=== PATIENT | female | born 1950 | race Caucasian/White ===

== ENCOUNTER → 2016-04-06 | Outpatient (CLI) | payer MEDICARE, OTHER ==
[~2016-04-06] MED LIST: ACHD5005 PO; ASCO-262 PO; ATEN50TA; B12; BETA CAROTENE PO; BUDE6HFA IH; CHOL400C8 PO; E400C PO; ERGO400C; ESCT10T PO; FENO145T2 PO; GBPN400C PO; GLUC1CAP37 PO; HYDR-2997; HYDR50TA3 PO; LISI1TAB10 PO; MNTL10T PO; MULT-608 PO; NF-ESOM40C PO; OMG1KC; POME250C2 PO; POTA99TA25 PO; RT-ALBUTEROL SULF 2.5 MG/3 ML PRE-MIX VIAL INH ONE; RT-ALBUTEROL SULF 2.5 MG/3 ML PRE-MIX VIAL ONE; RT-COMBINH; TRAM50TA2 PO; [UNRECOGNIZED DRUG - CODE]
== END ==
LOC: RT 15:10
PROVIDERS: ATTEND Internal Medicine Critical Care Medicine
DX: R06.00 Dyspnea, unspecified (principal)
CPT/HCPCS: 94060; 94640; 94726; 94729

== ENCOUNTER 2016-04-26 10:00 | Outpatient (RCR) | payer MEDICARE, OTHER ==
[~2016-04-26 10:00] MED LIST changes: -RT-ALBUTEROL SULF 2.5 MG/3 ML PRE-MIX VIAL INH ONE; -RT-ALBUTEROL SULF 2.5 MG/3 ML PRE-MIX VIAL ONE
== END 2016-05-01 | disposition home or self-care (01) ==
LOC: PULM 10:00
PROVIDERS: ATTEND Internal Medicine
DX: J45.902 Unspecified asthma with status asthmaticus (principal)
CPT/HCPCS: 99211

== ENCOUNTER 2016-05-19 10:00 | Outpatient (RCR) | payer MEDICARE, OTHER | END 2016-08-03 | disposition home or self-care (01) | LOC: PULM 10:00 | PROVIDERS: ATTEND Internal Medicine | DX: J45.902 Unspecified asthma with status asthmaticus (principal) ==

== ENCOUNTER 2016-06-28 10:28 | Outpatient (RCR) | payer MEDICARE, OTHER | END 2016-07-13 13:19 | disposition home or self-care (01) | PROVIDERS: ATTEND Orthopaedic Surgery | DX: M19.011 Primary osteoarthritis, right shoulder (principal) ==

== ENCOUNTER → 2016-10-25 | Outpatient (CLI) | payer MEDICARE, OTHER ==
--- NOTE | 2016-10-25 16:36 | Diagnostic Imaging Report ---
PROCEDURE: MRI right joint lower extremity without contrast. TECHNIQUE: Multiplanar, multisequence non contrast-enhanced MRI of the right lower extremity was accomplished. INDICATION: Knee pain. Patient states swelling and popping after physical therapy. Pain is more lateral. FINDINGS: There is a small joint effusion present. The cruciate ligaments are intact. The medial collateral ligament and lateral collateral ligament complex are intact. The menisci show no definite tears. There is slight increased signal noted within the posterior horn medial consistent with mucoid degenerative change. There is normal appearing articular cartilage along the femoral condyles and tibial plateau as well as along the patellofemoral joint. No subcortical cystic changes are seen. No significant osteophyte formation noted. There are no loose bodies. The surrounding soft tissues appear normal. There is no popliteal cyst. IMPRESSION: 1. Small joint effusion is present. 2. Degenerative changes noted involving the medial meniscus though no definite full-thickness tear demonstrated. 3. No evidence of chondral defects or loose bodies. Dictated by: Dictated on workstation # [id number]
== END ==
LOC: RAD 13:36
PROVIDERS: ATTEND Orthopaedic Surgery
DX: M25.461 Effusion, right knee (principal); M17.11 Unilateral primary osteoarthritis, right knee
CPT/HCPCS: 73721

== ENCOUNTER 2016-12-20 10:08 | Outpatient (RCR) | payer MEDICARE, OTHER | END 2016-12-31 | disposition home or self-care (01) | PROVIDERS: ATTEND Orthopaedic Surgery | DX: M25.561 Pain in right knee (principal); M54.5 Low back pain ==

== ENCOUNTER → 2017-01-03 | Outpatient (CLI) | payer MEDICARE, OTHER | LOC: RAD 09:11 | PROVIDERS: ATTEND Internal Medicine | DX: Z12.31 Encounter for screening mammogram for malignant neoplasm of breast (principal) | CPT/HCPCS: 77067 ==

== ENCOUNTER → 2017-01-06 | Outpatient (CLI) | payer MEDICARE, OTHER ==
--- NOTE | 2017-01-06 19:23 | Diagnostic Imaging Report ---
PA and lateral views of the chest. INDICATION: Cough. FINDINGS: The lungs appear clear. The heart size is slightly enlarged. No effusion or pneumothorax. The mediastinum and cyril appear unremarkable. Cervical spine fusion hardware is noted. IMPRESSION: Mild cardiomegaly. Dictated by: Dictated on workstation # [id number]
== END ==
LOC: RAD 09:44
PROVIDERS: ATTEND Internal Medicine
DX: R05 Cough (principal)
CPT/HCPCS: 71020

== ENCOUNTER → 2017-01-10 | Outpatient (CLI) | payer MEDICARE, OTHER ==
--- NOTE | 2017-01-10 11:03 | Diagnostic Imaging Report ---
PROCEDURE: MRI right joint upper extremity without contrast. Technique: Multiplanar, multisequence MR imaging of the right shoulder was performed without contrast. Comparison: None available. Indication: Right shoulder pain. Findings: Rotator cuff: Supraspinatus and infraspinatus tendinopathy is present. There is low-grade partial-thickness interstitial tearing of the posterior insertional fibers of the supraspinatus. Mild tendinopathy of the subscapularis is also present. The teres minor is normal. Mild fatty atrophy of the supraspinatus. Other rotator cuff musculature is normal in bulk. Glenoid labrum: There is degenerative tearing of the labrum, which is most advanced along the posterior labrum at the chondral labral junction. No paralabral cyst. Long head of biceps: Long head of biceps is normally positioned within the bicipital groove. The intracapsular segment is intact. Bones and cartilage: No fracture or concerning focal osseous lesion. Multifocal full-thickness chondromalacia throughout the glenohumeral joint with associated osseous remodeling of the inferior humeral head with marginal osteophytes. Mild degenerative hypertrophic changes of the acromioclavicular joint. Soft tissues: Small glenohumeral joint effusion with synovitis. No MRI findings to suggest adhesive capsulitis. No fluid or inflammatory like signal within the subacromial/subdeltoid space to indicate bursitis. IMPRESSION: 1. Supraspinatus tendinopathy with superimposed low-grade partial-thickness interstitial tear. 2. Moderate osteoarthritis of the glenohumeral joint with multifocal full-thickness chondromalacia as well as a marginal osteophytes of the inferior humeral head. 3. Degenerative tearing of the glenoid labrum is greatest posteriorly. Dictated by: Dictated on workstation # [id number]
== END ==
LOC: RAD 09:32
PROVIDERS: ATTEND Orthopaedic Surgery
DX: M75.91 Shoulder lesion, unspecified, right shoulder (principal); M19.011 Primary osteoarthritis, right shoulder; M94.211 Chondromalacia, right shoulder; S46.811A Strain of other muscles, fascia and tendons at shoulder and upper arm level, right arm, initial encounter; S43.431A Superior glenoid labrum lesion of right shoulder, initial encounter; X58.XXXA Exposure to other specified factors, initial encounter; Y99.8 Other external cause status
CPT/HCPCS: 73221

== ENCOUNTER → 2017-01-26 | Outpatient (CLI) | payer MEDICARE, OTHER | LOC: CARD 09:08 | PROVIDERS: ATTEND Internal Medicine | DX: I51.7 Cardiomegaly (principal) | CPT/HCPCS: 93306 ==

== ENCOUNTER → 2017-03-13 | Outpatient (CLI) | payer MEDICARE, OTHER ==
--- NOTE | 2017-03-13 17:02 | Diagnostic Imaging Report ---
INDICATION: COUGH COMPARISON: 01/06/2017. FINDINGS: Frontal and lateral views of the chest demonstrate normal heart size and pulmonary vascularity. The lungs are clear. There are no signs of infiltrate, pleural effusions or pneumothoraces. The visualized osseous structures show no acute abnormalities. IMPRESSION: 1. No acute process. No signs of infiltrates, effusions or pneumothoraces. Dictated by: Dictated on workstation # [id number]
== END ==
LOC: RAD 16:04
PROVIDERS: ATTEND Internal Medicine
DX: R05 Cough (principal)
CPT/HCPCS: 71020

== ENCOUNTER 2017-04-23 13:23 | Emergency (ER) | payer MEDICARE, OTHER ==
[~2017-04-23] VITALS: Ht 154.9 cm; Wt 75.8 kg
--- OUTSIDE RECORDS SUMMARY | 2017-04-23 13:32 | XMS REPORT | Clinical Summary ---
Author Author User, [employer] Maribel Hernandez DO, FACP Address Unknown Phone Allergies, Adverse Reactions, Alerts Allergy Name Reaction Description Start Date Severity Status Provider ANECTINE Chest discomfort Severe Active Maribel Hernandez Conditions or Problems Problem Name Problem Code Onset Date Status Entry Date Provider Comment Standard Description Annotate ANEMIA NOS 285.9 Active Maribel Hernandez Anemia, unspecified POLYARTHRALGIA 719.49 Active Maribel Hernandez Pain in joint involving multiple sites HYPERTENSION 401.1 Active Maribel Hernandez Benign essential hypertension HYPOKALEMIA, MILD 276.8 Active Maribel Hernandez Hypopotassemia HEALTH SCREENING V70.0 Resolved Maribel Hernandez Routine general medical examination at a health care facility HYPERHIDROSIS 780.8 Active Maribel Hernandez Generalized hyperhidrosis ELBOW PAIN 719.42 Active Maribel Hernandez Pain in joint involving upper arm ABDOMINAL PAIN, RIGHT UPPER QUADRANT 789.01 Active Maribel Hernandez Abdominal pain, right upper quadrant PAIN IN THORACIC SPINE 724.1 Active Maribel Hernandez Pain in thoracic spine TORTICOLLIS 723.5 Active Maribel Hernandez Torticollis, unspecified Medication List Medication Instructions Start Date Stop Date Generic Name NDC Status Provider Patient Instruction VALIUM 2 MG TAB 1 PO TID prn DIAZEPAM 21280726356 Active Maribel April Hernandez AMITRIPTYLINE HCL 10 MG TABS 1 PO QHS AMITRIPTYLINE HCL 47646823945 No Longer Active Maribel April Mary MECLIZINE HCL 25 MG TAB 1 PO TID prn dizziness MECLIZINE HCL 76871669480 No Longer Active Maribel April Hernandez AMBIEN 5 MG TAB 1 PO QHS ZOLPIDEM TARTRATE 39422156512 Active Maribel April Hernandez PREMPRO 0.3-1.5 MG TABS 1 PO daily CONJ ESTROG- MEDROXYPROGEST AFSANEH 00508137191 No Longer Active Maribel April Hernandez POTASSIUM CHLORIDE ER 20 MEQ CR-TABS 1 PO daily POTASSIUM CHLORIDE 59034633209 Active Liliana Freitas OMEPRAZOLE 40 MG CPDR 1 PO BID OMEPRAZOLE 99642774939 Active Liliana Freitas ADVAIR DISKUS 250-50 MCG/DOSE MISC 1 Puff BID FLUTICASONE- SALMETEROL 75046699503 Active Liliana Freitas POMEGRANATE 250 MG CAPS 500mg po daily POMEGRANATE (PUNICA GRANATUM) 03825412467 Active Maribel April Hernandez VITAMIN B-12 1000 MCG TABS 2 PO daily CYANOCOBALAMIN 87238082569 Active Maribel April Hernandez CALTRATE 600 PLUS-VIT D 600-200 MG-IU TABS 1 PO BID CALCIUM-VITAMIN D Active Maribel April Hernandez GNP POTASSIUM 99 MG TABS 1 po daily POTASSIUM 35825512721 No Longer Active Maribel April Hernandez [facility] GLUCOSAMINE COMPLEX 200-300 MG TABS 1 PO daily GLUCOSAMINE HCL- GLUCOSAMIN SO4 06488634956 Active Maribel April Hernandez MULTIVITAMINS TABS 1 PO QD MULTIPLE VITAMIN Active Maribel April Hernandez TRICOR 145 MG TABS 1 PO daily FENOFIBRATE 84742425356 Active Liliana Freitas HYDROCHLOROTHIAZIDE 50 MG TABS 1 PO QD HYDROCHLOROTHIAZIDE 27832453419 Active Liliana Freitas GABAPENTIN 400 MG CAPS 1 PO QID GABAPENTIN 62133779645 Active Liliana Freitas ALPRAZOLAM 0.5 MG TABS 1 PO QHS ALPRAZOLAM 39086618519 Active Maribel Hernandez TRAMADOL HCL 50 MG TABS 1-2 PO q 6-8 hours PRN TRAMADOL HCL 42161031146 Active Maribel Hernandez LEXAPRO 10 MG TABS 1 PO QD ESCITALOPRAM OXALATE 57466330841 Active Liliana [place] NEXIUM 40 MG CPDR 1 PO QD ESOMEPRAZOLE MAGNESIUM 53621995799 No Longer Active Maribel Hernandez LISINOPRIL-HYDROCHLOROTHIAZIDE 20-25 MG TABS 1 PO QD LISINOPRIL-HYDROCHLOROTHIAZIDE 11735674860 Active Liliana Freitas Immunizations Vaccine Administration Date Value Standard Description Influenza vaccine given done influenza virus vaccine, unspecified formulation pneumococcal immunization administered done pneumococcal polysaccharide vaccine, 23 valent Vital Signs Date Name Value Unit Range Description blood pressure, diastolic - 8462-4 78 mm[Hg] BP sr blood pressure, systolic - 8480-6 140 mm[Hg] BP sys pulse rate E&M - 8867-4 90 /min Heart rate respiratory rate E&M - 9279-1 14 /min Resp rate blood pressure, diastolic - 8462-4 76 mm[Hg] BP sr blood pressure, systolic - 8480-6 136 mm[Hg] BP sys pulse rate E&M - 8867-4 78 /min Heart rate respiratory rate E&M - 9279-1 14 /min Resp rate weight E&M - 3141-9 165 [lb_av] Weight Measured blood pressure, diastolic - 8462-4 88 mm[Hg] BP sr blood pressure, systolic - 8480-6 136 mm[Hg] BP sys pulse rate E&M - 8867-4 82 /min Heart rate respiratory rate E&M - 9279-1 14 /min Resp rate weight E&M - 3141-9 162 [lb_av] Weight Measured blood pressure, diastolic - 8462-4 78 mm[Hg] BP sr blood pressure, systolic - 8480-6 118 mm[Hg] BP sys pulse rate E&M - 8867-4 78 /min Heart rate respiratory rate E&M - 9279-1 14 /min Resp rate weight E&M - 3141-9 162 [lb_av] Weight Measured blood pressure, diastolic - 8462-4 64 mm[Hg] BP sr blood pressure, systolic - 8480-6 120 mm[Hg] BP sys pulse rate E&M - 8867-4 84 /min Heart rate respiratory rate E&M - 9279-1 14 /min Resp rate blood pressure, diastolic - 8462-4 62 mm[Hg] BP sr blood pressure, systolic - 8480-6 140 mm[Hg] BP sys pulse rate E&M - 8867-4 84 /min Heart rate respiratory rate E&M - 9279-1 14 /min Resp rate weight E&M - 3141-9 161 [lb_av] Weight Measured blood pressure, diastolic - 8462-4 72 mm[Hg] BP sr blood pressure, systolic - 8480-6 135 mm[Hg] BP sys pulse rate E&M - 8867-4 94 /min Heart rate respiratory rate E&M - 9279-1 14 /min Resp rate temperature E&M 98.6 [degF] Body temperature weight E&M - 3141-9 161 [lb_av] Weight Measured Diagnostic Results Date Name Value Unit Range Description Clinical Lists Update: CBC,CMP,CHOL,TRIG,FERRITIN - Chemistry cholesterol, serum 105 mg/dL bilirubin, serum, total 0.4 mg/dL triglyceride, serum, fasting 187 mg/dL sodium, serum 134 mmol/L anion gap, serum 9 glucose, plasma fasting 83 mg/dL aspartate aminotransferase (SGOT), serum 40 U/L Estimated Glomerular Filtration Rate (calc) 89 mL/min/1.73m2 albumin, serum 4.2 g/dL alkaline phosphatase, serum 54 U/L urea nitrogen, blood 10 mg/dL calcium, serum 9.4 mg/dL chloride, serum 96 mmol/L alanine aminotransferase (SGPT), serum 38 U/L carbon dioxide, venous blood 33.0 mmol/L creatinine, serum 0.7 mg/dL ferritin, serum 32.6 ng/mL potassium, serum 3.7 mmol/L protein, total, serum 6.5 g/dL Clinical Lists Update: CBC,CMP,CHOL,TRIG,FERRITIN - Hematology hematocrit, blood 42.6 % red blood cell distribution width 13.8 % mean corpuscular volume, RBC 94 fL leukocyte count, blood 4.9 10*3/mm3 erythrocyte (RBC) count 4.53 10*6/mm3 platelet count 332 10*3/mm3 hemoglobin, blood 13.3 g/dL Clinical Lists Update: CBC,CMP,FLP - Chemistry albumin, serum 4.1 g/dL alkaline phosphatase, serum 77 U/L urea nitrogen, blood 6 mg/dL calcium, serum 9.4 mg/dL chloride, serum 98 mmol/L cholesterol, serum 114 mg/dL carbon dioxide, venous blood 29.0 mmol/L creatinine, serum 0.6 mg/dL HDL cholesterol, serum 68.0 mg/dL LDL cholesterol, serum 10 mg/dL potassium, serum 3.2 mmol/L protein, total, serum 6.6 g/dL aspartate aminotransferase (SGOT), serum 37 U/L bilirubin, serum, total 0.9 mg/dL triglyceride, serum, fasting 181 mg/dL sodium, serum 138 mmol/L anion gap, serum 14 cholesterol/HDL ratio, serum, percent 1.7 glucose, plasma fasting 92 mg/dL Estimated Glomerular Filtration Rate (calc) 101 mL/min/1.73m2 alanine aminotransferase (SGPT), serum 36 U/L Clinical Lists Update: CBC,CMP,FLP - Hematology red blood cell distribution width 12.3 % mean corpuscular volume, RBC 101 fL leukocyte count, blood 7.4 10*3/mm3 erythrocyte (RBC) count 4.78 10*6/mm3 platelet count 338 10*3/mm3 hemoglobin, blood 15.0 g/dL hematocrit, blood 48 % Encounters Code Encounter Date Provider Facility CPT-46650 Ofc Vst, Est Level III 14:28:58 CDT Maribelsantos Hernandez DO, FACP CPT-22649 Ofc Vst, Est Level III 12:43:24 CDT Maribel Hernandez DO, FACP CPT-10758 Ofc Vst, Est Level III 17:16:56 CDT Maribel Hernandez DO, FACP CPT-23134 Ofc Vst, Est Level III 12:35:54 CDT Maribelsantos Hernandez DO, FACP CPT-51518 Ofc Vst, Est Level IV 21:22:47 [employer] [employer] Maribel Hernandez DO, OLVIN CPT-07588 Ofc Vst, Est Level IV 15:53:33 [employer] Maribel Hernandez DO, FACP CPT-12319 Ofc Vst, New Level IV 15:50:27 CDT Maribel Hernandez DO, FACMarry Procedures Code Procedure Name Date Entry Date Standard Description CPT-93806 Preventive, Est, (40-64) 20:36:27 CDT
--- NOTE | 2017-04-23 13:35 | ED General ---
General Stated Complaint: DIZZINESS/DISORIENTED Source of Information: Patient Exam Limitations: No Limitations History of Present Illness Date Seen by Provider: Apr 23, 2017 Time Seen by Provider: 13:33 Initial Comments To ER per EMS from home with reports of dizziness and disorientation. Patient has a history of dizziness for many months. Last night she became so dizzy that she fell and she did strike her head. Today she noticed herself to be confused and summoned 911. EMS noted wheezing right upper lobe which cleared with a DuoNeb treatment in route to the hospital. She sees pulmonology Dr. Lyons for COPD and states that he wants to do a CAT scan of her chest but has not done it yet. Blood pressure not hospital was 84/56. She is afebrile Timing/Duration: 1-2 Days Severity: Moderate Associated Systoms: Cough Allergies and Home Medications Allergies Uncoded Allergies: ANECTINE/sUX (Allergy, Mild, 02/19/09) Home Medications Ascorbate Calcium 500 Mg Tablet, 500 MG PO DAILY, (Reported) Budesonide/Formoterol Fumarate 10.2 Gm Hfa.aer.ad, 2 PUFF IH BID, (Reported) Cefdinir 300 Mg Capsule, 300 MG PO BID, #10 Prescribed by: DORA CARDONA on 04/23/17 1530 Cholecalciferol (Vitamin D3) 400 Unit Capsule, 400 UNIT PO DAILY, (Reported) Escitalopram Oxalate 10 Mg Tablet, 10 MG PO DAILY, (Reported) Esomeprazole Mag Trihydrate 40 Mg Capsule.dr, 40 MG PO DAILY, (Reported) Fenofibrate,Micronized 145 Mg Tablet, 145 MG PO DAILY, (Reported) Gabapentin 400 Mg Cap, 400 MG PO QID PRN for PAIN, (Reported) NEEDED FOR PAIN Glucosa Prince 2KCL/Chondroitin Prince 1 Each Capsule, 1 TAB PO DAILY, (Reported) Hctz/Lisinopril 1 Tab Tablet, 1 TAB PO DAILY, (Reported) Hydrochlorothiazide 50 Mg Tablet, 50 MG PO DAILY, (Reported) Hydrocodone Bit/Acetaminophen 1 Each Tablet, 1-2 EACH PO Q4H PRN for PAIN, #30 Ref 1 1-2 tabs every 4-6 hrs. as needed for pain Prescribed by: RUBY GREWAL on 04/10/13 0230 Montelukast Sodium 10 Mg Tab, 10 MG PO HS, (Reported) Multivitamins 1 Tab Tablet, 1 TAB PO DAILY, (Reported) Pomegranate Fruit Extract 250 Mg Capsule, 250 MG PO DAILY, (Reported) Potassium Gluconate 99 Mg Tablet, 99 MG PO DAILY, (Reported) Tramadol Hcl 50 Mg Tablet, 50-100 MG PO Q4H PRN for PAIN, (Reported) EVERY 4-6 HRS. NEEDED FOR PAIN Vitamin E Acetate 400 Unit Capsule, 400 UNIT PO DAILY, (Reported) [Beta Carotene] , 25,000 UNIT PO DAILY Prescribed by: RUBY GREWAL on 04/09/13 0221 Constitutional: see HPI EENTM: see HPI Respiratory: see HPI, cough, short of breath Genitourinary: no symptoms reported Musculoskeletal: no symptoms reported Skin: no symptoms reported Psychiatric/Neurological: No Symptoms Reported Past Subufot-Vinzof-Ddrkhc Hx Immunizations Up To Date Tetanus Booster (TDap): More than 5yrs Date of Pneumonia Vaccine: Feb 16, 2012 Date of Influenza Vaccine: Jan 01, 2013 Reproductive System Hx Reproductive Disorders: No Sexually Transmitted Disease: No HIV/AIDS: No Gastrointestinal Gastrointestinal Disorders: Gall Bladder Disease Musculoskeletal Musculoskeletal Disorders: Fractures HEENT Loss of Vision: Denies Blood Transfusions Adverse Reaction to a Blood Tr: No (NEVER HAD BLOOD TRANSFUSION) Family Medical History Significant Family History: No Pertinent Family Hx Family Medial History: Family history: Hypertension 03 FATHER, Onset:Unknown Myocardial infarction 03 FATHER, Onset:60 years & older Stroke 03 MOTHER, Onset:Unknown Physical Exam Vital Signs Vital Sign - Last 12Hours 04/23/17 13:40 Temp 97.0 Pulse 74 Resp 20 B/P (MAP) 101/65 (77) Pulse Ox 97 O2 Delivery Room Air Capillary Refill : General Appearance: No Apparent Distress, WD/WN Eyes: Bilateral Eye Normal Inspection, Bilateral Eye PERRL, Bilateral Eye EOMI HEENT: PERRL/EOMI, TMs Normal Neck: Full Range of Motion, Normal Inspection Respiratory: Normal Breath Sounds, No Accessory Muscle Use, No Respiratory Distress Gastrointestinal: Normal Bowel Sounds, Soft Extremity: Normal Capillary Refill, Normal Inspection Neurologic/Psychiatric: Alert, Oriented x3, No Motor/Sensory Deficits, Other ( she is not confused or disoriented at this time) Skin: Normal Color, Warm/Dry Progress/Results/Core Measures Suspected Sepsis SIRS Temperature: Pulse: Respiratory Rate: Laboratory Tests 04/23/17 13:30: White Blood Count 12.1H Blood Pressure / Mean: Laboratory Tests 04/23/17 13:30: Creatinine 0.88, Platelet Count 275, Total Bilirubin 1.1H Results/Orders Lab Results Laboratory Tests Test 04/23/17 13:30 04/23/17 15:00 Range/Units White Blood Count 12.1 H 4.3-11.0 10^3/uL Red Blood Count 4.24 L 4.35-5.85 10^6/uL Hemoglobin 13.7 11.5-16.0 G/DL Hematocrit 39 35-52 % Mean Corpuscular Volume 93 80-99 FL Mean Corpuscular Hemoglobin 32 25-34 PG Mean Corpuscular Hemoglobin Concent 35 32-36 G/DL Red Cell Distribution Width 12.6 10.0-14.5 % Platelet Count 275 130-400 10^3/uL Mean Platelet Volume 8.7 7.4-10.4 FL Neutrophils (%) (Auto) 80 H 42-75 % Lymphocytes (%) (Auto) 7 L 12-44 % Monocytes (%) (Auto) 13 H 0-12 % Eosinophils (%) (Auto) 0 0-10 % Basophils (%) (Auto) 0 0-10 % Neutrophils # (Auto) 9.7 H 1.8-7.8 X 10^3 Lymphocytes # (Auto) 0.8 L 1.0-4.0 X 10^3 Monocytes # (Auto) 1.6 H 0.0-1.0 X 10^3 Eosinophils # (Auto) 0.0 0.0-0.3 10^3/uL Basophils # (Auto) 0.0 0.0-0.1 10^3/uL Neutrophils % (Manual) 82 % Lymphocytes % (Manual) 8 % Monocytes % (Manual) 10 % Eosinophils % (Manual) 0 % Basophils % (Manual) 0 % Band Neutrophils 0 % Blood Morphology Comment NORMAL Sodium Level 135 135-145 MMOL/L Potassium Level 3.0 L 3.6-5.0 MMOL/L Chloride Level 94 L 98-107 MMOL/L Carbon Dioxide Level 28 21-32 MMOL/L Anion Gap 13 5-14 MMOL/L Blood Urea Nitrogen 12 7-18 MG/DL Creatinine 0.88 0.60-1.30 MG/DL Estimat Glomerular Filtration Rate > 60 BUN/Creatinine Ratio 14 Glucose Level 120 H 70-105 MG/DL Calcium Level 8.4 L 8.5-10.1 MG/DL Total Bilirubin 1.1 H 0.1-1.0 MG/DL Aspartate Amino Transf (AST/SGOT) 93 H 5-34 U/L Alanine Aminotransferase (ALT/SGPT) 36 0-55 U/L Alkaline Phosphatase 66 40-136 U/L Total Protein 5.9 L 6.4-8.2 GM/DL Albumin 3.2 3.2-4.5 GM/DL Urine Color YELLOW Urine Clarity VERY CLOUDY H Urine pH 6.5 5-9 Urine Specific [place] 1.005 L 1.016-1.022 Urine Protein 2+ H NEGATIVE Urine Glucose (UA) NEGATIVE NEGATIVE Urine Ketones NEGATIVE NEGATIVE Urine Nitrite NEGATIVE NEGATIVE Urine Bilirubin NEGATIVE NEGATIVE Urine Urobilinogen NORMAL NORMAL MG/DL Urine Leukocyte Esterase 3+ H NEGATIVE Urine RBC (Auto) 3+ H NEGATIVE Urine RBC 2-5 H /HPF Urine WBC TNTC H /HPF Urine Squamous Epithelial Cells 5-10 /HPF Urine Crystals NONE /LPF Urine Bacteria MODERATE H /HPF Urine Casts NONE /LPF Urine Mucus NEGATIVE /LPF Urine Culture Indicated YES Micro Results Microbiology 04/23/17 Influenza Types A,B Antigen ([facility]) - Final, Complete My Orders Orders - DORA CARDONA [employer]LIND[employer]PERATOR 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 Cbc With Automated Diff (04/23/17 13:32) Comprehensive Metabolic Panel (04/23/17 13:32) Chest Pa/Lat (2 View) (04/23/17 13:32) Ekg Tracing (04/23/17 13:32) Saline Lock/Iv-Start (04/23/17 13:32) Ct Head Wo (04/23/17 13:32) Ua Culture If Indicated (04/23/17 13:32) Ct Chest W (04/23/17 13:32) Influenza A And B Antigens (04/23/17 13:35) Iohexol Injection (Omnipaque 350 Mg/Ml 1 (04/23/17 13:45) Ns (Ivpb) (Sodium Chloride 0.9% Ivpb Bag (04/23/17 13:45) Manual Differential (04/23/17 13:30) Albuterol/Ipra Inhalation Soln (Duoneb I (04/23/17 14:15) Svn Sm Volume Nebulizer Rt-Rfs (04/23/17 14:15) Urine Culture (04/23/17 15:00) Ceftriaxone Injection (Rocephin Injectio (04/23/17 15:30) Medications Given in ED Current Medications Medications Dose Ordered Sig/Doug Route Start Time Stop Time Status Last Admin Dose Admin Albuterol/ Ipratropium 3 ml ONCE ONCE INH 04/23/17 14:15 04/23/17 14:16 DC 04/23/17 15:22 3 ML Iohexol 75 ml ONCE ONCE IV 04/23/17 13:45 04/23/17 13:46 DC 04/23/17 14:00 75 ML Sodium Chloride 100 ml ONCE ONCE IV 04/23/17 13:45 04/23/17 13:46 DC 04/23/17 14:00 100 ML Vital Signs/I&O Vital Sign - Last 12Hours 04/23/17 04/23/17 13:40 15:23 Temp 97.0 Pulse 74 Resp 20 B/P (MAP) 101/65 (77) Pulse Ox 97 92 O2 Delivery Room Air Room Air Capillary Refill : Departure Communication (Admissions) Progress Notes 1540-blood pressure 137/79, heart rate 79, oxygen saturation 91-93% on room air. I will give 1 g of Rocephin IV then discharge to home she is still not confused, Impression Impression: Primary Impression: Urinary tract infection Disposition: 01 HOME, SELF-CARE Condition: Stable Departure-Patient Inst. Decision time for Depature: 15:29 Referrals: SUSI RENTERIA DO (PCP) Primary Care Physician Patient Instructions: Urinary Tract Infection, Adult (DC) Add. Discharge Instructions: 1. Antibiotics as directed starting tomorrow 2. Follow-up with Dr. Mcnamara this week for recheck 3. Return to ER for any fevers, worsening symptoms or other concerns. Scripts Cefdinir (Cefdinir) 300 Mg Capsule 300 MG PO BID, #10 CAP Prov: DORA CARDONA APRN 04/23/17 Copy Copies To 1: MIMI MCNAMARA PETER J APRN Apr 23, 2017 13:35
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
[2017-04-23] MEDS ORDERED: NS 100 ML (IVPB) BAG IV ONE (13:45)
[2017-04-23] MEDS ORDERED: IOHEXOL 350 MG/ML 100 ML (OMNIPAQUE 350) VIAL IV ONE (13:45)
[2017-04-23 13:49] LABS: BASOPHILS % (AUTO) 0 % (0-10); EOSINOPHILS % (AUTO) 0 % (0-10); HEMATOCRIT 39 % (35-52); HEMOGLOBIN 13.7 G/DL (11.5-16.0); LYMPHOCYTES # (AUTO) 0.8 X 10^3 (1.0-4.0); LYMPHOCYTES % (AUTO) 7 % (12-44); MEAN CORPUSCULAR HEMOGLOBIN 32 PG (25-34); MEAN CORPUSCULAR HGB CONC 35 G/DL (32-36); MEAN CORPUSCULAR VOLUME 93 FL (80-99); MEAN PLATELET VOLUME 8.7 FL (7.4-10.4); MONOCYTES # (AUTO) 1.6 X 10^3 (0.0-1.0); MONOCYTES % (AUTO) 13 % (0-12); NEUTROPHILS # (AUTO) 9.7 X 10^3 (1.8-7.8); NEUTROPHILS % (AUTO) 80 % (42-75); PLATELET COUNT 275 10^3/uL (130-400); RED BLOOD COUNT 4.24 10^6/uL (4.35-5.85); RED CELL DISTRIBUTION WIDTH 12.6 % (10.0-14.5); WHITE BLOOD COUNT 12.1 10^3/uL (4.3-11.0)
--- NOTE | 2017-04-23 13:57 | Diagnostic Imaging Report ---
INDICATION: Chronic cough and confusion. COMPARISON: Comparison made with prior examination from 03/13/2017. FINDINGS: There is cardiomegaly. There is some bibasilar subsegmental atelectasis and/or pneumonitis. There is no pleural effusion or pneumothorax. Mediastinum is unremarkable. IMPRESSION: Cardiomegaly with some bibasilar subsegmental atelectasis and/or pneumonitis. Dictated by: Dictated on workstation # [id number]
--- NOTE | 2017-04-23 14:07 | Diagnostic Imaging Report ---
PROCEDURE: CT head without contrast. TECHNIQUE: Multiple contiguous axial images were obtained through the brain without the use of intravenous contrast. INDICATION: Fall with dizziness. FINDINGS: There is prominence of the ventricles and sulci. There is no hydrocephalus or cerebral edema. There is no midline shift or mass-effect. There is no intracranial mass, hemorrhage, or extra-axial fluid collection. There is some diffuse decreased attenuation of the periventricular white matter which is nonspecific. The visualized paranasal sinuses and mastoid air cells are clear. There are no regional areas of decreased attenuation appreciated to suggest an acute CVA. IMPRESSION: 1. No acute intracranial process. 2. Age-appropriate atrophy. 3. Decreased attenuation of the periventricular white matter which is nonspecific, however, likely reflects senescent change and/or chronic small vessel ischemic disease. Dictated by: Dictated on workstation # [id number]
[2017-04-23 14:08] LABS: ALANINE AMINOTRANSFERASE 36 U/L (0-55); ALBUMIN 3.2 GM/DL (3.2-4.5); ALKALINE PHOSPHATASE 66 U/L (40-136); BILIRUBIN,TOTAL 1.1 MG/DL (0.1-1.0); BUN/CREATININE RATIO 14; CALCIUM 8.4 MG/DL (8.5-10.1); CARBON DIOXIDE 28 MMOL/L (21-32); CHLORIDE 94 MMOL/L (98-107); CREATININE SERUM 0.88 MG/DL (0.60-1.30); GFR ESTIMATED > 60; GLUCOSE 120 MG/DL (70-105); SODIUM 135 MMOL/L (135-145); TOTAL PROTEIN 5.9 GM/DL (6.4-8.2)
[2017-04-23] MEDS ORDERED: RT-ALBUTEROL/IPRATROPIUM 3 ML (DUONEB) VIAL INH ONE (14:15)
--- NOTE | 2017-04-23 14:22 | Diagnostic Imaging Report ---
PROCEDURE: CT chest with contrast only. TECHNIQUE: Multiple contiguous axial images were obtained through the chest after administration of intravenous contrast. INDICATION: Fell last night landed on the right lateral chest. Chest wall pain. FINDINGS: No evidence of rib fractures. There is good opacification of the aorta and pulmonary arteries. Aorta is atherosclerotic without aneurysm. Pulmonary arteries appear normal. Lungs are free of infiltrate. No mediastinal or hilar adenopathy of pathologic size. No pleural effusions or pericardial effusion. The adrenal glands are not enlarged. The small soft tissue density adjacent to the right lobe of the liver posteriorly just below the diaphragm is unchanged since 2014 exam and is consistent with ectopic or exophytic liver. There is noted hepatic steatosis IMPRESSION: 1. No acute findings are demonstrated. No evidence of rib fractures. No pneumothorax or pleural effusion. 2. Atherosclerotic changes of the aorta. 3. Hepatic steatosis. Dictated by: Dictated on workstation # [id number]
[2017-04-23 14:27] LABS: BAND NEUTROPHILS 0 %; BASOPHILS % (MANUAL) 0 %; EOSINOPHILS % (MANUAL) 0 %; LYMPHOCYTES % (MANUAL) 8 %; MONOCYTES % (MANUAL) 10 %; NEUTROPHILS % (MANUAL) 82 %
[2017-04-23 14:28] LABS: RBC MORPH NORMAL
[2017-04-23 15:09] LABS: BILIRUBIN,URINE NEGATIVE (NEGATIVE); CLARITY,URINE VERY CLOUDY; COLOR,URINE YELLOW; GLUCOSE, URINE (UA) NEGATIVE (NEGATIVE); KETONES,URINE NEGATIVE (NEGATIVE); LEUKOCYTE ESTERASE ,URINE 3+ (NEGATIVE); NITRITE,URINE NEGATIVE (NEGATIVE); PH,URINE 6.5 (5-9); PROTEIN,URINE 2+ (NEGATIVE); UROBILINOGEN,URINE NORMAL (NORMAL)
[2017-04-23 15:26] LABS: BACTERIA,URINE MODERATE /HPF; WBC,URINE TNTC /HPF
[2017-04-23] MEDS ORDERED: cefTRIAXone INJECTION 1,000 MG in D5W 50 ML IVPB SOLUTION 50 ML IV ONE (15:30)
[2017-04-23] MEDS ORDERED: CEFD300C3 PO (15:30)
[2017-04-23 16:37] VITALS: BP 141/70
[2017-04-24] MEDS ORDERED: LISI1TAB10 PO (08:38)
[2017-04-24] MEDS ORDERED: TIOT4MIS2 INH (08:38)
[2017-04-24] MEDS ORDERED: ALBU18HF2 INH (08:38)
[2017-04-24] MEDS ORDERED: FLUT1DIS26 INH (08:38)
[2017-04-24] MEDS ORDERED: ALPR0.5T7 PO ×2 (08:38→09:04)
[2017-04-24] MEDS ORDERED: TRAM50TA2 PO (08:38)
[2017-04-24] MEDS ORDERED: FENO145T2 PO (08:38)
[2017-04-24] MEDS ORDERED: POTA20TA8 PO (08:38)
[2017-04-24] MEDS ORDERED: ESCI10TA55 PO (08:38)
[2017-04-24] MEDS ORDERED: FLUT16SP22 NS (08:38)
[2017-04-24] MEDS ORDERED: MONT10TA24 PO (08:38)
[2017-04-24] MEDS ORDERED: CETI10TA17 PO (08:38)
[2017-04-24] MEDS ORDERED: HYDR25TA4 PO (08:38)
[2017-04-24] MEDS ORDERED: OMEP40CA36 PO (08:38)
[2017-04-24] MEDS ORDERED: POME250C2 PO (09:04)
[2017-04-24] MEDS ORDERED: [UNRECOGNIZED DRUG - CODE] PO (09:04)
[2017-04-24] MEDS ORDERED: CHOL400C9 PO (09:04)
[2017-04-24] MEDS ORDERED: GABA-490 PO (09:04)
[2017-04-24] MEDS ORDERED: MULT1TAB69 PO (09:04)
[2017-04-24] MEDS ORDERED: BETA2500 PO (09:04)
[2017-04-24] MEDS ORDERED: IBUP-30 PO (09:04)
[2017-04-24] MEDS ORDERED: ASCO-262 PO (09:04)
[2017-04-24] MEDS ORDERED: VITA400C60 PO (09:04)
[2017-04-24] MEDS ORDERED: ACET500C41 PO (09:07)
[2017-04-25] MEDS ORDERED: CEFD300C3 PO (11:47)
== END 2017-04-23 16:37 | disposition home or self-care (01) ==
LOC: EDUNIT# 13:23 → ER 13:25
DX: N39.0 Urinary tract infection, site not specified (principal); J44.9 Chronic obstructive pulmonary disease, unspecified; Z82.49 Family history of ischemic heart disease and other diseases of the circulatory system
CPT/HCPCS: 36415; 70450; 71046; 71260; 80053; 81000; 85007; 85027; 87077; 87088; 87186; 87804; 93005; 94640; 96365

== ENCOUNTER 2017-04-23 18:36 | Inpatient (IN) | payer MEDICARE, OTHER ==
[2017-04-23] VITALS (9 sets, daily range): BP systolic 102–123; BP diastolic 22–69
[~2017-04-23] VITALS: Ht 157.5 cm; Wt 74.8 kg
[~2017-04-23 18:36] MED LIST changes: +CEFD300C3 PO
[2017-04-23] MEDS ORDERED: IBUPROFEN 600 MG (MOTRIN) TAB PO ONE (18:45)
--- NOTE | 2017-04-23 18:45 | ED General ---
General Stated Complaint: AMS Source of Information: Patient Exam Limitations: No Limitations History of Present Illness Date Seen by Provider: Apr 23, 2017 Time Seen by Provider: 18:43 Initial Comments To ER with reports of being too weak to get out of the truck. Patient was seen here earlier today a few hours ago. The complaint that time was for disorientation which I did not find her to be on clinical exam. She did have a bladder infection with too numerous to count white cells in the urine. She was given 1 L of IV fluids, 1 g of Rocephin then discharged to home. Her white count was 12, vitals were stable with a blood pressure 137 over 70s, oxygen low 90% range on room air. At this time of arrival she returns with a heart rate of 105, blood pressure 157/82, oxygen saturation 85% on room air. Chest x-ray clear earlier today. Temperature 102 at this time. We will repeat labs per the sepsis protocol. states she needs to be admitted "for psych reasons". Timing/Duration: 1-2 Days Severity: Moderate Allergies and Home Medications Allergies Uncoded Allergies: ANECTINE/sUX (Allergy, Mild, 02/19/09) Home Medications Ascorbate Calcium 500 Mg Tablet, 500 MG PO DAILY, (Reported) Budesonide/Formoterol Fumarate 10.2 Gm Hfa.aer.ad, 2 PUFF IH BID, (Reported) Cefdinir 300 Mg Capsule, 300 MG PO BID, #10 Prescribed by: DORA CARDONA on 04/23/17 1530 Cholecalciferol (Vitamin D3) 400 Unit Capsule, 400 UNIT PO DAILY, (Reported) Escitalopram Oxalate 10 Mg Tablet, 10 MG PO DAILY, (Reported) Esomeprazole Mag Trihydrate 40 Mg Capsule.dr, 40 MG PO DAILY, (Reported) Fenofibrate,Micronized 145 Mg Tablet, 145 MG PO DAILY, (Reported) Gabapentin 400 Mg Cap, 400 MG PO QID PRN for PAIN, (Reported) NEEDED FOR PAIN Glucosa Prince 2KCL/Chondroitin Prince 1 Each Capsule, 1 TAB PO DAILY, (Reported) Hctz/Lisinopril 1 Tab Tablet, 1 TAB PO DAILY, (Reported) Hydrochlorothiazide 50 Mg Tablet, 50 MG PO DAILY, (Reported) Hydrocodone Bit/Acetaminophen 1 Each Tablet, 1-2 EACH PO Q4H PRN for PAIN, #30 Ref 1 1-2 tabs every 4-6 hrs. as needed for pain Prescribed by: RUBY GREWAL on 04/10/13 0230 Montelukast Sodium 10 Mg Tab, 10 MG PO HS, (Reported) Multivitamins 1 Tab Tablet, 1 TAB PO DAILY, (Reported) Pomegranate Fruit Extract 250 Mg Capsule, 250 MG PO DAILY, (Reported) Potassium Gluconate 99 Mg Tablet, 99 MG PO DAILY, (Reported) Tramadol Hcl 50 Mg Tablet, 50-100 MG PO Q4H PRN for PAIN, (Reported) EVERY 4-6 HRS. NEEDED FOR PAIN Vitamin E Acetate 400 Unit Capsule, 400 UNIT PO DAILY, (Reported) [Beta Carotene] , 25,000 UNIT PO DAILY Prescribed by: RUBY GREWAL on 04/09/13 0221 Constitutional: see HPI, chills, fever EENTM: see HPI Respiratory: no symptoms reported Cardiovascular: no symptoms reported Genitourinary: no symptoms reported Musculoskeletal: no symptoms reported Skin: no symptoms reported Psychiatric/Neurological: No Symptoms Reported Past Aclvwqi-Yxdkma-Eoxxeg Hx Patient Social History Alcohol Beverage of Choice: Scotch Former Smoker, Quit: Apr 03, 2001 Recent Foreign Travel: No Contact w/Someone Who Travel: No Recent Hopitalizations: Yes (03/19 SHOULDER SURGERY) Immunizations Up To Date Tetanus Booster (TDap): More than 5yrs Date of Pneumonia Vaccine: Feb 16, 2012 Date of Influenza Vaccine: Jan 04, 2017 Surgeries History of Surgeries: No (HIP BACK TENDONITIS; rt. wrist carpal tunnel) Surgeries: Gallbladder, Orthopedic Respiratory History of Respiratory Disorde: Yes (ALLERGIES COMBIVENT) Cardiovascular History of Cardiac Disorders: Yes Cardiac Disorders: Hypertension Neurological History of Neurological Disord: No Reproductive System Hx Reproductive Disorders: No Sexually Transmitted Disease: No HIV/AIDS: No Genitourinary History of Genitourinary Disor: No Gastrointestinal History of Gastrointestinal Di: Yes (COLON POLYPS/HIATAL HERNIA) Gastrointestinal Disorders: Gall Bladder Disease Musculoskeletal History of Musculoskeletal Dis: Yes (rt. hip replacement 08/31/10) Musculoskeletal Disorders: Fractures Endocrine History of Endocrine Disorders: No HEENT Loss of Vision: Denies Cancer History of Cancer: No Psychosocial History of Psychiatric Problem: No Integumentary History of Skin or Integumenta: No Blood Transfusions History of Blood Disorders: No (BLEEDS EASILY) Adverse Reaction to a Blood Tr: No (NEVER HAD BLOOD TRANSFUSION) Family Medical History Significant Family History: No Pertinent Family Hx Family Medial History: Family history: Hypertension 03 FATHER, Onset:Unknown Myocardial infarction 03 FATHER, Onset:60 years & older Stroke 03 MOTHER, Onset:Unknown Physical Exam Vital Signs Vital Sign - Last 12Hours 04/23/17 18:36 Pulse 105 Resp 24 B/P (MAP) 153/70 (97) Pulse Ox 92 O2 Delivery Nasal Cannula Capillary Refill : General Appearance: No Apparent Distress, WD/WN Eyes: Bilateral Eye Normal Inspection, Bilateral Eye PERRL, Bilateral Eye EOMI HEENT: PERRL/EOMI, TMs Normal Neck: Full Range of Motion, Normal Inspection Respiratory: Normal Breath Sounds, No Accessory Muscle Use, No Respiratory Distress Cardiovascular: Normal Peripheral Pulses, Tachycardia Gastrointestinal: Non Tender, Soft Back: Normal Inspection Extremity: Normal Capillary Refill, Normal Inspection, Other (too weak to stand without assistance) Neurologic/Psychiatric: Alert, Disoriented x3 Skin: Normal Color, Warm/Dry Focused Exam Evaluation Lactate Level Laboratory Tests 04/23/17 18:47: Lactic Acid Level 1.95 Lactic Acid Level Laboratory Tests Test 04/23/17 18:47 Lactic Acid Level 1.95 MMOL/L (0.50-2.00) Progress/Results/Core Measures Suspected Sepsis SIRS Temperature: Pulse: Respiratory Rate: Laboratory Tests 04/23/17 18:47: White Blood Count 11.6H Blood Pressure / Mean: Laboratory Tests 04/23/17 18:47: Lactic Acid Level 1.95 Laboratory Tests 04/23/17 18:47: Creatinine 0.85, Platelet Count 261 Results/Orders Lab Results Laboratory Tests Test 04/23/17 18:47 Range/Units White Blood Count 11.6 H 4.3-11.0 10^3/uL Red Blood Count 4.29 L 4.35-5.85 10^6/uL Hemoglobin 13.7 11.5-16.0 G/DL Hematocrit 40 35-52 % Mean Corpuscular Volume 93 80-99 FL Mean Corpuscular Hemoglobin 32 25-34 PG Mean Corpuscular Hemoglobin Concent 34 32-36 G/DL Red Cell Distribution Width 12.7 10.0-14.5 % Platelet Count 261 130-400 10^3/uL Mean Platelet Volume 8.5 7.4-10.4 FL Neutrophils (%) (Auto) 86 H 42-75 % Lymphocytes (%) (Auto) 3 L 12-44 % Monocytes (%) (Auto) 11 0-12 % Eosinophils (%) (Auto) 0 0-10 % Basophils (%) (Auto) 0 0-10 % Neutrophils # (Auto) 9.9 H 1.8-7.8 X 10^3 Lymphocytes # (Auto) 0.4 L 1.0-4.0 X 10^3 Monocytes # (Auto) 1.3 H 0.0-1.0 X 10^3 Eosinophils # (Auto) 0.0 0.0-0.3 10^3/uL Basophils # (Auto) 0.0 0.0-0.1 10^3/uL Sodium Level 135 135-145 MMOL/L Potassium Level 3.5 L 3.6-5.0 MMOL/L Chloride Level 94 L 98-107 MMOL/L Carbon Dioxide Level 23 21-32 MMOL/L Anion Gap 18 H 5-14 MMOL/L Blood Urea Nitrogen 11 7-18 MG/DL Creatinine 0.85 0.60-1.30 MG/DL Estimat Glomerular Filtration Rate > 60 BUN/Creatinine Ratio 13 Glucose Level 97 70-105 MG/DL Lactic Acid Level 1.95 0.50-2.00 MMOL/L Calcium Level 8.8 8.5-10.1 MG/DL My Orders Orders - DORA CARDONA APRN Ibuprofen Tablet (Motrin Tablet) (04/23/17 18:45) Cbc With Automated Diff (04/23/17 18:42) Basic Metabolic Panel (04/23/17 18:42) Blood Culture (04/23/17 18:42) Lactic Acid Analyzer (04/23/17 18:42) Vital Signs/I&O Vital Sign - Last 12Hours 04/23/17 18:36 Pulse 105 Resp 24 B/P (MAP) 153/70 (97) Pulse Ox 92 O2 Delivery Nasal Cannula Capillary Refill : Departure Communication (Admissions) Time/Spoke to Admitting Phy: 18:52 Communication I spoke with Dr. Victoria. We'll admit labs simply so that we did not fall out on the sepsis protocol, she did receive IV antibiotics earlier today during that visit so this may affect denies blood cultures, she did not receive blood cultures earlier today. Impression Impression: Primary Impression: Sepsis Additional Impressions: Altered mental status Urinary tract infection Disposition: ADMITTED INPATIENT Condition: Stable Admissions Decision to Admit Reason: Admit from ER (General) Decision to Admit/Date: Apr 23, 2017 Time/Decision to Admit Time: 18:52 Departure-Patient Inst. Decision time for Depature: 18:52 Referrals: NO,LOCAL PHYSICIAN (PCP/Family) Primary Care Physician DORA CARDONA APRN Apr 23, 2017 18:45
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
[2017-04-23 18:54] LABS: BASOPHILS % (AUTO) 0 % (0-10); EOSINOPHILS % (AUTO) 0 % (0-10); HEMATOCRIT 40 % (35-52); HEMOGLOBIN 13.7 G/DL (11.5-16.0); LYMPHOCYTES # (AUTO) 0.4 X 10^3 (1.0-4.0); LYMPHOCYTES % (AUTO) 3 % (12-44); MEAN CORPUSCULAR HEMOGLOBIN 32 PG (25-34); MEAN CORPUSCULAR HGB CONC 34 G/DL (32-36); MEAN CORPUSCULAR VOLUME 93 FL (80-99); MEAN PLATELET VOLUME 8.5 FL (7.4-10.4); MONOCYTES # (AUTO) 1.3 X 10^3 (0.0-1.0); MONOCYTES % (AUTO) 11 % (0-12); NEUTROPHILS # (AUTO) 9.9 X 10^3 (1.8-7.8); NEUTROPHILS % (AUTO) 86 % (42-75); PLATELET COUNT 261 10^3/uL (130-400); RED BLOOD COUNT 4.29 10^6/uL (4.35-5.85); RED CELL DISTRIBUTION WIDTH 12.7 % (10.0-14.5); WHITE BLOOD COUNT 11.6 10^3/uL (4.3-11.0)
[2017-04-23 19:09] LABS: BUN/CREATININE RATIO 13; CALCIUM 8.8 MG/DL (8.5-10.1); CARBON DIOXIDE 23 MMOL/L (21-32); CHLORIDE 94 MMOL/L (98-107); CREATININE SERUM 0.85 MG/DL (0.60-1.30); GFR ESTIMATED > 60; GLUCOSE 97 MG/DL (70-105); SODIUM 135 MMOL/L (135-145)
[2017-04-23 19:10] LABS: POTASSIUM 3.5 MMOL/L (3.6-5.0)
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
[2017-04-23] MEDS ORDERED: NS IV 1000 ML 1,000 ML ONE (20:26)
[2017-04-23] MEDS ORDERED: NS W/KCL 40 MEQ/L 1,000 ML IV ONE (20:33)
[2017-04-23] MEDS: NS W/KCL 40 MEQ/L 1,000 ML IV SCH (20:45)
[2017-04-23] MEDS ORDERED: IBUPROFEN 600 MG (MOTRIN) TAB PO PRN (22:30)
[2017-04-23] MEDS: cefTRIAXone 1 GM/D5W 50 ML IVPB IV SCH ×2 (22:30)
[2017-04-24] VITALS (14 sets, daily range): BP systolic 94–152; BP diastolic 40–88
[2017-04-24 05:05] LABS: BASOPHILS % (AUTO) 0 % (0-10); EOSINOPHILS # (AUTO) 0.1 10^3/uL (0.0-0.3); EOSINOPHILS % (AUTO) 1 % (0-10); HEMATOCRIT 38 % (35-52); HEMOGLOBIN 13.1 G/DL (11.5-16.0); LYMPHOCYTES # (AUTO) 0.7 X 10^3 (1.0-4.0); LYMPHOCYTES % (AUTO) 9 % (12-44); MEAN CORPUSCULAR HEMOGLOBIN 32 PG (25-34); MEAN CORPUSCULAR HGB CONC 34 G/DL (32-36); MEAN CORPUSCULAR VOLUME 95 FL (80-99); MEAN PLATELET VOLUME 8.5 FL (7.4-10.4); MONOCYTES % (AUTO) 11 % (0-12); NEUTROPHILS # (AUTO) 6.9 X 10^3 (1.8-7.8); NEUTROPHILS % (AUTO) 79 % (42-75); PLATELET COUNT 249 10^3/uL (130-400); RED BLOOD COUNT 4.06 10^6/uL (4.35-5.85); RED CELL DISTRIBUTION WIDTH 12.7 % (10.0-14.5); WHITE BLOOD COUNT 8.6 10^3/uL (4.3-11.0)
[2017-04-24 05:25] LABS: ALANINE AMINOTRANSFERASE 34 U/L (0-55); ALBUMIN 2.9 GM/DL (3.2-4.5); ALKALINE PHOSPHATASE 67 U/L (40-136); BILIRUBIN,TOTAL 0.7 MG/DL (0.1-1.0); BUN/CREATININE RATIO 15; CALCIUM 8.1 MG/DL (8.5-10.1); CARBON DIOXIDE 25 MMOL/L (21-32); CHLORIDE 98 MMOL/L (98-107); CREATININE SERUM 0.82 MG/DL (0.60-1.30); GFR ESTIMATED > 60; GLUCOSE 85 MG/DL (70-105); MAGNESIUM 1.7 MG/DL (1.8-2.4); PHOSPHORUS 2.4 MG/DL (2.3-4.7); POTASSIUM 3.2 MMOL/L (3.6-5.0); SODIUM 136 MMOL/L (135-145); TOTAL PROTEIN 5.4 GM/DL (6.4-8.2)
[2017-04-24] MEDS ORDERED: MAGNESIUM 1 GM/100 ML IVPB 100 ML IV SCH (06:00)
[2017-04-24] MEDS ORDERED: POTASSIUM CL 10MEQ/50ML IVPB 50 ML IV SCH (06:00)
[2017-04-24] MEDS ORDERED: KCL 20 MEQ TAB (K-DUR) PO SCH (06:00)
--- NOTE | 2017-04-24 06:29 | Pulmonary Consultation ---
History of Present Illness History of Present Illness Date of Consultation 04/24/17 06:23 Time Seen by Provider: 06:23 Date of Admission History of Present Illness 66 yo with hx of COPD presented to ED secondary to weakness, confusion, and disorientation. Pt was too weak to even get out of truck when brought her to ED. no prior episodes like this. Pt was found to be hypoxia and acute UTI. Temp was 102 upon arrival. I am consulted for Pulmonary management. Pt is feeling much better c/w admission. Allergies and Home Medications Allergies Uncoded Allergies: ANECTINE/sUX (Allergy, Mild, 02/19/09) Home Medications Ascorbate Calcium 500 Mg Tablet, 500 MG PO DAILY, (Reported) Budesonide/Formoterol Fumarate 10.2 Gm Hfa.aer.ad, 2 PUFF IH BID, (Reported) Cefdinir 300 Mg Capsule, 300 MG PO BID, #10 Prescribed by: DORA CARDONA on 04/23/17 1530 Cholecalciferol (Vitamin D3) 400 Unit Capsule, 400 UNIT PO DAILY, (Reported) Escitalopram Oxalate 10 Mg Tablet, 10 MG PO DAILY, (Reported) Esomeprazole Mag Trihydrate 40 Mg Capsule.dr, 40 MG PO DAILY, (Reported) Fenofibrate,Micronized 145 Mg Tablet, 145 MG PO DAILY, (Reported) Gabapentin 400 Mg Cap, 400 MG PO QID PRN for PAIN, (Reported) NEEDED FOR PAIN Glucosa Prince 2KCL/Chondroitin Prince 1 Each Capsule, 1 TAB PO DAILY, (Reported) Hctz/Lisinopril 1 Tab Tablet, 1 TAB PO DAILY, (Reported) Hydrochlorothiazide 50 Mg Tablet, 50 MG PO DAILY, (Reported) Hydrocodone Bit/Acetaminophen 1 Each Tablet, 1-2 EACH PO Q4H PRN for PAIN, #30 Ref 1 1-2 tabs every 4-6 hrs. as needed for pain Prescribed by: RUBY GREWAL on 04/10/13 0230 Montelukast Sodium 10 Mg Tab, 10 MG PO HS, (Reported) Multivitamins 1 Tab Tablet, 1 TAB PO DAILY, (Reported) Pomegranate Fruit Extract 250 Mg Capsule, 250 MG PO DAILY, (Reported) Potassium Gluconate 99 Mg Tablet, 99 MG PO DAILY, (Reported) Tramadol Hcl 50 Mg Tablet, 50-100 MG PO Q4H PRN for PAIN, (Reported) EVERY 4-6 HRS. NEEDED FOR PAIN Vitamin E Acetate 400 Unit Capsule, 400 UNIT PO DAILY, (Reported) [Beta Carotene] , 25,000 UNIT PO DAILY Prescribed by: RUBY GREWAL on 04/09/13 0221 Past Ezllxwc-Rcikaj-Zefoql Hx Patient Social History Alcohol Use: Rarely Uses Number of Drinks Today: EE Alcohol Beverage of Choice: Scotch Recreational Drug Use: No Smoking Status: Former Smoker Type Used: Cigarettes Former Smoker, Quit: Apr 03, 2001 Recent Foreign Travel: No Contact w/Someone Who Travel: No Recent Infectious Disease Expo: No Recent Hopitalizations: Yes (03/19 SHOULDER SURGERY) Immunizations Up To Date Tetanus Booster (TDap): More than 5yrs Date of Pneumonia Vaccine: Feb 16, 2012 Date of Influenza Vaccine: Jan 04, 2017 Surgeries History of Surgeries: No (HIP BACK TENDONITIS; rt. wrist carpal tunnel) Surgeries: Gallbladder, Orthopedic Respiratory History of Respiratory Disorde: Yes (ALLERGIES COMBIVENT) Currently Using CPAP: No Currently Using BIPAP: No Cardiovascular History of Cardiac Disorders: Yes Cardiac Disorders: Hypertension Neurological History of Neurological Disord: No Reproductive System : No Hx Reproductive Disorders: No Sexually Transmitted Disease: No HIV/AIDS: No Genitourinary History of Genitourinary Disor: No Gastrointestinal History of Gastrointestinal Di: Yes (COLON POLYPS/HIATAL HERNIA) Gastrointestinal Disorders: Gall Bladder Disease Musculoskeletal History of Musculoskeletal Dis: Yes (rt. hip replacement 08/31/10) Musculoskeletal Disorders: Chronic Back Pain, Fractures Endocrine History of Endocrine Disorders: No HEENT Loss of Vision: Bilateral Hearing Impairment: Denies Cancer History of Cancer: No Psychosocial History of Psychiatric Problem: No Integumentary History of Skin or Integumenta: No Blood Transfusions History of Blood Disorders: No (BLEEDS EASILY) Adverse Reaction to a Blood Tr: No (NEVER HAD BLOOD TRANSFUSION) Family Medical History Significant Family History: No Pertinent Family Hx Family Medial History: Family history: Hypertension 03 FATHER, Onset:Unknown Myocardial infarction 03 FATHER, Onset:60 years & older Stroke 03 MOTHER, Onset:Unknown Review of Systems Time Seen by Provider: 06:51 Constitutional: Fever, Sweats, Malaise Eyes: No: Pain, Vision change, Conjunctivae inflammation, Eyelid inflammation, Other, Redness ENT: Nose congestion Respiratory: Cough, Dry, Shortness of breath, SOB with excertion, No: Wheezing Cardiovascular: Paroxysmal Noc. Dyspnea Gastrointestinal: No: Nausea, Vomiting, Abdominal Pain, Diarrhea, Constipation , Melena, Hematochezia, Other Genitourinary: No Dysuria, No Frequency, No Incontinence, No Hematuria, No Retention, No Other Neurological: Weakness, Confusion Exam Exam Vital Signs Date Time Temp Pulse Resp B/P (MAP) Pulse Ox O2 Delivery O2 Flow Rate FiO2 04/24/17 06:00 67 14 105/40 (61) 98 Nasal Cannula 2.00 04/24/17 05:00 60 16 113/53 (73) 96 Nasal Cannula 2.00 04/24/17 04:00 66 23 119/58 (78) 96 Nasal Cannula 2.00 04/24/17 04:00 93 Nasal Cannula 2.00 04/24/17 03:00 60 13 94/51 (65) 95 Nasal Cannula 2.00 04/24/17 02:00 59 13 100/55 (70) 95 Nasal Cannula 2.00 04/24/17 01:00 66 04/24/17 01:00 66 18 109/61 (77) 93 Nasal Cannula 2.00 04/24/17 00:00 64 15 102/51 (68) 93 Nasal Cannula 2.00 04/24/17 00:00 93 Nasal Cannula 2.00 04/23/17 23:00 68 15 102/48 (66) 94 Nasal Cannula 2.00 04/23/17 22:00 81 18 102/22 (48) 93 Nasal Cannula 2.00 04/23/17 21:45 72 20 107/55 (72) 93 Nasal Cannula 2.00 04/23/17 21:30 74 16 109/55 (73) 93 Nasal Cannula 2.00 04/23/17 21:15 76 17 123/52 (75) 93 Nasal Cannula 2.00 04/23/17 21:00 78 13 112/55 (74) 92 Nasal Cannula 2.00 04/23/17 20:45 86 18 104/69 (81) 91 Nasal Cannula 2.00 04/23/17 20:30 86 24 110/60 (77) 94 Nasal Cannula 2.00 04/23/17 20:18 98.6 89 20 115/51 (72) 90 Nasal Cannula 2.00 04/23/17 20:18 89 04/23/17 20:10 92 Nasal Cannula 2.00 04/23/17 19:53 99.7 94 18 95 04/23/17 18:36 105 24 153/70 (97) 92 Nasal Cannula I & O 04/24/17 07:00 Intake Total 500 ml Output Total 350 ml Balance 150 ml General Appearance: No Apparent Distress, WD/WN, Anxious HEENT: PERRL/EOMI, TMs Normal Neck: Full Range of Motion, Normal Inspection Respiratory: Normal Breath Sounds, No Accessory Muscle Use, No Respiratory Distress Cardiovascular: Normal Peripheral Pulses, Tachycardia Capillary Refill: Less Than 3 Seconds Extremity: Normal Capillary Refill, Normal Inspection, Other (too weak to stand without assistance) Neurologic/Psychiatric: Alert, Disoriented x3 Skin: Normal Color, Warm/Dry Results Lab Laboratory Tests 04/23/17 18:47 04/24/17 04:40 Assessment/Plan Assessment/Plan Acute UTI -Continue Rocephin COPD hx - appears stable currently -SVNS, advair -pt follows with Dr. Mccarthy as out patient. -Oxygen -needs 02 eval prior to discharge Hypoxia upon admission -oxygen and monitor Tobacco hx Electrolyte disorder -replacement Pt is doing better will transfer to 4th floor. 255 Clinical Quality Measures DVT/VTE Risk/Contraindication: Risk Factor Score Per Nursin RFS Level Per Nursing on Admit: 2=Moderate HE MATHEWS DO Apr 24, 2017 06:29
[2017-04-24] MEDS: MAGNESIUM 1 GM/100 ML IVPB 100 ML IV SCH ×2 (06:30→07:27)
[2017-04-24] MEDS: NS W/KCL 40 MEQ/L 1,000 ML IV SCH ×3 (06:49→22:45)
[2017-04-24] MEDS ORDERED: RT-ALBUTEROL/IPRATROPIUM 3 ML (DUONEB) VIAL INH PRN (07:00)
[2017-04-24] MEDS ORDERED: KCL 20 MEQ TAB (K-DUR) PO ONE ×2 (07:00→09:00)
[2017-04-24] MEDS: RT-ALBUTEROL/IPRATROPIUM 3 ML (DUONEB) VIAL INH SCH ×4 (07:00→18:49)
[2017-04-24] MEDS ORDERED: HYDROcodone/APAP 5 MG/325 MG (LORTAB) TAB PO PRN (08:00)
[2017-04-24] MEDS ORDERED: RT-ADVAIR HFA 115/21 MCG PER PUFF IH SCH (08:00)
--- NOTE | 2017-04-24 08:13 | History & Physical-Hospitalist ---
HPI History of Present Illness: HPI/Chief Complaint Pt is a 66yoCF with a PMH of COPD, HTN who presented to the ER with CC of weakness and confusion. She was since in the ER earlier yesterday and found to have a UTI. She was doing well and was discharged to home. She quickly returned for worsening weakness, fever or 102 at home, and confusion. She was thus admitted. She reports feeling much better today. She believes her weakness to be due to her lack of eating lately as she has not felt well. She believes her urinary symptoms having been going on since her surgery on her shoulder 1 month ago. She has no complaints today. Source: patient Exam Limitations: no limitations Date Seen 04/24/17 Time Seen by Provider: 07:55 Attending Physician Maribel Hernandez DO PCP Maribel Hernandez DO Referring Physician Date of Admission Apr 23, 2017 at 19:20 Home Medications & Allergies Home Medications Reviewed patient Home Medication Reconciliation Form Allergies Allergies Uncoded Allergies ANECTINE/sUX ( Allergy, Mild, 02/19/09) Past Fpbjocv-Idpgjl-Iacwet Hx Patient Social History Marrital Status: Alcohol Use: Rarely Uses Number of Drinks Today: EE Alcohol Beverage of Choice: Seek[place]pach Recreational Drug Use: No Smoking Status: Former Smoker Former Smoker, Quit: Apr 03, 2001 Type Used: Cigarettes Physical Abuse Screen: No Sexual Abuse: No Recent Foreign Travel: No Contact w/other who traveled: No Recent Hopitalizations: Yes (03/19 SHOULDER SURGERY) Recent Infectious Disease Expo: No Immunizations Up To Date Tetanus Booster (TDap): More than 5yrs Date of Pneumonia Vaccine: Feb 16, 2012 Date of Influenza Vaccine: Jan 04, 2017 Surgeries No (HIP BACK TENDONITIS; rt. wrist carpal tunnel) Gallbladder, Orthopedic (shoulder, hip, back, hands, spine) Respiratory Yes (ALLERGIES COMBIVENT) COPD Currently Using CPAP: No Currently Using BIPAP: No Cardiovascular Yes Hypertension Neurological No Reproductive System : No Hx Reproductive Disorders: No Sexually Transmitted Disease: No HIV/AIDS: No Genitourinary No Gastrointestinal Yes (COLON POLYPS/HIATAL HERNIA) Gall Bladder Disease Musculoskeletal Yes (rt. hip replacement 08/31/10) Chronic Back Pain, Fractures Endocrine History of Endocrine Disorders: No HEENT Loss of Vision: Bilateral Hearing Impairment: Denies Cancer No Psychosocial History of Psychiatric Problem: No Integumentary History of Skin or Integumenta: No Blood Transfusions History of Blood Disorders: No (BLEEDS EASILY) Adverse Reaction to a Blood Tr: No (NEVER HAD BLOOD TRANSFUSION) Family Medical History Significant Family History: No Pertinent Family Hx Family Hx: Family history: Hypertension 03 FATHER, Onset:Unknown Myocardial infarction 03 FATHER, Onset:60 years & older Stroke 03 MOTHER, Onset:Unknown Review of Systems Constitutional: fever, weakness EENTM: no symptoms reported Respiratory: no symptoms reported Cardiovascular: No chest pain, No palpitations Gastrointestinal: No abdominal pain, loss of appetite Genitourinary: dysuria, incontinence Musculoskeletal: back pain Skin: no symptoms reported Psychiatric/Neurological: No Symptoms Reported Physical Exam Physical Exam Vital Signs Vital Sign - Last 12Hours 04/23/17 04/23/17 04/23/17 18:36 19:53 20:10 Temp 99.7 Pulse 105 Resp 24 B/P (MAP) 153/70 (97) Pulse Ox 92 O2 Delivery Nasal Cannula O2 Flow Rate 2.00 Capillary Refill : Less Than 3 Seconds General Appearance: No Apparent Distress, WD/WN HEENT: PERRL/EOMI, Moist Mucous Membranes Neck: Non Tender, Supple Respiratory: Lungs Clear, No Respiratory Distress Cardiovascular: Regular Rate, Rhythm, No Murmur Gastrointestinal: Normal Bowel Sounds, Non Tender, Soft Extremity: Normal Capillary Refill, No Calf Tenderness Neurologic/Psychiatric: Alert, Oriented x3, Normal Mood/Affect Skin: Normal Color, Warm/Dry Results Results/Procedures Lab Laboratory Tests 04/23/17 18:47 04/24/17 04:40 Assessment/Plan Admission Diagnosis UTI Diagnosis/Problems Diagnosis/Problems (1) Sepsis Status: Resolved Assessment & Plan: Sepsis on arrival due to UTI leukocytosis, febrile, and tachycardiac on arrival received Rocephin during first ER visit Blood cultures drawn during second ER visit Sepsis now resolved (2) Urinary tract infection Status: Acute Assessment & Plan: Continue Rocephin Await cultures (3) Altered mental status Status: Resolved Assessment & Plan: Resolved, feeling better (4) Essential (primary) hypertension Status: Chronic Assessment & Plan: Low to normotensive If BP improve will resume home meds (5) Hypokalemia Status: Acute Assessment & Plan: Replaced per protocol (6) COPD (chronic obstructive pulmonary disease) Status: Chronic Assessment & Plan: No baseline oxygen requirement Will attempt to titrate O2 Get home oxygen eval Clinical Quality Measures DVT/VTE Risk/Contraindication: Risk Factor Score Per Nursin RFS Level Per Nursing on Admit: 2=Moderate AGAPITO PÉREZ MD Apr 24, 2017 08:13
[2017-04-24] MEDS ORDERED: MONT10TA24 PO (08:38)
[2017-04-24] MEDS ORDERED: HYDR25TA4 PO (08:38)
[2017-04-24] MEDS ORDERED: TRAM50TA2 PO (08:38)
[2017-04-24] MEDS ORDERED: ALBU18HF2 INH (08:38)
[2017-04-24] MEDS ORDERED: OMEP40CA36 PO (08:38)
[2017-04-24] MEDS ORDERED: POTA20TA8 PO (08:38)
[2017-04-24] MEDS ORDERED: TIOT4MIS2 INH (08:38)
[2017-04-24] MEDS ORDERED: FENO145T2 PO (08:38)
[2017-04-24] MEDS ORDERED: ESCI10TA55 PO (08:38)
[2017-04-24] MEDS ORDERED: FLUT1DIS26 INH (08:38)
[2017-04-24] MEDS ORDERED: CETI10TA17 PO (08:38)
[2017-04-24] MEDS ORDERED: ALPR0.5T7 PO ×2 (08:38→09:04)
[2017-04-24] MEDS ORDERED: LISI1TAB10 PO (08:38)
[2017-04-24] MEDS ORDERED: FLUT16SP22 NS (08:38)
[2017-04-24] MEDS ORDERED: POME250C2 PO (09:04)
[2017-04-24] MEDS ORDERED: GABA-490 PO (09:04)
[2017-04-24] MEDS ORDERED: BETA2500 PO (09:04)
[2017-04-24] MEDS ORDERED: [UNRECOGNIZED DRUG - CODE] PO (09:04)
[2017-04-24] MEDS ORDERED: MULT1TAB69 PO (09:04)
[2017-04-24] MEDS ORDERED: CHOL400C9 PO (09:04)
[2017-04-24] MEDS ORDERED: IBUP-30 PO (09:04)
[2017-04-24] MEDS ORDERED: ASCO-262 PO (09:04)
[2017-04-24] MEDS ORDERED: VITA400C60 PO (09:04)
[2017-04-24] MEDS ORDERED: ACET500C41 PO (09:07)
--- NOTE | 2017-04-24 09:17 | Diagnostic Imaging Report ---
INDICATION: Weakness and right-sided chest pain. Time of exam: 5:06 AM Correlation is made with prior study from 04/23/2017. The heart size is stable. Lungs appear to be clear. No infiltrate or failure is detected. No effusion or pneumothorax is seen. Postop changes to the right shoulder and cervical spine are noted. IMPRESSION: Stable chest. No acute feature is detected. Dictated by: Dictated on workstation # [id number]
[2017-04-24] MEDS ORDERED: ALPRAZolam 0.5 MG (XANAX) TAB PO PRN (10:30)
[2017-04-24] MEDS ORDERED: RT-ALBUTEROL SULF 2.5 MG/3 ML PRE-MIX VIAL IH PRN (11:00)
[2017-04-24] MEDS: ACETAMINOPHEN 325 MG TABLET/CAPLET (TYLENOL) PO PRN ×2 (13:07→21:15)
[2017-04-24] MEDS: GABAPENTIN 400 MG (NEURONTIN) CAP PO SCH ×3 (13:07→22:30)
[2017-04-24] MEDS: KCL 20 MEQ TAB (K-DUR) PO SCH (17:22)
[2017-04-24] MEDS ORDERED: ALPRAZolam 1 MG (XANAX) TAB PO SCH (21:00)
[2017-04-24] MEDS ORDERED: FENOFIBRATE 134 MG (LOFIBRA) CAPSULE PO SCH (21:00)
[2017-04-24] MEDS ORDERED: MONTELUKAST 10 MG (SINGULAIR) TAB PO SCH (21:00)
[2017-04-24] MEDS ORDERED: LORazepam INJ 2 MG/ML (ATIVAN) VIAL ONE (22:24)
[2017-04-24] MEDS: PANTOPRAZOLE 40 MG (PROTONIX) TAB PO SCH (22:30)
[2017-04-24] MEDS: cefTRIAXone 1 GM/D5W 50 ML IVPB IV SCH ×2 (22:30)
[2017-04-24] MEDS ORDERED: LORazepam INJ 2 MG/ML (ATIVAN) VIAL IVP ONE (22:45)
[2017-04-25 00:38] VITALS: BP 139/74
[2017-04-25 04:00] VITALS: BP 151/68
[2017-04-25] MEDS: KCL 20 MEQ TAB (K-DUR) PO SCH (06:40)
--- NOTE | 2017-04-25 07:12 | Pulmonary Progress Note ---
Subjective Time Seen by Provider: 07:12 Subjective/Events-last exam Pt spiked fever of 101.5 last night. Exam Exam Vital Signs Date Time Temp Pulse Resp B/P (MAP) Pulse Ox O2 Delivery O2 Flow Rate FiO2 04/25/17 04:00 96.5 68 18 151/68 (95) 95 Nasal Cannula 2.00 04/25/17 00:38 98.9 76 18 139/74 (95) 97 Nasal Cannula 2.00 04/24/17 20:00 101.9 93 20 140/61 (87) 95 Nasal Cannula 2.00 04/24/17 18:49 95 Room Air 04/24/17 16:25 92 04/24/17 16:00 98.2 73 18 152/73 (99) 94 Nasal Cannula 2.00 04/24/17 12:00 99.9 91 18 145/78 (100) 92 Nasal Cannula 2.00 04/24/17 11:00 98.0 88 20 128/88 (101) 98 Nasal Cannula 2.00 04/24/17 10:48 96 21 04/24/17 10:40 Nasal Cannula 1.00 04/24/17 09:00 81 21 120/62 (81) 97 Nasal Cannula 2.00 04/24/17 08:07 Nasal Cannula 1.00 04/24/17 08:00 78 10 131/67 (88) 99 Nasal Cannula 2.00 04/24/17 08:00 93 Nasal Cannula 2.00 I & O 04/25/17 07:00 Intake Total 2744 ml Output Total 600 ml Balance 2144 ml General Appearance: No Apparent Distress, WD/WN HEENT: PERRL/EOMI, Moist Mucous Membranes Neck: Non Tender, Supple Respiratory: Lungs Clear, No Respiratory Distress Cardiovascular: Regular Rate, Rhythm, No Murmur Capillary Refill: Less Than 3 Seconds Extremity: Normal Capillary Refill, No Calf Tenderness Neurologic/Psychiatric: Alert, Oriented x3, Normal Mood/Affect Skin: Normal Color, Warm/Dry Results Lab Laboratory Tests 04/23/17 18:47 04/24/17 04:40 Assessment/Plan Assessment/Plan Acute UTI - Rocephin COPD -SVNS, advair -pt follows with Dr. Mccarthy as out patient. -Oxygen Fever Tm101.9 -repeat CXR -Check Influenza swab Hypoxia upon admission -oxygen and monitor Tobacco hx Electrolyte disorder -replacement Pt does qualify for home oxygen. Consult for home 02. 232 Clinical Quality Measures DVT/VTE Risk/Contraindication: Risk Factor Score Per Nursin RFS Level Per Nursing on Admit: 2=Moderate HE MATHEWS DO Apr 25, 2017 07:12
[2017-04-25] MEDS: RT-ALBUTEROL/IPRATROPIUM 3 ML (DUONEB) VIAL INH SCH ×2 (07:13→10:59)
[2017-04-25 08:00] VITALS: BP 121/58
[2017-04-25] MEDS ORDERED: UMECLIDINIUM BROMIDE (INCRUSE ELLIPTA) 7'S IH SCH (08:00)
[2017-04-25] MEDS ORDERED: RT-ADVAIR HFA 115/21 MCG PER PUFF IH SCH (08:00)
[2017-04-25 08:02] LABS: BASOPHILS % (AUTO) 0 % (0-10); EOSINOPHILS # (AUTO) 0.1 10^3/uL (0.0-0.3); EOSINOPHILS % (AUTO) 1 % (0-10); HEMATOCRIT 38 % (35-52); HEMOGLOBIN 12.8 G/DL (11.5-16.0); LYMPHOCYTES # (AUTO) 0.9 X 10^3 (1.0-4.0); LYMPHOCYTES % (AUTO) 14 % (12-44); MEAN CORPUSCULAR HEMOGLOBIN 31 PG (25-34); MEAN CORPUSCULAR HGB CONC 34 G/DL (32-36); MEAN CORPUSCULAR VOLUME 93 FL (80-99); MEAN PLATELET VOLUME 8.7 FL (7.4-10.4); MONOCYTES # (AUTO) 0.7 X 10^3 (0.0-1.0); MONOCYTES % (AUTO) 12 % (0-12); NEUTROPHILS # (AUTO) 4.4 X 10^3 (1.8-7.8); NEUTROPHILS % (AUTO) 73 % (42-75); PLATELET COUNT 248 10^3/uL (130-400); RED BLOOD COUNT 4.09 10^6/uL (4.35-5.85); RED CELL DISTRIBUTION WIDTH 12.5 % (10.0-14.5); WHITE BLOOD COUNT 6.1 10^3/uL (4.3-11.0)
[2017-04-25] MEDS: PANTOPRAZOLE 40 MG (PROTONIX) TAB PO SCH (08:02)
[2017-04-25] MEDS: GABAPENTIN 400 MG (NEURONTIN) CAP PO SCH (08:02)
[2017-04-25] MEDS: NS W/KCL 40 MEQ/L 1,000 ML IV SCH (08:06)
[2017-04-25 08:19] LABS: BUN/CREATININE RATIO 11; CALCIUM 8.2 MG/DL (8.5-10.1); CARBON DIOXIDE 20 MMOL/L (21-32); CHLORIDE 105 MMOL/L (98-107); CREATININE SERUM 0.63 MG/DL (0.60-1.30); GFR ESTIMATED > 60; GLUCOSE 85 MG/DL (70-105); MAGNESIUM 1.9 MG/DL (1.8-2.4); PHOSPHORUS 1.6 MG/DL (2.3-4.7); POTASSIUM 4.5 MMOL/L (3.6-5.0); SODIUM 136 MMOL/L (135-145)
--- NOTE | 2017-04-25 08:21 | Diagnostic Imaging Report ---
INDICATION: Weakness and sepsis. TIME OF EXAM: 4:32 a.m. Correlation is made with prior study one day earlier. The heart size is stable. There is bibasilar atelectasis or scarring. Mid and upper lung [place] are clear. No effusion or pneumothorax is seen. Postsurgical changes to the right shoulder and cervical spine are again noted. IMPRESSION: Mild bibasilar subsegmental atelectasis or scarring. Dictated by: Dictated on workstation # [id number]
[2017-04-25] MEDS ORDERED: FLUTICASONE NASAL SPRAY (FLONASE) 16 GM BTL NS SCH (09:00)
[2017-04-25] MEDS ORDERED: IBUPROFEN TABLET 200 MG TAB PO SCH (09:00)
[2017-04-25] MEDS ORDERED: lisINopril 20 MG (ZESTRIL) TAB PO SCH (09:00)
[2017-04-25] MEDS ORDERED: HYDROCHLOROTHIAZIDE 25 MG (HCTZ) TAB PO SCH (09:00)
[2017-04-25] MEDS ORDERED: LORATADINE (CLARITIN) 10 MG TAB PO SCH (09:00)
[2017-04-25] MEDS: cefTRIAXone 1 GM/D5W 50 ML IVPB IV SCH ×2 (10:40)
[2017-04-25] MEDS ORDERED: CEFD300C3 PO (11:47)
[2017-04-25 12:30] VITALS: BP 121/58
--- NOTE | 2017-04-25 13:07 | Discharge Summary-Hospitalist ---
Diagnosis/Chief Complaint Date of Admission Apr 23, 2017 at 7:20 pm Date of Discharge Discharge Date: Apr 25, 2017 Admission Diagnosis UTI Discharge Diagnosis (1) Sepsis Status: Resolved Assessment & Plan: Sepsis on arrival, now resolved due to UTI Urine culture grew e.coli sensitive to cephalosporins Will resume cefdinir as ordered on original ER visit Blood cultures negative (2) Urinary tract infection Status: Acute Assessment & Plan: Oral abx as above (3) Altered mental status Status: Resolved Assessment & Plan: Resolved, feeling better (4) Essential (primary) hypertension Status: Chronic Assessment & Plan: Resume home meds (5) Hypokalemia Status: Acute Assessment & Plan: Replaced per protocol (6) COPD (chronic obstructive pulmonary disease) Status: Chronic Assessment & Plan: Home o2 eval reveals 2lpm ambulatory need Discharge Summary Discharge Physical Examination Allergies: Coded Allergies: succinylcholine (Unverified Allergy, Unknown, 04/24/17) Vitals & I&Os Vital Signs Date Time Temp Pulse Resp B/P (MAP) Pulse Ox O2 Delivery O2 Flow Rate FiO2 04/25/17 10:59 93 Room Air 04/25/17 08:00 98.1 77 20 121/58 (79) 04/25/17 04:00 2.00 04/24/17 10:48 21 Hospital Course Pt was admitted for sepsis secondary to a UTI. Her altered mentation improved on arrival with fluids and antibiotics. Culture revealed e coli sensitive to cephalosporins. She was discharged to home and advised to pharmacy picking tech the antibiotic prescribed for her by the ER on her original visit (did not pharmacy picking tech as returned almost immediately to the ER). She was also found to have an ambulatory oxygen (2lpm) need and order was sent for DME. Labs (last 24 hrs) Laboratory Tests 04/25/17 07:55: White Blood Count 6.1, Red Blood Count 4.09L, Hemoglobin 12.8, Hematocrit 38, Mean Corpuscular Volume 93, Mean Corpuscular Hemoglobin 31, Mean Corpuscular Hemoglobin Concent 34, Red Cell Distribution Width 12.5, Platelet Count 248, Mean Platelet Volume 8.7, Neutrophils (%) (Auto) 73, Lymphocytes (%) (Auto) 14, Monocytes (%) (Auto) 12, Eosinophils (%) (Auto) 1, Basophils (%) (Auto) 0, Neutrophils # (Auto) 4.4, Lymphocytes # (Auto) 0.9L, Monocytes # (Auto) 0.7, Eosinophils # (Auto) 0.1, Basophils # (Auto) 0.0, Sodium Level 136, Potassium Level 4.5, Chloride Level 105, Carbon Dioxide Level 20L, Anion Gap 11, Blood Urea Nitrogen 7, Creatinine 0.63, Estimat Glomerular Filtration Rate > 60, BUN/ Creatinine Ratio 11, Glucose Level 85, Calcium Level 8.2L, Phosphorus Level 1.6L , Magnesium Level 1.9 Microbiology 04/23/17 Blood Culture - Preliminary, Resulted No growth 04/25/17 Influenza Types A,B Antigen (MAGDALENA) - Final, Complete Pending Labs Microbiology Date/Time Source Procedure Growth Status 04/25/17 08:40 Nasal Aspirate Influenza Types A,B Antigen (MAGDALENA) - Final Complete Laboratory Tests 04/25/17 07:55: White Blood Count 6.1, Red Blood Count 4.09, Hemoglobin 12.8, Hematocrit 38, Mean Corpuscular Volume 93, Mean Corpuscular Hemoglobin 31, Mean Corpuscular Hemoglobin Concent 34, Red Cell Distribution Width 12.5, Platelet Count 248, Mean Platelet Volume 8.7, Neutrophils (%) (Auto) 73, Lymphocytes (%) (Auto) 14, Monocytes (%) (Auto) 12, Eosinophils (%) (Auto) 1, Basophils (%) (Auto) 0, Neutrophils # (Auto) 4.4, Lymphocytes # (Auto) 0.9, Monocytes # (Auto) 0.7, Eosinophils # (Auto) 0.1, Basophils # (Auto) 0.0, Sodium Level 136, Potassium Level 4.5, Chloride Level 105, Carbon Dioxide Level 20, Anion Gap 11, Blood Urea Nitrogen 7, Creatinine 0.63, Estimat Glomerular Filtration Rate > 60, BUN/ Creatinine Ratio 11, Glucose Level 85, Calcium Level 8.2, Phosphorus Level 1.6, Magnesium Level 1.9 Discharge Home Medications: Active Scripts Active Cefdinir 300 Mg Capsule 300 Mg PO BID Reported Nac (Acetylcysteine) 500 Mg Capsule 500 Mg PO BID Beta Carotene (Beta-Carotene) 25,000 Unit Capsule 25,000 Unit PO DAILY Gabapentin 400 Mg Capsule 400 Mg PO QID LAST FILLED #241 10-06-16 Alprazolam 0.5 Mg Tablet 0.5 Mg PO DAILY PRN Advil (Ibuprofen) 200 Mg Tablet 200 Mg PO DAILY Pomegranate (Pomegranate Fruit Extract) 250 Mg Capsule 250 Mg PO DAILY Vitamin C (Ascorbate Calcium) 500 Mg Tablet 500 Mg PO DAILY Vitamin D3 (Cholecalciferol (Vitamin D3)) 400 Unit Capsule 400 Unit PO DAILY Vitamin E (Vitamin E Acetate) 400 Unit Capsule 400 Unit PO DAILY Multivitamins (Multivitamin) 1 Each Tablet 1 Tab PO DAILY Glucosamine Chondroitin [place] (Glucosa Prince 2Kcl/Chondroitin Prince) 1 Each Tablet 1 Tab PO DAILY Spiriva Respimat 2.5MCG/ACTUATION (Tiotropium [place]) 4 Gm Mist.inhal 2 Puff INH DAILY Ventolin Hfa (Albuterol Sulfate) 18 Gm Hfa.aer.ad 2 Puff INH Q4H PRN Tricor (Fenofibrate Nanocrystallized) 145 Mg Tablet 145 Mg PO DAILY Omeprazole 40 Mg Capsule.dr 40 Mg PO BID Advair 250-50 Diskus (Fluticasone/Salmeterol) 1 Each Blst.w.dev 1 Puff INH DAILY Hydrochlorothiazide 25 Mg Tablet 25 Mg PO DAILY Tramadol HCl 50 Mg Tablet 50 Mg PO Q6H PRN Lisinopril-Hctz 20-25 mg Tab (Lisinopril/Hydrochlorothiazide) 1 Each Tablet 1 Tab PO DAILY Klor-Con M20 (Potassium Chloride) 20 Meq Tab.er.prt 20 Meq PO BID Alprazolam 0.5 Mg Tablet 1 Mg PO HS TAKES 2 (0.5MG) TABLETS Cetirizine HCl 10 Mg Tablet 10 Mg PO DAILY Escitalopram Oxalate 10 Mg Tablet 10 Mg PO DAILY Montelukast Sodium 10 Mg Tablet 10 Mg PO HS Fluticasone Propionate 16 Gm Gordon.susp 2 Gordon NS DAILY Instructions to patient/family Please see electronic discharge instructions given to patient. Clinical Quality Measures DVT/VTE Risk/Contraindication: Risk Factor Score Per Nursin RFS Level Per Nursing on Admit: 2=Moderate Copy Copies To 1: MIMI MCNAMARA KATELYN M MD Apr 25, 2017 1:07 pm
== END 2017-04-25 12:30 | disposition home or self-care (01) | DRG 872 ==
LOC: EDUNIT# 18:36 → ER 18:37 → ICU 19:20 → 4TH 04-24 11:00
PROVIDERS: ADMIT Family Medicine; ATTEND Internal Medicine
DX: A41.9 Sepsis, unspecified organism (principal); N39.0 Urinary tract infection, site not specified; B96.20 Unspecified Escherichia coli [E. coli] as the cause of diseases classified elsewhere; R41.82 Altered mental status, unspecified; I10 Essential (primary) hypertension; J44.9 Chronic obstructive pulmonary disease, unspecified; R09.02 Hypoxemia; E87.6 Hypokalemia; M54.9 Dorsalgia, unspecified; K44.9 Diaphragmatic hernia without obstruction or gangrene; Z87.891 Personal history of nicotine dependence; Z96.641 Presence of right artificial hip joint; Z86.010 Personal history of colon polyps
CPT/HCPCS: 36415; 70450; 71045; 71046; 71260; 80048; 80053; 81000; 83605; 83735; 84100; 85007; 85025; 85027; 87040; 87077; 87081; 87088; 87186; 87804; 93005; 94640; 94760; 94761; 96365; 99285

== ENCOUNTER 2017-06-12 12:38 | Outpatient (RCR) | payer MEDICARE, OTHER ==
[~2017-06-12 12:38] MED LIST changes: +ACET500C41 PO; +ALBU18HF2 INH; +ALPR0.5T7 PO; +BETA2500 PO; +CETI10TA17 PO; +CHOL400C9 PO; +ESCI10TA55 PO; +FLUT16SP22 NS; +FLUT1DIS26 INH; +GABA-490 PO; +HYDR25TA4 PO; +IBUP-30 PO; +MONT10TA24 PO; +MULT1TAB69 PO; +OMEP40CA36 PO; +POTA20TA8 PO; +TIOT4MIS2 INH; +VITA400C60 PO; +[UNRECOGNIZED DRUG - CODE] PO
== END 2017-09-10 | disposition home or self-care (01) ==
LOC: PULM 12:38
PROVIDERS: ATTEND Internal Medicine Critical Care Medicine
DX: J44.9 Chronic obstructive pulmonary disease, unspecified (principal)
CPT/HCPCS: 99211

== ENCOUNTER 2017-06-29 13:56 | Outpatient (RCR) | payer MEDICARE, OTHER | END 2017-07-18 | disposition home or self-care (01) | PROVIDERS: ATTEND Nurse Practitioner Family | DX: Z47.1 Aftercare following joint replacement surgery (principal); Z96.611 Presence of right artificial shoulder joint ==

== ENCOUNTER → 2017-11-13 | Outpatient (CLI) | payer MEDICARE, OTHER ==
[~2017-11-13] MED LIST changes: +REGADENOSON 0.4 MG/5 ML SYR (LEXISCAN) IV ONE
[2017-11-13] MEDS: CATHETER FLUSH 10 ML SYR IV PRN ×2 (08:23→09:40)
[2017-11-13 09:38] VITALS: BP 113/62
--- NOTE | 2017-11-13 13:17 | STRESS TEST ---
DATE OF SERVICE: 11/13/2017 LEXISCAN MYOVIEW STRESS TEST REPORT Baseline heart rate is 64. Baseline blood pressure 147/71. Baseline EKG, sinus rhythm with no ischemic changes. In summary, the patient was injected with 9.64 mCi of technetium-99 Myoview and the resting images were obtained. Then, the patient received 0.4 mg of Lexiscan followed by 29.5 mCi of technetium-99 Myoview. Throughout the test, there were no EKG changes. The resting and stress images were reviewed and compared in the short axis, horizontal long axis, and vertical long axis views. Review of the images showed extracardiac attenuation with no significant ischemia or infarction on SPECT images. SSS is 2, SDS 2, TID value 1.09. On the gated images, the left ventricle appeared to be in normal size with normal contractility. Calculated ejection fraction of 72%. CONCLUSION: 1. The patient tolerated Lexiscan well. 2. Extracardiac attenuation affecting the quality of the images with no significant ischemia or infarction on SPECT images. 3. Normal left ventricular size with normal contractility. Calculated ejection fraction of 72%. Job ID: [id number] DocumentID: [id number] Dictated Date: 11/13/2017 12:37:51 Electrical Test Technician Date: 11/13/2017 13:17:04 Dictated By: KING ROCHA MD
== END ==
LOC: CARD 08:01
PROVIDERS: ATTEND Internal Medicine Cardiovascular Disease
DX: I35.1 Nonrheumatic aortic (valve) insufficiency (principal); J44.9 Chronic obstructive pulmonary disease, unspecified; I51.9 Heart disease, unspecified; R06.00 Dyspnea, unspecified; F17.201 Nicotine dependence, unspecified, in remission
CPT/HCPCS: 78452; 93017

== ENCOUNTER → 2018-03-01 | Outpatient (CLI) | payer MEDICARE, OTHER ==
[~2018-03-01] MED LIST changes: -REGADENOSON 0.4 MG/5 ML SYR (LEXISCAN) IV ONE
--- NOTE | 2018-03-01 15:10 | Diagnostic Imaging Report ---
INDICATION: Postmenopausal screening for osteoporosis. COMPARISON: 12/08/2000. FINDINGS: AP Spine L1-L4: [BMD (g/cm2): 1.494] [T-Score: 2.4] [Z-Score: 3.8] [BMD Previous: 1.67] [BMD % Change: -11.4] LT Hip Neck: [BMD (g/cm2): 0.880] [T-Score: -1.1] [Z-Score: 0.3] LT Hip Total: [BMD (g/cm2):0.970] [T-Score:-0.3] [Z-Score: 0.8] [BMD Previous: 1.039] [BMD % Change: -6.6] RT Hip Neck: [BMD (g/cm2): ] [T-Score: ] [Z-Score: ] RT Hip Total: [BMD (g/cm2): ] [T-score: ] [Z-Score: ] [BMD Previous: ] [BMD % Change: ] *Indicates significant change from prior examination based on 95% confidence level. World Health Organization criteria for BMD interpretation classify patients as Normal (T-score at or above -1.0), Osteopenic (T-score between -1.0 and -2.5) or Osteoporotic (T-score at or below -2.5). LIMITATIONS AND MODIFICATION: Patient has undergone right hip replacement. FRACTURE RISK (FRAX SCORE): The ten year probability of (%): Major Osteoporotic Fracture: [ ] Hip Fracture: [ ] IMPRESSION: 1. Normal bone mineral density. 2. Bone mineral density has decreased by a statistically significant amount, as detailed above. 3. See below National Osteoporosis Foundation guidelines on when to potentially initiate pharmacologic therapy. Based on the National Osteoporosis Foundation Guidelines, pharmacologic treatment should be initiated in any of the following, unless clinical conditions suggest otherwise: * Any patient with prior fragility fracture of the hip or vertebrae. A spine fracture indicates 5X risk for subsequent spine fracture and 2X risk for subsequent hip fracture. * Osteoporosis (T-score <-2.5). * Postmenopausal women and men age 50 and older with low bone mass/osteopenia (T-score between -1.0 and -2.5) by DXA and 10-year major osteoporotic fracture greater than 20% or a 10-year probability of hip fracture greater than 3%. These fracture risks are supplied above in the FRAX score, if applicable. * Clinician judgment and/or patient preferences may indicate treatment for people with 10-year fracture probabilities above or below these levels. Dictated by: Dictated on workstation # [id number]
== END ==
LOC: RAD 08:54
PROVIDERS: ATTEND Nurse Practitioner Family
DX: Z13.820 Encounter for screening for osteoporosis (principal); M81.0 Age-related osteoporosis without current pathological fracture; Z78.0 Asymptomatic menopausal state
CPT/HCPCS: 77080

== ENCOUNTER → 2018-03-05 | Outpatient (CLI) | payer MEDICARE, OTHER ==
--- NOTE | 2018-03-05 15:39 | Diagnostic Imaging Report ---
INDICATION: RT FOOT AND ANKLE SWELLING AND PAIN COMPARISON: None. FINDINGS: Three views of the right ankle were obtained. There is no acute fracture or dislocation. Small plantar calcaneal enthesophyte is noted. No focal osseous lesions are seen. There is mild generalized soft tissue edema. There are no radiopaque foreign bodies. IMPRESSION: 1. Mild generalized soft tissue edema, but no radiographic evidence of acute fracture or dislocation of the right ankle. Dictated by: Dictated on workstation # [id number]
--- NOTE | 2018-03-05 15:47 | Diagnostic Imaging Report ---
INDICATION: Right foot pain. TIME OF EXAM: 03:45 p.m. FINDINGS: Three views of the right foot were obtained. There is a large plantar calcaneal spur. Mid foot and hind foot are otherwise unremarkable. A cerclage wire transfixes the distal second metatarsal. Metatarsals are otherwise intact. No fractures are seen. Phalanges appear intact. IMPRESSION: No acute bony abnormality is detected. Dictated by: Dictated on workstation # [id number]
== END ==
LOC: RAD 14:50
PROVIDERS: ATTEND Nurse Practitioner Family
DX: R60.0 Localized edema (principal)
CPT/HCPCS: 73610; 73630

== ENCOUNTER 2018-03-22 11:00 | Outpatient (RCR) | payer MEDICARE, OTHER | END 2018-03-22 13:44 | disposition home or self-care (01) | PROVIDERS: ATTEND Nurse Practitioner Family | DX: M54.6 Pain in thoracic spine (principal); R07.81 Pleurodynia; I10 Essential (primary) hypertension; J44.9 Chronic obstructive pulmonary disease, unspecified; Z96.641 Presence of right artificial hip joint ==

== ENCOUNTER 2018-06-04 13:11 | Outpatient (RCR) | payer MEDICARE, OTHER ==
[2018-06-14 13:00] VITALS: BP 160/60
[2018-06-14 13:55] VITALS: BP 140/60
[2018-06-21 13:00] VITALS: BP 140/71
[2018-06-21 14:00] VITALS: BP 115/50
[2018-06-28 13:05] VITALS: BP 142/78
[2018-06-28 14:05] VITALS: BP 140/60
[2018-07-03 13:00] VITALS: BP 140/50
[2018-07-03 14:00] VITALS: BP 122/50
[2018-07-10 12:58] VITALS: BP 140/60
[2018-07-10 13:42] VITALS: BP 118/50
[2018-07-19 13:00] VITALS: BP 120/60
[2018-07-19 14:02] VITALS: BP 138/70
[2018-07-24 13:00] VITALS: BP 140/60
[2018-07-24 14:00] VITALS: BP 120/60
[2018-07-31 13:00] VITALS: BP 120/60
[2018-07-31 14:00] VITALS: BP 130/80
[2018-08-02 13:00] VITALS: BP 120/60
[2018-08-02 14:00] VITALS: BP 100/50
[2018-08-07 13:50] VITALS: BP 120/60
[2018-08-07 13:58] VITALS: BP 119/70
[2018-08-14 13:00] VITALS: BP 130/60
[2018-08-14 13:49] VITALS: BP 125/80
== END 2018-09-02 | disposition home or self-care (01) ==
LOC: PULM 13:11
PROVIDERS: ATTEND Family Medicine
DX: J44.9 Chronic obstructive pulmonary disease, unspecified (principal)
CPT/HCPCS: 99211

== ENCOUNTER → 2018-12-26 | Outpatient (CLI) | payer MEDICARE, OTHER ==
--- NOTE | 2018-12-26 20:13 | Diagnostic Imaging Report ---
EXAMINATION: Right femur at 02:23 p.m. INDICATION: Leg pain. FINDINGS: AP and lateral views are obtained. There are no prior studies available for comparison. 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 The prosthetic components seem to be in good position. There is no fracture or acute bony abnormality identified. There is moderate degenerative disease involving the knee joint. The soft tissues are unremarkable. IMPRESSION: 1. There is no evidence for an acute bony abnormality. 2. The total hip prosthesis appears to be in good position. Dictated by: Dictated on workstation # [id number]
== END ==
LOC: RAD 13:46
PROVIDERS: ATTEND Nurse Practitioner Family
DX: M79.604 Pain in right leg (principal); Z96.641 Presence of right artificial hip joint
CPT/HCPCS: 73552

== ENCOUNTER → 2019-01-24 | Outpatient (CLI) | payer MEDICARE, OTHER ==
--- NOTE | 2019-01-24 12:17 | Diagnostic Imaging Report ---
INDICATION: Routine screening. COMPARISON: Comparison is made with prior mammograms from 01/03/2017 and 12/31/2015. TECHNIQUE: 2-D and 3-D bilateral screening mammography was performed. The current study was also evaluated with a Computer Aided Detection (CAD) system. 3-D tomosynthesis was also performed and reviewed. FINDINGS: Scattered fibroglandular densities are identified bilaterally. Benign calcifications are noted. There is a density in the lateral right breast at posterior depth, best seen on the CC view with some associated calcifications. Additional views are recommended. This appears to be superiorly located on the MLO view. Left breast is unremarkable. Axillae are unremarkable. IMPRESSION: Right breast density with calcifications. Additional views are recommended. ACR BI-RADS Category 0: Incomplete. (Needs additional imaging evaluation). Result letter will be mailed to the patient. Note: At least 10% of breast cancer is not imaged by mammography. Dictated by: Dictated on workstation # [id number]
== END ==
LOC: RAD 11:18
PROVIDERS: ATTEND Family Medicine
DX: Z12.31 Encounter for screening mammogram for malignant neoplasm of breast (principal)
CPT/HCPCS: 77067

== ENCOUNTER → 2019-01-24 | Outpatient (CLI) | payer MEDICARE, OTHER | LOC: RAD 11:14 | PROVIDERS: ATTEND Internal Medicine Cardiovascular Disease | DX: I35.1 Nonrheumatic aortic (valve) insufficiency (principal); I10 Essential (primary) hypertension; M48.061 Spinal stenosis, lumbar region without neurogenic claudication | CPT/HCPCS: 93306 ==

== ENCOUNTER → 2019-02-06 | Outpatient (CLI) | payer MEDICARE, OTHER ==
--- NOTE | 2019-02-06 19:34 | Diagnostic Imaging Report ---
INDICATION: Abnormal screening mammogram. Comparison made with prior examinations from 01/24/2019, 01/03/2017, and 12/31/2015. The current study was also evaluated with a Computer Aided Detection (CAD) system. 3-D Tomographic imaging was also performed. FINDINGS: True lateral and spot compression views of the right breast were obtained. There is a cluster of pleomorphic microcalcifications in the upper-outer aspect of the right breast. There appears to be an adjacent soft tissue nodule as well. IMPRESSION: Suspicious. Cluster of pleomorphic microcalcifications with adjacent soft tissue nodule in the upper-outer right breast. Further evaluation with Mammotome biopsy is recommended to exclude malignancy. ACR BI-RADS Category 4: Suspicious abnormality. Result letter will be mailed to the patient. Note: At least 10% of breast cancer is not imaged by mammography. Dictated by: Dictated on workstation # [id number]
== END ==
LOC: RAD 08:57
PROVIDERS: ATTEND Nurse Practitioner Family
DX: N63.11 Unspecified lump in the right breast, upper outer quadrant (principal); R92.0 Mammographic microcalcification found on diagnostic imaging of breast

== ENCOUNTER → 2019-02-14 | Outpatient (CLI) | payer MEDICARE, OTHER ==
[~2019-02-14] VITALS: Ht 152.4 cm; Wt 74.1 kg
[~2019-02-14] MED LIST changes: +LIDOCAINE 1% INJ 20 ML 20 ML VIAL INJ ONE; +LIDOCAINE 1% INJ 20 ML 20 ML VIAL ONE
--- NOTE | 2019-02-14 11:58 | Diagnostic Imaging Report ---
INDICATION: Right breast density and calcifications. PROCEDURE: The patient presents for stereotactic biopsy. DESCRIPTION OF PROCEDURE: The patient is brought to the stereotactic suite and placed in a chair in a sitting upright position. The right breast was positioned lateral medial. Stereotactic images were obtained. The density and calcifications in the upper outer right breast were stereotactically targeted. The lateral right breast was then prepped and draped in the usual sterile fashion. A small amount of 1% lidocaine was utilized for local anesthesia. An 8-gauge probe was advanced into the right breast from a lateral medial approach and placed with its tip per stereotactic coordinates. A total of 4 core biopsies were obtained with the vacuum-assisted device. Specimen radiograph does show several calcifications, particularly within sample labeled #4. The localizer clip was then deployed. Follow-up postprocedure 2D CC and LM mammographic images were then obtained. All images were viewed on a dedicated workstation. Post procedure images demonstrate the localizer clip in the upper outer aspect of the right breast at posterior depth in the region of the previously noted density and calcifications. IMPRESSION: Successful stereotactic biopsy of the density and calcifications in the upper outer right breast, posterior depth. Pathology results are currently pending. Dictated by: Dictated on workstation # [id number]
== END ==
LOC: RAD 08:13
PROVIDERS: ATTEND Family Medicine
DX: R92.1 Mammographic calcification found on diagnostic imaging of breast (principal)
CPT/HCPCS: 19081

== ENCOUNTER → 2019-03-04 | Outpatient (CLI) | payer MEDICARE, OTHER ==
[~2019-03-04] MED LIST changes: -LIDOCAINE 1% INJ 20 ML 20 ML VIAL INJ ONE; -LIDOCAINE 1% INJ 20 ML 20 ML VIAL ONE
--- NOTE | 2019-03-04 19:08 | Diagnostic Imaging Report ---
EXAMINATION: Magnetic resonance imaging of the right knee without intravenous contrast DATE: March 04, 2019. COMPARISON: None. INDICATION: 68-year-old female, right knee pain. TECHNIQUE: Multiplanar, multisequence non contrast enhanced MR imaging was accomplished. FINDINGS: There are notable motion limitations of the exam. MENISCI: There is signal in the medial meniscus not meeting strict MRI criteria for diagnosis of tear. Lateral meniscus is grossly intact. LIGAMENTS AND TENDONS: The anterior and posterior cruciate ligaments are intact. There is very mild thickening of the superficial component of the medial collateral ligament complex which could relate to sequela of remote prior injury. The iliotibial band, mid third lateral capsular ligament, fibular collateral ligament, biceps femoris tendon and conjoined tendon are intact. The quadriceps tendon and patella ligament are intact. JOINT: There is a full-thickness cartilage defect involving the medial patellar facet and median patellar ridge measuring approximately 13 mm in transverse dimension. There is superficial fissuring of the cartilage of the lateral patellar facet. There is irregularity of the inferior aspect of the femoral trochlear cartilage. There is fissuring and irregularity of the cartilage of the weightbearing portion of the medial femoral condyle. There is a moderate-sized knee joint effusion. There are linear foci of low signal within the joint fluid which do not appear to represent intra-articular bodies. There is no clearly identified definite intra-articular body. BONE: There is unremarkable bone marrow signal. Specifically, negative for fracture, osteomyelitis, osteonecrosis, or marrow replacing process. BURSAE AND SOFT TISSUES: There is no Salguero's cyst. There is fluid in the fascia adjacent to the popliteus muscle without identified abnormal intramuscular signal. IMPRESSION: 1. Motion limitations of the study. 2. Grossly intact menisci. 3. Intact anterior and posterior cruciate ligaments. There is mild thickening of the superficial component of the medial collateral ligament complex which may relate to sequela of remote prior injury. 4. 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 Moderate-sized knee joint effusion without definite intra-articular body. 5. No acute fracture, bone contusion, or evidence of osteonecrosis. 6. Small amount of abnormal interfascial fluid adjacent to the popliteus muscle without identified abnormal intramuscular signal. This is not specific. Dictated on workstation # [id number]
== END ==
LOC: RAD 14:49
PROVIDERS: ATTEND Orthopaedic Surgery
DX: M17.11 Unilateral primary osteoarthritis, right knee (principal); M25.461 Effusion, right knee; M94.261 Chondromalacia, right knee; M23.41 Loose body in knee, right knee; M23.203 Derangement of unspecified medial meniscus due to old tear or injury, right knee
CPT/HCPCS: 73721

== ENCOUNTER 2019-04-09 11:06 | Emergency (ER) | payer MEDICARE, OTHER ==
[~2019-04-09] VITALS: Ht 152 cm; Wt 74.9 kg
[~2019-04-09 11:06] MED LIST changes: +TRM50T PO
--- NOTE | 2019-04-09 11:39 | ED Fall/Injury ---
General Chief Complaint: Trauma-Non Activation Stated Complaint: FALL Nursing Triage Note: MULTIPLE FALLS SINCE MONDAY DUE TO TRIPPING OVER THINGS. DENIES DIZZINESS OR WEAKNESS AT THE TIME OF THE FALL. COMPLAINS OF NECK AND RIGHT SIDED FACE/HEAD PAIN. History of Present Illness Date Seen by Provider: Apr 09, 2019 Time Seen by Provider: 11:20 Initial Comments 68-year-old female reports 2 falls, the first being in 04-04-19 and the second one being on 04/07/19. Her complaints are right temporal/parietal head, posterior and right neck and right shoulder pain. History of Right Total Shoulder Replacement, cervical and lumbar spine surgeries. She reports the falls are because of clumsiness or trying to carry more than she should. She wears portable oxygen but reports she has not been using it as much as she is supposed to. She denies loss of consciousness with either fall, she is not on aspirin or anticoagulants. She denies paresthesias, weakness or radicular symptoms in her right upper extremity. Medications include treatment for peripheral neuropathy, COPD, allergic rhinitis, and hypertension. She has a resolving abrasion to her right cheek, and multiple ecchymotic areas to her upper extremities. C collar placed on arrival. Patient unsure of her last tetanus vaccine, he could've been 2011 or 2005. Occurred: last week Injuries/Pain Location: head, face, neck Loss of Consciousness: no loss of consciousness Associated Symptoms (Fall): No Denies Symptoms, No Abdominal Pain, No Chest Pain, No Confusion, No Dizziness; Headache; No Lightheadedness, No Muscle Spasms, No Nausea/Vomiting; Neck Pain; No Ringing in Ears, No Seizures, No Shortness of Air, No Slurred Speech, No Trouble Walking, No Vision Changes, No Other Allergies and Home Medications Allergies Coded Allergies: succinylcholine (Unverified Allergy, Unknown, 04/24/17) Home Medications Acetylcysteine 500 Mg Capsule, 500 MG PO BID, (Reported) Albuterol Sulfate 18 Gm Hfa.aer.ad, 2 PUFF INH Q4H PRN for SHORTNESS OF BREATH, (Reported) Alprazolam 0.5 Mg Tablet, 1 MG PO HS, (Reported) TAKES 2 (0.5MG) TABLETS Alprazolam 0.5 Mg Tablet, 0.5 MG PO DAILY PRN for ANXIETY, (Reported) Ascorbate Calcium 500 Mg Tablet, 500 MG PO DAILY, (Reported) Beta-Carotene 25,000 Unit Capsule, 25,000 UNIT PO DAILY, (Reported) Cefdinir 300 Mg Capsule, 300 MG PO BID Prescribed by: AGAPITO PÉREZ on 04/25/17 1147 Cetirizine HCl 10 Mg Tablet, 10 MG PO DAILY, (Reported) Cholecalciferol (Vitamin D3) 400 Unit Capsule, 400 UNIT PO DAILY, (Reported) Escitalopram Oxalate 10 Mg Tablet, 10 MG PO DAILY, (Reported) Fenofibrate Nanocrystallized 145 Mg Tablet, 145 MG PO DAILY, (Reported) Fluticasone Propionate 16 Gm [place].susp, 2 SPRAY NS DAILY, (Reported) Fluticasone/Salmeterol 1 Each Blst.w.dev, 1 PUFF INH DAILY, (Reported) Gabapentin 400 Mg Capsule, 400 MG PO QID, (Reported) LAST FILLED #360 10-06-16 Glucosa [place] 2Kcl/Chondroitin [place] 1 Each Tablet, 1 TAB PO DAILY, (Reported) Hydrochlorothiazide 25 Mg Tablet, 25 MG PO DAILY, (Reported) Hydrocodone Bit/Acetaminophen 1 Tab Tab, 1 EACH PO Q6H PRN for PAIN-MODERATE Prescribed by: MADELINE MURRAY on 04/09/19 1327 Ibuprofen 200 Mg Tablet, 200 MG PO DAILY, (Reported) Lisinopril/Hydrochlorothiazide 1 Each Tablet, 1 TAB PO DAILY, (Reported) Montelukast Sodium 10 Mg Tablet, 10 MG PO HS, (Reported) Multivitamin 1 Each Tablet, 1 TAB PO DAILY, (Reported) Omeprazole 40 Mg Capsule.dr, 40 MG PO BID, (Reported) Pomegranate Fruit Extract 250 Mg Capsule, 250 MG PO DAILY, (Reported) Potassium Chloride 20 Meq Tab.er.prt, 20 MEQ PO BID, (Reported) Tiotropium [place] 4 Gm Mist.inhal, 2 PUFF INH DAILY, (Reported) Tramadol HCl 50 Mg Tablet, 50 MG PO Q6H PRN for PAIN-MODERATE, (Reported) Vitamin E Acetate 400 Unit Capsule, 400 UNIT PO DAILY, (Reported) Patient Home Medication List Home Medication List Reviewed: Yes Review of Systems Review of Systems Constitutional: no symptoms reported, see HPI Eyes: No Symptoms Reported, See HPI; Denies Vision Changes Ears, Nose, Mouth, Throat: no symptoms reported, see HPI Respiratory: no symptoms reported, see HPI Cardiovascular: no symptoms reported, see HPI Gastrointestinal: no symptoms reported, see HPI Genitourinary: no symptoms reported, see HPI Musculoskeletal: see HPI, back pain, joint pain (right shoulder), muscle pain (right upper extremity); No muscle stiffness, No muscle cramps, No muscle weakness; neck pain All Other Systems Reviewed Negative Unless Noted: Yes Past Calcubq-Ancqyx-Igypxn Hx Past Med/Social Hx: Reviewed Nursing Past Med/Soc Hx Patient Social History Alcohol Use: Occasionally Uses Alcohol Beverage of Choice: Scotch Recreational Drug Use: No Smoking Status: Former Smoker Type Used: Cigarettes Former Smoker, Quit: Apr 03, 2001 Recent Foreign Travel: No Contact w/Someone Who Travel: No Recent Infectious Disease Expo: No Recent Hopitalizations: Yes (03/19 SHOULDER SURGERY) Immunizations Up To Date Tetanus Booster (TDap): More than 5yrs Date of Pneumonia Vaccine: Feb 16, 2012 Date of Influenza Vaccine: Jan 04, 2017 Past Medical History Surgeries: No (HIP BACK TENDONITIS; rt. wrist carpal tunnel) Gallbladder, Orthopedic Respiratory: Yes (ALLERGIES COMBIVENT) Currently Using CPAP: No Currently Using BIPAP: No Cardiac: Yes Hypertension Neurological: No Reproductive Disorders: No Sexually Transmitted Disease: No HIV/AIDS: No Genitourinary: No Gastrointestinal: Yes (COLON POLYPS/HIATAL HERNIA) Gall Bladder Disease Musculoskeletal: Yes (rt. hip replacement 08/31/10) Chronic Back Pain, Fractures Endocrine: No Loss of Vision: Bilateral Hearing Impairment: Denies Cancer: No Psychosocial: No Integumentary: No Blood Disorders: No (BLEEDS EASILY) Adverse Reaction/Blood Tranf: No (NEVER HAD BLOOD TRANSFUSION) Family Medical History Family history: Hypertension 03 FATHER, Onset:Unknown Myocardial infarction 03 FATHER, Onset:60 years & older Stroke 03 MOTHER, Onset:Unknown No Pertinent Family Hx Physical Exam Vital Signs Vital Signs - First Documented 04/09/19 11:14 Temp 36.6 Pulse 89 Resp 16 B/P (MAP) 152/67 (95) Pulse Ox 91 O2 Delivery Room Air Capillary Refill : Less Than 3 Seconds Height, Weight, BMI Height: 5'2.00" Weight: 169lbs. 6.0oz. 74.678153bp; 32.00 BMI Method:Stated General Appearance: WD/WN, no apparent distress HEENT: PERRL/EOMI, normal ENT inspection, TMs normal, pharynx normal, other (superficial abrasion to right cheek, ecchymosis to right forehead. Head is otherwise normocephalic with tenderness in the right parietal and temporal region, no contusion, crepitus, ecchymosis or swelling noted.) Neck: normal inspection (c-collar in place.), limited range of motion (second elva to c-collar), tender lateral (right), tender midline (right) Cardiovascular: normal peripheral pulses, regular rate, rhythm, no edema, no murmur Respiratory: chest non-tender, lungs clear, normal breath sounds Gastrointestinal: normal bowel sounds, non tender, soft; No rebound, No tenderness, No mass Back: normal inspection, no CVA tenderness, no vertebral tenderness; No decreased range of motion, No muscle spasm, No vertebral tenderness Extremities: normal range of motion, non-tender, no calf tenderness, normal capillary refill, other (resolving ecchymosis to bilateral upper extremities.) Neurologic/Psychiatric: 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 Sensation and motor function intact, bilateral upper extremities. [place] Coma Score Best Eye Response: (4) Open Spontaneously Best Verbal Response: (5) Oriented Best Motor Response: (6) Obeys Commands [place] Total: 15 Progress/Results/Core Measures Results/Orders Lab Results Laboratory Tests Test 04/09/19 12:06 04/09/19 12:54 Range/Units Urine Color YELLOW Urine Clarity CLEAR Urine pH 7.5 5-9 Urine Specific [place] 1.020 1.016-1.022 Urine Protein NEGATIVE NEGATIVE Urine Glucose (UA) NEGATIVE NEGATIVE Urine Ketones NEGATIVE NEGATIVE Urine Nitrite NEGATIVE NEGATIVE Urine Bilirubin NEGATIVE NEGATIVE Urine Urobilinogen 0.2 < = 1.0 MG/DL Urine Leukocyte Esterase NEGATIVE NEGATIVE Urine RBC (Auto) NEGATIVE NEGATIVE Urine RBC NONE /HPF Urine WBC NONE /HPF Urine Squamous Epithelial Cells 0-2 /HPF Urine Crystals NONE /LPF Urine Bacteria NEGATIVE /HPF Urine Casts NONE /LPF Urine Mucus NEGATIVE /LPF Urine Culture Indicated NO White Blood Count 8.4 4.3-11.0 10^3/uL Red Blood Count 4.71 4.35-5.85 10^6/uL Hemoglobin 15.2 11.5-16.0 G/DL Hematocrit 45 35-52 % Mean Corpuscular Volume 96 80-99 FL Mean Corpuscular Hemoglobin 32 25-34 PG Mean Corpuscular Hemoglobin Concent 34 32-36 G/DL Red Cell Distribution Width 12.0 10.0-14.5 % Platelet Count 299 130-400 10^3/uL Mean Platelet Volume 8.6 7.4-10.4 FL Neutrophils (%) (Auto) 77 H 42-75 % Lymphocytes (%) (Auto) 11 L 12-44 % Monocytes (%) (Auto) 12 0-12 % Eosinophils (%) (Auto) 0 0-10 % Basophils (%) (Auto) 0 0-10 % Neutrophils # (Auto) 6.5 1.8-7.8 X 10^3 Lymphocytes # (Auto) 0.9 L 1.0-4.0 X 10^3 Monocytes # (Auto) 1.0 0.0-1.0 X 10^3 Eosinophils # (Auto) 0.0 0.0-0.3 10^3/uL Basophils # (Auto) 0.0 0.0-0.1 10^3/uL Prothrombin Time 14.7 12.2-14.7 SEC INR Comment 1.1 0.8-1.4 Activated Partial Thromboplast Time 30 24-35 SEC Sodium Level 134 L 135-145 MMOL/L Potassium Level 3.2 L 3.6-5.0 MMOL/L Chloride Level 95 L 98-107 MMOL/L Carbon Dioxide Level 23 21-32 MMOL/L Anion Gap 16 H 5-14 MMOL/L Blood Urea Nitrogen 4 L 7-18 MG/DL Creatinine 0.69 0.60-1.30 MG/DL Estimat Glomerular Filtration Rate > 60 BUN/Creatinine Ratio 6 Glucose Level 108 H 70-105 MG/DL Calcium Level 9.8 8.5-10.1 MG/DL Corrected Calcium 9.5 8.5-10.1 MG/DL Total Bilirubin 0.8 0.1-1.0 MG/DL Aspartate Amino Transf (AST/SGOT) 23 5-34 U/L Alanine Aminotransferase (ALT/SGPT) 15 0-55 U/L Alkaline Phosphatase 56 40-136 U/L Total Protein 7.4 6.4-8.2 GM/DL Albumin 4.4 3.2-4.5 GM/DL My Orders Orders - MADELINE MURRAY MAISHA Ct Head/Cervical Spine Wo (04/09/19 11:32) Shoulder, Right, 3 Views (04/09/19 11:32) Ua Culture If Indicated (04/09/19 11:58) Dipht,Pertuss(Acell),Tet Adult (Boostrix (04/09/19 12:00) Cbc With Automated Diff (04/09/19 12:34) Comprehensive Metabolic Panel (04/09/19 12:34) Protime With Inr (04/09/19 12:34) Partial Thromboplastin Time (04/09/19 12:34) Medications Given in ED Current Medications Medications Dose Ordered Sig/Doug Route Start Time Stop Time Status Last Admin Dose Admin Diphtheria/ Tetanus/Acell Pertussis 0.5 ml ONCE ONCE IM 04/09/19 12:00 04/09/19 12:01 DC 04/09/19 12:46 0.5 ML Vital Signs/I&O 04/09/19 04/09/19 11:14 13:32 Temp 36.6 36.6 Pulse 89 89 Resp 16 16 B/P (MAP) 152/67 (95) 152/67 (95) Pulse Ox 91 91 O2 Delivery Room Air Blood Pressure Mean: 95 Progress Progress Note : Time: 11:20 Progress Note Patient seen and evaluated, will obtain a CT of the head and cervical spine, x- ray of the right shoulder, tetanus vaccine and UA. 1220 Spoke with radiologist about C2 vertebral body fracture with mild displacement, to the left. [address] Herzog (per patient request, he did her last spine surgery) recommended maintaining her in rigid cervical collar and follow-up in his office in the next 2 days. 1320 discharge instructions and return precautions reviewed with the patient in detail. Stressed the importance of using the rigid cervical collar all times. Copy of C-spine CT given to patient on CD to take your follow-up appointment. Diagnostic Imaging Diagonstic Imaging: CT Plain Films/CT/US/NM/MRI: c-spine, head Comments NAME: MAYTESHRAVAN A MED REC#: [id number] PT STATUS: REG ER : 1950 PHYSICIAN: MADELINE MURRAY ADMIT DATE: 04/09/19/ER Draft Date of Exam:04/09/19 CT HEAD/CERVICAL SPINE WO PROCEDURE: CT head and CT cervical spine without contrast. TECHNIQUE: Multiple contiguous axial images were obtained through the brain and cervical spine without the use of intravenous contrast. Sagittal and coronal reformations through the cervical spine were then performed. Auto Exposure Controls were utilized during the CT exam to meet ALARA standards for radiation dose reduction. INDICATION: Multiple recent falls. COMPARISON: 04/23/2017. FINDINGS: CT head: The ventricles and cortical sulci are diffusely prominent, compatible with age-related volume loss. There are confluent areas of abnormal, low attenuation in the periventricular white matter. This is consistent with chronic small vessel ischemic changes. There is no midline shift or mass-effect. No acute intra-axial hemorrhage is seen. There are no abnormal areas of increased or decreased density to suggest acute hemorrhage or edema. No extra-axial masses or collections are present. The bony calvarium is intact. The visualized paranasal sinuses are unremarkable. The mastoid air cells are clear. CT cervical spine: There is acute fracture of C2. Fracture line predominantly involves the body of C2. There is extension into the inferior articular surface of the body of C2. There is also extension into the posterolateral half of C2 near its junction with the left pedicle. There is mild widening of this fracture line measured at 7 mm (image 27, series 3). There is also extension of fracture line into the posterior vertebral body wall as well as the right transverse foramen (image 30, series 3). Patient is status post previous anterior fusion of C4 through C7 with prior corpectomy of C5. The hardware appears appropriately positioned and well seated. There is no evidence of periprosthetic loosening or fracture. Evaluation of the remainder of the static alignment shows slight grade 1 anterolisthesis at C7-T1. There is no evidence of jumped facets. There are multilevel degenerative changes consisting of intervertebral disc height loss with posterior disc bulges and multilevel facet arthropathy. Pre and paravertebral soft tissue structures are unremarkable. Note is made of calcified carotid atherosclerosis. Included portions of the lung apices show background emphysematous changes, but no additional acute abnormalities. IMPRESSION: 1. No acute intracranial abnormality. No CT evidence of mass, acute infarct or intracranial hemorrhage. 2. Chronic small vessel ischemic changes in deep white matter. 3. Acute comminuted mildly displaced fracture of the body of C2. Results were called to Madeline Murray by Dr. Wilder at 1225 hours on 04/09/2019. Dictated on workstation # [id number] Dict: 04/09/19 1213 Trans: 04/09/19 1229 [id number] Interpreted by: SHANTI WILDER MD Electronically signed by: Reviewed: Reviewed by Me, Discussed w/Radiologist Diagonstic Imaging: Xray Plain Films/CT/US/NM/MRI: other (Rt shoulder) Comments NAME: SHRAVAN HU MED REC#: [id number] PT STATUS: REG ER : 1950 PHYSICIAN: MADELINE MURRAY [facility] ADMIT DATE: 04/09/19/ER Draft Date of Exam:04/09/19 SHOULDER, RIGHT, 3 VIEWS INDICATION: Fall, right shoulder pain, history of replacement. COMPARISON: None TECHNIQUE: 3 views of the right shoulder. FINDINGS: There is a right shoulder arthroplasty with no hardware complication seen. Alignment appears normal. No acute fracture seen in the right shoulder. There is mild degenerative change at the acromioclavicular joint. Cervical spine fusion hardware is noted. IMPRESSION: 1. Right shoulder arthroplasty without hardware complication or acute osseous abnormality seen. Dictated on workstation # [id number] Dict: 04/09/19 1203 Trans: 04/09/19 1210 SA [id number] Interpreted by: FLORECITA PAK MD Electronically signed by: Reviewed: Reviewed by Me Departure Impression Primary Impression: Fall Qualified Codes: W19.XXXA - Unspecified fall, initial encounter Additional Impression: Cervical vertebral closed fracture Qualified Codes: S12.190A - Other displaced fracture of second cervical vertebra, initial encounter for closed fracture Disposition: HOME, SELF-CARE Condition: Stable Departure-Patient Inst. Decision time for Depature: 13:20 Referrals: KAVITA KIRBY MD (PCP/Family) Primary Care Physician STEVE HERZOG MD Patient Instructions: Neck Fracture (DC), Preventing Falls in the Older Adult Add. Discharge Instructions: Keep the rigid cervical collar on at all times. Do not remove it, until your follow up with Dr. Herzog. Call Dr. Herzog's office for appt, he wants to see you this week: [phone] Continue to take all of your home medications as prescribed. Wear your oxygen at all times and consider using your cane or walker for ambulation to prevent falls. Return to the emergency department for increasing neck pain, new injuries, nu mbness or tingling in either upper extremity, or new concerns. All discharge instructions reviewed with patient and/or family. Voiced understanding. Scripts Hydrocodone Bit/Acetaminophen (Hydrocodone/Acetaminophen 5/325mg Tablet) 1 Tab Tab 1 EACH PO Q6H PRN for PAIN-MODERATE MDD 10, #20 TAB 0 Refills Prov: MADELINE MURRAY 04/09/19 Copy Copies To 1: KAVITA KIRBY MD Copies To 2: STEVE HERZOG MD, AMY ARNP Apr 09, 2019 11:38
[2019-04-09] MEDS ORDERED: TETANUS,DIPTH,PERTUSS P/F (BOOSTRIX) 0.5 ML VIAL IM ONE (12:00)
--- NOTE | 2019-04-09 12:10 | Diagnostic Imaging Report ---
INDICATION: Fall, right shoulder pain, history of replacement. COMPARISON: None TECHNIQUE: 3 views of the right shoulder. FINDINGS: There is a right shoulder arthroplasty with no hardware complication seen. Alignment appears normal. No acute fracture seen in the right shoulder. There is mild degenerative change at the acromioclavicular joint. Cervical spine fusion hardware is noted. IMPRESSION: 1. Right shoulder arthroplasty without hardware complication or acute osseous abnormality seen. Dictated by: Dictated on workstation # [id number]
[2019-04-09 12:14] LABS: BILIRUBIN,URINE NEGATIVE (NEGATIVE); CLARITY,URINE CLEAR; COLOR,URINE YELLOW; GLUCOSE, URINE (UA) NEGATIVE (NEGATIVE); KETONES,URINE NEGATIVE (NEGATIVE); LEUKOCYTE ESTERASE ,URINE NEGATIVE (NEGATIVE); NITRITE,URINE NEGATIVE (NEGATIVE); PH,URINE 7.5 (5-9); PROTEIN,URINE NEGATIVE (NEGATIVE)
[2019-04-09 12:20] LABS: BACTERIA,URINE NEGATIVE /HPF; SQUAMOUS EPITHELIAL CELL,UR 0-2 /HPF
--- NOTE | 2019-04-09 12:30 | Diagnostic Imaging Report ---
PROCEDURE: CT head and CT cervical spine without contrast. TECHNIQUE: Multiple contiguous axial images were obtained through the brain and cervical spine without the use of intravenous contrast. Sagittal and coronal reformations through the cervical spine were then performed. Auto Exposure Controls were utilized during the CT exam to meet ALARA standards for radiation dose reduction. INDICATION: Multiple recent falls. COMPARISON: 04/23/2017. FINDINGS: CT head: The ventricles and cortical sulci are diffusely prominent, compatible with age-related volume loss. There are confluent areas of abnormal, low attenuation in the periventricular white matter. This is consistent with chronic small vessel ischemic changes. There is no midline shift or mass-effect. No acute intra-axial hemorrhage is seen. There are no abnormal areas of increased or decreased density to suggest acute hemorrhage or edema. No extra-axial masses or collections are present. The bony calvarium is intact. The visualized paranasal sinuses are unremarkable. The mastoid air cells are clear. CT cervical spine: There is acute fracture of C2. Fracture line predominantly involves the body of C2. There is extension into the inferior articular surface of the body of C2. There is also extension into the posterolateral half of C2 near its junction with the left pedicle. There is mild widening of this fracture line measured at 7 mm (image 27, series 3). There is also extension of fracture line into the posterior vertebral body wall as well as the right transverse foramen (image 30, series 3). Patient is status post previous anterior fusion of C4 through C7 with prior corpectomy of C5. The hardware appears appropriately positioned and well seated. There is no evidence of periprosthetic loosening or fracture. Evaluation of the remainder of the static alignment shows slight grade 1 anterolisthesis at C7-T1. There is no evidence of jumped facets. There are multilevel degenerative changes consisting of intervertebral disc height loss with posterior disc bulges and multilevel facet arthropathy. Pre and paravertebral soft tissue structures are unremarkable. Note is made of calcified carotid atherosclerosis. Included portions of the lung apices show background emphysematous changes, but no additional acute abnormalities. IMPRESSION: 1. No acute intracranial abnormality. No CT evidence of mass, acute infarct or intracranial hemorrhage. 2. Chronic small vessel ischemic changes in deep white matter. 3. Acute comminuted mildly displaced fracture of the body of C2. Results were called to Madeline Alexis by Dr. Zavala at 1225 hours on 04/09/2019. Dictated by: Dictated on workstation # [id number]
--- NOTE | 2019-04-09 12:39 | NUR ---
LAB CONTACTED FOR BLOOD DRAW.
--- NOTE | 2019-04-09 12:57 | NUR ---
LAB IN ROOM AT THIS TIME.
[2019-04-09 13:02] LABS: BASOPHILS % (AUTO) 0 % (0-10); EOSINOPHILS % (AUTO) 0 % (0-10); HEMATOCRIT 45 % (35-52); HEMOGLOBIN 15.2 G/DL (11.5-16.0); LYMPHOCYTES # (AUTO) 0.9 X 10^3 (1.0-4.0); LYMPHOCYTES % (AUTO) 11 % (12-44); MEAN CORPUSCULAR HEMOGLOBIN 32 PG (25-34); MEAN CORPUSCULAR HGB CONC 34 G/DL (32-36); MEAN CORPUSCULAR VOLUME 96 FL (80-99); MEAN PLATELET VOLUME 8.6 FL (7.4-10.4); MONOCYTES % (AUTO) 12 % (0-12); NEUTROPHILS # (AUTO) 6.5 X 10^3 (1.8-7.8); NEUTROPHILS % (AUTO) 77 % (42-75); PLATELET COUNT 299 10^3/uL (130-400); WHITE BLOOD COUNT 8.4 10^3/uL (4.3-11.0)
[2019-04-09 13:13] LABS: INR 1.1 (0.8-1.4); PROTHROMBIN TIME PATIENT 14.7 SEC (12.2-14.7)
[2019-04-09 13:24] LABS: ALANINE AMINOTRANSFERASE 15 U/L (0-55); ALBUMIN 4.4 GM/DL (3.2-4.5); ALKALINE PHOSPHATASE 56 U/L (40-136); BILIRUBIN,TOTAL 0.8 MG/DL (0.1-1.0); BUN/CREATININE RATIO 6; CALCIUM 9.8 MG/DL (8.5-10.1); CARBON DIOXIDE 23 MMOL/L (21-32); CHLORIDE 95 MMOL/L (98-107); CREATININE SERUM 0.69 MG/DL (0.60-1.30); GFR ESTIMATED > 60; GLUCOSE 108 MG/DL (70-105); POTASSIUM 3.2 MMOL/L (3.6-5.0); SODIUM 134 MMOL/L (135-145); TOTAL PROTEIN 7.4 GM/DL (6.4-8.2)
[2019-04-09] MEDS ORDERED: ACHD5005 PO (13:27)
[2019-04-09 13:32] VITALS: BP 152/67
== END 2019-04-09 13:32 | disposition home or self-care (01) ==
LOC: EDUNIT# 11:06 → ER 11:07
DX: S12.190A Other displaced fracture of second cervical vertebra, initial encounter for closed fracture (principal); J44.9 Chronic obstructive pulmonary disease, unspecified; I10 Essential (primary) hypertension; R40.2142 Coma scale, eyes open, spontaneous, at arrival to emergency department; R40.2252 Coma scale, best verbal response, oriented, at arrival to emergency department; R40.2362 Coma scale, best motor response, obeys commands, at arrival to emergency department; Z87.891 Personal history of nicotine dependence; Z23 Encounter for immunization; Z88.8 Allergy status to other drugs, medicaments and biological substances; Z79.51 Long term (current) use of inhaled steroids; Z96.611 Presence of right artificial shoulder joint; Z82.49 Family history of ischemic heart disease and other diseases of the circulatory system; W01.0XXA Fall on same level from slipping, tripping and stumbling without subsequent striking against object, initial encounter
CPT/HCPCS: 36415; 70450; 72125; 73030; 80053; 81000; 85025; 85610; 85730; 90471; 90715

== ENCOUNTER 2019-06-04 14:46 | Outpatient (RCR) | payer MEDICARE, OTHER ==
[~2019-06-04 14:46] MED LIST changes: -BETA2500 PO; +LISI1TAB26 PO; -MONT10TA24 PO; +MONT10TA26 PO; +OMEP40CA27 PO; -OMEP40CA36 PO; +[UNRECOGNIZED DRUG - CODE] PO
== END 2019-06-13 14:27 | disposition home or self-care (01) ==
PROVIDERS: ATTEND Orthopaedic Surgery Orthopaedic Surgery of the Spine
DX: Z09 Encounter for follow-up examination after completed treatment for conditions other than malignant neoplasm (principal); Z98.1 Arthrodesis status

== ENCOUNTER → 2019-06-11 | Outpatient (CLI) | payer MEDICARE, OTHER ==
--- NOTE | 2019-06-11 13:20 | Diagnostic Imaging Report ---
INDICATION: Frequent falls. COMPARISON: None. FINDINGS: Frontal, lateral, and open-mouth radiographic views of the cervical spine were obtained. Postsurgical changes of previous posterior fusion of C1 through C4 are identified. There are also postsurgical changes of previous anterior fusion of C4 through C7. [place] screws appear appropriately positioned. Hardware is intact. Note is also made of prior corpectomy changes of C5. Intervertebral disc spacers at C4-C5 through C6-C7 are also noted. Posterior radiopaque markers appear appropriately positioned on the lateral view. Static alignment of the cervical spine is maintained. There is no significant ehsan- or retro-listhesis. There is no evidence of jumped facets. No acute vertebral body fracture is identified. Open-mouth view shows normal C1-C2 alignment. No unexpected radiopaque foreign bodies are seen. IMPRESSION: 1. Extensive postsurgical changes of the cervical spine as above. No unexpected radiopaque foreign bodies. 2. No evidence of acute fracture or dislocation of the cervical spine. Dictated by: Dictated on workstation # [id number]
--- NOTE | 2019-06-11 13:34 | Diagnostic Imaging Report ---
INDICATION: Frequent falls. COMPARISON: MR dated 04/16/2015. FINDINGS: Evaluation of static alignment shows borderline grade 1 and grade 2 retrolisthesis at L3-L4. There is also slight grade 1 retrolisthesis at L1-L2 and L2-L3. There is no evidence of jumped facets. Vertebral body heights are maintained. There is no evidence of acute fracture. There are moderate multilevel degenerative changes consistent with intervertebral disc height loss with anterior and posterior disc osteophyte complex formations. These changes appear greatest at the L1-L2 level where there is advanced sclerotic change to the adjacent endplates. Note is made of calcified aortic atherosclerosis. No unexpected radiopaque foreign bodies are seen. IMPRESSION: 1. No acute fracture or dislocation of lumbar spine. 2. Advanced multilevel degenerative changes of the lumbar spine. Dictated by: Dictated on workstation # [id number]
--- NOTE | 2019-06-11 13:36 | Diagnostic Imaging Report ---
INDICATION: Frequent falls. COMPARISON: None FINDINGS: Frontal and lateral radiographic views of the thoracic spine were obtained. There is mild levoscoliotic deformity epicentered at the T9-T10 level. AP static alignment is maintained. Vertebral body heights are preserved. No acute fracture is seen. Mild multilevel degenerative changes are noted. Included portions of the lungs are clear. IMPRESSION: 1. No radiographic evidence of acute fracture or dislocation of the thoracic spine. 2. Mild multilevel degenerative changes. Dictated by: Dictated on workstation # [id number]
== END ==
LOC: RAD 12:29
PROVIDERS: ATTEND Nurse Practitioner Family
DX: M47.816 Spondylosis without myelopathy or radiculopathy, lumbar region (principal); M47.814 Spondylosis without myelopathy or radiculopathy, thoracic region; R29.6 Repeated falls
CPT/HCPCS: 72040; 72072; 72100

== ENCOUNTER 2019-06-28 17:18 | Emergency (ER) | payer MEDICARE, OTHER ==
[~2019-06-28] VITALS: Ht 152 cm; Wt 75.0 kg
--- NOTE | 2019-06-28 17:26 | ED Fall/Injury ---
General Stated Complaint: FALL/HEAD INJ Source: patient Exam Limitations: no limitations History of Present Illness Date Seen by Provider: Jun 28, 2019 Time Seen by Provider: 17:22 Initial Comments To ER for EMS from home with reports of a head injury. She had just finished mowing and was putting the lawnmower, when she stepped off of the lawnmower she tripped over the front wheels falling backwards striking the back of her head. No loss of consciousness, she does report that she briefly had tingling in both of her arms which has completely resolved. She has some pain in the back of her head and in her neck, she had a C1-c4 fracture in April of this year fixed by Dr. HERZOG following a fall. She is not on anticoagulation. Occurred: this evening Severity: moderate Loss of Consciousness: no loss of consciousness Associated Symptoms (Fall): Headache Allergies and Home Medications Allergies Coded Allergies: succinylcholine (Unverified Allergy, Unknown, 04/24/17) Home Medications Acetylcysteine 500 Mg Capsule, 500 MG PO BID, (Reported) Albuterol Sulfate 18 Gm Hfa.aer.ad, 2 PUFF INH Q4H PRN for SHORTNESS OF BREATH, (Reported) Alprazolam 0.5 Mg Tablet, 1 MG PO HS, (Reported) TAKES 2 (0.5MG) TABLETS Alprazolam 0.5 Mg Tablet, 0.5 MG PO DAILY PRN for ANXIETY, (Reported) Ascorbate Calcium 500 Mg Tablet, 500 MG PO DAILY, (Reported) Beta-Carotene 25,000 Unit Capsule, 25,000 UNIT PO DAILY, (Reported) Cefdinir 300 Mg Capsule, 300 MG PO BID Prescribed by: AGAPITO PÉREZ on 04/25/17 1147 Cetirizine HCl 10 Mg Tablet, 10 MG PO DAILY, (Reported) Cholecalciferol (Vitamin D3) 400 Unit Capsule, 400 UNIT PO DAILY, (Reported) Escitalopram Oxalate 10 Mg Tablet, 10 MG PO DAILY, (Reported) Fenofibrate Nanocrystallized 145 Mg Tablet, 145 MG PO DAILY, (Reported) Fluticasone Propionate 16 Gm Okay.susp, 2 SPRAY NS DAILY, (Reported) Fluticasone/Salmeterol 1 Each Blst.w.dev, 1 PUFF INH DAILY, (Reported) Gabapentin 400 Mg Capsule, 400 MG PO QID, (Reported) LAST FILLED #360 [id number] Glucosa Prince 2Kcl/Chondroitin Prince 1 Each Tablet, 1 TAB PO DAILY, (Reported) Hydrochlorothiazide 25 Mg Tablet, 25 MG PO DAILY, (Reported) Hydrocodone Bit/Acetaminophen 1 Tab Tab, 1 EACH PO Q6H PRN for PAIN-MODERATE Prescribed by: GOGO MURRAY on 04/09/19 1327 Ibuprofen 200 Mg Tablet, 200 MG PO DAILY, (Reported) Lisinopril/Hydrochlorothiazide 1 Each Tablet, 1 TAB PO DAILY, (Reported) Montelukast Sodium 10 Mg Tablet, 10 MG PO HS, (Reported) Multivitamin 1 Each Tablet, 1 TAB PO DAILY, (Reported) Omeprazole 40 Mg Capsule.dr, 40 MG PO BID, (Reported) Pomegranate Fruit Extract 250 Mg Capsule, 250 MG PO DAILY, (Reported) Potassium Chloride 20 Meq Tab.er.prt, 20 MEQ PO BID, (Reported) Tiotropium [place] 4 Gm Mist.inhal, 2 PUFF INH DAILY, (Reported) Tramadol HCl 50 Mg Tablet, 50 MG PO Q6H PRN for PAIN-MODERATE, (Reported) Vitamin E Acetate 400 Unit Capsule, 400 UNIT PO DAILY, (Reported) Patient Home Medication List Home Medication List Reviewed: Yes Review of Systems Review of Systems Constitutional: see HPI Eyes: No Symptoms Reported Ears, Nose, Mouth, Throat: no symptoms reported Respiratory: no symptoms reported Cardiovascular: no symptoms reported Genitourinary: no symptoms reported Musculoskeletal: no symptoms reported Skin: no symptoms reported Psychiatric/Neurological: No Symptoms Reported Past Pzplkqg-Hbvvaf-Ekkjfz Hx Patient Social History Alcohol Beverage of Choice: Scotch Type Used: Cigarettes Former Smoker, Quit: Apr 03, 2001 Recent Hopitalizations: Yes (03/19 SHOULDER SURGERY) Immunizations Up To Date Tetanus Booster (TDap): More than 5yrs Date of Pneumonia Vaccine: Feb 16, 2012 Date of Influenza Vaccine: Jan 04, 2017 Past Medical History Surgeries: No (HIP BACK TENDONITIS; rt. wrist carpal tunnel) Gallbladder, Orthopedic Respiratory: Yes (ALLERGIES COMBIVENT) Currently Using CPAP: No Currently Using BIPAP: No Cardiac: Yes Hypertension Neurological: No Reproductive Disorders: No Sexually Transmitted Disease: No HIV/AIDS: No Genitourinary: No Gastrointestinal: Yes (COLON POLYPS/HIATAL HERNIA) Gall Bladder Disease Musculoskeletal: Yes (rt. hip replacement 08/31/10) Chronic Back Pain, Fractures Endocrine: No Loss of Vision: Bilateral Hearing Impairment: Denies Cancer: No Psychosocial: No Integumentary: No Blood Disorders: No (BLEEDS EASILY) Adverse Reaction/Blood Tranf: No (NEVER HAD BLOOD TRANSFUSION) Family Medical History Family history: Hypertension 03 FATHER, Onset:Unknown Myocardial infarction 03 FATHER, Onset:60 years & older Stroke 03 MOTHER, Onset:Unknown No Pertinent Family Hx Physical Exam Vital Signs Vital Signs - First Documented 06/28/19 17:23 Temp 36.1 Pulse 82 Resp 18 B/P (MAP) 129/69 (89) Pulse Ox 95 O2 Delivery Room Air Capillary Refill : Height, Weight, BMI Height: 5'2.00" Weight: 169lbs. 6.0oz. 74.044797ze; 32.00 BMI Method:Stated General Appearance: WD/WN, no apparent distress HEENT: PERRL/EOMI, normal ENT inspection Respiratory: no respiratory distress, no accessory muscle use Gastrointestinal: normal bowel sounds, non tender Extremities: normal range of motion, non-tender Neurologic/Psychiatric: alert, normal mood/affect, oriented x 3 Skin: normal color, warm/dry [place] Coma Score Best Eye Response: (4) Open Spontaneously Best Verbal Response: (5) Oriented Best Motor Response: (6) Obeys Commands Vishnu Total: 15 Procedures/Interventions Wound Length (cm): 1.5 Wound's Depth, Shape: linear Wound Explored: clean Anesthesia: 1% Lidocaine Suture: Prolene Suture Size: 4-0 Number of Sutures: 3 Layer Closure?: 1 Progress/Results/Core Measures Results/Orders My Orders Orders - DORA CARDONA APRN Ct Head/Cervical Spine Wo (06/28/19 17:21) Elbow, Left, 3 Views (06/28/19 17:21) Lidocaine 1% Inj 20 Ml (Xylocaine 1% Inj (06/28/19 18:30) Lidocaine 1% Inj 20 Ml (Xylocaine 1% Inj (06/28/19 18:13) Meclizine Tablet (Antivert Tablet) (06/28/19 18:45) Ondansetron Oral Dissolve Tab (Zofran (06/28/19 19:18) Medications Given in ED Current Medications Medications Dose Ordered Sig/Doug Route Start Time Stop Time Status Last Admin Dose Admin Lidocaine HCl 1 ml ONCE ONCE INJ 06/28/19 18:30 06/28/19 18:31 DC 06/28/19 18:23 1 ML Meclizine HCl 25 mg ONCE ONCE PO 06/28/19 18:45 06/28/19 18:46 DC 06/28/19 18:43 25 MG Vital Signs/I&O 06/28/19 17:23 Temp 36.1 Pulse 82 Resp 18 B/P (MAP) 129/69 (89) Pulse Ox 95 O2 Delivery Room Air Diagnostic Imaging Diagonstic Imaging: Xray Plain Films/CT/US/NM/MRI: chest Comments NAME: SHRAVAN HU [facility] REC#: [id number] PT STATUS: REG ER : 1950 PHYSICIAN: DORA CARDONA APRN ADMIT DATE: 06/28/19/ER Draft Date of Exam:06/28/19 CT HEAD/CERVICAL SPINE WO PROCEDURE: CT head and CT cervical spine without contrast. TECHNIQUE: Multiple contiguous axial images were obtained through the brain and cervical spine without the use of intravenous contrast. Sagittal and coronal reformations through the cervical spine were then performed. Auto Exposure Controls were utilized during the CT exam to meet ALARA standards for radiation dose reduction. INDICATION: Fall. Scalp contusion. Neck pain. COMPARISON: 04/09/2019. FINDINGS: CT head: No large acute territorial ischemia, mass or hemorrhage. Chronic microvascular disease is seen in the periventricular and subcortical white matter. The ventricles and cortical sulci are prominent, consistent with generalized volume loss. The basilar cisterns are patent and unremarkable. The calvarium is intact. A scalp hematoma is seen overlying the left parietal region. The visualized paranasal sinuses are clear. CT cervical spine: There is improved alignment of the previously visualized fracture involving the C2 vertebral body with interval posterior fusion from C1 to C4. Prior ACDF changes are noted from C4 to C7 with corpectomy at the C5 vertebral body. No acute fracture or dislocation is seen in the cervical spine. There is straightening of the cervical spine. Multilevel degenerative changes are present in the cervical spine with marginal osteophytes and uncovertebral arthropathy. The soft tissues of the neck demonstrate no acute abnormality. The included lung apices are clear. IMPRESSION: 1. No hemorrhage or focal intra-axial mass. No CT evidence of large acute territorial ischemia. 2. Redemonstration of the fracture involving the C2 vertebral body with interval posterior fusion from C1 to C4. No new fracture or dislocation is seen in the cervical spine. 3. Stable ACDF changes from C4 to C7. 4. Generalized parenchymal volume loss with chronic microvascular disease. 5. Scalp hematoma overlying the left parietal region. Dictated on workstation # [id number] Dict: 06/28/198 Trans: 06/28/19 1811 [facility] [id number] Interpreted by: ANANYA NOEL DO Electronically signed by: Departure Communication (Admissions) NAME: SHRAVAN HU [facility] REC#: [id number] PT STATUS: REG ER : 1950 PHYSICIAN: DORA CARDONA APRN ADMIT DATE: 06/28/19/ER Draft Date of Exam:06/28/19 CT HEAD/CERVICAL SPINE WO PROCEDURE: CT head and CT cervical spine without contrast. TECHNIQUE: Multiple contiguous axial images were obtained through the brain and cervical spine without the use of intravenous contrast. Sagittal and coronal reformations through the cervical spine were then performed. Auto Exposure Controls were utilized during the CT exam to meet ALARA standards for radiation dose reduction. INDICATION: Fall. Scalp contusion. Neck pain. COMPARISON: 04/09/2019. FINDINGS: CT head: No large acute territorial ischemia, mass or hemorrhage. Chronic microvascular disease is seen in the periventricular and subcortical white matter. The ventricles and cortical sulci are prominent, consistent with generalized volume loss. The basilar cisterns are patent and unremarkable. The calvarium is intact. A scalp hematoma is seen overlying the left parietal region. The visualized paranasal sinuses are clear. CT cervical spine: There is improved alignment of the previously visualized fracture involving the C2 vertebral body with interval posterior fusion from C1 to C4. Prior ACDF changes are noted from C4 to C7 with corpectomy at the C5 vertebral body. No acute fracture or dislocation is seen in the cervical spine. There is straightening of the cervical spine. Multilevel degenerative changes are present in the cervical spine with marginal osteophytes and uncovertebral arthropathy. The soft tissues of the neck demonstrate no acute abnormality. The included lung apices are clear. IMPRESSION: 1. No hemorrhage or focal intra-axial mass. No CT evidence of large acute territorial ischemia. 2. Redemonstration of the fracture involving the C2 vertebral body with interval posterior fusion from C1 to C4. No new fracture or dislocation is seen in the cervical spine. 3. Stable ACDF changes from C4 to C7. 4. Generalized parenchymal volume loss with chronic microvascular disease. 5. Scalp hematoma overlying the left parietal region. Dictated on workstation # [id number] Dict: 06/28/19 1758 Trans: 06/28/19 1811 [facility] [id number] Interpreted by: ANANYA NOEL DO Electronically signed by: Impression Primary Impression: Fall at home Qualified Codes: W19.XXXA - Unspecified fall, initial encounter; Y92.009 - Unspecified place in unspecified non-institutional (private) residence as the place of occurrence of the external cause Additional Impression: Scalp laceration Qualified Codes: S01.01XA - Laceration without foreign body of scalp, initial encounter Disposition: 01 HOME, SELF-CARE Condition: Stable Departure-Patient Inst. Decision time for Depature: 18:20 Referrals: STEVE HERZOG MD (PCP) Primary Care Physician KAVITA KIRBY MD (Family) Primary Care Physician Patient Instructions: Laceration Repair With Hitchita (DC) Add. Discharge Instructions: 1. You can shower and wash her hair tonight, return to ER in about 7 days to have the neelam removed. Return to ER before then for any redness, puslike drainage, fevers or other concerns such as confusion vomiting. Follow-up with Dr. Herzog as scheduled. Copy Copies To 1: STEVE HERZOG MD, PETER J APRN Jun 28, 2019 17:26
--- NOTE | 2019-06-28 17:41 | NUR ---
PT TO RADIOLOGY AT THIS TIME.
--- NOTE | 2019-06-28 18:02 | NUR ---
PT BACK TO ROOM FROM RADIOLOGY AT THIS TIME.
--- NOTE | 2019-06-28 18:11 | Diagnostic Imaging Report ---
PROCEDURE: CT head and CT cervical spine without contrast. TECHNIQUE: Multiple contiguous axial images were obtained through the brain and cervical spine without the use of intravenous contrast. Sagittal and coronal reformations through the cervical spine were then performed. Auto Exposure Controls were utilized during the CT exam to meet ALARA standards for radiation dose reduction. INDICATION: Fall. Scalp contusion. Neck pain. COMPARISON: 04/09/2019. FINDINGS: CT head: No large acute territorial ischemia, mass or hemorrhage. Chronic microvascular disease is seen in the periventricular and subcortical white matter. The ventricles and cortical sulci are prominent, consistent with generalized volume loss. The basilar cisterns are patent and unremarkable. The calvarium is intact. A scalp hematoma is seen overlying the left parietal region. The visualized paranasal sinuses are clear. CT cervical spine: There is improved alignment of the previously visualized fracture involving the C2 vertebral body with interval posterior fusion from C1 to C4. Prior ACDF changes are noted from C4 to C7 with corpectomy at the C5 vertebral body. No acute fracture or dislocation is seen in the cervical spine. There is straightening of the cervical spine. Multilevel degenerative changes are present in the cervical spine with marginal osteophytes and uncovertebral arthropathy. The soft tissues of the neck demonstrate no acute abnormality. The included lung apices are clear. IMPRESSION: 1. No hemorrhage or focal intra-axial mass. No CT evidence of large acute territorial ischemia. 2. Redemonstration of the fracture involving the C2 vertebral body with interval posterior fusion from C1 to C4. No new fracture or dislocation is seen in the cervical spine. 3. Stable ACDF changes from C4 to C7. 4. Generalized parenchymal volume loss with chronic microvascular disease. 5. Scalp hematoma overlying the left parietal region. Dictated by: Dictated on workstation # [id number]
[2019-06-28] MEDS ORDERED: LIDOCAINE 1% INJ 20 ML 20 ML VIAL ONE (18:13)
--- NOTE | 2019-06-28 18:13 | Diagnostic Imaging Report ---
CLINICAL HISTORY: Fall. Left elbow pain. COMPARISON: None. TECHNIQUE: Three views of the left elbow. FINDINGS: There is no acute fracture or dislocation of the left elbow. Alignment is anatomic. The imaged joint spaces are preserved. No joint effusion is seen in the left elbow. The surrounding soft tissues are unremarkable. IMPRESSION: No acute fracture or dislocation in the left elbow. Dictated by: Dictated on workstation # [id number]
--- NOTE | 2019-06-28 18:23 | NUR ---
C COLLAR REMOVED BY MELINA FERRERA AT THIS TIME.
[2019-06-28] MEDS ORDERED: LIDOCAINE 1% INJ 20 ML 20 ML VIAL INJ ONE (18:30)
[2019-06-28] MEDS ORDERED: MECLIZINE 25 MG (ANTIVERT) TAB PO ONE (18:45)
[2019-06-28] MEDS ORDERED: ONDANSETRON 4 MG (ZOFRAN) ORAL DISSOLVE TAB PO STA (19:18)
--- NOTE | 2019-06-28 19:19 | NUR ---
THIS RN IN TO DISCHARGE PT. PT UP AT SINK WASHING HER HANDS ET BECAME DIAPORETIC, DIZZY ET NAUSEOUS. MELINA AWARE. PT BACK TO BED AT THIS TIME.
[2019-06-28 19:48] VITALS: BP 158/64
--- NOTE | 2019-06-28 19:48 | NUR ---
PT DISCHARGED TO HOME W/ INSTR. PT VOICED IMPROVEMENT OF SYMPTOMS TO THIS RN. STATED "I'M A LITTLE DIZZY AND I CAN BE DIZZY AT HOME". PT VOICED UNDERSTANDING OF DISCHARGE INSTR. NO QUESTIONS.
== END 2019-06-28 19:48 | disposition home or self-care (01) ==
LOC: EDUNIT# 17:18 → ER 17:20
DX: S01.01XA Laceration without foreign body of scalp, initial encounter (principal); I10 Essential (primary) hypertension; W18.09XA Striking against other object with subsequent fall, initial encounter; Y92.096 Garden or yard of other non-institutional residence as the place of occurrence of the external cause
CPT/HCPCS: 12001; 70450; 72125; 73080

== ENCOUNTER 2019-07-05 11:27 | Emergency (ER) | payer MEDICARE, OTHER ==
[~2019-07-05] VITALS: Ht 147 cm; Wt 71.0 kg
--- OUTSIDE RECORDS SUMMARY | 2019-07-05 11:48 | XMS REPORT | CCD ---
Author Author DoD Organization DoD Address Unknown Phone Unavailable Care Team Providers Care Plant Pathology Teacher Name Role Phone Unavailable Unavailable Allergies and Adverse Reactions (C-CDA) Substance Reaction Effective Time Source This section is an empty allergy results section. History Of Immunizations (C-CDA) Vaccine Series # Dosage Date Administered By Drug Marketing Trainee Lot Number CVX Code Refusal Reason This section is an empty immunization se ction. There are multiple immunizations systems within the [facility] ([facility]). All immunizations and exemptions/refusals for this patient that are stored in the [facility]'s Clinical Data Repository (CDR) are included here, but this list is empty. Medications (C-CDA) Product Name RouteOfAdministra tion Timing Qty Order Date Order Qty Status Start Date Expiration Date Last Dispensed Date Discontinued Date Source Dosage DOXYCYCLINE HYCLATE (doxycycline hyclate ), 100 MG, TABLET, ORAL, [employer], 500 ea. BOTTLE [id number] 14 Active [id number] Pharmacy Data Transaction [facility] e [address] Formulary Units BACLOFEN (baclofen), 10 MG, TABLET, ORAL, SETH, David LC., 100 ea. BOTTLE [id number] 40 Active [id number] Pharmacy Data Transaction Service [address] Formulary Units HYDROCODONE-ACETAMINOPHEN (HYDROCODONE/A CETAMINOPHEN), 10MG-325MG, TABLET, ORAL, [facility], 500 ea. BOTTLE [id number] 28 Active [id number] Pharmacy Data Tr ansaction [address] Formulary Units SULFAMETHOXAZOLE-TRIMETHOPRIM (SULFAMETH OXAZOLE/TRIMETHOPRIM), 800-160MG, TABLET, ORAL, A[employer]OB[employer] [facility]ARM, 500 ea. BOTTLE 2019 129 20 Active [id number] Pharmacy Data T ransa[address] Formulary Units HYDROCODONE-ACETAMINOPHEN (hydrocodone b itartrate/acetaminophen), 10MG-325MG, TABLET, ORAL, [facility], 1000 ea. BOTTLE [id number] 60 Active [id number] Pharmacy D luisana Transaction Service Facility [address] [place] [address] Formulary Units HYDROCODONE-ACETAMINOPHEN (HYDROCODONE/A CETAMINOPHEN), 5MG-325MG, TABLET, ORAL, [facility], 500 ea. BOTTLE [id number] 20 Active [id number] Pharmacy Data Tr ansaction Service Facility [address] [place] [address] Formulary Units OMEPRAZOLE (omeprazole), 40 MG, CAPSULE DR, ORAL, [employer] 500 ea. BOTTLE [id number] 180 Active [id number] Pharmacy Data Transaction Service Facility [address] [place] [address] Formulary Units POTASSIUM CHLORIDE (potassium chloride), 20 MEQ, TAB ER PRT, ORAL, [employer], 500 ea. BOTTLE [id number] 180 Active [id number] Pharmacy Data Transaction Service Facili ty [address] [place] [address] Formulary Units AMOXICILLIN (AMOXICILLIN), 500 MG, CAPSU LE, ORAL, [employer], 500 ea. BOTTLE [id number] 21 Active [id number] Pharmacy Data Transaction Service Facili ty [address] [place] [address] Formulary Units ALPRAZOLAM (ALPRAZOLAM), 0.5MG, TABLET, ORAL, [employer] 500 ea. BOTTLE [id number] 270 Active [id number] 7 Pharmacy Data Transaction Service Facility [address] [place] [address] Formulary Units TRAMADOL HCL (tramadol HCl), 50 MG, TABL ET, ORAL, [employer] 500 ea. BOTTLE [id number] 360 Active [id number] 7 Pharmacy Data Transaction Service Facility [address] [place] [address] Formulary Units ALPRAZOLAM (ALPRAZOLAM), 0.5MG, TABLET, ORAL, [employer] 500 ea. BOTTLE [id number] 270 Active [id number] 6 Pharmacy Data Transaction Service Facility [address] [place] [address] Formulary Units TRAMADOL HCL (TRAMADOL HCL), 50MG, TABLE T, ORAL, AMNEAL PHARMACE, 1000 ea. BOTTLE [id number] 360 Active [id number] Pharmacy Data Transaction Service Facili ty [address] [place] [address] Formulary Units GABAPENTIN (gabapentin), 400 MG, CAPSULE, ORAL, [employer] 500 ea. BOTTLE [id number] 360 Active [id number] Pharmacy Data Transaction Service Facility [address] [place] [address] Formulary Units GABAPENTIN (gabapentin), 400 MG, CAPSULE, ORAL, [employer] 500 ea. BOTTLE [id number] 360 Active [id number] Pharmacy Data Transaction Service Facility [address] [place] [address] Formulary Units TRICOR (fenofibrate nanocrystallized), 1 45MG, TABLET, ORAL, [employer], 90 ea. BOTTLE [id number] 90 Active [id number] Pharmacy Data Transaction Service Facili ty [address] Formulary Units TRICOR (fenofibrate nanocrystallized), 1 45MG, TABLET, ORAL, [employer] [facility], 90 ea. BOTTLE [id number] 90 Active [id number] Pharmacy Data Transaction Service Facili ty [address] [place] [address] Formulary Units CETIRIZINE HCL (cetirizine HCl), 10 MG, TABLET, ORAL, MAJOR PHARMACEU, 90 ea. BOTTLE [id number] 90 Active [id number] Pharmacy Data Transaction Service Facili ty [address] [place] [address] Formulary Units CETIRIZINE HCL (cetirizine HCl), 10 MG, TABLET, ORAL, MAJOR PHARMACEU, 90 ea. BOTTLE [id number] 90 Active [id number] Pharmacy Data Transaction Service Facili ty [address] [place] [address] Formulary Units LOSARTAN-HYDROCHLOROTHIAZIDE (LOSARTAN/H YDROCHLOROTHIAZIDE), 100MG-25MG, TABLET, ORAL, [employer]ARM, 1000 ea. BOTTLE [id number] 90 Active [id number] Pharmacy Data T ransaction Service Facility [address] [place] [address] Formulary Units LOSARTAN-HYDROCHLOROTHIAZIDE (losartan p otassium/hydrochlorothiazide), 100MG- 25MG, TABLET, ORAL, [facility], 1000 ea. BOTTLE [id number] 90 Active [id number] Pharmacy D luisana Transaction Service Facility [address] [place] [address] Formulary Units LOSARTAN-HYDROCHLOROTHIAZIDE (losartan p otassium/hydrochlorothiazide), 50-12.5 MG, TABLET, ORAL, [facility], 1000 ea. BOTTLE [id number] 90 Active [id number] Pharmacy D luisana Transaction Service Facility [address] [place] [address] Formulary Units ESCITALOPRAM OXALATE (escitalopram oxala te), 20 MG, TABLET, ORAL, [facility], 100 ea. BOTTLE [id number] 30 Acti ve [id number] Pharmacy Data Transaction Se [address] Formulary Units MONTELUKAST SODIUM (MONTELUKAST SODIUM), 10 MG, TABLET, ORAL, [employer], 90 ea. BOTTLE [id number] 90 Active [id number] Pharmacy Data Transaction Service [address] Formulary Units ESCITALOPRAM OXALATE (ESCITALOPRAM OXALA TE), 20 MG, TABLET, ORAL, EXELAN PHARMACE, 1000 ea. BOTTLE [id number] 90 Acti ve [id number] Pharmacy Data Transaction [address] Formulary Units MONTELUKAST SODIUM (MONTELUKAST SODIUM), 10 MG, TABLET, ORAL, [employer]KARE, 90 ea. BOTTLE [id number] 90 Active [id number] Pharmacy Data Transaction Service [address] Formulary Units VENTOLIN HFA (ALBUTEROL SULFATE), 90MCG, HFA AER AD, INHALATION, GLAXOSMITHKLINE, 18 g CANISTER [id number] 72 Active [id number] Pharmacy Data Tr [address] Formulary Units VENTOLIN HFA (ALBUTEROL SULFATE), 90MCG, HFA AER AD, INHALATION, GLAXOSMITHKLINE, 18 g CANISTER [id number] 72 Active [id number] Pharmacy Data Tr [address] Formulary Units VENTOLIN HFA (ALBUTEROL SULFATE), 90MCG, HFA AER AD, INHALATION, GLAXOSMITHKLINE, 18 g CANISTER [id number] 72 Active [id number] Pharmacy Data Tr [address] Formulary Units TRAMADOL HCL (tramadol HCl), 50 MG, TABL ET, ORAL, MS, INC., 500 ea. BOTTLE [id number] 360 Active [id number] 5 Pharmacy Data Transaction Service Facility [address] [place] [address] Formulary Units TOPROL XL (metoprolol succinate), 25 MG, TAB ER 24H, ORAL, [employer], 1000 ea. BOTTLE [id number] 90 Active [id number] Pharmacy Data Transaction Service [facility] [address] Formulary Units TOPROL XL (metoprolol succinate), 25 MG, TAB ER 24H, ORAL, [employer], 1000 ea. BOTTLE [id number] 90 Active [id number] Pharmacy Data Transaction Service [address] Formulary Units ALPRAZOLAM (ALPRAZOLAM), 0.5MG, TABLET, ORAL, [employer] 500 ea. BOTTLE [id number] 270 Active [id number] 5 Pharmacy Data Transaction Service [address] Formulary Units This section includes all outpatient medications ordered within the last 15 months. Problem List (C-CDA) Name Status Onset Date Chronicity Code Source This section is an empty problems section. Procedures (C-CDA) Date/Time Procedure Type Provider Procedure Comment This section is an empty procedures section. Diagnostic tests and laboratory results (C-CDA) Collection Date/Time Order/Barber el Test Result Ref Range Interpretation Source Order Comment Result Comment Result Interpretation Comment Specimen This section is an empty lab results sec tion. This section includes all laboratory results (except microbiology and pathology) for the past 15 months up to a maximum of 50 results panels. Vitals (C-CDA) Collection Date/Time Test Result Site Method Source This section is an empty vitals section This section is an empty vitals section. This section includes information documenting the patient's vital signs for the past 15 months up to a maximum of 50 sets. Height and weight values may have been measured or stated by the patient. History of encounters (C-CDA) Date/Time Encounter Type Reason for Visit Provider Disposition Source This section is an empty appointments/ad missions. This section is an empty appointments/admissions. This section includes appointments/admissions for the past 280 months. Insurance providers (C-CDA) Plan Type Plan Name Group No Source Relation to Subscriber This section is an empty insurance secti on. This section contains current third-democrat (non-) insurance information as known by the Department of Defense. This information is empty. Social History (C-CDA) Tobacco Table Date/Time Provider Tobacco Use What type of tobacco product? Would you like to quit? Amount of tobacco used per day/duration? This section is an empty social history section. No Information Plan of Care (C-CDA) This section is an empty plan of care section. No Information Instructions (C-CDA) This section is an empty Instructions section. No Information Functional Status (C-CDA) This section is an empty functional status section. No Information
--- OUTSIDE RECORDS SUMMARY | 2019-07-05 11:49 | XMS REPORT | CCD ---
Author Author Rosy Root Organization Beronica Root MD, [facility] Address [address] [place] [address] Phone Care Team Providers Care Drip Molder Name Role Phone PP Unavailable CCM Unavailable Summary Purpose Interface Exchange Insurance Providers Payer name Policy type / Coverage type Covered democrat ID Effective Begin Date Effective End Date WPS Medicare Part B Medicare Part B [id number] 2018 Unknown FOR LIFE WPS Medicare Part B [id number] Unknown Family history Father Diagnosis Age At Onset Colon cancer Unknown Myocardial infarction Unknown Mother Diagnosis Age At Onset Stroke Unknown Osteoporosis Unknown Social History Social History Element Codes Description Effective Dates Marital status Unknown M yumiko Lujan 01/01/2018 Number of children Unknown 2 01/01/2018 Employment Unknown Retir ed 01/01/[address]: 4159180 Former smoker 01/01/[address]: 662313 Currently drinks alcohol 01/01/2018 Frequency of drinks SNOMED CT: 529131555 More than 2 drinks per day 3 per evening 01/01/2018 Allergies, Adverse Reactions, Alerts Substance Reaction Codes Entered Date Inactivated Date Status * NO KNOWN DRUG KIRSTIN RGIES Unknown 01/01/2018 No Inactive Date Active Past Medical History Illness Codes Condition Status Onset Date Resolved Date Actinic keratosis ICD-9: 702.0 ICD-10: L57.0 Active 12/13/2018 Unknown 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 ICD-9: V46.2 ICD-10: Z99.81 Active 12/13/2018 Unknown Essential (primary) hypertension ICD-9: 401.1 ICD-10: I10 Active 01/01/2018 Unknown Major depressive dis order, recurrent, mild ICD-9: 296.31 ICD-10: F33.0 Active 12/13/2018 Unknown Other emphysema ICD-9: 492.8 ICD-10: J43.8 Active 01/01/2018 Unknown Other specified francesca nflammatory disorders of vulva and perineum ICD-9: 624.8 ICD-10: N90.89 Active 10/19/2018 Unknown Tinea corporis ICD-9: 110.5 ICD-10: B35.4 Active 10/19/2018 Unknown Dysuria ICD-9: 788.1 ICD-10: R30.0 Active 10/01/2018 Unknown Urinary tract infect ion, site not specified ICD-9: 599.0 ICD-10: N39.0 Active 09/03/2018 Unknown Mixed hyperlipidemia ICD-9: 272.2 ICD-10: E78.2 Active 01/01/2018 Unknown Other skin changes ICD- 9: 709.8 ICD-10: R23.8 Active 08/13/2018 Unknown Retained glass fragm ents ICD-9: V90.81 ICD-10: Z18.81 Active 08/13/2018 Unknown Pain in right ankle and joints of right foot ICD-9: 719.47 ICD-10: M25.571 Active 03/05/2018 Unknown Pain in right foot ICD- 9: 729.5 ICD-10: M79.671 Active 03/05/2018 Unknown Age-related osteopor osis without current pathological fracture ICD-9: 733.00 ICD-10: M81.0 Active 02/01/2018 Unknown Pain in thoracic spine ICD-9: 724.1 ICD-10: M54.6 Active 02/01/2018 Unknown Cough ICD-9: 786.2 ICD-10: R05 Active 01/01/2018 Unknown Encounter for immuni zation ICD-9: V04.81 ICD-10: Z23 Active 01/01/2018 Unknown Problems Condition Codes Effectiv e Dates Condition Status Actinic keratosis ICD-9: 702.0 ICD-10: L57.0 12/13/2018 Active 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 ICD-9: V46.2 ICD-10: Z99.81 12/13/2018 Active Essential (primary) hypertension ICD-9: 401.1 ICD-10: I10 01/01/2018 Active Major depressive dis order, recurrent, mild ICD-9: 296.31 ICD-10: F33.0 12/13/2018 Active Other emphysema ICD-9: 492.8 ICD-10: J43.8 01/01/2018 Active Other specified francesca nflammatory disorders of vulva and perineum ICD-9: 624.8 ICD-10: N90.89 10/19/2018 Active Tinea corporis ICD-9: 110.5 ICD-10: B35.4 10/19/2018 Active Dysuria ICD-9: 788.1 ICD-10: R30.0 10/01/2018 Active Urinary tract infect ion, site not specified ICD-9: 599.0 ICD-10: N39.0 09/03/2018 Active Mixed hyperlipidemia ICD-9: 272.2 ICD-10: E78.2 01/01/2018 Active Other skin changes ICD- 9: 709.8 ICD-10: R23.8 08/13/2018 Active Retained glass fragm ents ICD-9: V90.81 ICD-10: Z18.81 08/13/2018 Active Pain in right ankle and joints of right foot ICD-9: 719.47 ICD-10: M25.571 03/05/2018 Active Pain in right foot ICD- 9: 729.5 ICD-10: M79.671 03/05/2018 Active Age-related osteopor osis without current pathological fracture ICD-9: 733.00 ICD-10: M81.0 02/01/2018 Active Pain in thoracic spine ICD-9: 724.1 ICD-10: M54.6 02/01/2018 Active Cough ICD-9: 786.2 ICD-10: R05 01/01/2018 Active Encounter for immuni zation ICD-9: V04.81 ICD-10: Z23 01/01/2018 Active Medications Medication Codes Instruc tions Start Date Stop Date Sta tus Fill Instructions Singulair 10 mg tablet RxNorm: 628024 1 Tablet(s) PO QPM 12/13/2018 12/07/2019 Active Lexapro 20 mg tablet RxNorm: 214385 1 Tablet(s) PO QHS 12/13/2018 03/06/2020 Active Kenalog-80 80 mg/mL suspension for injection RxNorm: Milliliter(s) Inj 12/13/2018 12/13/2018 In active Lexapro 20 mg tablet RxNorm: 051508 1 Tablet(s) PO QHS 12/13/2018 12/12/2018 Inactive betamethasone diprop ionate 0.05 % topical ointment RxNorm: 582451 1 Application TOP BID 10/19/2018 10/28/2018 Inactive apply very thin layer to vagina as direc karma nystatin 100,000 uni t/gram topical cream RxNorm: 371696 1 Application TOP BID 10/19/2018 11/01/2018 In active under right breast doxycycline hyclate 100 mg capsule RxNorm: 7889695 1 Capsule(s) PO BID 10/01/2018 10/10/2018 In active tramadol 50 mg tablet RxNorm: 741946 1 Tablet(s) PO Q6 as needed for pain 09/12/2018 06/08/2019 Ac tive alprazolam 0.5 mg ta blet RxNorm: 167670 1 Tablet(s) PO TID 09/11/2018 06/07/2019 Active Keflex 500 mg capsule RxNorm: 430679 1 Capsule(s) PO TID 09/03/2018 09/09/2018 Inactive naproxen 500 mg tablet RxNorm: 467988 1 Tablet(s) PO BID 03/05/2018 03/14/2018 Inactive Advair Diskus 250 mc g-50 mcg/dose powder for inhalation RxNorm: 4895315 1 Puff(s) INH BID 02/01/2018 04/26/2019 Active Neurontin 400 mg cap marielos RxNorm: 093558 1 Capsule(s) PO QID a s needed 02/01/2018 05/01/2018 In active alprazolam 0.5 mg ta blet RxNorm: 235873 1 Tablet(s) PO TID 01/03/2018 09/10/[address] Dr. Hernandez 12-15-17 tramadol 50 mg tablet RxNorm: 441983 1 Tablet(s) PO Q6 as needed for pain 01/03/2018 09/11/2018 In active filled by Dr. Hernandez 12-15-17 losartan 50 mg-hydro chlorothiazide 12.5 mg tablet RxNorm: 146658 1 Tablet(s) PO daily 01/01/2018 12/26/2018 Ac tive alprazolam 0.5 mg ta blet RxNorm: 789606 1 Tablet(s) PO TID 01/01/2018 01/02/2018 Inactive fill ed [address] Dr. Hernandez 12-15-17 tramadol 50 mg tablet RxNorm: 432035 1 Tablet(s) PO Q6 as needed for pain 01/01/2018 01/02/2018 In active filled by Dr. Hernandez 12-15-17 Tricor 145 mg tablet RxNorm: 304157 1 Tablet(s) PO daily No Start Date Active omeprazole 40 mg cap marielos,delayed release RxNorm: 352839 1 Capsule(s) PO BID No Start Date Active potassium gluconate 595 mg (99 mg) tablet RxNorm: 117989 1 Tablet(s) PO daily No Start Date Active Klor-Con M20 mEq tab let,extended release RxNorm: 2159522 1 Tablet(s) PO BID No Start Date Active metoprolol succinate ER 25 mg tablet,extended release 24 hr RxNorm: 028580 1 Tablet(s) PO QPM No Start Date Active hydrochlorothiazide 25 mg tablet RxNorm: 866745 1 Tablet(s) PO BID No Start Date Active Spiriva Respimat 2.5 mcg/actuation solution for inhalation RxNorm: 0643843 2 Puff(s) INH daily No Start Date Active cetirizine 10 mg tablet RxNorm: 0615159 1 Tablet(s) PO daily No Start Date Active albuterol sulfate HF A 90 mcg/actuation aerosol inhaler RxNorm: 616674 2 Puff(s) INH QID No Start Date Active Calcium 600 + D(3) 6 00 mg (1,500 mg)-400 unit tablet RxNorm: 318238 1 Tablet(s) PO daily No Start Date Active Osteo Bi-Flex oral RxNorm: 0736069 oral No Start Date Active Iron (ferrous sulfat e) 325 mg (65 mg iron) tablet RxNorm: 730420 1 Tablet(s) PO BIW on Monday and Monday No Start Date Active Pomegranate oral RxNorm: 3051351 oral No Start Date Active Complete Senior tablet RxNorm: 1 Tablet(s) PO daily No Start Date Active Flonase Allergy Reli ef 50 mcg/actuation nasal spray,suspension RxNorm: 6220505 1-2 [place] NASAL daily for allergies No Start Date Active beta carotene 25,000 unit tablet RxNorm: 204640 1 Tablet(s) PO daily No Start Date Active Vitamin C 1,000 mg t ablet RxNorm: 584135 1 Tablet(s) PO daily No Start Date Active O-Cbtixa-D-Cysteine RxNorm: 197 miscellaneous No Start Date Active vitamin E (dl, aceta te) 400 unit capsule RxNorm: 211151 1 Capsule(s) PO daily No Start Date Active Vitamin B-12 1,000 m cg tablet RxNorm: 433017 2 Tablet(s) PO daily No Start Date Active Singulair 10 mg tablet RxNorm: 588412 1 Tablet(s) PO QPM No Start Date 12/12/2018 Inactive Advair Diskus 250 mc g-50 mcg/dose powder for inhalation RxNorm: 5643976 1 Puff(s) INH daily No Start Date 01/31/2018 Inactive Lexapro 10 mg tablet RxNorm: 532036 1 Tablet(s) PO daily No Start Date 12/12/2018 Inactive lisinopril 20 mg-hyd rochlorothiazide 25 mg tablet RxNorm: 216086 1 Tablet(s) PO daily No Start Date 12/31/2017 Inactive Neurontin 400 mg cap marielos RxNorm: 172868 1 Capsule(s) PO QID a s needed No Start Date 01/31/2018 Inactive tramadol 50 mg tablet RxNorm: 394122 1 Tablet(s) PO Q6 as needed for pain No Start Date 12/31/2017 Inactive Medication Administered Medication Codes Instruc tions Start Date Status Kenalog-80 80 mg/mL suspension for injection RxNorm: Milliliter 12/13/2018 No longer Active Immunizations Vaccine Codes Date Status Influenza CVX: 141 01/01 completed Assessments Condition Codes Effectiv e Dates Major depressive disorder, recurrent, mild ICD-10: F33.0 ICD-9: 296.31 12/13/2018 Actinic keratosis ICD-10: L57.0 ICD-9: 702.0 12/13/2018 Essential (primary) hypertension ICD -10: I10 ICD-9: 401.1 12/13/2018 Dependence on supplemental oxygen IC D-10: Z99.81 ICD-9: V46.2 12/13/2018 Other emphysema ICD-10: J43.8 ICD-9: 492.8 12/13/2018 Tinea corporis ICD-10: B35.4 ICD-9: 110.5 10/19/2018 Other specified noninflammatory disorder s of vulva and perineum ICD-10: N90.89 ICD-9: 624.8 10/19/2018 Dysuria ICD-10: R30.0 ICD-9: 788.1 10/01/2018 Urinary tract infection, site not specified ICD-10: N39.0 ICD-9: 599.0 09/03/2018 Retained glass fragments ICD-10: Z18 .81 ICD-9: V90.81 08/13/2018 Other skin changes ICD-10: R23.8 ICD-9: 709.8 08/13/2018 Pain in right foot ICD-10: M79.671 ICD-9: 729.5 03/05/2018 Pain in right ankle and joints of right foot ICD-10: M25.571 ICD-9: 719.47 03/05/2018 Age-related osteoporosis without current pathological fracture ICD-10: M81.0 ICD-9: 733.00 02/01/2018 Pain in thoracic spine ICD-10: M54.6 ICD-9: 724.1 02/01/2018 Cough ICD-10: R05 ICD-9: 786.2 01/01/2018 Encounter for immunization ICD-10: Z 23 ICD-9: V04.81 01/01/2018 Mixed hyperlipidemia ICD-10: E78.2 ICD-9: 272.2 01/01/2018 Reason For Visit Reason For Visit Effective Dates Notes hypertension 12/13/2018 genital lesion 10/19/2018 dysuria 10/01/2018 dysuria 09/03/2018 hypertension 08/13/2018 hypertension 04/09/2018 ankle pain 03/05/2018 blood pressure followup 02/01/2018 hypertension 01/01/2018 Results Observation Observation Code Item Item Code Result Date CULTURE, URINE M100 URIN E CULTURE See Note 10/05/2018 Comp Metabolic Kav555 NA 139 mEq/L 08/14/2018 Comp Metabolic Yuj023 K 3.7 mEq/L 08/14/2018 Comp Metabolic Aym883 CL 99 mEq/L 08/14/2018 Comp Metabolic Mgh501 CO2 30.0 mEq/L 08/14/2018 Comp Metabolic Erb281 AN ION GAP 14 08/14/2018 Comp Metabolic Xwm118 GL UCOSE 95 mg/dL 08/14/2018 Comp Metabolic Tik270 Cr eat 0.7 mg/dL 08/14/2018 Comp Metabolic Own041 eG FR 94 ml/min/1.73m2 08/14 Comp Metabolic Add590 BUN 7 mg/dL 08/14/2018 Comp Metabolic Syz154 B/ C Ratio 10.6 Ratio 08/14/2018 Comp Metabolic Vxl591 CA LCIUM 9.5 mg/dL 08/14/2018 Comp Metabolic Nbz667 AL K PHOS 37 U/L 08/14/2018 Comp Metabolic Uct737 T(SGOT) 30 U/L 08/14/2018 Comp Metabolic Nxn248 AL T(SGPT) 19 U/L 08/14/2018 Comp Metabolic Owp967 BI LI T 0.7 mg/dL 08/14/2018 Comp Metabolic Oqv833 AL BUMIN 4.2 g/dL 08/14/2018 Comp Metabolic Vyz559 TP RO 6.5 g/dL 08/14/2018 Comp Metabolic Jxh243 GL OB 2.3 g/dL 08/14/2018 Comp Metabolic Zhb183 A/ G Ratio 1.9 Ratio 08/14/2018 Comp Metabolic Sgz259 Os mo 275 mOsmo 08/14/2018 Cbc With Differential Ord2 WBC 5.59 K/ul 08/14/2018 Cbc With Differential Ord2 RBC 4.62 M/ul 08/14/2018 Cbc With Differential Ord2 HGB 15.0 g/dl 08/14/2018 Cbc With Differential Ord2 HCT 44.6 % 08/14/2018 Cbc With Differential Ord2 Neut% 53.1 % 08/14/2018 Cbc With Differential Ord2 MCV 96.5 fl 08/14/2018 Cbc With Differential Ord2 Lymph% 26.8 % 08/14/2018 Cbc With Differential Ord2 MCH 32.5 pg 08/14/2018 Cbc With Differential Ord2 [place]% 13.8 % 08/14/2018 Cbc With Differential Ord2 MCHC 33.6 pg 08/14/2018 Cbc With Differential Ord2 Eos% 5.9 % 08/14/2018 Cbc With Differential Ord2 PLT 311 K/ul 08/14/2018 Cbc With Differential Ord2 Baso% 0.4 % 08/14/2018 Cbc With Differential Ord2 RDW 12.3 % 08/14/2018 Cbc With Differential Ord2 Neut ABS# 2.97 K/ul 08/14/2018 Cbc With Differential Ord2 Lymph ABS# 1.50 K/ul 08/14/2018 Cbc With Differential Ord2 [place] ABS# 0.8 K/ul 08/14/2018 Cbc With Differential Ord2 Eos ABS# 0.3 K/ul 08/14/2018 Cbc With Differential Ord2 Baso ABS# 0.0 K/ul 08/14/2018 Tsh Ord6 TSH (3rd IS) 3.79 uIU/mL 08/14/2018 Review of Systems System Result Effective Dates Constitutional No recent illness 12/13/2018 Constitutional No chills 12/13/2018 Constitutional fatigue 0 12/13/2018 Constitutional No fever 12/13/2018 Constitutional No insomnia 12/13/2018 Constitutional No malaise 12/13/2018 Eyes No vision change Ears/Nose/Throat/Neck No dizziness 12/13/2018 Ears/Nose/Throat/Neck No dysphagia 12/13/2018 Ears/Nose/Throat/Neck No headache 12/13/2018 Ears/Nose/Throat/Neck No hearing loss 12/13/2018 Ears/Nose/Throat/Neck No nasal allergies 12/13/2018 Ears/Nose/Throat/Neck No sore throat 12/13/2018 Ears/Nose/Throat/Neck No postnasal drip 12/13/2018 Ears/Nose/Throat/Neck No sinus congestion 12/13/2018 Cardiovascular No chest pain/pressure 12/13/2018 Cardiovascular No dyspnea 12/13/2018 Cardiovascular No edema 12/13/2018 Cardiovascular No exercise intolerance 12/13/2018 Cardiovascular No fatigue 12/13/2018 Cardiovascular No near-syncope/dizziness 12/13/2018 Respiratory productive sputum 12/13/2018 Respiratory chest tightness 12/13/2018 Respiratory cough 2018 Respiratory dyspnea 12/02 Respiratory No pedal edema 12/13/2018 Respiratory wheezing 03/2019 Gastrointestinal No abdominal pain 12/13/2018 Gastrointestinal No constipation 12/13/2018 Gastrointestinal No diarrhea 12/13/2018 Gastrointestinal No gastroesophageal reflu x 12/13/2018 Gastrointestinal No nausea 12/13/2018 Gastrointestinal No vomiting 12/13/2018 Genitourinary/Nephrology No dysuria 12/13/2018 Genitourinary/Nephrology No nocturia 12/13/2018 Genitourinary/Nephrology No urinary incontinence 12/13/2018 Musculoskeletal stiffness 12/13/2018 Musculoskeletal No swelling 12/13/2018 Musculoskeletal arthralgia(s) 12/13/2018 Musculoskeletal back pain 12/13/2018 Musculoskeletal No muscle weakness 12/13/2018 Musculoskeletal No myalgias 12/13/2018 Dermatologic No rash 03/2019 Dermatologic sores 12/13 Neurologic No dizziness 12/13/2018 Neurologic No headache 0 12/13/2018 Neurologic No neck pain 12/13/2018 Neurologic No syncope Psychiatric No anxiety 0 12/13/2018 Psychiatric No depression 12/13/2018 Respiratory dyspnea on exertion 12/13/2018 Constitutional No recent illness 10/19/2018 Constitutional No anorexia 10/19/2018 Constitutional No night sweats 10/19/2018 Constitutional No diaphoresis 10/19/2018 Constitutional No chills 10/19/2018 Constitutional No fatigue 10/19/2018 Constitutional No fever 10/19/2018 Constitutional No insomnia 10/19/2018 Constitutional No malaise 10/19/2018 Constitutional No weight loss 10/19/2018 Constitutional No weight gain 10/19/2018 Genitourinary/Nephrology No dysuria 10/19/2018 Genitourinary/Nephrology No pelvic pain 10/19/2018 Genitourinary/Nephrology No urinary frequency 10/19/2018 Genitourinary/Nephrology No urinary urgenc y 10/19/2018 Genitourinary/Nephrology No vaginal discharge 10/19/2018 Constitutional No recent illness 10/01/2018 Constitutional No chills 10/01/2018 Constitutional No diaphoresis 10/01/2018 Constitutional No fever 10/01/2018 Eyes No eye erythema 04/2018 Ears/Nose/Throat/Neck No nasal discharge 10/01/2018 Cardiovascular No chest pain/pressure 10/01/2018 Respiratory No cough 04/2018 Gastrointestinal No abdominal pain 10/01/2018 Genitourinary/Nephrology dysuria 10/01/2018 Genitourinary/Nephrology urinary urgency 10/01/2018 Genitourinary/Nephrology urinary frequency 10/01/2018 Neurologic No alteration of consciousness 10/01/2018 Neurologic No mental status change 10/01/2018 Constitutional recent illness 09/03/2018 Constitutional No anorexia 09/03/2018 Constitutional night sweats 09/03/2018 Constitutional No chills 09/03/2018 Constitutional No diaphoresis 09/03/2018 Constitutional fatigue 0 09/03/2018 Constitutional No fever 09/03/2018 Constitutional No insomnia 09/03/2018 Constitutional No malaise 09/03/2018 Constitutional No weight loss 09/03/2018 Constitutional No weight gain 09/03/2018 Eyes No eye discharge Eyes No eye erythema 06/2018 Ears/Nose/Throat/Neck No dizziness 09/03/2018 Ears/Nose/Throat/Neck No headache 09/03/2018 Cardiovascular No chest pain/pressure 09/03/2018 Respiratory No cough 06/2018 Gastrointestinal No abdominal pain 09/03/2018 Gastrointestinal No constipation 09/03/2018 Gastrointestinal No diarrhea 09/03/2018 Gastrointestinal No vomiting 09/03/2018 Gastrointestinal No nausea 09/03/2018 Genitourinary/Nephrology dysuria 09/03/2018 Musculoskeletal No joint complaint 09/03/2018 Dermatologic No rash 06/2018 Neurologic No alteration of consciousness 09/03/2018 Constitutional No recent illness 08/13/2018 Constitutional No chills 08/13/2018 Constitutional fatigue 0 08/13/2018 Constitutional No fever 08/13/2018 Constitutional No insomnia 08/13/2018 Constitutional No malaise 08/13/2018 Eyes No vision change Ears/Nose/Throat/Neck No dizziness 08/13/2018 Ears/Nose/Throat/Neck No dysphagia 08/13/2018 Ears/Nose/Throat/Neck No headache 08/13/2018 Ears/Nose/Throat/Neck No hearing loss 08/13/2018 Ears/Nose/Throat/Neck No nasal allergies 08/13/2018 Ears/Nose/Throat/Neck No sore throat 08/13/2018 Ears/Nose/Throat/Neck No postnasal drip 08/13/2018 Ears/Nose/Throat/Neck No sinus congestion 08/13/2018 Cardiovascular No chest pain/pressure 08/13/2018 Cardiovascular No dyspnea 08/13/2018 Cardiovascular No edema 08/13/2018 Cardiovascular No exercise intolerance 08/13/2018 Cardiovascular No fatigue 08/13/2018 Cardiovascular No near-syncope/dizziness 08/13/2018 Respiratory chest tightness 08/13/2018 Respiratory dyspnea 05/06/2018 Respiratory No pedal edema 08/13/2018 Gastrointestinal No abdominal pain 08/13/2018 Gastrointestinal No constipation 08/13/2018 Gastrointestinal No diarrhea 08/13/2018 Gastrointestinal No gastroesophageal reflu x 08/13/2018 Gastrointestinal No nausea 08/13/2018 Gastrointestinal No vomiting 08/13/2018 Genitourinary/Nephrology No dysuria 08/13/2018 Genitourinary/Nephrology No nocturia 08/13/2018 Genitourinary/Nephrology No urinary incontinence 08/13/2018 Musculoskeletal stiffness 08/13/2018 Musculoskeletal No swelling 08/13/2018 Musculoskeletal arthralgia(s) 08/13/2018 Musculoskeletal No muscle weakness 08/13/2018 Musculoskeletal No myalgias 08/13/2018 Dermatologic No rash Dermatologic sores 08/13 Neurologic No dizziness 08/13/2018 Neurologic No headache 0 08/13/2018 Neurologic No neck pain 08/13/2018 Neurologic No syncope Psychiatric No anxiety 0 08/13/2018 Psychiatric No depression 08/13/2018 Constitutional No recent illness 04/09/2018 Constitutional No chills 04/09/2018 Constitutional fatigue 0 04/09/2018 Constitutional No fever 04/09/2018 Constitutional No insomnia 04/09/2018 Constitutional No malaise 04/09/2018 Eyes No vision change Ears/Nose/Throat/Neck No dizziness 04/09/2018 Ears/Nose/Throat/Neck No dysphagia 04/09/2018 Ears/Nose/Throat/Neck No headache 04/09/2018 Ears/Nose/Throat/Neck No hearing loss 04/09/2018 Ears/Nose/Throat/Neck No nasal allergies 04/09/2018 Ears/Nose/Throat/Neck No sore throat 04/09/2018 Ears/Nose/Throat/Neck No postnasal drip 04/09/2018 Ears/Nose/Throat/Neck No sinus congestion 04/09/2018 Cardiovascular No chest pain/pressure 04/09/2018 Cardiovascular No dyspnea 04/09/2018 Cardiovascular No edema 04/09/2018 Cardiovascular No exercise intolerance 04/09/2018 Cardiovascular No fatigue 04/09/2018 Cardiovascular No near-syncope/dizziness 04/09/2018 Respiratory productive sputum 04/09/2018 Respiratory chest tightness 04/09/2018 Respiratory cough 2018 Respiratory dyspnea 01/10/2018 Respiratory No pedal edema 04/09/2018 Respiratory wheezing 10/2018 Gastrointestinal No abdominal pain 04/09/2018 Gastrointestinal No constipation 04/09/2018 Gastrointestinal No diarrhea 04/09/2018 Gastrointestinal No gastroesophageal reflu x 04/09/2018 Gastrointestinal No nausea 04/09/2018 Gastrointestinal No vomiting 04/09/2018 Genitourinary/Nephrology No dysuria 04/09/2018 Genitourinary/Nephrology No nocturia 04/09/2018 Genitourinary/Nephrology No urinary incontinence 04/09/2018 Musculoskeletal stiffness 04/09/2018 Musculoskeletal No swelling 04/09/2018 Musculoskeletal arthralgia(s) 04/09/2018 Musculoskeletal back pain 04/09/2018 Musculoskeletal No muscle weakness 04/09/2018 Musculoskeletal No myalgias 04/09/2018 Dermatologic No rash 10/2018 Dermatologic sores 04/09 Neurologic No dizziness 04/09/2018 Neurologic No headache 0 04/09/2018 Neurologic No neck pain 04/09/2018 Neurologic No syncope Psychiatric No anxiety 0 04/09/2018 Psychiatric No depression 04/09/2018 Constitutional No recent illness 03/05/2018 Constitutional No anorexia 03/05/2018 Constitutional No night sweats 03/05/2018 Constitutional No chills 03/05/2018 Constitutional No diaphoresis 03/05/2018 Constitutional No fatigue 03/05/2018 Constitutional No fever 03/05/2018 Constitutional No malaise 03/05/2018 Constitutional No insomnia 03/05/2018 Constitutional No weight loss 03/05/2018 Constitutional No obesity 03/05/2018 Constitutional No weight gain 03/05/2018 Musculoskeletal joint complaint 03/05/2018 Dermatologic No rash 06/2017 Dermatologic No sores Dermatologic No drainage 03/05/2018 Dermatologic No erythema 03/05/2018 Respiratory productive sputum 02/01/2018 Respiratory cough 2017 Respiratory wheezing 04/2017 Constitutional No recent illness 02/01/2018 Constitutional No chills 02/01/2018 Constitutional fatigue 1 04/03/2017 Constitutional No fever 02/01/2018 Constitutional No insomnia 02/01/2018 Constitutional No malaise 02/01/2018 Eyes No vision change Ears/Nose/Throat/Neck No dizziness 02/01/2018 Ears/Nose/Throat/Neck No dysphagia 02/01/2018 Ears/Nose/Throat/Neck No headache 02/01/2018 Ears/Nose/Throat/Neck No hearing loss 02/01/2018 Ears/Nose/Throat/Neck No nasal allergies 02/01/2018 Ears/Nose/Throat/Neck No sore throat 02/01/2018 Ears/Nose/Throat/Neck No postnasal drip 02/01/2018 Ears/Nose/Throat/Neck No sinus congestion 02/01/2018 Cardiovascular No chest pain/pressure 02/01/2018 Cardiovascular No dyspnea 02/01/2018 Cardiovascular No edema 02/01/2018 Cardiovascular No exercise intolerance 02/01/2018 Cardiovascular No fatigue 02/01/2018 Cardiovascular No near-syncope/dizziness 02/01/2018 Respiratory chest tightness 02/01/2018 Respiratory dyspnea 04/2017 Respiratory No pedal edema 02/01/2018 Gastrointestinal No abdominal pain 02/01/2018 Gastrointestinal No constipation 02/01/2018 Gastrointestinal No diarrhea 02/01/2018 Gastrointestinal No gastroesophageal reflu x 02/01/2018 Gastrointestinal No nausea 02/01/2018 Gastrointestinal No vomiting 02/01/2018 Genitourinary/Nephrology No dysuria 02/01/2018 Genitourinary/Nephrology No nocturia 02/01/2018 Genitourinary/Nephrology No urinary incontinence 02/01/2018 Musculoskeletal stiffness 02/01/2018 Musculoskeletal No swelling 02/01/2018 Musculoskeletal arthralgia(s) 02/01/2018 Musculoskeletal No muscle weakness 02/01/2018 Musculoskeletal No myalgias 02/01/2018 Dermatologic No rash 04/2017 Dermatologic sores 02/01 Neurologic No dizziness 02/01/2018 Neurologic No headache 1 04/03/2017 Neurologic No neck pain 02/01/2018 Neurologic No syncope Psychiatric No anxiety 1 04/03/2017 Psychiatric No depression 02/01/2018 Musculoskeletal back pain 02/01/2018 Constitutional No recent illness 01/01/2018 Constitutional No chills 01/01/2018 Constitutional fatigue 1 Constitutional No fever 01/01/2018 Constitutional No insomnia 01/01/2018 Constitutional No malaise 01/01/2018 Eyes No vision change Ears/Nose/Throat/Neck No dizziness 01/01/2018 Ears/Nose/Throat/Neck No dysphagia 01/01/2018 Ears/Nose/Throat/Neck No headache 01/01/2018 Ears/Nose/Throat/Neck No hearing loss 01/01/2018 Ears/Nose/Throat/Neck No nasal allergies 01/01/2018 Ears/Nose/Throat/Neck No sore throat 01/01/2018 Ears/Nose/Throat/Neck No postnasal drip 01/01/2018 Ears/Nose/Throat/Neck No sinus congestion 01/01/2018 Cardiovascular No chest pain/pressure 01/01/2018 Cardiovascular No dyspnea 01/01/2018 Cardiovascular No edema 01/01/2018 Cardiovascular No exercise intolerance 01/01/2018 Cardiovascular No fatigue 01/01/2018 Cardiovascular No near-syncope/dizziness 01/01/2018 Respiratory dyspnea 04/2017 Respiratory No pedal edema 01/01/2018 Gastrointestinal No abdominal pain 01/01/2018 Gastrointestinal No constipation 01/01/2018 Gastrointestinal No diarrhea 01/01/2018 Gastrointestinal No gastroesophageal reflu x 01/01/2018 Gastrointestinal No nausea 01/01/2018 Gastrointestinal No vomiting 01/01/2018 Genitourinary/Nephrology No dysuria 01/01/2018 Genitourinary/Nephrology No nocturia 01/01/2018 Genitourinary/Nephrology No urinary incontinence 01/01/2018 Musculoskeletal stiffness 01/01/2018 Musculoskeletal No swelling 01/01/2018 Musculoskeletal No muscle weakness 01/01/2018 Musculoskeletal No myalgias 01/01/2018 Dermatologic No rash 04/2017 Dermatologic sores 01/01 Neurologic No dizziness 01/01/2018 Neurologic No headache 1 Neurologic No neck pain 01/01/2018 Neurologic No syncope Psychiatric No anxiety 1 Psychiatric No depression 01/01/2018 Respiratory chest tightness 01/01/2018 Respiratory cough 2017 Musculoskeletal arthralgia(s) 01/01/2018 Physical Exam Exam Name System Name It em Name Status Result Effective Dates Notes Full Exam - General 1994 Constitutional general appearance Development: well developed 12/13/2018 None Full Exam - General 1994 Constitutional general appearance Development: appears stated age 0912/13/2018 None Full Exam - General 1994 Constitutional general appearance Hygiene/Attention to Grooming: good hygiene 12/13/2018 None Full Exam - General 1994 Eyes conjunctiva/eyelids Overall: conjunctiva clear 12/13/2018 None Full Exam - General 1994 Eyes conjunctiva/eyelids Overall: cornea clear 12/13/2018 None Full Exam - General 1994 Eyes conjunctiva/eyelids Overall: eyelids normal 12/13/2018 None Full Exam - General 1994 Eyes pupils and irises Overall: pupils equal, round, reactive to light and accomodation 12/13/2018 None Full Exam - General 1994 Ears/Nose/Throat otoscopic exam Overall: external auditory canals clear 12/13/2018 None Full Exam - General 1995 Ears/Nose/Throat otoscopic exam Overall: tympanic membranes clear 12/13/2018 None Full Exam - General 1994 Ears/Nose/Throat lips/teeth/gingiva Overall: benign lips 12/13/2018 None Full Exam - General 1994 Ears/Nose/Throat lips/teeth/gingiva Overall: normal dentition 12/13/2018 None Full Exam - General 1994 Ears/Nose/Throat oral cavity/pharynx/larynx Overall: oral mucosa clear 12/13/2018 None Full Exam - General 1994 Ears/Nose/Throat oral cavity/pharynx/larynx Overall: oropharyngeal mucosa clear 12/13/2018 None Full Exam - General 1994 Ears/Nose/Throat oral cavity/pharynx/larynx Overall: hypopharynx benign 12/13/2018 None Full Exam - General 1994 Ears/Nose/Throat oral cavity/pharynx/larynx Overall: no masses 12/13/2018 None Full Exam - General 1994 Respiratory auscultation Overall: breath sounds clear bilaterally 12/13/2018 None Full Exam - General 1994 Respiratory respiratory effort/rhythm Overall: no retractions 12/13/2018 None Full Exam - General 1994 Respiratory respiratory effort/rhythm Overall: normal rate 12/13/2018 None Full Exam - General 1994 Cardiovascular extremities Overall: no clubbing 12/13/2018 None Full Exam - General 1994 Cardiovascular auscultation of heart Overall: regular rate 12/13/2018 None Full Exam - General 1994 Cardiovascular auscultation of heart Overall: normal heart sounds 12/13/2018 None Full Exam - General 1994 Abdomen abdominal exam Overall: no tenderness 12/13/2018 None Full Exam - General 1994 Abdomen abdominal exam Overall: normal bowel sounds 12/13/2018 None Full Exam - General 1994 Musculoskeletal spine, ribs and pelvis Overall: good posture 12/13/2018 None Full Exam - General 1994 Neurologic cranial nerves Overall: crainial nerves 2 - 12 grossly intact 12/13/2018 None Full Exam - General 1994 Psychiatric orientation/consciousness Overall: oriented to person, place and time 12/13/2018 None Full Exam - General 1994 Psychiatric mood and affect Overall: normal mood and affect 12/13/2018 None Full Exam - General 1994 Musculoskeletal head and neck Overall: cervical spine benign 12/13/2018 None Full Exam - General 1994 Musculoskeletal head and neck Overall: head atraumatic 12/13/2018 None Full Exam - Genitourinary/Female Con stitutional general appearance Overall: well nourished 10/19/2018 None Full Exam - Genitourinary/Female Con stitutional general appearance Overall: well developed 10/19/2018 None Full Exam - Genitourinary/Female Con stitutional general appearance Overall: in no acute distress 10/19/2018 None Full Exam - Genitourinary/Female Res piratory auscultation Overall: br eath sounds clear bilaterally 10/19/2018 None Full Exam - Genitourinary/Female Res piratory respiratory effort/rhythm Overall: no retractions 10/19/2018 None Full Exam - Genitourinary/Female Res piratory respiratory effort/rhythm Overall: normal rate 10/19/2018 None Full Exam - Genitourinary/Female Psy chiatric orientation/consciousness Overall: oriented to person, place and time 10/19/2018 None Full Exam - Genitourinary/Female Car diovascular auscultation of heart Overall: regular rate 10/19/2018 None Full Exam - Genitourinary/Female Car diovascular auscultation of heart Overall: normal heart sounds 10/19/2018 None Full Exam - Genitourinary/Female Gen itourinary external genitalia Labia: fissure present 10/19/2018 left side of vagina near clitoris Full Exam - Genitourinary/Female Gen itourinary external genitalia Clitoritis: normal appearance 10/19/2018 None Full Exam - Genitourinary/Female Gen itourinary external genitalia Clitoritis: no lesions 10/19/2018 None Full Exam - Genitourinary/Female Integumen t inspection and palpation of skin Location: chest 10/19/2018 under right breast Full Exam - Genitourinary/Female Integumen t inspection and palpation of skin Rash/Lesions: patch 10/19/2018 None Full Exam - General 1994 Constitutional general appearance Overall: well developed 10/01/2018 None Full Exam - General 1994 Constitutional general appearance Overall: in no acute distress 10/01/2018 None Full Exam - General 1994 Constitutional general appearance Overall: well nourished 10/01/2018 None Full Exam - General 1994 Eyes conjunctiva/eyelids Overall: conjunctiva clear 10/01/2018 None Full Exam - General 1994 Eyes conjunctiva/eyelids Overall: cornea clear 10/01/2018 None Full Exam - General 1994 Eyes conjunctiva/eyelids Overall: eyelids normal 10/01/2018 None Full Exam - General 1995 Ears/Nose/Throat lips/teeth/gingiva Overall: benign lips 10/01/2018 None Full Exam - General 1995 Ears/Nose/Throat oral cavity/pharynx/larynx Overall: oral mucosa clear 10/01/2018 None Full Exam - General 1994 Respiratory respiratory effort/rhythm Overall: no retractions 10/01/2018 None Full Exam - General 1994 Respiratory respiratory effort/rhythm Overall: normal rate 10/01/2018 None Full Exam - General 1994 Musculoskeletal head and neck Overall: head atraumatic 10/01/2018 None Full Exam - General 1994 Neurologic cranial nerves Overall: crainial nerves 2 - 12 grossly intact 10/01/2018 None Full Exam - General 1994 Psychiatric orientation/consciousness Overall: oriented to person, place and time 10/01/2018 None Full Exam - General 1994 Psychiatric mood and affect Overall: normal mood and affect 10/01/2018 None Full Exam - General 1994 Cardiovascular extremities Overall: no clubbing 10/01/2018 None Full Exam - General 1994 Constitutional general appearance Development: well developed 09/03/2018 None Full Exam - General 1994 Constitutional general appearance Development: appears stated age 0609/03/2018 None Full Exam - General 1994 Constitutional general appearance Hygiene/Attention to Grooming: good hygiene 09/03/2018 None Full Exam - General 1994 Eyes conjunctiva/eyelids Overall: conjunctiva clear 09/03/2018 None Full Exam - General 1994 Eyes conjunctiva/eyelids Overall: cornea clear 09/03/2018 None Full Exam - General 1994 Eyes conjunctiva/eyelids Overall: eyelids normal 09/03/2018 None Full Exam - General 1994 Eyes pupils and irises Overall: pupils equal, round, reactive to light and accomodation 09/03/2018 None Full Exam - General 1994 Ears/Nose/Throat otoscopic exam Overall: external auditory canals clear 09/03/2018 None Full Exam - General 1994 Ears/Nose/Throat otoscopic exam Overall: tympanic membranes clear 09/03/2018 None Full Exam - General 1994 Ears/Nose/Throat lips/teeth/gingiva Overall: benign lips 09/03/2018 None Full Exam - General 1994 Ears/Nose/Throat lips/teeth/gingiva Overall: normal dentition 09/03/2018 None Full Exam - General 1995 Ears/Nose/Throat oral cavity/pharynx/larynx Overall: oral mucosa clear 09/03/2018 None Full Exam - General 1994 Ears/Nose/Throat oral cavity/pharynx/larynx Overall: oropharyngeal mucosa clear 09/03/2018 None Full Exam - General 1995 Ears/Nose/Throat oral cavity/pharynx/larynx Overall: hypopharynx benign 09/03/2018 None Full Exam - General 1994 Ears/Nose/Throat oral cavity/pharynx/larynx Overall: no masses 09/03/2018 None Full Exam - General 1994 Respiratory auscultation Overall: breath sounds clear bilaterally 09/03/2018 None Full Exam - General 1994 Respiratory respiratory effort/rhythm Overall: no retractions 09/03/2018 None Full Exam - General 1994 Respiratory respiratory effort/rhythm Overall: normal rate 09/03/2018 None Full Exam - General 1994 Cardiovascular extremities Overall: no clubbing 09/03/2018 None Full Exam - General 1994 Cardiovascular auscultation of heart Overall: regular rate 09/03/2018 None Full Exam - General 1994 Cardiovascular auscultation of heart Overall: normal heart sounds 09/03/2018 None Full Exam - General 1994 Abdomen abdominal exam Overall: no tenderness 09/03/2018 None Full Exam - General 1994 Abdomen abdominal exam Overall: normal bowel sounds 09/03/2018 None Full Exam - General 1994 Musculoskeletal spine, ribs and pelvis Overall: good posture 09/03/2018 None Full Exam - General 1994 Neurologic deep tendon reflexes Overall: deep tendon reflexes intact 09/03/2018 None Full Exam - General 1994 Neurologic cranial nerves Overall: crainial nerves 2 - 12 grossly intact 09/03/2018 None Full Exam - General 1994 Psychiatric orientation/consciousness Overall: oriented to person, place and time 09/03/2018 None Full Exam - General 1994 Psychiatric mood and affect Overall: normal mood and affect 09/03/2018 None Full Exam - Cardiology Integument inspection/palpation Overall: no rash, lesions 09/03/2018 None Full Exam - General 1994 Constitutional general appearance Development: well developed 08/13/2018 None Full Exam - General 1994 Constitutional general appearance Development: appears stated age 0508/13/2018 None Full Exam - General 1994 Constitutional general appearance Hygiene/Attention to Grooming: good hygiene 08/13/2018 None Full Exam - General 1994 Eyes conjunctiva/eyelids Overall: conjunctiva clear 08/13/2018 None Full Exam - General 1994 Eyes conjunctiva/eyelids Overall: cornea clear 08/13/2018 None Full Exam - General 1994 Eyes conjunctiva/eyelids Overall: eyelids normal 08/13/2018 None Full Exam - General 1994 Eyes pupils and irises Overall: pupils equal, round, reactive to light and accomodation 08/13/2018 None Full Exam - General 1994 Ears/Nose/Throat otoscopic exam Overall: external auditory canals clear 08/13/2018 None Full Exam - General 1994 Ears/Nose/Throat otoscopic exam Overall: tympanic membranes clear 08/13/2018 None Full Exam - General 1994 Ears/Nose/Throat lips/teeth/gingiva Overall: benign lips 08/13/2018 None Full Exam - General 1994 Ears/Nose/Throat lips/teeth/gingiva Overall: normal dentition 08/13/2018 None Full Exam - General 1994 Ears/Nose/Throat oral cavity/pharynx/larynx Overall: oral mucosa clear 08/13/2018 None Full Exam - General 1994 Ears/Nose/Throat oral cavity/pharynx/larynx Overall: oropharyngeal mucosa clear 08/13/2018 None Full Exam - General 1994 Ears/Nose/Throat oral cavity/pharynx/larynx Overall: hypopharynx benign 08/13/2018 None Full Exam - General 1994 Ears/Nose/Throat oral cavity/pharynx/larynx Overall: no masses 08/13/2018 None Full Exam - General 1994 Respiratory auscultation Overall: breath sounds clear bilaterally 08/13/2018 None Full Exam - General 1994 Respiratory respiratory effort/rhythm Overall: no retractions 08/13/2018 None Full Exam - General 1994 Respiratory respiratory effort/rhythm Overall: normal rate 08/13/2018 None Full Exam - General 1994 Cardiovascular extremities Overall: no clubbing 08/13/2018 None Full Exam - General 1994 Cardiovascular auscultation of heart Overall: regular rate 08/13/2018 None Full Exam - General 1994 Cardiovascular auscultation of heart Overall: normal heart sounds 08/13/2018 None Full Exam - General 1994 Abdomen abdominal exam Overall: no tenderness 08/13/2018 None Full Exam - General 1994 Abdomen abdominal exam Overall: normal bowel sounds 08/13/2018 None Full Exam - General 1994 Musculoskeletal spine, ribs and pelvis Overall: good posture 08/13/2018 None Full Exam - General 1994 Neurologic deep tendon reflexes Overall: deep tendon reflexes intact 08/13/2018 None Full Exam - General 1994 Neurologic cranial nerves Overall: crainial nerves 2 - 12 grossly intact 08/13/2018 None Full Exam - General 1994 Psychiatric orientation/consciousness Overall: oriented to person, place and time 08/13/2018 None Full Exam - General 1994 Psychiatric mood and affect Overall: normal mood and affect 08/13/2018 None Full Exam - General 1994 Integument inspection of skin Location: right arm 08/13/2018 at elbow - - pt has smal l nodular irritation - scalpel used to remove a small piece of glass from the irritated lesion on elbow Full Exam - General Constitutional general appearance Overall: well nourished 04/09/2018 None Full Exam - General Constitutional general appearance Overall: well developed 04/09/2018 None Full Exam - General Constitutional general appearance Overall: in no acute distress 04/09/2018 None Full Exam - General Ears/Nose/Throat external ear Overall: normal appearance 04/09/2018 None Full Exam - General Neck thyroid Overall: normal size 10/2018 None Full Exam - General Neck thyroid Overall: normal consistency 04/09/2018 None Full Exam - General Neck thyroid Overall: nontender 04/09 None Full Exam - General Respiratory auscultation Diffuse: expiratory wheezes 04/09/2018 None Full Exam - General Cardiovascular auscultation of heart Overall: regular rate 04/09/2018 None Full Exam - General Cardiovascular auscultation of heart Overall: no murmurs 04/09/2018 None Full Exam - General Musculoskeletal right lower extremity Inspection - right thigh: normal appearance 04/09/2018 None Full Exam - General Musculoskeletal right lower extremity Inspection - right thigh: swelling 04/09/2018 lower 2/3 of tibia tender to palpation, brusing noted. Full Exam - General Musculoskeletal right lower extremity Overall: right knee benign 04/09/2018 None Full Exam - General Musculoskeletal right lower extremity Overall: right ankle benign 04/09/2018 None Full Exam - General Musculoskeletal right lower extremity Overall: lower leg non- tender, without crepitus or defects 04/09/2018 None Full Exam - General Musculoskeletal right lower extremity Overall: right foot benign 04/09/2018 None Full Exam - General Musculoskeletal right lower extremity Overall: thigh non-tender, without crepitus or defects 04/09/2018 None Full Exam - General Musculoskeletal right lower extremity Overall: foot non-tender, without crepitus or defects 04/09/2018 None Full Exam - General Musculoskeletal right lower extremity Overall: full strength in RLE 04/09/2018 None Full Exam - General Musculoskeletal right lower extremity Overall: normal RLE bulk and tone 04/09/2018 None Full Exam - General Musculoskeletal right lower extremity Palpation - right knee: no effusion 04/09/2018 None Full Exam - General Musculoskeletal right lower extremity Inspection - right lower leg: normal appearance 04/09/2018 None Full Exam - General Musculoskeletal spine, ribs and pelvis Posture: kyphosis 04/09/2018 None Full Exam - General Psychiatric orientation/consciousness Overall: oriented to person, place and time 04/09/2018 None Full Exam - General Psychiatric mood and affect Overall: normal mood and affect 04/09/2018 None Full Exam - Orthopedics Constitutional general appearance Overall: well nourished 03/05/2018 None Full Exam - Orthopedics Constitutional general appearance Overall: well developed 03/05/2018 None Full Exam - Orthopedics Constitutional general appearance Overall: in no acute distress 03/05/2018 None Full Exam - Orthopedics Psychiatric orientation/consciousness Overall: oriented to person, place and time 03/05/2018 None Full Exam - Orthopedics MS: right lo wer extremity insp & palp - RLE Ankle: swelling 03/05/2018 None Full Exam - Orthopedics MS: right lo wer extremity insp & palp - RLE Foot: swelling 03/05/2018 None Full Exam - Orthopedics MS: right lo wer extremity range of motion - RLE Ankle: full range of motion 03/05/2018 None Full Exam - Orthopedics MS: right lo wer extremity range of motion - RLE Ankle: pain with flexion 03/05/2018 None Full Exam - Orthopedics MS: right lo wer extremity range of motion - RLE Ankle: pain with extension 03/05/2018 None Full Exam - Orthopedics MS: right lo wer extremity range of motion - RLE Foot: unable to fan toes 03/05/2018 None Full Exam - Orthopedics MS: right lo wer extremity stability - RLE Ankle: s table ankle 03/05/2018 None Full Exam - General Constitutional general appearance Overall: well nourished 02/01/2018 None Full Exam - General Constitutional general appearance Overall: well developed 02/01/2018 None Full Exam - General Constitutional general appearance Overall: in no acute distress 02/01/2018 None Full Exam - General Ears/Nose/Throat external ear Overall: normal appearance 02/01/2018 None Full Exam - General Neck thyroid Overall: normal size 04/2017 None Full Exam - General Neck thyroid Overall: normal consistency 02/01/2018 None Full Exam - General Neck thyroid Overall: nontender 02/01 None Full Exam - General Respiratory auscultation Diffuse: expiratory wheezes 02/01/2018 None Full Exam - General Cardiovascular auscultation of heart Overall: regular rate 02/01/2018 None Full Exam - General Cardiovascular auscultation of heart Overall: no murmurs 02/01/2018 None Full Exam - General Musculoskeletal right lower extremity Inspection - right thigh: normal appearance 02/01/2018 None Full Exam - General Musculoskeletal right lower extremity Palpation - right knee: no effusion 02/01/2018 None Full Exam - General Musculoskeletal right lower extremity Overall: full strength in RLE 02/01/2018 None Full Exam - General Musculoskeletal right lower extremity Overall: right foot benign 02/01/2018 None Full Exam - General Musculoskeletal right lower extremity Overall: foot non-tender, without crepitus or defects 02/01/2018 None Full Exam - General Musculoskeletal right lower extremity Overall: right ankle benign 02/01/2018 None Full Exam - General Musculoskeletal right lower extremity Overall: right knee benign 02/01/2018 None Full Exam - General Musculoskeletal right lower extremity Overall: thigh non-tender, without crepitus or defects 02/01/2018 None Full Exam - General Musculoskeletal right lower extremity Overall: normal RLE bulk and tone 02/01/2018 None Full Exam - General Musculoskeletal right lower extremity Overall: lower leg non- tender, without crepitus or defects 02/01/2018 None Full Exam - General Musculoskeletal right lower extremity Inspection - right lower leg: normal appearance 02/01/2018 None Full Exam - General Musculoskeletal right lower extremity Inspection - right thigh: swelling 02/01/2018 lower 2/3 of tibia tender to palpation, brusing noted. Full Exam - General Psychiatric orientation/consciousness Overall: oriented to person, place and time 02/01/2018 None Full Exam - General Psychiatric mood and affect Overall: normal mood and affect 02/01/2018 None Full Exam - General Musculoskeletal spine, ribs and pelvis Posture: kyphosis 02/01/2018 None Full Exam - General 1994 Constitutional general appearance Development: well developed 01/01/2018 None Full Exam - General 1994 Constitutional general appearance Development: appears stated age 1001/01/2018 None Full Exam - General 1994 Constitutional general appearance Hygiene/Attention to Grooming: good hygiene 01/01/2018 None Full Exam - General 1994 Eyes conjunctiva/eyelids Overall: conjunctiva clear 01/01/2018 None Full Exam - General 1994 Eyes conjunctiva/eyelids Overall: cornea clear 01/01/2018 None Full Exam - General 1994 Eyes conjunctiva/eyelids Overall: eyelids normal 01/01/2018 None Full Exam - General 1994 Eyes pupils and irises Overall: pupils equal, round, reactive to light and accomodation 01/01/2018 None Full Exam - General 1994 Ears/Nose/Throat otoscopic exam Overall: external auditory canals clear 01/01/2018 None Full Exam - General 1994 Ears/Nose/Throat otoscopic exam Overall: tympanic membranes clear 01/01/2018 None Full Exam - General 1994 Ears/Nose/Throat lips/teeth/gingiva Overall: benign lips 01/01/2018 None Full Exam - General 1994 Ears/Nose/Throat lips/teeth/gingiva Overall: normal dentition 01/01/2018 None Full Exam - General 1994 Ears/Nose/Throat oral cavity/pharynx/larynx Overall: oral mucosa clear 01/01/2018 None Full Exam - General 1994 Ears/Nose/Throat oral cavity/pharynx/larynx Overall: oropharyngeal mucosa clear 01/01/2018 None Full Exam - General 1994 Ears/Nose/Throat oral cavity/pharynx/larynx Overall: hypopharynx benign 01/01/2018 None Full Exam - General 1994 Ears/Nose/Throat oral cavity/pharynx/larynx Overall: no masses 01/01/2018 None Full Exam - General 1994 Respiratory auscultation Overall: breath sounds clear bilaterally 01/01/2018 None Full Exam - General 1994 Respiratory respiratory effort/rhythm Overall: no retractions 01/01/2018 None Full Exam - General 1994 Respiratory respiratory effort/rhythm Overall: normal rate 01/01/2018 None Full Exam - General 1994 Cardiovascular extremities Overall: no clubbing 01/01/2018 None Full Exam - General 1994 Cardiovascular auscultation of heart Overall: regular rate 01/01/2018 None Full Exam - General 1994 Cardiovascular auscultation of heart Overall: normal heart sounds 01/01/2018 None Full Exam - General 1994 Abdomen abdominal exam Overall: no tenderness 01/01/2018 None Full Exam - General 1994 Abdomen abdominal exam Overall: normal bowel sounds 01/01/2018 None Full Exam - General 1994 Lymphatic neck nodes Overall: anterior cervical chain benign 01/01/2018 None Full Exam - General 1994 Lymphatic neck nodes Overall: posterior cervical chain benign 01/01/2018 None Full Exam - General 1994 Musculoskeletal spine, ribs and pelvis Overall: spine benign 01/01/2018 None Full Exam - General 1994 Musculoskeletal spine, ribs and pelvis Overall: sacroiliac joint benign 01/01/2018 None Full Exam - General 1994 Musculoskeletal spine, ribs and pelvis Overall: good posture 01/01/2018 None Full Exam - General 1994 Musculoskeletal head and neck Overall: head atraumatic 01/01/2018 None Full Exam - General 1994 Musculoskeletal head and neck Overall: cervical spine benign 01/01/2018 None Full Exam - General 1994 Neurologic deep tendon reflexes Overall: deep tendon reflexes intact 01/01/2018 None Full Exam - General 1994 Neurologic cranial nerves Overall: crainial nerves 2 - 12 grossly intact 01/01/2018 None Full Exam - General 1994 Psychiatric orientation/consciousness Overall: oriented to person, place and time 01/01/2018 None Full Exam - General 1994 Psychiatric mood and affect Overall: normal mood and affect 01/01/2018 None Full Exam - General 1994 Integument inspection of skin Location: right foot 01/01/2018 below 3rd digit plantar s urface Procedures Procedure Codes Date TRIAMCINOLONE ACET I [place] NOS CPT-4: J3301 12/13/2018 DESTRUCT PREMALG LESION CPT-4: 69846 12/13/2018 URINALYSIS NONAUTO W /O SCOPE CPT-4: 59433 10/01/2018 URINALYSIS NONAUTO W /O SCOPE CPT-4: 46688 09/03/2018 REMOVAL OF ARM FOREI GN BODY CPT-4: 32576 08/13/2018 ADMIN INFLUENZA VIRU S VAC CPT-4: G0008 01/01/2018 FLU VACC PRSV FREE I NC ANTIG Formatting Model/CDA Sections, Assigned to/Radha Hobbs CPT-4: 99376Xpoikar 01/01/2018 Vital Signs Date Vital 12/13/2018 Blood Pressure 1: 154/80 Code: 8480-6 BMI: 31.9 Code: 64168-4 Heart Rate 1: 83 bpm Height: 5' SpO2: 93% Weight: 166 lbs 10/19/2018 Blood Pressure 1: 142/68 Code: 8480-6 BMI: 33.2 Code: 93888-6 Heart Rate 1: 75 bpm Height: 5' SpO2: 95% Weight: 173 lbs 10/01/2018 Blood Pressure 1: 116/78 Code: 8480-6 BMI: 33.2 Code: 32091-4 Heart Rate 1: 72 bpm Height: 5' SpO2: 94% Weight: 173 lbs 09/03/2018 Blood Pressure 1: 132/80 Code: 8480-6 BMI: 33.0 Code: 10477-3 Heart Rate 1: 64 bpm Height: 5' SpO2: 90% Weight: 172 lbs 08/13/2018 Blood Pressure 1: 156/76 Code: 8480-6 BMI: 33.0 Code: 37587-6 Heart Rate 1: 81 bpm Height: 5' SpO2: 92% Weight: 172 lbs 04/09/2018 Blood Pressure 1: 138/66 Code: 8480-6 BMI: 32.5 Code: 43054-8 Heart Rate 1: 69 bpm Height: 5' SpO2: 96% Weight: 169 lbs 03/05/2018 Blood Pressure 1: 124/68 Code: 8480-6 BMI: 32.5 Code: 32648-7 Heart Rate 1: 79 bpm Height: 5' SpO2: 93% Weight: 169 lbs 02/01/2018 Blood Pressure 1: 140/80 Code: 8480-6 BMI: 32.3 Code: 51078-6 Heart Rate 1: 72 bpm Height: 5' SpO2: 94% Weight: 168 lbs 01/01/2018 Blood Pressure 1: 138/62 Code: 8480-6 BMI: 31.1 Code: 80909-0 Heart Rate 1: 75 bpm Height: 5' SpO2: 93% Weight: 162 lbs Functional Status No Functional Status data History of Present Illness Symptom Name Status Resu lt Effective Date Notes Quality primary hypert ension 12/13/2018 None Onset and Resolution o ngoing 12/13/2018 None Onset of Symptom durin g adulthood 12/13/2018 None Blood Pressure Values not checking blood pressure at home 12/13/2018 None Alleviating Factors me dication 12/13/2018 None Pertinent Findings Den ies dizziness 12/13/2018 None Pertinent Findings dys pnea 12/13/2018 -has COPD Pertinent Findings Den ies edema 12/13/2018 None Quality chronic 12/13/2018 None Quality intermittent 12/13/2018 None Onset and Resolution o ngoing 12/13/2018 None Significant Medical Conditions pulmonary disease 12/13/2018 -COPD Exacerbating Factors e xertion 12/13/2018 None Pertinent Findings Den ies chest discomfort 12/13/2018 None Onset and Resolution o ngoing 10/19/2018 None Location on the perine al area 10/19/2018 None Triggers no known asso ciated factors 10/19/2018 None Pertinent Findings dimitry nful lesion 10/19/2018 None Severity mild 10/19/2018 None Frequency of Episodes increasing 10/19/2018 None Quality constant 10/01/2018 None Onset and Resolution s udden in onset 10/01/2018 None Onset of Symptom 6 day s ago 10/01/2018 None Quality intermittent 09/03/2018 None Onset and Resolution o ngoing 09/03/2018 None Onset of Symptom 1 wee ks ago 09/03/2018 None Pertinent Findings olga k pain 09/03/2018 None Pertinent Findings Den ies fever 09/03/2018 None Quality primary hypert ension 08/13/2018 None Onset and Resolution o ngoing 08/13/2018 None Onset of Symptom durin g adulthood 08/13/2018 None Blood Pressure Values not checking blood pressure at home 08/13/2018 None Alleviating Factors me dication 08/13/2018 None Pertinent Findings Den ies dizziness 08/13/2018 None Pertinent Findings dys pnea 08/13/2018 -has COPD Pertinent Findings Den ies edema 08/13/2018 None Quality chronic 08/13/2018 None Quality intermittent 08/13/2018 None Onset and Resolution o ngoing 08/13/2018 None Significant Medical Conditions pulmonary disease 08/13/2018 -COPD Exacerbating Factors e xertion 08/13/2018 None Onset and Resolution o ngoing 04/09/2018 None Onset of Symptom durin g adulthood 04/09/2018 None Blood Pressure Values not checking blood pressure at home 04/09/2018 None Alleviating Factors me dication 04/09/2018 None Pertinent Findings diarslan ziness 04/09/2018 in the mornings when she gets out of bed Pertinent Findings dys pnea 04/09/2018 -has COPD Quality primary hypert ension 04/09/2018 None Quality intermittent 04/09/2018 None Quality worsening 04/09/2018 None Onset and Resolution o ngoing 04/09/2018 None Significant Medical Conditions pulmonary disease 04/09/2018 -COPD Pertinent Findings Den ies edema 04/09/2018 None Quality chronic 04/09/2018 None Exacerbating Factors e xertion 04/09/2018 None Location on the right 03/05/2018 None Quality constant 03/05/2018 None Quality acute 03/05/2018 None Onset of Symptom 1 day s ago 03/05/2018 None Pertinent Findings rouse ping 03/05/2018 None Pertinent Findings dimitry n with movement 03/05/2018 None Pertinent Findings swe lling 03/05/2018 None Onset and Resolution s udden in onset 03/05/2018 None Frequency of Episodes unchanged 03/05/2018 None Limitation on Activities allows weight bearing activity 03/05/2018 None Severity mild 03/05/2018 None Sports Participation n ot significant 03/05/2018 None blood pressure followup Quality intermittent 02/01/2018 None blood pressure followup Onset and Re solution ongoing 02/01/2018 None blood pressure followup Blood Pressu re Values pt checking blood pressure at home, did not bring in to clinic 02/01/2018 None blood pressure followup Pertinent Findings Denies dizziness 02/01/2018 None blood pressure followup Pertinent Findings dyspnea 02/01/2018 "some" lower leg pain Location on the right 02/01/2018 None lower leg pain Quality i ntermittent 02/01/2018 None lower leg pain Onset of Symptom 3 weeks ago 02/01/2018 None lower leg pain Mechanism of injury indirect trauma 02/01/2018 None lower leg pain Pertinent Findings bruising 02/01/2018 None lower leg pain Pertinent Findings pain with movement 02/01/2018 None hypertension Onset and Resolution ongoing 01/01/2018 None hypertension Onset of Symptom during adulthood 01/01/2018 None hypertension Blood Pressure Values not checking blood pressure at home 01/01/2018 None hypertension Alleviating Factors medication 01/01/2018 None hypertension Pertinent Findings Denies dizziness 01/01/2018 None hypertension Pertinent Findings dyspnea 01/01/2018 -has COPD cough Quality chronic 01/01/2018 None cough Quality intermitte nt 01/01/2018 None cough Quality productive 01/01/2018 None cough Onset and Resolution ongoing 01/01/2018 None cough Onset of Symptom years ago 01/01/2018 None cough Pertinent Findings sputum production 01/01/2018 None Advance Directives No Advance Directive data Encounters Encounter Performer Loca tion Codes Date ([id number]) 06029 EST. P ATIENT, LEVEL IV Diagnosis: Essential (primary) hypertension[ICD10: I10] Diagnosis: Dependence on supplemental oxygen[ICD10: Z99.81] Diagnosis: Major depressive disorder, recurrent, mild[ICD10: F33.0] Beronica Root MD, [facility] CPT-4: 89306 12/13/2018 18459 EST. PATIENT, LEVEL III Diagnosis: Other specified noninflammatory disorders of vulva and perineum[ICD10: N90.89] Diagnosis: Tinea corporis[ICD10: B35.4] Roxanna Root MD, [facility] CPT- 4: 18976 10/19/2018 31500 EST. PATIENT, LEVEL III Diagnosis: Dysuria[ICD10: R30.0] Nga Root MD, [facility] CPT-4: 80449 10/01/2018 ([id number]) 78624 EST. P ATIENT, LEVEL III Diagnosis: Urinary tract infection, site not specified[ICD10: N39.0] Roxanna Root MD, [facility] CPT-4: 20330 09/03/2018 ([id number]) 98200 EST. P ATIENT, LEVEL IV Diagnosis: Essential (primary) hypertension[ICD10: I10] Diagnosis: Other emphysema[ICD10: J43.8] Diagnosis: Other skin changes[ICD10: R23.8] Beronica Root MD, [facility] CPT-4: 95683 08/13/2018 ([id number]) 98327 EST. P ATIENT, LEVEL III Diagnosis: Essential (primary) hypertension[ICD10: I10] Diagnosis: Other emphysema[ICD10: J43.8] Beronica Root MD, [facility] CPT-4: 00346 04/09/2018 ([id number]) 63962 EST. P ATIENT, LEVEL III Diagnosis: Pain in right ankle and joints of right foot[ICD10: M25.571] Diagnosis: Pain in right foot[ICD10: M79.671] [facility] CPT-4: 67034 03/05/2018 ([id number]) 68796 EST. P ATIENT, LEVEL IV Diagnosis: Essential (primary) hypertension[ICD10: I10] Diagnosis: Pain in thoracic spine[ICD10: M54.6] Diagnosis: Age-related osteoporosis without current pathological fracture[ICD10: M81.0] Diagnosis: Other emphysema[ICD10: J43.8] [facility] CPT-4: 06070 02/01/2018 ([id number]) OFFICE VISI T, NEW - LEVEL 4 Diagnosis: Essential (primary) hypertension[ICD10: I10] Diagnosis: Cough[ICD10: R05] Diagnosis: Mixed hyperlipidemia[ICD10: E78.2] Diagnosis: Other emphysema[ICD10: J43.8] Beronica Root MD, [facility] CPT-4: 67788 01/01/2018 Plan of Care Planned Activity Notes C odes Status Date Visit Plan: Hypertension - well con trolled -however with her chronic cough - will stop the lisinopril and start on the losartan - pt is to continue with current medications, continue with no added salt diet. Pt has been encouraged to exercise daily. The pt has been advised to call the office if there are any acute concerns about change in blood pressure readings at home. Emphysema - continue with current COPD management with Dr. Beck. Continue with oxygen continuous use. COPD exacerbation - kenalog shot today in clinic. Depression - uncontrolled - Pt has been counseled about the diagnosis of depression, the potential causes, and risks associated with the diagnosis. The pt denies suicidal ideation, or plans. The patient has been counseled about treatment options, and understands the risks associated with treatment of depression, as well as the risks associated with NOT treating the depression. I believe the pt will benefit from medical intervention and an antidepressant has been appropriately prescribed for this patient. Increase lexapro from 10mg to 20mg at HS. Actinic keratosis - treated with cryotherapy on right side burn region, since pt is using oxygen, she cannot use neosporin 12/13/2018 Appointment: Beronica Root WPtel: [address] [place], [place] [phone] (30 min) Complex 12/13/2018 Patient Education: Patient Medication Summary Completed 12/13/2018 Patient Education: Depression Completed 12/13/2018 Appointment: Roxanna King WPtel: [address] [place], [place] [phone] (30 min) Complex 11/02/2018 Visit Plan: Tinea -under right [address] -rx for nystatin provided and instructed on use Fissure of vagina- rx for betamethasone ointment provided and instructed on use-follow up in 2 weeks to ensure healing of tissue 10/19/2018 Appointment: Roxanna King WPtel: [address] [place], [place] [phone] (30 min) Complex 10/19/2018 Patient Education: Patient Medication Summary Completed 10/19/2018 Visit Plan: UTI - pt with positive urinalysis - culture sent if appropriate. Antibiotic electronically prescribed to pt's pharmacy of choice. Pt to call if symptoms do not improve. 10/01/2018 Appointment: Nga Garcia WPtel: [facility] (10 min) Simple 10/01/2018 Patient Education: Patient Medication Summary Completed 10/01/2018 Care Plan: Urine Culture Pending 10/01/2018 Visit Plan: UTI - pt with positive urinalysis - culture sent if appropriate. Antibiotic electronically prescribed to pt's pharmacy of choice. Pt to call if symptoms do not improve. 09/03/2018 Appointment: Roxanna King WPtel: [address] [place], [place] [phone] (15 min) Moderate 09/03/2018 Patient Education: Patient Medication Summary Completed 09/03/2018 Care Plan: Urine Culture Pending 09/03/2018 Visit Plan: Hypertension - well con trolled -however with her chronic cough - will stop the lisinopril and start on the losartan - pt is to continue with current medications, continue with no added salt diet. Pt has been encouraged to exercise daily. The pt has been advised to call the office if there are any acute concerns about change in blood pressure readings at home. Cough - improved on current regimen Emphysema - continue with current COPD management with Dr. Beck. Removal of a small shard of glass from her right elbow 08/13/2018 Appointment: Beronica Root WPtel: [phone] [phone] (15 min) Moderate 08/13/2018 Patient Education: Patient Medication Summary Completed 08/13/2018 Patient Education: Cholesterol Management Completed 08/13/2018 Appointment: Beronica Root WPtel: [phone] [facility] [place] (15 min) Moderate 05/08/2018 Visit Plan: Hypertension - well con trolled - continue with current medications, continue with no added salt diet. Pt has been encouraged to exercise daily. The pt has been advised to call the office if there are any acute concerns about change in blood pressure readings at home. Emphysema - referral to pulmonary rehab 04/09/2018 Appointment: Beronica Root WPtel: [facility] (15 min) Moderate 04/09/2018 Patient Education: Patient Medication Summary Completed 04/09/2018 Visit Plan: Right ankle and foot pa in -will obtain xrays to evaluate for acute bony abnormality -discussed rest, ice and anti inflammatories as directed-call if symptoms do not resolve, new symptoms develop or any other concerns. 03/05/2018 Appointment: Roxanna King WPtel: [phone] [place] (15 min) Moderate 03/05/2018 Patient Education: Patient Medication Summary Completed 03/05/2018 Visit Plan: COPD with chronic dyspn ea and nocturnal hypoxemia - recommend that she increase Advair to twice daily. Pt would like to switch to [facility] instead of [facility] [facility]. Osteoporosis - schedule a Dexa scan. Upper back pain - referral to Physical Therapy at [facility]. Hypertension - well controlled - continue with current medications, continue with no added salt diet. Pt has been encouraged to exercise daily. The pt has been advised to call the office if there are any acute concerns about change in blood pressure readings at home. 02/01/2018 Appointment: Beronica Root WPtel: [phone] (15 min) Moderate 02/01/2018 Patient Education: Patient Medication Summary Completed 02/01/2018 Care Plan: Referral Order SNOMED-CT : [id number] Pending 02/01/2018 Appointment: Nurse Visit 01/08/2018 Appointment: Nga Garcia WPtel: [id number] (15 min) Moderate 01/02/2018 Visit Plan: Hypertension - well con danis -however with her chronic cough - will stop the lisinopril and start on the losartan - pt is to continue with current medications, continue with no added salt diet. Pt has been encouraged to exercise daily. The pt has been advised to call the office if there are any acute concerns about change in blood pressure readings at home. Cough - may be due to lisinopril, will therefore start her on losartan. Hyperlipidemia - pt has been counseled about appropriate diet, exercise, and need for low fat food choices. I have discussed the need for the patient to take medications as prescribed. If the patient has negative side effects from the medication, they are to CALL the office and not abruptly discontinue the medication without discussion with a practitioner in the office. We will check labs in 3-6 months for follow up on the patient's chronic medical problem and to assure normal liver response to medications. Emphysema - continue with current COPD management with Dr. Beck. high dose flu vaccine given to patient today due to her multiple comorbid conditions. 01/01/2018 Appointment: Beronica Root WPtel: [facility] New Patient 01/01/2018 Patient Education: Patient Medication Summary Completed 01/01/2018 Patient Education: Cholesterol Management Completed 01/01/2018 Instructions Comment . Tinea -under right breast -rx for nystatin provided and instructed on use Fissure of vagina- rx for betamethasone ointment provided and instructed on use- follow up in 2 weeks to ensure healing of tissue . UTI - pt with posi tive urinalysis - culture sent if appropriate. Antibiotic electronically prescribed to pt's pharmacy of choice. Pt to call if symptoms do not improve. . COPD with chronic dyspnea and nocturnal hypoxemia - recommend that she increase Advair to twice daily. Pt would like to switch to [facility] instead of [facility]. Osteoporosis - schedule a Dexa scan. Upper back pain - referral to Physical Therapy at [facility]. Hypertension - well controlled - continue with current medications, continue with no added salt diet. Pt has been encouraged to exercise daily. The pt has been advised to call the office if there are any acute concerns about change in blood pressure readings at home. . Hypertension - wel l controlled -however with her chronic cough - will stop the lisinopril and start on the losartan - pt is to continue with current medications, continue with no added salt diet. Pt has been encouraged to exercise daily. The pt has been advised to call the office if there are any acute concerns about change in blood pressure readings at home. Emphysema - continue with current COPD management with Dr. Beck. Continue with oxygen continuous use. COPD exacerbation - kenalog shot today in clinic. Depression - uncontrolled - Pt has been counseled about the diagnosis of depression, the potential causes, and risks associated with the diagnosis. The pt denies suicidal ideation, or plans. The patient has been counseled about treatment options, and understands the risks associated with treatment of depression, as well as the risks associated with NOT treating the depression. I believe the pt will benefit from medical intervention and an antidepressant has been appropriately prescribed for this patient. Increase lexapro from 10mg to 20mg at HS. Actinic keratosis - treated with cryotherapy on right side burn region, since pt is using oxygen, she cannot use neosporin . Hypertension - wel l controlled -however with her chronic cough - will stop the lisinopril and start on the losartan - pt is to continue with current medications, continue with no added salt diet. Pt has been encouraged to exercise daily. The pt has been advised to call the office if there are any acute concerns about change in blood pressure readings at home. Cough - improved on current regimen Emphysema - continue with current COPD management with Dr. Beck. Removal of a small shard of glass from her right elbow . Hypertension - wel l controlled - continue with current medications, continue with no added salt diet. Pt has been encouraged to exercise daily. The pt has been advised to call the office if there are any acute concerns about change in blood pressure readings at home. Emphysema - referral to pulmonary rehab as soon as the rx fo r losartan gets sent to you by mail stop the lisinopril and start the new medication. . Hypertension - well controlled -jennifer richardson with her chronic cough - will stop the lisinopril and start on the losartan - pt is to continue with current medications, continue with no added salt diet. Pt has been encouraged to exercise daily. The pt has been advised to call the office if there are any acute concerns about change in blood pressure readings at home. Cough - may be due to lisinopril, will therefore start her on losartan. Hyperlipidemia - pt has been counseled about appropriate diet, exercise, and need for low fat food choices. I have discussed the need for the patient to take medications as prescribed. If the patient has negative side effects from the medication, they are to CALL the office and not abruptly discontinue the medication without discussion with a practitioner in the office. We will check labs in 3-6 months for follow up on the patient's chronic medical problem and to assure normal liver response to medications. Emphysema - continue with current COPD management with Dr. Beck. high dose flu vaccine given to patient today due to her multiple comorbid conditions. . UTI - pt with posi tive urinalysis - culture sent if appropriate. Antibiotic electronically prescribed to pt's pharmacy of choice. Pt to call if symptoms do not improve. . Right ankle and fo ot pain -will obtain xrays to evaluate for acute bony abnormality -discussed rest, ice and anti inflammatories as directed-call if symptoms do not resolve, new symptoms develop or any other concerns.
--- OUTSIDE RECORDS SUMMARY | 2019-07-05 11:49 | XMS REPORT | CCD ---
Author Author Rosy Root Organization Beronica Root MD, [facility] Address [address] [place] [address] Phone Care Team Providers Care Film Reproducer Name Role Phone PP Unavailable CCM Unavailable Summary Purpose Interface Exchange Insurance Providers Payer name Policy type / Coverage type Covered republican ID Effective Begin Date Effective End Date WPS Medicare Part B Medicare Part B [id number] 2018 Unknown FOR LIFE WPS Medicare Part B [id number] Unknown Family history Father Diagnosis Age At Onset Colon cancer Unknown Myocardial infarction Unknown Mother Diagnosis Age At Onset Stroke Unknown Osteoporosis Unknown Social History Social History Element Codes Description Effective Dates Marital status Unknown M yumiko Lujan 01/01/2018 Number of children Unknown 2 01/01/2018 Employment Unknown Retir ed 01/01/[address]: 7936424 Former smoker 01/01/[address]: 340393 Currently drinks alcohol 01/01/2018 Frequency of drinks SNOMED CT: 275804995 More than 2 drinks per day 3 per evening 01/01/2018 Allergies, Adverse Reactions, Alerts Substance Reaction Codes Entered Date Inactivated Date Status * NO KNOWN DRUG KIRSTIN RGIES Unknown 01/01/2018 No Inactive Date Active Past Medical History Illness Codes Condition Status Onset Date Resolved Date Other specified francesca nflammatory disorders of vulva and perineum ICD-9: 624.8 ICD-10: N90.89 Active 10/19/2018 Unknown Tinea corporis ICD-9: 110.5 ICD-10: B35.4 Active 10/19/2018 Unknown Dysuria ICD-9: 788.1 ICD-10: R30.0 Active 10/01/2018 Unknown Urinary tract infect ion, site not specified ICD-9: 599.0 ICD-10: N39.0 Active 09/03/2018 Unknown Essential (primary) hypertension ICD-9: 401.1 ICD-10: I10 Active 01/01/2018 Unknown Mixed hyperlipidemia ICD-9: 272.2 ICD-10: E78.2 Active 01/01/2018 Unknown Other emphysema ICD-9: 492.8 ICD-10: J43.8 Active 01/01/2018 Unknown Other skin changes ICD- [...] Condition Codes Effectiv e Dates Condition Status Other specified francesca nflammatory disorders of vulva and perineum ICD-9: 624.8 ICD-10: N90.89 10/19/2018 Active Tinea corporis ICD-9: 110.5 ICD-10: B35.4 10/19/2018 Active Dysuria ICD-9: 788.1 ICD-10: R30.0 10/01/2018 Active Urinary tract infect ion, site not specified ICD-9: 599.0 ICD-10: N39.0 09/03/2018 Active Essential (primary) hypertension ICD-9: 401.1 ICD-10: I10 01/01/2018 Active Mixed hyperlipidemia ICD-9: 272.2 ICD-10: E78.2 01/01/2018 Active Other emphysema ICD-9: 492.8 ICD-10: J43.8 01/01/2018 Active Other skin changes ICD- 9: [...] Date Stop Date Sta tus Fill Instructions betamethasone diprop ionate 0.05 % topical ointment RxNorm: 700682 1 Application TOP BID 10/19/2018 10/28/2018 Active apply very thin layer to vagina as direc karma nystatin 100,000 uni t/gram topical cream RxNorm: 369629 1 Application TOP BID 10/19/2018 11/01/2018 Ac tive under right breast doxycycline hyclate 100 mg capsule RxNorm: 6952985 1 Capsule(s) PO BID 10/01/2018 10/10/2018 In active tramadol 50 mg tablet RxNorm: 632191 1 Tablet(s) PO Q6 as needed for pain 09/12/2018 06/08/2019 Ac tive alprazolam 0.5 mg ta blet RxNorm: 730274 1 Tablet(s) PO TID 09/11/2018 06/07/2019 Active Keflex 500 mg capsule RxNorm: 439191 1 Capsule(s) PO TID 09/03/2018 09/09/2018 Inactive naproxen 500 mg tablet RxNorm: 752257 1 Tablet(s) PO BID 03/05/2018 03/14/2018 Inactive Advair Diskus 250 mc g-50 mcg/dose powder for inhalation RxNorm: 3841484 1 Puff(s) INH BID 02/01/2018 04/26/2019 Active Neurontin 400 mg cap marielos RxNorm: 668187 1 Capsule(s) PO QID a s needed 02/01/2018 05/01/2018 In active alprazolam 0.5 mg ta blet RxNorm: 875619 1 Tablet(s) PO TID 01/03/2018 09/10/2018 Inactive fill ed by Dr. Hernandez 12-15-17 tramadol 50 mg tablet RxNorm: 048062 1 Tablet(s) PO Q6 as needed for pain 01/03/2018 09/11/2018 In active filled by Dr. Hernandez 12-15-17 losartan 50 mg-hydro chlorothiazide 12.5 mg tablet RxNorm: 712896 1 Tablet(s) PO daily 01/01/2018 12/26/2018 Ac tive alprazolam 0.5 mg ta blet RxNorm: 496563 1 Tablet(s) PO TID 01/01/2018 01/02/2018 Inactive fill ed by Dr. Hernandez 12-15-17 tramadol 50 mg tablet RxNorm: 327184 1 Tablet(s) PO Q6 as needed for pain 01/01/2018 01/02/2018 In active filled by Dr. Hernandez 12-15-17 Tricor 145 mg tablet RxNorm: 907733 1 Tablet(s) PO daily No Start Date Active omeprazole 40 mg cap marielos,delayed release RxNorm: 612308 1 Capsule(s) PO BID No Start Date Active potassium gluconate 595 mg (99 mg) tablet RxNorm: 600519 1 Tablet(s) PO daily No Start Date Active Singulair 10 mg tablet RxNorm: 938832 1 Tablet(s) PO QPM No Start Date Active Klor-Con M20 mEq tab let,extended release RxNorm: 0610842 1 Tablet(s) PO BID No Start Date Active metoprolol succinate ER 25 mg tablet,extended release 24 hr RxNorm: 429475 1 Tablet(s) PO QPM No Start Date Active hydrochlorothiazide 25 mg tablet RxNorm: 415406 1 Tablet(s) PO BID No Start Date Active Spiriva Respimat 2.5 mcg/actuation solution for inhalation RxNorm: 5365389 2 Puff(s) INH daily No Start Date Active cetirizine 10 mg tablet RxNorm: 2552827 1 Tablet(s) PO daily No Start Date Active albuterol sulfate HF A 90 mcg/actuation aerosol inhaler RxNorm: 183934 2 Puff(s) INH QID No Start Date Active Calcium 600 + D(3) 6 00 mg (1,500 mg)-400 unit tablet RxNorm: 317642 1 Tablet(s) PO daily No Start Date Active Osteo Bi-Flex oral RxNorm: 9982464 oral No Start Date Active Iron (ferrous sulfat e) 325 mg (65 mg iron) tablet RxNorm: 043235 1 Tablet(s) PO BIW on Monday and Monday No Start Date Active Pomegranate oral RxNorm: 9231191 oral No Start Date Active Complete Senior tablet RxNorm: 1 Tablet(s) PO daily No Start Date Active Flonase Allergy Reli ef 50 mcg/actuation nasal spray,suspension RxNorm: 6521797 1-2 [place] NASAL daily for allergies No Start Date Active Lexapro 10 mg tablet RxNorm: 032646 1 Tablet(s) PO daily No Start Date Active beta carotene 25,000 unit tablet RxNorm: 208250 1 Tablet(s) PO daily No Start Date Active Vitamin C 1,000 mg t ablet RxNorm: 468298 1 Tablet(s) PO daily No Start Date Active A-Kiduhx-F-Cysteine RxNorm: 197 miscellaneous No Start Date Active vitamin E (dl, aceta te) 400 unit capsule RxNorm: 543025 1 Capsule(s) PO daily No Start Date Active Vitamin B-12 1,000 m cg tablet RxNorm: 328265 2 Tablet(s) PO daily No Start Date Active Advair Diskus 250 mc g-50 mcg/dose powder for inhalation RxNorm: 1554873 1 Puff(s) INH daily No Start Date 01/31/2018 Inactive lisinopril 20 mg-hyd rochlorothiazide 25 mg tablet RxNorm: 062556 1 Tablet(s) PO daily No Start Date 12/31/2017 Inactive Neurontin 400 mg cap marielos RxNorm: 813832 1 Capsule(s) PO QID a s needed No Start Date 01/31/2018 Inactive tramadol 50 mg tablet RxNorm: 850759 1 Tablet(s) PO Q6 as needed for pain No Start Date 12/31/2017 Inactive Medication Administered No Medication Administered data Immunizations Vaccine Codes Date Status Influenza CVX: 141 01/01 completed Assessments Condition Codes Effectiv e Dates Tinea corporis ICD-10: B35.4 ICD-9: 110.5 10/19/2018 Other specified noninflammatory disorder s of vulva and perineum ICD-10: N90.89 ICD-9: 624.8 10/19/2018 Dysuria ICD-10: R30.0 ICD-9: 788.1 10/01/2018 Urinary tract infection, site not specified ICD-10: N39.0 ICD-9: 599.0 09/03/2018 Essential (primary) hypertension ICD -10: I10 ICD-9: 401.1 08/13/2018 Other emphysema ICD-10: J43.8 ICD-9: 492.8 08/13/2018 Retained glass fragments ICD-10: Z18 .81 ICD-9: [...] Visit Reason For Visit Effective Dates Notes genital lesion 10/19/2018 dysuria 10/01/2018 dysuria 09/03/2018 hypertension 08/13/2018 hypertension 04/09/2018 ankle pain 03/05/2018 blood pressure followup 02/01/2018 hypertension 01/01/2018 Results Observation Observation Code Item Item Code Result Date CULTURE, URINE M100 URIN E CULTURE See Note 10/05/2018 Comp Metabolic Vlo252 NA 139 mEq/L 08/14/2018 Comp Metabolic Tar824 K 3.7 mEq/L 08/14/2018 Comp Metabolic Irb306 CL 99 mEq/L 08/14/2018 Comp Metabolic Oux192 CO2 30.0 mEq/L 08/14/2018 Comp Metabolic Aal128 AN ION GAP 14 08/14/2018 Comp Metabolic Exn175 GL UCOSE 95 mg/dL 08/14/2018 Comp Metabolic Fry605 Cr eat 0.7 mg/dL 08/14/2018 Comp Metabolic Bwc359 eG FR 94 ml/min/1.73m2 08/14 Comp Metabolic Sxz008 BUN 7 mg/dL 08/14/2018 Comp Metabolic Bzg180 B/ C Ratio 10.6 Ratio 08/14/2018 Comp Metabolic Wmg161 CA LCIUM 9.5 mg/dL 08/14/2018 Comp Metabolic Feo909 AL K PHOS 37 U/L 08/14/2018 Comp Metabolic Nhb872 T(SGOT) 30 U/L 08/14/2018 Comp Metabolic Kcc368 AL T(SGPT) 19 U/L 08/14/2018 Comp Metabolic Hjy417 BI LI T 0.7 mg/dL 08/14/2018 Comp Metabolic Lhe855 AL BUMIN 4.2 g/dL 08/14/2018 Comp Metabolic Zia104 TP RO 6.5 g/dL 08/14/2018 Comp Metabolic Dtd068 GL OB 2.3 g/dL 08/14/2018 Comp Metabolic Gvi544 A/ G Ratio 1.9 Ratio 08/14/2018 Comp Metabolic Nxq542 Os mo 275 mOsmo 08/14/2018 Cbc With [...] 32.5 pg 08/14/2018 Cbc With Differential Ord2 Cavalier% 13.8 % 08/14/2018 Cbc With Differential Ord2 [...] 1.50 K/ul 08/14/2018 Cbc With Differential Ord2 [place]alier ABS# 0.8 K/ul 08/14/2018 Cbc With Differential Ord2 Eos ABS# 0.3 K/ul 08/14/2018 Cbc With Differential Ord2 Baso ABS# 0.0 K/ul 08/14/2018 Tsh Ord6 TSH (3rd IS) 3.79 uIU/mL 08/14/2018 Review of Systems System Result Effective Dates Constitutional No recent illness 10/19/2018 Constitutional No [...] 08/13/2018 Respiratory chest tightness 08/13/2018 Respiratory dyspnea 08/01 Respiratory No pedal edema 08/13/2018 Gastrointestinal No [...] tightness 04/09/2018 Respiratory cough 2018 Respiratory dyspnea 10/2018 Respiratory No pedal edema 04/09/2018 Respiratory wheezing [...] Result Effective Dates Notes Full Exam - Genitourinary/Female Con stitutional general [...] normal 10/01/2018 None Full Exam - General 1994 Ears/Nose/Throat lips/teeth/gingiva Overall: benign lips 10/01/2018 None Full Exam - General 1994 Ears/Nose/Throat [...] dentition 09/03/2018 None Full Exam - General 1994 Ears/Nose/Throat oral cavity/pharynx/larynx Overall: oral mucosa clear 09/03/2018 None Full Exam - General 1994 Ears/Nose/Throat oral cavity/pharynx/larynx Overall: oropharyngeal mucosa clear 09/03/2018 None Full Exam - General 1994 Ears/Nose/Throat oral cavity/pharynx/larynx Overall: hypopharynx benign 09/03/2018 [...] affect 08/13/2018 None Full Exam - General 1995 Integument inspection of skin Location: right arm [...] plantar s urface Procedures Procedure Codes Date URINALYSIS NONAUTO W /O SCOPE CPT-4: 90602 10/01/2018 URINALYSIS NONAUTO W /O SCOPE CPT-4: 28416 09/03/2018 REMOVAL OF ARM FOREI GN BODY CPT-4: 71040 08/13/2018 ADMIN INFLUENZA VIRU S VAC CPT-4: G0008 01/01/2018 FLU VACC PRSV FREE I NC ANTIG Formatting Model/CDA Sections, Assigned to/Radha Hobbs CPT-4: 67086Jtapaza 01/01/2018 Vital Signs Date Vital 10/19/2018 Blood Pressure 1: 142/68 Code: 8480-6 BMI: 33.2 Code: 13779-8 Heart Rate 1: 75 bpm Height: 5' SpO2: 95% Weight: 173 lbs 10/01/2018 Blood Pressure 1: 116/78 Code: 8480-6 BMI: 33.2 Code: 27441-1 Heart Rate 1: 72 bpm Height: 5' SpO2: 94% Weight: 173 lbs 09/03/2018 Blood Pressure 1: 132/80 Code: 8480-6 BMI: 33.0 Code: 42232-7 Heart Rate 1: 64 bpm Height: 5' SpO2: 90% Weight: 172 lbs 08/13/2018 Blood Pressure 1: 156/76 Code: 8480-6 BMI: 33.0 Code: 30624-4 Heart Rate 1: 81 bpm Height: 5' SpO2: 92% Weight: 172 lbs 04/09/2018 Blood Pressure 1: 138/66 Code: 8480-6 BMI: 32.5 Code: 68559-4 Heart Rate 1: 69 bpm Height: 5' SpO2: 96% Weight: 169 lbs 03/05/2018 Blood Pressure 1: 124/68 Code: 8480-6 BMI: 32.5 Code: 37968-3 Heart Rate 1: 79 bpm Height: 5' SpO2: 93% Weight: 169 lbs 02/01/2018 Blood Pressure 1: 140/80 Code: 8480-6 BMI: 32.3 Code: 05649-6 Heart Rate 1: 72 bpm Height: 5' SpO2: 94% Weight: 168 lbs 01/01/2018 Blood Pressure 1: 138/62 Code: 8480-6 BMI: 31.1 Code: 70112-5 Heart Rate 1: 75 bpm Height: 5' SpO2: 93% Weight: 162 lbs Functional Status No Functional Status data History of Present Illness Symptom Name Status Resu lt Effective Date Notes Onset and Resolution o ngoing 10/19/2018 None [...] Factors me dication 04/09/2018 None Pertinent Findings herman ziness 04/09/2018 in the mornings when she [...] Encounters Encounter Performer Loca tion Codes Date 86680 EST. PATIENT, LEVEL III Diagnosis: Other specified noninflammatory disorders of vulva and perineum[ICD10: N90.89] Diagnosis: Tinea corporis[ICD10: B35.4] Roxanna Root MD, [facility] CPT- 4: 30962 10/19/2018 [id number] EST. PATIENT, LEVEL III Diagnosis: Dysuria[ICD10: R30.0] Nga Root MD, [facility] CPT-4: 05486 10/01/2018 ([id number]) 06279 EST. P ATIENT, LEVEL III Diagnosis: Urinary tract infection, site not specified[ICD10: N39.0] Roxanna Root MD, [facility] CPT-4: 99733 09/03/2018 ([id number]) 02506 EST. P ATIENT, LEVEL IV Diagnosis: Essential (primary) hypertension[ICD10: I10] Diagnosis: Other emphysema[ICD10: J43.8] Diagnosis: Other skin changes[ICD10: R23.8] Beronica Root MD, [facility] CPT-4: 05014 08/13/2018 ([id number]) 56429 EST. P ATIENT, LEVEL III Diagnosis: Essential (primary) hypertension[ICD10: I10] Diagnosis: Other emphysema[ICD10: J43.8] [facility] CPT-4: 45303 04/09/2018 ([id number]) 25443 EST. P ATIENT, LEVEL III Diagnosis: Pain in right ankle and joints of right foot[ICD10: M25.571] Diagnosis: Pain in right foot[ICD10: M79.671] Roxanna Root MD, [facility] CPT-4: 45150 03/05/2018 ([id number]) 50780 EST. P ATIENT, LEVEL IV Diagnosis: Essential (primary) hypertension[ICD10: I10] Diagnosis: Pain in thoracic spine[ICD10: M54.6] Diagnosis: Age-related osteoporosis without current pathological fracture[ICD10: M81.0] Diagnosis: Other emphysema[ICD10: J43.8] Beronica Root MD, [facility] CPT-4: 24258 02/01/2018 ([id number]) OFFICE [facility] LEVEL 4 Diagnosis: Essential (primary) hypertension[ICD10: I10] Diagnosis: Cough[ICD10: R05] Diagnosis: Mixed hyperlipidemia[ICD10: E78.2] Diagnosis: Other emphysema[ICD10: J43.8] Beronica Root MD, [facility] CPT-4: 88013 01/01/2018 Plan of Care Planned Activity Notes C odes Status Date Visit Plan: Tinea -under right [address] -rx for nystatin provided and instructed on use Fissure of vagina- rx for betamethasone ointment provided and instructed on use-follow up in 2 weeks to ensure healing of tissue 10/19/2018 Appointment: Roxanna King WPtel: [phone] (30 min) Complex 10/19/2018 Patient Education: Patient Medication Summary Completed 10/19/2018 Visit Plan: UTI - pt with positive urinalysis - culture sent if appropriate. Antibiotic electronically prescribed to pt's pharmacy of choice. Pt to call if symptoms do not improve. 10/01/2018 Appointment: Nga Garcia [facility]el: [phone] [facility] [place] (10 min) Simple 10/01/2018 Patient Education: Patient Medication Summary Completed 10/01/2018 Care Plan: Urine Culture Pending 10/01/2018 Visit Plan: UTI - pt with positive urinalysis - culture sent if appropriate. Antibiotic electronically prescribed to pt's pharmacy of choice. Pt to call if symptoms do not improve. 09/03/2018 Appointment: Roxanna King WPtel: [phone] [phone] [place] (15 min) Moderate 09/03/2018 Patient Education: Patient [...] right elbow 08/13/2018 Appointment: Beronica Root WPtel: [facility] [place] (15 min) Moderate 08/13/2018 Patient Education: Patient Medication Summary Completed 08/13/2018 Patient Education: Cholesterol Management Completed 08/13/2018 Appointment: Beronica Root WPtel: [facility] [place] (15 min) Moderate 05/08/2018 Visit Plan: [...] pulmonary rehab 04/09/2018 Appointment: Beronica Root WPtel: [phone] [facility] [place] (15 min) Moderate 04/09/2018 Patient Education: Patient Medication Summary Completed 04/09/2018 Visit Plan: Right ankle and foot pa in -will obtain xrays to evaluate for acute bony abnormality -discussed rest, ice and anti inflammatories as directed-call if symptoms do not resolve, new symptoms develop or any other concerns. 03/05/2018 Appointment: Roxanna King WPtel: [phone] [phone] [place] (15 min) Moderate 03/05/2018 Patient Education: Patient Medication Summary Completed 03/05/2018 Visit Plan: COPD with chronic dyspn ea and nocturnal hypoxemia - recommend that she increase Advair to twice daily. Pt would like to switch to [facility] instead of via [place] [facility]. Osteoporosis - schedule a Dexa scan. Upper back pain - referral to Physical Therapy at [facility]. Hypertension - well controlled - continue with current medications, continue with no added salt diet. Pt has been encouraged to exercise daily. The pt has been advised to call the office if there are any acute concerns about change in blood pressure readings at home. 02/01/2018 Appointment: Beronica Root WPtel: [phone] [facility] (15 min) Moderate 02/01/2018 Patient Education: Patient Medication Summary Completed 02/01/2018 Care Plan: Referral Order SNOMED-CT : [id number] Pending 02/01/2018 Appointment: Nurse Visit 01/08/2018 Appointment: N[facility]el[facility] [phone] [facility] [place] (15 min) Moderate 01/02/2018 Visit Plan: Hypertension - well con trolled [...] comorbid conditions. 01/01/2018 Appointment: [facility] Root [phone] [facility] [place] New Patient 01/01/2018 Patient Education: Patient Medication [...] daily. Pt would like to switch to [facility] instead of [facility]. Osteoporosis - schedule a Dexa scan. Upper back pain - referral to Physical Therapy at [facility]. Hypertension - well controlled - continue with [...] new medication. . Hypertension - well controlled -howeve r with her chronic cough - will stop [...]
--- OUTSIDE RECORDS SUMMARY | 2019-07-05 11:50 | XMS REPORT | CCD ---
Author Author Rosy Root Organization Beronica Root MD, [facility] Address [address] [place] [address] Phone Care Team Providers Care Gas Welder Name Role Phone PP Unavailable CCM Unavailable Summary Purpose Interface Exchange Insurance Providers Payer name Policy type / Coverage type Covered green party ID Effective Begin Date Effective End Date WPS Medicare Part B Medicare Part B [id number] 2018 Unknown FOR LIFE WPS Medicare Part B [id number] Unknown Family history Father Diagnosis Age At Onset Colon cancer Unknown Myocardial infarction Unknown Mother Diagnosis Age At Onset Stroke Unknown Osteoporosis Unknown Social History Social History Element Codes Description Effective Dates Marital status Unknown M yumiko Lujan 01/01/2018 Number of children Unknown 2 01/01/2018 Employment Unknown Retir ed 01/01/[address]: 8601655 Former smoker 01/01/[address]: 801884 Currently drinks alcohol 01/01/2018 Frequency of drinks SNOMED CT: 783402705 More than 2 drinks per day 3 [...] diprop ionate 0.05 % topical ointment RxNorm: 071060 1 Application TOP BID 10/19/2018 10/28/2018 Active apply very thin layer to vagina as direc karma nystatin 100,000 uni t/gram topical cream RxNorm: 170998 1 Application TOP BID 10/19/2018 11/01/2018 Ac tive under right breast doxycycline hyclate 100 mg capsule RxNorm: 9155643 1 Capsule(s) PO BID 10/01/2018 10/10/2018 In active tramadol 50 mg tablet RxNorm: 804792 1 Tablet(s) PO Q6 as needed for pain 09/12/2018 06/08/2019 Ac tive alprazolam 0.5 mg ta blet RxNorm: 109070 1 Tablet(s) PO TID 09/11/2018 06/07/2019 Active Keflex 500 mg capsule RxNorm: 203370 1 Capsule(s) PO TID 09/03/2018 09/09/2018 Inactive naproxen 500 mg tablet RxNorm: 792408 1 Tablet(s) PO BID 03/05/2018 03/14/2018 Inactive Advair Diskus 250 mc g-50 mcg/dose powder for inhalation RxNorm: 6113583 1 Puff(s) INH BID 02/01/2018 04/26/2019 Active Neurontin 400 mg cap marielos RxNorm: 594724 1 Capsule(s) PO QID a s needed 02/01/2018 05/01/2018 In active alprazolam 0.5 mg ta blet RxNorm: 228865 1 Tablet(s) PO TID 01/03/2018 09/10/2018 Inactive fill ed by Dr. Hernandez 12-15-17 tramadol 50 mg tablet RxNorm: 581881 1 Tablet(s) PO Q6 as needed for pain 01/03/2018 09/11/2018 In active filled by Dr. Hernandez 12-15-17 losartan 50 mg-hydro chlorothiazide 12.5 mg tablet RxNorm: 881818 1 Tablet(s) PO daily 01/01/2018 12/26/2018 Ac tive alprazolam 0.5 mg ta blet RxNorm: 844735 1 Tablet(s) PO TID 01/01/2018 01/02/2018 Inactive fill ed by Dr. Hernandez 12-15-17 tramadol 50 mg tablet RxNorm: 473723 1 Tablet(s) PO Q6 as needed for pain 01/01/2018 01/02/2018 In active filled by Dr. Hernandez 12-15-17 Tricor 145 mg tablet RxNorm: 175784 1 Tablet(s) PO daily No Start Date Active omeprazole 40 mg cap marielos,delayed release RxNorm: 299012 1 Capsule(s) PO BID No Start Date Active potassium gluconate 595 mg (99 mg) tablet RxNorm: 376573 1 Tablet(s) PO daily No Start Date Active Singulair 10 mg tablet RxNorm: 623480 1 Tablet(s) PO QPM No Start Date Active Klor-Con M20 mEq tab let,extended release RxNorm: 2197123 1 Tablet(s) PO BID No Start Date Active metoprolol succinate ER 25 mg tablet,extended release 24 hr RxNorm: 221058 1 Tablet(s) PO QPM No Start Date Active hydrochlorothiazide 25 mg tablet RxNorm: 861376 1 Tablet(s) PO BID No Start Date Active Spiriva Respimat 2.5 mcg/actuation solution for inhalation RxNorm: 6287837 2 Puff(s) INH daily No Start Date Active cetirizine 10 mg tablet RxNorm: 1728574 1 Tablet(s) PO daily No Start Date Active albuterol sulfate HF A 90 mcg/actuation aerosol inhaler RxNorm: 075974 2 Puff(s) INH QID No Start Date Active Calcium 600 + D(3) 6 00 mg (1,500 mg)-400 unit tablet RxNorm: 666346 1 Tablet(s) PO daily No Start Date Active Osteo Bi-Flex oral RxNorm: 8797539 oral No Start Date Active Iron (ferrous sulfat e) 325 mg (65 mg iron) tablet RxNorm: 264027 1 Tablet(s) PO BIW on Monday and Monday No Start Date Active Pomegranate oral RxNorm: 0896302 oral No Start Date Active Complete Senior tablet RxNorm: 1 Tablet(s) PO daily No Start Date Active Flonase Allergy Reli ef 50 mcg/actuation nasal spray,suspension RxNorm: 1010202 1-2 [place] NASAL daily for allergies No Start Date Active Lexapro 10 mg tablet RxNorm: 083179 1 Tablet(s) PO daily No Start Date Active beta carotene 25,000 unit tablet RxNorm: 523250 1 Tablet(s) PO daily No Start Date Active Vitamin C 1,000 mg t ablet RxNorm: 206136 1 Tablet(s) PO daily No Start Date Active U-Nfrwhp-M-Cysteine RxNorm: 197 miscellaneous No Start Date Active vitamin E (dl, aceta te) 400 unit capsule RxNorm: 401852 1 Capsule(s) PO daily No Start Date Active Vitamin B-12 1,000 m cg tablet RxNorm: 489436 2 Tablet(s) PO daily No Start Date Active Advair Diskus 250 mc g-50 mcg/dose powder for inhalation RxNorm: 9182703 1 Puff(s) INH daily No Start Date 01/31/2018 Inactive lisinopril 20 mg-hyd rochlorothiazide 25 mg tablet RxNorm: 928579 1 Tablet(s) PO daily No Start Date 12/31/2017 Inactive Neurontin 400 mg cap marielos RxNorm: 143839 1 Capsule(s) PO QID a s needed No Start Date 01/31/2018 Inactive tramadol 50 mg tablet RxNorm: 005151 1 Tablet(s) PO Q6 as needed for [...] E CULTURE See Note 10/05/2018 Comp Metabolic Vyu748 NA 139 mEq/L 08/14/2018 Comp Metabolic Gkp125 K 3.7 mEq/L 08/14/2018 Comp Metabolic Wql857 CL 99 mEq/L 08/14/2018 Comp Metabolic Vxt840 CO2 30.0 mEq/L 08/14/2018 Comp Metabolic Bym742 AN ION GAP 14 08/14/2018 Comp Metabolic Wpn091 GL UCOSE 95 mg/dL 08/14/2018 Comp Metabolic Lzc651 Cr eat 0.7 mg/dL 08/14/2018 Comp Metabolic Tzu895 eG FR 94 ml/min/1.73m2 08/14 Comp Metabolic Jmc065 BUN 7 mg/dL 08/14/2018 Comp Metabolic Vpr421 B/ C Ratio 10.6 Ratio 08/14/2018 Comp Metabolic Fgt093 CA LCIUM 9.5 mg/dL 08/14/2018 Comp Metabolic Wbx441 AL K PHOS 37 U/L 08/14/2018 Comp Metabolic Rzr070 T(SGOT) 30 U/L 08/14/2018 Comp Metabolic Chh899 AL T(SGPT) 19 U/L 08/14/2018 Comp Metabolic Vhk238 BI LI T 0.7 mg/dL 08/14/2018 Comp Metabolic Jxc169 AL BUMIN 4.2 g/dL 08/14/2018 Comp Metabolic Zej147 TP RO 6.5 g/dL 08/14/2018 Comp Metabolic Pwz352 GL OB 2.3 g/dL 08/14/2018 Comp Metabolic Eti101 A/ G Ratio 1.9 Ratio 08/14/2018 Comp Metabolic Wyk009 Os mo 275 mOsmo 08/14/2018 Cbc With [...] 32.5 pg 08/14/2018 Cbc With Differential Ord2 [place]% 13.8 % 08/14/2018 Cbc With Differential Ord2 [...] 1.50 K/ul 08/14/2018 Cbc With Differential Ord2 [place] ABS# 0.8 K/ul 08/14/2018 Cbc With Differential [...] Date URINALYSIS NONAUTO W /O SCOPE CPT-4: 17665 10/01/2018 URINALYSIS NONAUTO W /O SCOPE CPT-4: 42639 09/03/2018 REMOVAL OF ARM FOREI GN BODY CPT-4: 60679 08/13/2018 ADMIN INFLUENZA VIRU S VAC CPT-4: G0008 01/01/2018 FLU VACC PRSV FREE I NC ANTIG Formatting Model/CDA Sections, Assigned to/Radha Hobbs CPT-4: 16340Pvrzgsb 01/01/2018 Vital Signs Date Vital 10/19/2018 Blood Pressure 1: 142/68 Code: 8480-6 BMI: 33.2 Code: 85471-5 Heart Rate 1: 75 bpm Height: 5' SpO2: 95% Weight: 173 lbs 10/01/2018 Blood Pressure 1: 116/78 Code: 8480-6 BMI: 33.2 Code: 83097-2 Heart Rate 1: 72 bpm Height: 5' SpO2: 94% Weight: 173 lbs 09/03/2018 Blood Pressure 1: 132/80 Code: 8480-6 BMI: 33.0 Code: 50227-2 Heart Rate 1: 64 bpm Height: 5' SpO2: 90% Weight: 172 lbs 08/13/2018 Blood Pressure 1: 156/76 Code: 8480-6 BMI: 33.0 Code: 82345-1 Heart Rate 1: 81 bpm Height: 5' SpO2: 92% Weight: 172 lbs 04/09/2018 Blood Pressure 1: 138/66 Code: 8480-6 BMI: 32.5 Code: 09598-0 Heart Rate 1: 69 bpm Height: 5' SpO2: 96% Weight: 169 lbs 03/05/2018 Blood Pressure 1: 124/68 Code: 8480-6 BMI: 32.5 Code: 14346-7 Heart Rate 1: 79 bpm Height: 5' SpO2: 93% Weight: 169 lbs 02/01/2018 Blood Pressure 1: 140/80 Code: 8480-6 BMI: 32.3 Code: 51859-8 Heart Rate 1: 72 bpm Height: 5' SpO2: 94% Weight: 168 lbs 01/01/2018 Blood Pressure 1: 138/62 Code: 8480-6 BMI: 31.1 Code: 79895-7 Heart Rate 1: 75 bpm Height: 5' [...] Encounters Encounter Performer Loca tion Codes Date 35164 EST. PATIENT, LEVEL III Diagnosis: Other specified noninflammatory disorders of vulva and perineum[ICD10: N90.89] Diagnosis: Tinea corporis[ICD10: B35.4] Roxanna Root MD, [facility] CPT- 4: 79094 10/19/2018 [id number] EST. PATIENT, LEVEL III Diagnosis: Dysuria[ICD10: R30.0] Nga Root MD, [facility] CPT-4: 68579 10/01/2018 ([id number]) 35828 EST. P ATIENT, LEVEL III Diagnosis: Urinary tract infection, site not specified[ICD10: N39.0] Roxanna Root MD, [facility] CPT-4: 55701 09/03/2018 ([id number]) 46541 EST. P ATIENT, LEVEL IV Diagnosis: Essential (primary) hypertension[ICD10: I10] Diagnosis: Other emphysema[ICD10: J43.8] Diagnosis: Other skin changes[ICD10: R23.8] Beronica Root MD, [facility] CPT-4: 56258 08/13/2018 ([id number]) 13071 EST. P ATIENT, LEVEL III Diagnosis: Essential (primary) hypertension[ICD10: I10] Diagnosis: Other emphysema[ICD10: J43.8] [facility] CPT-4: 60380 04/09/2018 ([id number]) 18007 EST. P ATIENT, LEVEL III Diagnosis: Pain in right ankle and joints of right foot[ICD10: M25.571] Diagnosis: Pain in right foot[ICD10: M79.671] Roxanna Root MD, [facility] CPT-4: 49870 03/05/2018 ([id number]) 84238 EST. P ATIENT, LEVEL IV Diagnosis: Essential (primary) hypertension[ICD10: I10] Diagnosis: Pain in thoracic spine[ICD10: M54.6] Diagnosis: Age-related osteoporosis without current pathological fracture[ICD10: M81.0] Diagnosis: Other emphysema[ICD10: J43.8] Beronica Root MD, [facility] CPT-4: 76408 02/01/2018 ([id number]) OFFICE [facility] LEVEL 4 Diagnosis: Essential (primary) hypertension[ICD10: I10] Diagnosis: Cough[ICD10: R05] Diagnosis: Mixed hyperlipidemia[ICD10: E78.2] Diagnosis: Other emphysema[ICD10: J43.8] Beronica Root MD, [facility] CPT-4: 01935 01/01/2018 Plan of Care Planned Activity Notes C odes Status Date Visit Plan: Tinea -under right [address] -rx for nystatin provided and instructed on use Fissure of vagina- rx for betamethasone ointment provided and instructed on use-follow up in 2 weeks to ensure healing of tissue 10/19/2018 Patient Education: Patient Medication Summary Completed 10/19/2018 Visit Plan: UTI - pt with positive urinalysis - culture sent if appropriate. Antibiotic electronically prescribed to pt's pharmacy of choice. Pt to call if symptoms do not improve. 10/01/2018 Appointment: Nga Garcia WPtel: [address] [place], [place] [address] (10 min) Simple 10/01/2018 Patient Education: Patient Medication Summary Completed 10/01/2018 Care Plan: Urine Culture Pending 10/01/2018 Visit Plan: UTI - pt with positive urinalysis - culture sent if appropriate. Antibiotic electronically prescribed to pt's pharmacy of choice. Pt to call if symptoms do not improve. 09/03/2018 Appointment: Roxanna King WPtel: [phone] [place] (15 min) Moderate 09/03/2018 Patient Education: Patient Medication Summary Completed 09/03/2018 Care Plan: Urine Culture Pending 09/03/2018 Visit Plan: Hypertension - well con danis [...] right elbow 08/13/2018 Appointment: Beronica Root WPtel: [facility] (15 min) Moderate 08/13/2018 Patient Education: Patient Medication Summary Completed 08/13/2018 Patient Education: Cholesterol Management Completed 08/13/2018 Appointment: Beronica Root WPtel: [facility] [place] ([facility] min) Moderate 05/08/2018 Visit Plan: Hypertension - well con danis - continue with current medications, continue with no added salt diet. Pt has been encouraged to exercise daily. The pt has been advised to call the office if there are any acute concerns about change in blood pressure readings at home. Emphysema - referral to pulmonary rehab 04/09/2018 Appointment: Beronica Root WPtel: [facility] ([facility] min) Moderate 04/09/2018 Patient Education: Patient Medication Summary Completed 04/09/2018 Visit Plan: Right ankle and foot pa in -will obtain xrays to evaluate for acute bony abnormality -discussed rest, ice and anti inflammatories as directed-call if symptoms do not resolve, new symptoms develop or any other concerns. 03/05/2018 Appointment: Roxanna King WPtel: [phone] [place] (15 min) Moderate 03/05/2018 Patient Education: Patient Medication Summary Completed 03/05/2018 Visit Plan: COPD with chronic dyspn ea and nocturnal hypoxemia - recommend that she increase Advair to twice daily. Pt would like to switch to [employer] instead of [facility]. Osteoporosis - [...] at home. 02/01/2018 Appointment: [facility] Root [facility]el[facility] [phone] [facility] (15 min) Moderate 02/01/2018 Patient Education: Patient Medication Summary Completed 02/01/2018 Care Plan: Referral Order SNOMED-CT : [id number] Pending 02/01/2018 Appointment: Nurse Visit 01/08/2018 Appointment: N[facility] Garcia [facility]Ptel[facility] [phone] [facility] (15 min) Moderate 01/02/2018 Visit Plan: Hypertension [...] conditions. 01/01/2018 Appointment: [facility] Root [facility]el[facility] [phone] [facility] [place] New Patient 01/01/2018 Patient Education: Patient [...] - referral to Physical Therapy at [facility]. Hypertension - well controlled - continue with [...] new medication. . Hypertension - well controlled -románeve r with her chronic cough - will [...]
--- OUTSIDE RECORDS SUMMARY | 2019-07-05 11:50 | XMS REPORT | CCD ---
Author Author Rosy Root Organization Beronica Root MD, [facility] Address [address] [place] [address] Phone Care Team Providers Care Laundry Tub Maker Name Role Phone PP Unavailable CCM Unavailable Summary Purpose Interface Exchange Insurance Providers Payer name Policy type / Coverage type Covered libertarian ID Effective Begin Date Effective End Date WPS Medicare Part B Medicare Part B [id number] Unknown FOR LIFE WPS Medicare Part B [id number] Unknown Family history Father Diagnosis Age At Onset Colon cancer Unknown Myocardial infarction Unknown Mother Diagnosis Age At Onset Stroke Unknown Osteoporosis Unknown Social History Social History Element Codes Description Effective Dates Marital status Unknown M yumiko Lujan 01/01/2018 Number of children Unknown 2 01/01/2018 Employment Unknown Retir ed 01/01/[address]: 3324224 Former smoker 01/01/[address]: 494161 Currently drinks alcohol 01/01/2018 Frequency of drinks SNOMED CT: 483756457 More than 2 drinks per day 3 per evening 01/01/2018 Allergies, Adverse Reactions, Alerts Substance Reaction Codes Entered Date Inactivated Date Status * NO KNOWN DRUG KIRSTIN RGIES Unknown 01/01/2018 No Inactive Date Active Past Medical History Illness Codes Condition Status Onset Date Resolved Date Dysuria ICD-9: 788.1 ICD-10: R30.0 Active 10/01/2018 [...] Condition Codes Effectiv e Dates Condition Status Dysuria ICD-9: 788.1 ICD-10: R30.0 10/01/2018 Active [...] Date Stop Date Sta tus Fill Instructions doxycycline hyclate 100 mg capsule RxNorm: 5115743 1 Capsule(s) PO BID 10/01/2018 10/10/2018 Ac tive tramadol 50 mg tablet RxNorm: 340632 1 Tablet(s) PO Q6 as needed for pain 09/12/2018 06/08/2019 Ac tive alprazolam 0.5 mg ta blet RxNorm: 727873 1 Tablet(s) PO TID 09/11/2018 06/07/2019 Active Keflex 500 mg capsule RxNorm: 558785 1 Capsule(s) PO TID 09/03/2018 09/09/2018 Inactive naproxen 500 mg tablet RxNorm: 624756 1 Tablet(s) PO BID 03/05/2018 03/14/2018 Inactive Advair Diskus 250 mc g-50 mcg/dose powder for inhalation RxNorm: 2800636 1 Puff(s) INH BID 02/01/2018 04/26/2019 Active Neurontin 400 mg cap marielos RxNorm: 589500 1 Capsule(s) PO QID a s needed 02/01/2018 05/01/2018 In active alprazolam 0.5 mg ta blet RxNorm: 409719 1 Tablet(s) PO TID 01/03/2018 09/10/2018 In[address] fill ed [address] Dr. Hernandez 12-15-17 tramadol 50 mg tablet RxNorm: 595146 1 Tablet(s) PO Q6 as needed for pain 01/03/2018 09/11/2018 In active filled by Dr. Hernandez 12-15-17 losartan 50 mg-hydro chlorothiazide 12.5 mg tablet RxNorm: 975571 1 Tablet(s) PO daily 01/01/2018 12/26/2018 Ac tive alprazolam 0.5 mg ta blet RxNorm: 649642 1 Tablet(s) PO TID 01/01/2018 01/02/2018 Inactive fill ed by Dr. Hernandez 12-15-17 tramadol 50 mg tablet RxNorm: 130086 1 Tablet(s) PO Q6 as needed for pain 01/01/2018 01/02/2018 In active filled by Dr. Hernandez 12-15-17 Tricor 145 mg tablet RxNorm: 450152 1 Tablet(s) PO daily No Start Date Active omeprazole 40 mg cap marielos,delayed release RxNorm: 986612 1 Capsule(s) PO BID No Start Date Active potassium gluconate 595 mg (99 mg) tablet RxNorm: 328084 1 Tablet(s) PO daily No Start Date Active Singulair 10 mg tablet RxNorm: 122802 1 Tablet(s) PO QPM No Start Date Active Klor-Con M20 mEq tab let,extended release RxNorm: 6005678 1 Tablet(s) PO BID No Start Date Active metoprolol succinate ER 25 mg tablet,extended release 24 hr RxNorm: 276873 1 Tablet(s) PO QPM No Start Date Active hydrochlorothiazide 25 mg tablet RxNorm: 747233 1 Tablet(s) PO BID No Start Date Active Spiriva Respimat 2.5 mcg/actuation solution for inhalation RxNorm: 5344791 2 Puff(s) INH daily No Start Date Active cetirizine 10 mg tablet RxNorm: 5552958 1 Tablet(s) PO daily No Start Date Active albuterol sulfate HF A 90 mcg/actuation aerosol inhaler RxNorm: 600838 2 Puff(s) INH QID No Start Date Active Calcium 600 + D(3) 6 00 mg (1,500 mg)-400 unit tablet RxNorm: 469558 1 Tablet(s) PO daily No Start Date Active Osteo Bi-Flex oral RxNorm: 6247093 oral No Start Date Active Iron (ferrous sulfat e) 325 mg (65 mg iron) tablet RxNorm: 636629 1 Tablet(s) PO BIW on Monday and Monday No Start Date Active Pomegranate oral RxNorm: 7073754 oral No Start Date Active Complete Senior tablet RxNorm: 1 Tablet(s) PO daily No Start Date Active Flonase Allergy Reli ef 50 mcg/actuation nasal spray,suspension RxNorm: 0120660 1-2 Shanks NASAL daily for allergies No Start Date Active Lexapro 10 mg tablet RxNorm: 787623 1 Tablet(s) PO daily No Start Date Active beta carotene 25,000 unit tablet RxNorm: 146739 1 Tablet(s) PO daily No Start Date Active Vitamin C 1,000 mg t ablet RxNorm: 061667 1 Tablet(s) PO daily No Start Date Active L-Vcwcsp-E-Cysteine RxNorm: 197 miscellaneous No Start Date Active vitamin E (dl, aceta te) 400 unit capsule RxNorm: 144940 1 Capsule(s) PO daily No Start Date Active Vitamin B-12 1,000 m cg tablet RxNorm: 410509 2 Tablet(s) PO daily No Start Date Active Advair Diskus 250 mc g-50 mcg/dose powder for inhalation RxNorm: 4874187 1 Puff(s) INH daily No Start Date 01/31/2018 Inactive lisinopril 20 mg-hyd rochlorothiazide 25 mg tablet RxNorm: 498838 1 Tablet(s) PO daily No Start Date 12/31/2017 Inactive Neurontin 400 mg cap marielos RxNorm: 175277 1 Capsule(s) PO QID a s needed No Start Date 01/31/2018 Inactive tramadol 50 mg tablet RxNorm: 396541 1 Tablet(s) PO Q6 as needed for pain No Start Date 12/31/2017 Inactive Medication Administered No Medication Administered data Immunizations Vaccine Codes Date Status Influenza CVX: 141 01/01 completed Assessments Condition Codes Effectiv e Dates Dysuria ICD-10: R30.0 ICD-9: 788.1 10/01/2018 Urinary [...] Visit Reason For Visit Effective Dates Notes dysuria 10/01/2018 dysuria 09/03/2018 hypertension 08/13/2018 hypertension 04/09/2018 ankle pain 03/05/2018 blood pressure followup 02/01/2018 hypertension 01/01/2018 Results Observation Observation Code Item Item Code Result Date Comp Metabolic Jzy576 NA 139 mEq/L 08/14/2018 Comp Metabolic Tld166 K 3.7 mEq/L 08/14/2018 Comp Metabolic Lzf822 CL 99 mEq/L 08/14/2018 Comp Metabolic Ers471 CO2 30.0 mEq/L 08/14/2018 Comp Metabolic Omg439 AN ION GAP 14 08/14/2018 Comp Metabolic Bqd943 GL UCOSE 95 mg/dL 08/14/2018 Comp Metabolic Moq980 Cr eat 0.7 mg/dL 08/14/2018 Comp Metabolic Vcg067 eG FR 94 ml/min/1.73m2 08/14 Comp Metabolic Rly187 BUN 7 mg/dL 08/14/2018 Comp Metabolic Bjg226 B/ C Ratio 10.6 Ratio 08/14/2018 Comp Metabolic Yww310 CA LCIUM 9.5 mg/dL 08/14/2018 Comp Metabolic Qlr907 AL K PHOS 37 U/L 08/14/2018 Comp Metabolic Okn249 T(SGOT) 30 U/L 08/14/2018 Comp Metabolic Ods524 AL T(SGPT) 19 U/L 08/14/2018 Comp Metabolic Yoa416 BI LI T 0.7 mg/dL 08/14/2018 Comp Metabolic Tkn451 AL BUMIN 4.2 g/dL 08/14/2018 Comp Metabolic Pmr311 TP RO 6.5 g/dL 08/14/2018 Comp Metabolic Orp744 GL OB 2.3 g/dL 08/14/2018 Comp Metabolic Cjq245 A/ G Ratio 1.9 Ratio 08/14/2018 Comp Metabolic Vvh945 Os mo 275 mOsmo 08/14/2018 Cbc With [...] 32.5 pg 08/14/2018 Cbc With Differential Ord2 Estill% 13.8 % 08/14/2018 Cbc With Differential Ord2 [...] 1.50 K/ul 08/14/2018 Cbc With Differential Ord2 Estill ABS# 0.8 K/ul 08/14/2018 Cbc With Differential Ord2 Eos ABS# 0.3 K/ul 08/14/2018 Cbc With Differential Ord2 Baso ABS# 0.0 K/ul 08/14/2018 Tsh Ord6 TSH (3rd IS) 3.79 uIU/mL 08/14/2018 Review of Systems System Result Effective Dates Constitutional No recent illness 10/01/2018 Constitutional No [...] clear 10/01/2018 None Full Exam - General 1995 Eyes conjunctiva/eyelids Overall: cornea clear 10/01/2018 None [...] Date URINALYSIS NONAUTO W /O SCOPE CPT-4: 24558 10/01/2018 URINALYSIS NONAUTO W /O SCOPE CPT-4: 78575 09/03/2018 REMOVAL OF ARM FOREI GN BODY CPT-4: 80813 08/13/2018 ADMIN INFLUENZA VIRU S VAC CPT-4: G0008 01/01/2018 FLU VACC PRSV FREE I NC ANTIG Formatting Model/CDA Sections, Assigned to/Radha Hobbs CPT-4: 85732Pbgnqum 01/01/2018 Vital Signs Date Vital 10/01/2018 Blood Pressure 1: 116/78 Code: 8480-6 BMI: 33.2 Code: 06772-1 Heart Rate 1: 72 bpm Height: 5' SpO2: 94% Weight: 173 lbs 09/03/2018 Blood Pressure 1: 132/80 Code: 8480-6 BMI: 33.0 Code: 63715-7 Heart Rate 1: 64 bpm Height: 5' SpO2: 90% Weight: 172 lbs 08/13/2018 Blood Pressure 1: 156/76 Code: 8480-6 BMI: 33.0 Code: 41791-7 Heart Rate 1: 81 bpm Height: 5' SpO2: 92% Weight: 172 lbs 04/09/2018 Blood Pressure 1: 138/66 Code: 8480-6 BMI: 32.5 Code: 23564-0 Heart Rate 1: 69 bpm Height: 5' SpO2: 96% Weight: 169 lbs 03/05/2018 Blood Pressure 1: 124/68 Code: 8480-6 BMI: 32.5 Code: 54112-2 Heart Rate 1: 79 bpm Height: 5' SpO2: 93% Weight: 169 lbs 02/01/2018 Blood Pressure 1: 140/80 Code: 8480-6 BMI: 32.3 Code: 69976-7 Heart Rate 1: 72 bpm Height: 5' SpO2: 94% Weight: 168 lbs 01/01/2018 Blood Pressure 1: 138/62 Code: 8480-6 BMI: 31.1 Code: 39773-4 Heart Rate 1: 75 bpm Height: 5' SpO2: 93% Weight: 162 lbs Functional Status No Functional Status data History of Present Illness Symptom Name Status Resu lt Effective Date Notes Quality constant 10/01/2018 None Onset and Resolution [...] Encounters Encounter Performer Loca tion Codes Date 11932 EST. PATIENT, LEVEL III Diagnosis: Dysuria[ICD10: R30.0] Nga Root MD, [facility] CPT-4: 73355 10/01/2018 ([id number]) 26803 EST. P ATIENT, LEVEL III Diagnosis: Urinary tract infection, site not specified[ICD10: N39.0] Roxanna Root MD, [facility] CPT-4: 36625 09/03/2018 ([id number]) 96464 EST. P ATIENT, LEVEL IV Diagnosis: Essential (primary) hypertension[ICD10: I10] Diagnosis: Other emphysema[ICD10: J43.8] Diagnosis: Other skin changes[ICD10: R23.8] Beronica Root MD, [facility] CPT-4: 61487 08/13/2018 ([id number]) 86637 EST. P ATIENT, LEVEL III Diagnosis: Essential (primary) hypertension[ICD10: I10] Diagnosis: Other emphysema[ICD10: J43.8] Beronica Root MD, [facility] CPT-4: 24837 04/09/2018 ([id number]) 42296 EST. P ATIENT, LEVEL III Diagnosis: Pain in right ankle and joints of right foot[ICD10: M25.571] Diagnosis: Pain in right foot[ICD10: M79.671] Roxanna Root MD, [facility] CPT-4: 74656 03/05/2018 ([id number]) 13391 EST. P ATIENT, LEVEL IV Diagnosis: Essential (primary) hypertension[ICD10: I10] Diagnosis: Pain in thoracic spine[ICD10: M54.6] Diagnosis: Age-related osteoporosis without current pathological fracture[ICD10: M81.0] Diagnosis: Other emphysema[ICD10: J43.8] Beronica Root MD, [facility] CPT-4: 78402 02/01/2018 ([id number]) OFFICE VISI T, NEW - LEVEL 4 Diagnosis: Essential (primary) hypertension[ICD10: I10] Diagnosis: Cough[ICD10: R05] Diagnosis: Mixed hyperlipidemia[ICD10: E78.2] Diagnosis: Other emphysema[ICD10: J43.8] Beronica Root MD, [facility] CPT-4: 93998 01/01/2018 Plan of Care Planned Activity Notes C odes Status Date Visit Plan: UTI - pt with positive urinalysis - culture sent if appropriate. Antibiotic electronically prescribed to pt's pharmacy of choice. Pt to call if symptoms do not improve. 10/01/2018 Patient Education: Patient Medication Summary Completed 10/01/2018 Care Plan: Urine Culture Pending 10/01/2018 Visit Plan: UTI - pt with positive urinalysis - culture sent if appropriate. Antibiotic electronically prescribed to pt's pharmacy of choice. Pt to call if symptoms do not improve. 09/03/2018 Appointment: Roxanna King WPtel: [address] [place], [place] [phone] (15 min) Moderate 09/03/2018 Patient Education: Patient [...] glass from her right elbow 08/13/2018 Appointment: DkYvette zhangy WPtel: [phone] [facility] [place] (15 min) Moderate 08/13/2018 Patient Education: Patient Medication Summary Completed 08/13/2018 Patient Education: Cholesterol Management Completed 08/13/2018 Appointment: Dk Beronica WPtel: [phone] [facility] [place] (15 min) Moderate 05/08/2018 Visit Plan: [...] pulmonary rehab 04/09/2018 Appointment: Beronica Root WPtel: [phone] [facility] [place] (15 min) Moderate 04/09/2018 Patient Education: Patient Medication Summary Completed 04/09/2018 Visit Plan: Right ankle and foot pa in -will obtain xrays to evaluate for acute bony abnormality -discussed rest, ice and anti inflammatories as directed-call if symptoms do not resolve, new symptoms develop or any other concerns. 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 Pt would like to switch to [facility] instead of via [facility]. Osteoporosis - [...] home. 02/01/2018 Appointment: Beronica Root WPtel: [phone] [facility] [place] (15 min) Moderate 02/01/2018 Patient Education: Patient Medication Summary Completed 02/01/2018 Care Plan: Referral Order SNOMED-CT : [id number] Pending 02/01/2018 Appointment: Nurse Visit 01/08/2018 Appointment: Nga Garcia WPtel: [facility] (15 min) Moderate 01/02/2018 Visit Plan: Hypertension [...] comorbid conditions. 01/01/2018 Appointment: Beronica Root WPtel: [facility] New Patient 01/01/2018 Patient Education: Patient Medication Summary Completed 01/01/2018 Patient Education: Cholesterol Management Completed 01/01/2018 Instructions Comment . UTI - pt with posi tive [...]
--- OUTSIDE RECORDS SUMMARY | 2019-07-05 11:50 | XMS REPORT | CCD ---
Author Author Rosy Root Organization Beronica Root MD, [facility] Address [address] [place] [address] Phone Care Team Providers Care Research Epidemiologist Name Role Phone PP Unavailable CCM Unavailable Summary Purpose Interface Exchange Insurance Providers Payer name Policy type / Coverage type Covered republican ID Effective Begin Date Effective End Date WPS Medicare Part B Medicare Part B [id number] Unknown FOR LIFE WPS Medicare Part B [id number] Unknown Family history Father Diagnosis Age At Onset Colon cancer Unknown Myocardial infarction Unknown Mother Diagnosis Age At Onset Stroke Unknown Osteoporosis Unknown Social History Social History Element Codes Description Effective Dates Marital status Unknown M yumiko Lujan 01/01/2018 Number of children Unknown 2 01/01/2018 Employment Unknown Retir ed 01/01/[address]: 1129724 Former smoker 01/01/[address]: 092226 Currently drinks alcohol 01/01/2018 Frequency of drinks SNOMED CT: 498050730 More than 2 drinks per day 3 [...] Instructions doxycycline hyclate 100 mg capsule RxNorm: 3928505 1 Capsule(s) PO BID 10/01/2018 10/10/2018 Ac tive tramadol 50 mg tablet RxNorm: 813001 1 Tablet(s) PO Q6 as needed for pain 09/12/2018 06/08/2019 Ac tive alprazolam 0.5 mg ta blet RxNorm: 266460 1 Tablet(s) PO TID 09/11/2018 06/07/2019 Active Keflex 500 mg capsule RxNorm: 264453 1 Capsule(s) PO TID 09/03/2018 09/09/2018 Inactive naproxen 500 mg tablet RxNorm: 741396 1 Tablet(s) PO BID 03/05/2018 03/14/2018 Inactive Advair Diskus 250 mc g-50 mcg/dose powder for inhalation RxNorm: 8384771 1 Puff(s) INH BID 02/01/2018 04/26/2019 Active Neurontin 400 mg cap marielos RxNorm: 338092 1 Capsule(s) PO QID a s needed 02/01/2018 05/01/2018 In active alprazolam 0.5 mg ta blet RxNorm: 101048 1 Tablet(s) PO TID 01/03/2018 09/10/2018 In[address] fill ed by Dr. Hernandez 12-15-17 tramadol 50 mg tablet RxNorm: 964609 1 Tablet(s) PO Q6 as needed for pain 01/03/2018 09/11/2018 In active filled by Dr. Hernandez 12-15-17 losartan 50 mg-hydro chlorothiazide 12.5 mg tablet RxNorm: 080230 1 Tablet(s) PO daily 01/01/2018 12/26/2018 Ac tive alprazolam 0.5 mg ta blet RxNorm: 636189 1 Tablet(s) PO TID 01/01/2018 01/02/2018 Inactive fill ed by Dr. Hernandez 12-15-17 tramadol 50 mg tablet RxNorm: 479067 1 Tablet(s) PO Q6 as needed for pain 01/01/2018 01/02/2018 In active filled by Dr. Hernandez 12-15-17 Tricor 145 mg tablet RxNorm: 276708 1 Tablet(s) PO daily No Start Date Active omeprazole 40 mg cap marielos,delayed release RxNorm: 636663 1 Capsule(s) PO BID No Start Date Active potassium gluconate 595 mg (99 mg) tablet RxNorm: 396780 1 Tablet(s) PO daily No Start Date Active Singulair 10 mg tablet RxNorm: 561497 1 Tablet(s) PO QPM No Start Date Active Klor-Con M20 mEq tab let,extended release RxNorm: 9994916 1 Tablet(s) PO BID No Start Date Active metoprolol succinate ER 25 mg tablet,extended release 24 hr RxNorm: 208087 1 Tablet(s) PO QPM No Start Date Active hydrochlorothiazide 25 mg tablet RxNorm: 370735 1 Tablet(s) PO BID No Start Date Active Spiriva Respimat 2.5 mcg/actuation solution for inhalation RxNorm: 4588858 2 Puff(s) INH daily No Start Date Active cetirizine 10 mg tablet RxNorm: 4434560 1 Tablet(s) PO daily No Start Date Active albuterol sulfate HF A 90 mcg/actuation aerosol inhaler RxNorm: 855127 2 Puff(s) INH QID No Start Date Active Calcium 600 + D(3) 6 00 mg (1,500 mg)-400 unit tablet RxNorm: 063744 1 Tablet(s) PO daily No Start Date Active Osteo Bi-Flex oral RxNorm: 7696883 oral No Start Date Active Iron (ferrous sulfat e) 325 mg (65 mg iron) tablet RxNorm: 564870 1 Tablet(s) PO BIW on Monday and Monday No Start Date Active Pomegranate oral RxNorm: 9741686 oral No Start Date Active Complete Senior tablet RxNorm: 1 Tablet(s) PO daily No Start Date Active Flonase Allergy Reli ef 50 mcg/actuation nasal spray,suspension RxNorm: 9252559 1-2 [place] NASAL daily for allergies No Start Date Active Lexapro 10 mg tablet RxNorm: 062794 1 Tablet(s) PO daily No Start Date Active beta carotene 25,000 unit tablet RxNorm: 712435 1 Tablet(s) PO daily No Start Date Active Vitamin C 1,000 mg t ablet RxNorm: 221326 1 Tablet(s) PO daily No Start Date Active I-Nkjwfh-Y-Cysteine RxNorm: 197 miscellaneous No Start Date Active vitamin E (dl, aceta te) 400 unit capsule RxNorm: 099590 1 Capsule(s) PO daily No Start Date Active Vitamin B-12 1,000 m cg tablet RxNorm: 268418 2 Tablet(s) PO daily No Start Date Active Advair Diskus 250 mc g-50 mcg/dose powder for inhalation RxNorm: 1807865 1 Puff(s) INH daily No Start Date 01/31/2018 Inactive lisinopril 20 mg-hyd rochlorothiazide 25 mg tablet RxNorm: 388327 1 Tablet(s) PO daily No Start Date 12/31/2017 Inactive Neurontin 400 mg cap marielos RxNorm: 545004 1 Capsule(s) PO QID a s needed No Start Date 01/31/2018 Inactive tramadol 50 mg tablet RxNorm: 011504 1 Tablet(s) PO Q6 as needed for [...] Item Item Code Result Date Comp Metabolic Kiu938 NA 139 mEq/L 08/14/2018 Comp Metabolic Vad841 K 3.7 mEq/L 08/14/2018 Comp Metabolic Xgr591 CL 99 mEq/L 08/14/2018 Comp Metabolic Yab429 CO2 30.0 mEq/L 08/14/2018 Comp Metabolic Dgs498 AN ION GAP 14 08/14/2018 Comp Metabolic Qep794 GL UCOSE 95 mg/dL 08/14/2018 Comp Metabolic Frg725 Cr eat 0.7 mg/dL 08/14/2018 Comp Metabolic Xim476 eG FR 94 ml/min/1.73m2 08/14 Comp Metabolic Lcz188 BUN 7 mg/dL 08/14/2018 Comp Metabolic Dbt983 B/ C Ratio 10.6 Ratio 08/14/2018 Comp Metabolic Ean805 CA LCIUM 9.5 mg/dL 08/14/2018 Comp Metabolic Fib900 AL K PHOS 37 U/L 08/14/2018 Comp Metabolic Rie761 T(SGOT) 30 U/L 08/14/2018 Comp Metabolic Uym398 AL T(SGPT) 19 U/L 08/14/2018 Comp Metabolic Urf469 BI LI T 0.7 mg/dL 08/14/2018 Comp Metabolic Gxu052 AL BUMIN 4.2 g/dL 08/14/2018 Comp Metabolic Brx850 TP RO 6.5 g/dL 08/14/2018 Comp Metabolic Ryk215 GL OB 2.3 g/dL 08/14/2018 Comp Metabolic Xpr622 A/ G Ratio 1.9 Ratio 08/14/2018 Comp Metabolic Jqv944 Os mo 275 mOsmo 08/14/2018 Cbc With [...] 32.5 pg 08/14/2018 Cbc With Differential Ord2 [place]% 13.8 % 08/14/2018 Cbc With Differential Ord2 [...] 1.50 K/ul 08/14/2018 Cbc With Differential Ord2 [place] ABS# 0.8 K/ul 08/14/2018 Cbc With Differential [...] Date URINALYSIS NONAUTO W /O SCOPE CPT-4: 51087 10/01/2018 URINALYSIS NONAUTO W /O SCOPE CPT-4: 63141 09/03/2018 REMOVAL OF ARM FOREI GN BODY CPT-4: 02595 08/13/2018 ADMIN INFLUENZA VIRU S VAC CPT-4: G0008 01/01/2018 FLU VACC PRSV FREE I NC ANTIG Formatting Model/CDA Sections, Assigned to/Radha Hobbs CPT-4: 78866Yugrvqq 01/01/2018 Vital Signs Date Vital 10/01/2018 Blood Pressure 1: 116/78 Code: 8480-6 BMI: 33.2 Code: 55647-3 Heart Rate 1: 72 bpm Height: 5' SpO2: 94% Weight: 173 lbs 09/03/2018 Blood Pressure 1: 132/80 Code: 8480-6 BMI: 33.0 Code: 80976-6 Heart Rate 1: 64 bpm Height: 5' SpO2: 90% Weight: 172 lbs 08/13/2018 Blood Pressure 1: 156/76 Code: 8480-6 BMI: 33.0 Code: 38321-0 Heart Rate 1: 81 bpm Height: 5' SpO2: 92% Weight: 172 lbs 04/09/2018 Blood Pressure 1: 138/66 Code: 8480-6 BMI: 32.5 Code: 96585-6 Heart Rate 1: 69 bpm Height: 5' SpO2: 96% Weight: 169 lbs 03/05/2018 Blood Pressure 1: 124/68 Code: 8480-6 BMI: 32.5 Code: 79822-9 Heart Rate 1: 79 bpm Height: 5' SpO2: 93% Weight: 169 lbs 02/01/2018 Blood Pressure 1: 140/80 Code: 8480-6 BMI: 32.3 Code: 07803-5 Heart Rate 1: 72 bpm Height: 5' SpO2: 94% Weight: 168 lbs 01/01/2018 Blood Pressure 1: 138/62 Code: 8480-6 BMI: 31.1 Code: 22262-4 Heart Rate 1: 75 bpm Height: 5' [...] Encounters Encounter Performer Loca tion Codes Date 57169 EST. PATIENT, LEVEL III Diagnosis: Dysuria[ICD10: R30.0] Nga Root MD, [facility] CPT-4: 73544 10/01/2018 ([id number]) 00904 EST. P ATIENT, LEVEL III Diagnosis: Urinary tract infection, site not specified[ICD10: N39.0] Roxanna Root MD, [facility] CPT-4: 06538 09/03/2018 ([id number]) 66277 EST. P ATIENT, LEVEL IV Diagnosis: Essential (primary) hypertension[ICD10: I10] Diagnosis: Other emphysema[ICD10: J43.8] Diagnosis: Other skin changes[ICD10: R23.8] Beronica Root MD, [facility] CPT-4: 73483 08/13/2018 ([id number]) 64859 EST. P ATIENT, LEVEL III Diagnosis: Essential (primary) hypertension[ICD10: I10] Diagnosis: Other emphysema[ICD10: J43.8] Beronica Root MD, [facility] CPT-4: 02384 04/09/2018 ([id number]) 44220 EST. P ATIENT, LEVEL III Diagnosis: Pain in right ankle and joints of right foot[ICD10: M25.571] Diagnosis: Pain in right foot[ICD10: M79.671] Roxanna Root MD, [facility] CPT-4: 30662 03/05/2018 ([id number]) 48095 EST. P ATIENT, LEVEL IV Diagnosis: Essential (primary) hypertension[ICD10: I10] Diagnosis: Pain in thoracic spine[ICD10: M54.6] Diagnosis: Age-related osteoporosis without current pathological fracture[ICD10: M81.0] Diagnosis: Other emphysema[ICD10: J43.8] Beronica Root MD, [facility] CPT-4: 45102 02/01/2018 ([id number]) OFFICE VISI T, NEW - LEVEL 4 Diagnosis: Essential (primary) hypertension[ICD10: I10] Diagnosis: Cough[ICD10: R05] Diagnosis: Mixed hyperlipidemia[ICD10: E78.2] Diagnosis: Other emphysema[ICD10: J43.8] Beronica Root MD, [facility] CPT-4: 02155 01/01/2018 Plan of Care Planned Activity Notes [...] not improve. 09/03/2018 Appointment: Roxanna King WPtel: [address] [place], [place] [phone] (15 min) Moderate 09/03/2018 Patient Education: Patient [...] elbow 08/13/2018 Appointment: DkYvette zhangy WPtel: [phone] [facility] [place] (15 min) Moderate 08/13/2018 Patient Education: Patient Medication Summary Completed 08/13/2018 Patient Education: Cholesterol Management Completed 08/13/2018 Appointment: Dk Beronica WPtel: [phone] [facility] [place] (15 min) Moderate 05/08/2018 Visit Plan: [...] pulmonary rehab 04/09/2018 Appointment: Beronica Root WPtel: [phone] [facility] [place] (15 min) Moderate 04/09/2018 Patient Education: Patient Medication Summary Completed 04/09/2018 Visit Plan: Right ankle and foot pa in -will obtain xrays to evaluate for acute bony abnormality -discussed rest, ice and anti inflammatories as directed-call if symptoms do not resolve, new symptoms develop or any other concerns. 03/05/2018 Appointment: Roxanna King WPtel: [phone] [phone] [place] (15 min) Moderate 03/05/2018 Patient Education: [...] at home. 02/01/2018 Appointment: Beronica Root WPtel: [phone] [facility] [place] (15 min) Moderate 02/01/2018 Patient Education: Patient Medication Summary Completed 02/01/2018 Care Plan: Referral Order SNOMED-CT : [id number] Pending 02/01/2018 Appointment: Nurse Visit 01/08/2018 Appointment: Nga Garcia WPtel: [facility] (15 min) Moderate 01/02/2018 Visit Plan: [...] comorbid conditions. 01/01/2018 Appointment: Beronica Root WPtel: [facility] New Patient 01/01/2018 Patient Education: Patient Medication [...]
--- OUTSIDE RECORDS SUMMARY | 2019-07-05 11:51 | XMS REPORT | CCD ---
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 Name Role Phone PP Unavailable CCM Unavailable Summary Purpose Interface Exchange Insurance Providers Payer name Policy type / Coverage type Covered libertarian ID Effective Begin Date Effective End Date WPS Medicare Part B Medicare Part B [id number] Unknown FOR LIFE WPS Medicare Part B [id number] Unknown Family history Father Diagnosis Age At Onset Colon cancer Unknown Myocardial infarction Unknown Mother Diagnosis Age At Onset Stroke Unknown Osteoporosis Unknown Social History Social History Element Codes Description Effective Dates Marital status Unknown M yumiko Lujan 01/01/2018 Number of children Unknown 2 01/01/2018 Employment Unknown Retir ed 01/01/[address]: 9533417 Former smoker 01/01/[address]: 263881 Currently drinks alcohol 01/01/2018 Frequency of drinks SNOMED CT: 002101343 More than 2 drinks per day 3 [...] Instructions doxycycline hyclate 100 mg capsule RxNorm: 1350891 1 Capsule(s) PO BID 10/01/2018 10/10/2018 Ac tive tramadol 50 mg tablet RxNorm: 451151 1 Tablet(s) PO Q6 as needed for pain 09/12/2018 06/08/2019 Ac tive alprazolam 0.5 mg ta blet RxNorm: 627282 1 Tablet(s) PO TID 09/11/2018 06/07/2019 Active Keflex 500 mg capsule RxNorm: 291479 1 Capsule(s) PO TID 09/03/2018 09/09/2018 Inactive naproxen 500 mg tablet RxNorm: 813872 1 Tablet(s) PO BID 03/05/2018 03/14/2018 Inactive Advair Diskus 250 mc g-50 mcg/dose powder for inhalation RxNorm: 5854491 1 Puff(s) INH BID 02/01/2018 04/26/2019 Active Neurontin 400 mg cap marielos RxNorm: 599444 1 Capsule(s) PO QID a s needed 02/01/2018 05/01/2018 In active alprazolam 0.5 mg ta blet RxNorm: 827078 1 Tablet(s) PO TID 01/03/2018 09/10/2018 Inactive fill ed by Dr. Hernandez 12-15-17 tramadol 50 mg tablet RxNorm: 027608 1 Tablet(s) PO Q6 as needed for pain 01/03/2018 09/11/2018 In active filled by Dr. Hernandez 12-15-17 losartan 50 mg-hydro chlorothiazide 12.5 mg tablet RxNorm: 808196 1 Tablet(s) PO daily 01/01/2018 12/26/2018 Ac tive alprazolam 0.5 mg ta blet RxNorm: 760580 1 Tablet(s) PO TID 01/01/2018 01/02/2018 Inactive fill ed by Dr. Hernandez 12-15-17 tramadol 50 mg tablet RxNorm: 848792 1 Tablet(s) PO Q6 as needed for pain 01/01/2018 01/02/2018 In active filled by Dr. Hernandez 12-15-17 Tricor 145 mg tablet RxNorm: 491387 1 Tablet(s) PO daily No Start Date Active omeprazole 40 mg cap marielos,delayed release RxNorm: 148131 1 Capsule(s) PO BID No Start Date Active potassium gluconate 595 mg (99 mg) tablet RxNorm: 725267 1 Tablet(s) PO daily No Start Date Active Singulair 10 mg tablet RxNorm: 150204 1 Tablet(s) PO QPM No Start Date Active Klor-Con M20 mEq tab let,extended release RxNorm: 7013948 1 Tablet(s) PO BID No Start Date Active metoprolol succinate ER 25 mg tablet,extended release 24 hr RxNorm: 767684 1 Tablet(s) PO QPM No Start Date Active hydrochlorothiazide 25 mg tablet RxNorm: 346557 1 Tablet(s) PO BID No Start Date Active Spiriva Respimat 2.5 mcg/actuation solution for inhalation RxNorm: 8327092 2 Puff(s) INH daily No Start Date Active cetirizine 10 mg tablet RxNorm: 0882435 1 Tablet(s) PO daily No Start Date Active albuterol sulfate HF A 90 mcg/actuation aerosol inhaler RxNorm: 203165 2 Puff(s) INH QID No Start Date Active Calcium 600 + D(3) 6 00 mg (1,500 mg)-400 unit tablet RxNorm: 527564 1 Tablet(s) PO daily No Start Date Active Osteo Bi-Flex oral RxNorm: 7538887 oral No Start Date Active Iron (ferrous sulfat e) 325 mg (65 mg iron) tablet RxNorm: 898351 1 Tablet(s) PO BIW on Monday and Monday No Start Date Active Pomegranate oral RxNorm: 7564283 oral No Start Date Active Complete Senior tablet RxNorm: 1 Tablet(s) PO daily No Start Date Active Flonase Allergy Reli ef 50 mcg/actuation nasal spray,suspension RxNorm: 0922809 1-2 [place] NASAL daily for allergies No Start Date Active Lexapro 10 mg tablet RxNorm: 773440 1 Tablet(s) PO daily No Start Date Active beta carotene 25,000 unit tablet RxNorm: 435137 1 Tablet(s) PO daily No Start Date Active Vitamin C 1,000 mg t ablet RxNorm: 528213 1 Tablet(s) PO daily No Start Date Active T-Bkiqjq-Y-Cysteine RxNorm: 197 miscellaneous No Start Date Active vitamin E (dl, aceta te) 400 unit capsule RxNorm: 721322 1 Capsule(s) PO daily No Start Date Active Vitamin B-12 1,000 m cg tablet RxNorm: 378793 2 Tablet(s) PO daily No Start Date Active Advair Diskus 250 mc g-50 mcg/dose powder for inhalation RxNorm: 7965326 1 Puff(s) INH daily No Start Date 01/31/2018 Inactive lisinopril 20 mg-hyd rochlorothiazide 25 mg tablet RxNorm: 500216 1 Tablet(s) PO daily No Start Date 12/31/2017 Inactive Neurontin 400 mg cap marielos RxNorm: 308072 1 Capsule(s) PO QID a s needed No Start Date 01/31/2018 Inactive tramadol 50 mg tablet RxNorm: 251771 1 Tablet(s) PO Q6 as needed for [...] Item Item Code Result Date Comp Metabolic Uoz553 NA 139 mEq/L 08/14/2018 Comp Metabolic Avw848 K 3.7 mEq/L 08/14/2018 Comp Metabolic Kko880 CL 99 mEq/L 08/14/2018 Comp Metabolic Zlk973 CO2 30.0 mEq/L 08/14/2018 Comp Metabolic Ocl972 AN ION GAP 14 08/14/2018 Comp Metabolic Beo081 GL UCOSE 95 mg/dL 08/14/2018 Comp Metabolic Pdw598 Cr eat 0.7 mg/dL 08/14/2018 Comp Metabolic Bja864 eG FR 94 ml/min/1.73m2 08/14 Comp Metabolic Bsz925 BUN 7 mg/dL 08/14/2018 Comp Metabolic Vkd233 B/ C Ratio 10.6 Ratio 08/14/2018 Comp Metabolic Jht968 CA LCIUM 9.5 mg/dL 08/14/2018 Comp Metabolic Npe304 AL K PHOS 37 U/L 08/14/2018 Comp Metabolic Ikh156 T(SGOT) 30 U/L 08/14/2018 Comp Metabolic Qhb097 AL T(SGPT) 19 U/L 08/14/2018 Comp Metabolic Vpk662 BI LI T 0.7 mg/dL 08/14/2018 Comp Metabolic Qqt551 AL BUMIN 4.2 g/dL 08/14/2018 Comp Metabolic Oow726 TP RO 6.5 g/dL 08/14/2018 Comp Metabolic Smf628 GL OB 2.3 g/dL 08/14/2018 Comp Metabolic Dgi970 A/ G Ratio 1.9 Ratio 08/14/2018 Comp Metabolic Pln054 Os mo 275 mOsmo 08/14/2018 Cbc With [...] 32.5 pg 08/14/2018 Cbc With Differential Ord2 [place]% 13.8 % 08/14/2018 Cbc With Differential Ord2 [...] 1.50 K/ul 08/14/2018 Cbc With Differential Ord2 [place] ABS# 0.8 K/ul 08/14/2018 Cbc With Differential [...] Date URINALYSIS NONAUTO W /O SCOPE CPT-4: 32634 10/01/2018 URINALYSIS NONAUTO W /O SCOPE CPT-4: 47873 09/03/2018 REMOVAL OF ARM FOREI GN BODY CPT-4: 00925 08/13/2018 ADMIN INFLUENZA VIRU S VAC CPT-4: G0008 01/01/2018 FLU VACC PRSV FREE I NC ANTIG Formatting [place]/CDA Sections, Assigned to/Radha Hobbs CPT-4: 21606Aoolyez 01/01/2018 Vital Signs Date Vital 10/01/2018 Blood Pressure 1: 116/78 Code: 8480-6 BMI: 33.2 Code: 11987-3 Heart Rate 1: 72 bpm Height: 5' SpO2: 94% Weight: 173 lbs 09/03/2018 Blood Pressure 1: 132/80 Code: 8480-6 BMI: 33.0 Code: 17981-3 Heart Rate 1: 64 bpm Height: 5' SpO2: 90% Weight: 172 lbs 08/13/2018 Blood Pressure 1: 156/76 Code: 8480-6 BMI: 33.0 Code: 30591-7 Heart Rate 1: 81 bpm Height: 5' SpO2: 92% Weight: 172 lbs 04/09/2018 Blood Pressure 1: 138/66 Code: 8480-6 BMI: 32.5 Code: 68574-9 Heart Rate 1: 69 bpm Height: 5' SpO2: 96% Weight: 169 lbs 03/05/2018 Blood Pressure 1: 124/68 Code: 8480-6 BMI: 32.5 Code: 86302-2 Heart Rate 1: 79 bpm Height: 5' SpO2: 93% Weight: 169 lbs 02/01/2018 Blood Pressure 1: 140/80 Code: 8480-6 BMI: 32.3 Code: 07731-4 Heart Rate 1: 72 bpm Height: 5' SpO2: 94% Weight: 168 lbs 01/01/2018 Blood Pressure 1: 138/62 Code: 8480-6 BMI: 31.1 Code: 60068-1 Heart Rate 1: 75 bpm Height: 5' [...] Encounters Encounter Performer Loca tion Codes Date 68026 EST. PATIENT, LEVEL III Diagnosis: Dysuria[ICD10: R30.0] gNa Root MD, [facility] CPT-4: 78195 10/01/2018 ([id number]) 43871 EST. P ATIENT, LEVEL III Diagnosis: Urinary tract infection, site not specified[ICD10: N39.0] Roxanna Root MD, [facility] CPT-4: 89650 09/03/2018 ([id number]) 29561 EST. P ATIENT, LEVEL IV Diagnosis: Essential (primary) hypertension[ICD10: I10] Diagnosis: Other emphysema[ICD10: J43.8] Diagnosis: Other skin changes[ICD10: R23.8] Beronica Root MD, [facility] CPT-4: 23442 08/13/2018 ([id number]) 40109 EST. P ATIENT, LEVEL III Diagnosis: Essential (primary) hypertension[ICD10: I10] Diagnosis: Other emphysema[ICD10: J43.8] Beronica Root MD, [facility] CPT-4: 13913 04/09/2018 ([id number]) 18165 EST. P ATIENT, LEVEL III Diagnosis: Pain in right ankle and joints of right foot[ICD10: M25.571] Diagnosis: Pain in right foot[ICD10: M79.671] Roxanna Root MD, [facility] CPT-4: 69685 03/05/2018 ([id number]) 81822 EST. P ATIENT, LEVEL IV Diagnosis: Essential (primary) hypertension[ICD10: I10] Diagnosis: Pain in thoracic spine[ICD10: M54.6] Diagnosis: Age-related osteoporosis without current pathological fracture[ICD10: M81.0] Diagnosis: Other emphysema[ICD10: J43.8] Beronica Root MD, [facility] CPT-4: 54279 02/01/2018 ([id number]) OFFICE VISI T, NEW - LEVEL 4 Diagnosis: Essential (primary) hypertension[ICD10: I10] Diagnosis: Cough[ICD10: R05] Diagnosis: Mixed hyperlipidemia[ICD10: E78.2] Diagnosis: Other emphysema[ICD10: J43.8] Beronica Root MD, [facility] CPT-4: 63461 01/01/2018 Plan of Care Planned Activity Notes [...] not improve. 09/03/2018 Appointment: Roxanna King WPtel: [address] [place], [place] [phone] (15 min) Moderate 09/03/2018 Patient Education: Patient [...] elbow 08/13/2018 Appointment: DkYvette zhangy WPtel: [phone] [place] (15 min) Moderate 08/13/2018 Patient Education: Patient Medication Summary Completed 08/13/2018 Patient Education: Cholesterol Management Completed 08/13/2018 Appointment: Dk Beronica WPtel: [phone] [facility] [place] (15 min) Moderate 05/08/2018 Visit Plan: [...] pulmonary rehab 04/09/2018 Appointment: Beronica Root WPtel: [phone] [facility] [place] (15 min) Moderate 04/09/2018 Patient Education: Patient Medication Summary Completed 04/09/2018 Visit Plan: Right ankle and foot pa in -will obtain xrays to evaluate for acute bony abnormality -discussed rest, ice and anti inflammatories as directed-call if symptoms do not resolve, new symptoms develop or any other concerns. 03/05/2018 Appointment: Roxanna King WPtel: [phone] [phone] [place] (15 min) Moderate 03/05/2018 Patient Education: Patient Medication Summary Completed 03/05/2018 Visit Plan: COPD with chronic dyspn ea and nocturnal hypoxemia - recommend that she increase Advair to twice daily. Pt would like to switch to [facility] instead of via [facility]. Osteoporosis - [...] at home. 02/01/2018 Appointment: Beronica Root WPtel: [phone] [facility] [place] (15 min) Moderate 02/01/2018 Patient Education: Patient Medication Summary Completed 02/01/2018 Care Plan: Referral Order SNOMED-CT : [id number] Pending 02/01/2018 Appointment: Nurse Visit 01/08/2018 Appointment: Nga Garcia WPtel: [facility] (15 min) Moderate 01/02/2018 Visit Plan: [...] comorbid conditions. 01/01/2018 Appointment: Beronica Root WPtel: [facility] New Patient 01/01/2018 Patient Education: Patient Medication [...]
--- OUTSIDE RECORDS SUMMARY | 2019-07-05 11:51 | XMS REPORT | CCD ---
Author Author Rosy Root Organization Beronica Root MD, [facility] Address [address] [place] [address] Phone Care Team Providers Care Local City Driver Name Role Phone PP Unavailable CCM Unavailable Summary Purpose Interface Exchange Insurance Providers Payer name Policy type / Coverage type Covered alliance party ID Effective Begin Date Effective End Date WPS Medicare Part B Medicare Part B [id number] Unknown FOR LIFE WPS Medicare Part B [id number] Unknown Family history Father Diagnosis Age At Onset Colon cancer Unknown Myocardial infarction Unknown Mother Diagnosis Age At Onset Stroke Unknown Osteoporosis Unknown Social History Social History Element Codes Description Effective Dates Marital status Unknown M yumiko Lujan 01/01/2018 Number of children Unknown 2 01/01/2018 Employment Unknown Retir ed 01/01/[address]: 9454256 Former smoker 01/01/[address]: 057631 Currently drinks alcohol 01/01/2018 Frequency of drinks SNOMED CT: 429817150 More than 2 drinks per day 3 per evening 01/01/2018 Allergies, Adverse Reactions, Alerts Substance Reaction Codes Entered Date Inactivated Date Status * NO KNOWN DRUG KIRSTIN RGIES Unknown 01/01/2018 No Inactive Date Active Past Medical History Illness Codes Condition Status Onset Date Resolved Date Urinary tract infect ion, site not specified [...] Condition Codes Effectiv e Dates Condition Status Urinary tract infect ion, site not specified [...] Date Stop Date Sta tus Fill Instructions tramadol 50 mg tablet RxNorm: 923925 1 Tablet(s) PO Q6 as needed for pain 09/12/2018 06/08/2019 Ac tive alprazolam 0.5 mg ta blet RxNorm: 993329 1 Tablet(s) PO TID 09/11/2018 06/07/2019 Active Keflex 500 mg capsule RxNorm: 290281 1 Capsule(s) PO TID 09/03/2018 09/09/2018 Inactive naproxen 500 mg tablet RxNorm: 253310 1 Tablet(s) PO BID 03/05/2018 03/14/2018 Inactive Advair Diskus 250 mc g-50 mcg/dose powder for inhalation RxNorm: 2446176 1 Puff(s) INH BID 02/01/2018 04/26/2019 Active Neurontin 400 mg cap marielos RxNorm: 658593 1 Capsule(s) PO QID a s needed 02/01/2018 05/01/2018 In active alprazolam 0.5 mg ta blet RxNorm: 133033 1 Tablet(s) PO TID 01/03/2018 09/10/2018 In[address] ed [address] Dr. Hernandez 12-15-17 tramadol 50 mg tablet RxNorm: 021683 1 Tablet(s) PO Q6 as needed for pain 01/03/2018 09/11/2018 In active filled by Dr. Hernandez 12-15-17 losartan 50 mg-hydro chlorothiazide 12.5 mg tablet RxNorm: 089450 1 Tablet(s) PO daily 01/01/2018 12/26/2018 Ac tive alprazolam 0.5 mg ta blet RxNorm: 052018 1 Tablet(s) PO TID 01/01/2018 01/02/2018 Inactive fill ed by Dr. Hernandez 12-15-17 tramadol 50 mg tablet RxNorm: 994485 1 Tablet(s) PO Q6 as needed for pain 01/01/2018 01/02/2018 In active filled by Dr. Hernandez 12-15-17 Tricor 145 mg tablet RxNorm: 272095 1 Tablet(s) PO daily No Start Date Active omeprazole 40 mg cap marielos,delayed release RxNorm: 922101 1 Capsule(s) PO BID No Start Date Active potassium gluconate 595 mg (99 mg) tablet RxNorm: 013735 1 Tablet(s) PO daily No Start Date Active Singulair 10 mg tablet RxNorm: 637674 1 Tablet(s) PO QPM No Start Date Active Klor-Con M20 mEq tab let,extended release RxNorm: 2377568 1 Tablet(s) PO BID No Start Date Active metoprolol succinate ER 25 mg tablet,extended release 24 hr RxNorm: 334611 1 Tablet(s) PO QPM No Start Date Active hydrochlorothiazide 25 mg tablet RxNorm: 345245 1 Tablet(s) PO BID No Start Date Active Spiriva Respimat 2.5 mcg/actuation solution for inhalation RxNorm: 2547042 2 Puff(s) INH daily No Start Date Active cetirizine 10 mg tablet RxNorm: 8669132 1 Tablet(s) PO daily No Start Date Active albuterol sulfate HF A 90 mcg/actuation aerosol inhaler RxNorm: 865655 2 Puff(s) INH QID No Start Date Active Calcium 600 + D(3) 6 00 mg (1,500 mg)-400 unit tablet RxNorm: 433992 1 Tablet(s) PO daily No Start Date Active Osteo Bi-Flex oral RxNorm: 9822451 oral No Start Date Active Iron (ferrous sulfat e) 325 mg (65 mg iron) tablet RxNorm: 380442 1 Tablet(s) PO BIW on Monday and Monday No Start Date Active Pomegranate oral RxNorm: 1075893 oral No Start Date Active Complete Senior tablet RxNorm: 1 Tablet(s) PO daily No Start Date Active Flonase Allergy Reli ef 50 mcg/actuation nasal spray,suspension RxNorm: 0178676 1-2 [place] NASAL daily for allergies No Start Date Active Lexapro 10 mg tablet RxNorm: 384501 1 Tablet(s) PO daily No Start Date Active beta carotene 25,000 unit tablet RxNorm: 965378 1 Tablet(s) PO daily No Start Date Active Vitamin C 1,000 mg t ablet RxNorm: 384486 1 Tablet(s) PO daily No Start Date Active N-Cfoblg-L-Cysteine RxNorm: 197 miscellaneous No Start Date Active vitamin E (dl, aceta te) 400 unit capsule RxNorm: 040429 1 Capsule(s) PO daily No Start Date Active Vitamin B-12 1,000 m cg tablet RxNorm: 940122 2 Tablet(s) PO daily No Start Date Active Advair Diskus 250 mc g-50 mcg/dose powder for inhalation RxNorm: 4343343 1 Puff(s) INH daily No Start Date 01/31/2018 Inactive lisinopril 20 mg-hyd rochlorothiazide 25 mg tablet RxNorm: 205377 1 Tablet(s) PO daily No Start Date 12/31/2017 Inactive Neurontin 400 mg cap marielos RxNorm: 014991 1 Capsule(s) PO QID a s needed No Start Date 01/31/2018 Inactive tramadol 50 mg tablet RxNorm: 323578 1 Tablet(s) PO Q6 as needed for pain No Start Date 12/31/2017 Inactive Medication Administered No Medication Administered data Immunizations Vaccine Codes Date Status Influenza CVX: 141 01/01 completed Assessments Condition Codes Effectiv e Dates Urinary tract infection, site not specified ICD-10: [...] Reason For Visit Effective Dates Notes dysuria 09/03/2018 hypertension 08/13/2018 hypertension 04/09/2018 ankle pain 03/05/2018 blood pressure followup 02/01/2018 hypertension 01/01/2018 Results Observation Observation Code Item Item Code Result Date Comp Metabolic Trn954 NA 139 mEq/L 08/14/2018 Comp Metabolic Vvd081 K 3.7 mEq/L 08/14/2018 Comp Metabolic Nss113 CL 99 mEq/L 08/14/2018 Comp Metabolic Ram286 CO2 30.0 mEq/L 08/14/2018 Comp Metabolic Gdm195 AN ION GAP 14 08/14/2018 Comp Metabolic Dnt620 GL UCOSE 95 mg/dL 08/14/2018 Comp Metabolic Pcv492 Cr eat 0.7 mg/dL 08/14/2018 Comp Metabolic Tgl757 eG FR 94 ml/min/1.73m2 08/14 Comp Metabolic Pkr521 BUN 7 mg/dL 08/14/2018 Comp Metabolic Pqf533 B/ C Ratio 10.6 Ratio 08/14/2018 Comp Metabolic Wdt410 CA LCIUM 9.5 mg/dL 08/14/2018 Comp Metabolic Fcu077 AL K PHOS 37 U/L 08/14/2018 Comp Metabolic Oqr812 T(SGOT) 30 U/L 08/14/2018 Comp Metabolic Osi057 AL T(SGPT) 19 U/L 08/14/2018 Comp Metabolic Utv362 BI LI T 0.7 mg/dL 08/14/2018 Comp Metabolic Afj634 AL BUMIN 4.2 g/dL 08/14/2018 Comp Metabolic Qgm024 TP RO 6.5 g/dL 08/14/2018 Comp Metabolic Irr624 GL OB 2.3 g/dL 08/14/2018 Comp Metabolic Zwj646 A/ G Ratio 1.9 Ratio 08/14/2018 Comp Metabolic Rwl792 Os mo 275 mOsmo 08/14/2018 Cbc With [...] 32.5 pg 08/14/2018 Cbc With Differential Ord2 [place]% 13.8 % 08/14/2018 Cbc With Differential Ord2 [...] 1.50 K/ul 08/14/2018 Cbc With Differential Ord2 [place] ABS# 0.8 K/ul 08/14/2018 Cbc With Differential Ord2 Eos ABS# 0.3 K/ul 08/14/2018 Cbc With Differential Ord2 Baso ABS# 0.0 K/ul 08/14/2018 Tsh Ord6 TSH (3rd IS) 3.79 uIU/mL 08/14/2018 Review of Systems System Result Effective Dates Constitutional recent illness 09/03/2018 Constitutional No anorexia [...] 02/01/2018 Respiratory chest tightness 02/01/2018 Respiratory dyspnea /04/2017 Respiratory No pedal edema 02/01/2018 Gastrointestinal No [...] Date URINALYSIS NONAUTO W /O SCOPE CPT-4: 05824 09/03/2018 REMOVAL OF ARM FOREI GN BODY CPT-4: 91531 08/13/2018 ADMIN INFLUENZA VIRU S VAC CPT-4: G0008 01/01/2018 FLU VACC PRSV FREE I NC ANTIG Formatting Model/CDA Sections, Assigned to/Radha Hobbs CPT-4: 47375Qzlkkag 01/01/2018 Vital Signs Date Vital 09/03/2018 Blood Pressure 1: 132/80 Code: 8480-6 BMI: 33.0 Code: 19848-2 Heart Rate 1: 64 bpm Height: 5' SpO2: 90% Weight: 172 lbs 08/13/2018 Blood Pressure 1: 156/76 Code: 8480-6 BMI: 33.0 Code: 26791-2 Heart Rate 1: 81 bpm Height: 5' SpO2: 92% Weight: 172 lbs 04/09/2018 Blood Pressure 1: 138/66 Code: 8480-6 BMI: 32.5 Code: 03177-9 Heart Rate 1: 69 bpm Height: 5' SpO2: 96% Weight: 169 lbs 03/05/2018 Blood Pressure 1: 124/68 Code: 8480-6 BMI: 32.5 Code: 40217-6 Heart Rate 1: 79 bpm Height: 5' SpO2: 93% Weight: 169 lbs 02/01/2018 Blood Pressure 1: 140/80 Code: 8480-6 BMI: 32.3 Code: 29151-3 Heart Rate 1: 72 bpm Height: 5' SpO2: 94% Weight: 168 lbs 01/01/2018 Blood Pressure 1: 138/62 Code: 8480-6 BMI: 31.1 Code: 53288-7 Heart Rate 1: 75 bpm Height: 5' SpO2: 93% Weight: 162 lbs Functional Status No Functional Status data History of Present Illness Symptom Name Status Resu lt Effective Date Notes Quality intermittent 09/03/2018 None Onset and Resolution [...] Factors me dication 04/09/2018 None Pertinent Findings diz ziness 04/09/2018 in the mornings when she [...] Encounters Encounter Performer Loca tion Codes Date ([id number]) [id number] EST. P ATIENT, LEVEL III Diagnosis: Urinary tract infection, site not specified[ICD10: N39.0] Roxanna Root MD, [facility] CPT-4: 35067 09/03/2018 ([id number]) 15071 EST. P ATIENT, LEVEL IV Diagnosis: Essential (primary) hypertension[ICD10: I10] Diagnosis: Other emphysema[ICD10: J43.8] Diagnosis: Other skin changes[ICD10: R23.8] Beronica Root MD, [facility] CPT-4: 82764 08/13/2018 ([id number]) 95830 EST. P ATIENT, LEVEL III Diagnosis: Essential (primary) hypertension[ICD10: I10] Diagnosis: Other emphysema[ICD10: J43.8] Beronica Root MD, [facility] CPT-4: 95447 04/09/2018 ([id number]) 58487 EST. P ATIENT, LEVEL III Diagnosis: Pain in right ankle and joints of right foot[ICD10: M25.571] Diagnosis: Pain in right foot[ICD10: M79.671] Roxanna Root MD, [facility] CPT-4: 83684 03/05/2018 ([id number]) 89363 EST. P ATIENT, LEVEL IV Diagnosis: Essential (primary) hypertension[ICD10: I10] Diagnosis: Pain in thoracic spine[ICD10: M54.6] Diagnosis: Age-related osteoporosis without current pathological fracture[ICD10: M81.0] Diagnosis: Other emphysema[ICD10: J43.8] Beronica Root MD, [facility] CPT-4: 58018 02/01/2018 ([id number]) OFFICE [facility] - LEVEL 4 Diagnosis: Essential (primary) hypertension[ICD10: I10] Diagnosis: Cough[ICD10: R05] Diagnosis: Mixed hyperlipidemia[ICD10: E78.2] Diagnosis: Other emphysema[ICD10: J43.8] Beronica Root MD, [facility] CPT-4: 77736 01/01/2018 Plan of Care Planned Activity Notes C odes Status Date Visit Plan: UTI - pt with positive urinalysis - culture sent if appropriate. Antibiotic electronically prescribed to pt's pharmacy of choice. Pt to call if symptoms do not improve. 09/03/2018 Appointment: Roxanna King WPtel: [facility]5 [phone] [place] (15 min) Moderate 09/03/2018 Patient Education: Patient Medication Summary Completed 09/03/2018 Care Plan: Urine Culture Pending 09/03/2018 Visit Plan: Hypertension - well bhavesh moscoso -however with her chronic cough - will [...] right elbow 08/13/2018 Appointment: Beronica Root WPtel: [facility]8 [facility] (15 min) Moderate 08/13/2018 Patient Education: Patient Medication Summary Completed 08/13/2018 Patient Education: Cholesterol Management Completed 08/13/2018 Appointment: Beronica Root WPtel: [address] [place], [place] [id number] (15 min) Moderate 05/08/2018 Visit Plan: Hypertension - well bhavesh moscoso - continue with current medications, continue with no added salt diet. Pt has been encouraged to exercise daily. The pt has been advised to call the office if there are any acute concerns about change in blood pressure readings at home. Emphysema - referral to pulmonary rehab 04/09/2018 Appointment: Beronica Root WPtel: [facility]9 [facility] (15 min) Moderate 04/09/2018 Patient Education: Patient Medication Summary Completed 04/09/2018 Visit Plan: Right ankle and foot pa in -will obtain xrays to evaluate for acute bony abnormality -discussed rest, ice and anti inflammatories as directed-call if symptoms do not resolve, new symptoms develop or any other concerns. 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 Pt would like to switch to [facility] instead of [facility]. Osteoporosis - schedule a Dexa scan. Upper back pain - referral to Physical Therapy at [facility]. Hypertension - well controlled - continue with current medications, continue with no added salt diet. Pt has been encouraged to exercise daily. The pt has been advised to call the office if there are any acute concerns about change in blood pressure readings at home. 02/01/2018 [facility] [phone] [facility] ([facility]) Moderate 02/01/2018 Patient Education: Patient Medication Summary Completed 02/01/2018 Care Plan: Referral Order SNOMED-CT : [id number] Pending 02/01/2018 Appointment: Nurse Visit 01/08/2018 Appointment: N[facility] Garcia WPtel[facility] ([facility] min) Moderate 01/02/2018 Visit Plan: Hypertension [...] conditions. 01/01/2018 App[facility]ment: [facility] [phone] [facility] [place] New Patient 01/01/2018 Patient Education: Patient Medication Summary Completed 01/01/2018 Patient Education: Cholesterol Management Completed 01/01/2018 Instructions Comment . COPD with chronic dyspnea and nocturnal [...] medication. . Hypertension - well controlled -jennifer r with her chronic cough - will [...]
--- OUTSIDE RECORDS SUMMARY | 2019-07-05 11:52 | XMS REPORT | CCD ---
Author Author Rosy Root Organization Beronica Root MD, [facility] Address [address] [place] [address] Phone Care Team Providers Care Undertaker Assistant Name Role Phone PP Unavailable CCM Unavailable Summary Purpose Interface Exchange Insurance Providers Payer name Policy type / Coverage type Covered democrat ID Effective Begin Date Effective End Date WPS Medicare Part B Medicare Part B [id number] Unknown FOR LIFE WPS Medicare Part B [id number] Unknown Family history Father Diagnosis Age At Onset Colon cancer Unknown Myocardial infarction Unknown Mother Diagnosis Age At Onset Stroke Unknown Osteoporosis Unknown Social History Social History Element Codes Description Effective Dates Marital status Unknown M yumiko Lujan 01/01/2018 Number of children Unknown 2 01/01/2018 Employment Unknown Retir ed 01/01/[address]: 6055989 Former smoker 01/01/[address]: 553171 Currently drinks alcohol 01/01/2018 Frequency of drinks SNOMED CT: 159439927 More than 2 drinks per day 3 [...] Date Stop Date Sta tus Fill Instructions alprazolam 0.5 mg ta blet RxNorm: 799083 1 Tablet(s) PO TID 09/11/2018 06/07/2019 Active Keflex 500 mg capsule RxNorm: 614690 1 Capsule(s) PO TID 09/03/2018 09/09/2018 Inactive naproxen 500 mg tablet RxNorm: 501691 1 Tablet(s) PO BID 03/05/2018 03/14/2018 Inactive Advair Diskus 250 mc g-50 mcg/dose powder for inhalation RxNorm: 7471947 1 Puff(s) INH BID 02/01/2018 04/26/2019 Active Neurontin 400 mg cap marielos RxNorm: 217800 1 Capsule(s) PO QID a s needed 02/01/2018 05/01/2018 In active tramadol 50 mg tablet RxNorm: 786692 1 Tablet(s) PO Q6 as needed for pain 01/03/2018 No Stop Date Active filled by Dr. Hernandez 12-15-17 alprazolam 0.5 mg ta blet RxNorm: 515900 1 Tablet(s) PO TID 01/03/2018 09/10/2018 Inactive fill ed by Dr. Hernandez 12-15-17 losartan 50 mg-hydro chlorothiazide 12.5 mg tablet RxNorm: 281900 1 Tablet(s) PO daily 01/01/2018 12/26/2018 Ac tive alprazolam 0.5 mg ta blet RxNorm: 996772 1 Tablet(s) PO TID 01/01/2018 01/02/2018 Inactive fill ed by Dr. Hernandez 12-15-17 tramadol 50 mg tablet RxNorm: 994232 1 Tablet(s) PO Q6 as needed for pain 01/01/2018 01/02/2018 In active filled by Dr. Hernandez 12-15-17 Tricor 145 mg tablet RxNorm: 542129 1 Tablet(s) PO daily No Start Date Active omeprazole 40 mg cap marielos,delayed release RxNorm: 639916 1 Capsule(s) PO BID No Start Date Active potassium gluconate 595 mg (99 mg) tablet RxNorm: 141479 1 Tablet(s) PO daily No Start Date Active Singulair 10 mg tablet RxNorm: 524401 1 Tablet(s) PO QPM No Start Date Active Klor-Con M20 mEq tab let,extended release RxNorm: 4456851 1 Tablet(s) PO BID No Start Date Active metoprolol succinate ER 25 mg tablet,extended release 24 hr RxNorm: 321394 1 Tablet(s) PO QPM No Start Date Active hydrochlorothiazide 25 mg tablet RxNorm: 333275 1 Tablet(s) PO BID No Start Date Active Spiriva Respimat 2.5 mcg/actuation solution for inhalation RxNorm: 3212503 2 Puff(s) INH daily No Start Date Active cetirizine 10 mg tablet RxNorm: 4533380 1 Tablet(s) PO daily No Start Date Active albuterol sulfate HF A 90 mcg/actuation aerosol inhaler RxNorm: 431507 2 Puff(s) INH QID No Start Date Active Calcium 600 + D(3) 6 00 mg (1,500 mg)-400 unit tablet RxNorm: 804828 1 Tablet(s) PO daily No Start Date Active Osteo Bi-Flex oral RxNorm: 9393997 oral No Start Date Active Iron (ferrous sulfat e) 325 mg (65 mg iron) tablet RxNorm: 027345 1 Tablet(s) PO BIW on Monday and Monday No Start Date Active Pomegranate oral RxNorm: 0633303 oral No Start Date Active Complete Senior tablet RxNorm: 1 Tablet(s) PO daily No Start Date Active Flonase Allergy Reli ef 50 mcg/actuation nasal spray,suspension RxNorm: 5850732 1-2 [place] NASAL daily for allergies No Start Date Active Lexapro 10 mg tablet RxNorm: 103716 1 Tablet(s) PO daily No Start Date Active beta carotene 25,000 unit tablet RxNorm: 602395 1 Tablet(s) PO daily No Start Date Active Vitamin C 1,000 mg t ablet RxNorm: 673896 1 Tablet(s) PO daily No Start Date Active D-Rgegys-D-Cysteine RxNorm: 197 miscellaneous No Start Date Active vitamin E (dl, aceta te) 400 unit capsule RxNorm: 614004 1 Capsule(s) PO daily No Start Date Active Vitamin B-12 1,000 m cg tablet RxNorm: 778473 2 Tablet(s) PO daily No Start Date Active Advair Diskus 250 mc g-50 mcg/dose powder for inhalation RxNorm: 5488612 1 Puff(s) INH daily No Start Date 01/31/2018 Inactive lisinopril 20 mg-hyd rochlorothiazide 25 mg tablet RxNorm: 514546 1 Tablet(s) PO daily No Start Date 12/31/2017 Inactive Neurontin 400 mg cap marielos RxNorm: 914648 1 Capsule(s) PO QID a s needed No Start Date 01/31/2018 Inactive tramadol 50 mg tablet RxNorm: 062759 1 Tablet(s) PO Q6 as needed for [...] Item Item Code Result Date Comp Metabolic Gln915 NA 139 mEq/L 08/14/2018 Comp Metabolic Clm993 K 3.7 mEq/L 08/14/2018 Comp Metabolic Ypq857 CL 99 mEq/L 08/14/2018 Comp Metabolic Fal980 CO2 30.0 mEq/L 08/14/2018 Comp Metabolic Krg338 AN ION GAP 14 08/14/2018 Comp Metabolic Ekx197 GL UCOSE 95 mg/dL 08/14/2018 Comp Metabolic Rsf509 Cr eat 0.7 mg/dL 08/14/2018 Comp Metabolic Njm495 eG FR 94 ml/min/1.73m2 08/14 Comp Metabolic Tko158 BUN 7 mg/dL 08/14/2018 Comp Metabolic Dyc223 B/ C Ratio 10.6 Ratio 08/14/2018 Comp Metabolic Whl634 CA LCIUM 9.5 mg/dL 08/14/2018 Comp Metabolic Lvw502 AL K PHOS 37 U/L 08/14/2018 Comp Metabolic Zwu075 T(SGOT) 30 U/L 08/14/2018 Comp Metabolic Gjg612 AL T(SGPT) 19 U/L 08/14/2018 Comp Metabolic Koy614 BI LI T 0.7 mg/dL 08/14/2018 Comp Metabolic Sdh075 AL BUMIN 4.2 g/dL 08/14/2018 Comp Metabolic Qig862 TP RO 6.5 g/dL 08/14/2018 Comp Metabolic Zhp677 GL OB 2.3 g/dL 08/14/2018 Comp Metabolic Xfh754 A/ G Ratio 1.9 Ratio 08/14/2018 Comp Metabolic Swv501 Os mo 275 mOsmo 08/14/2018 Cbc With [...] 32.5 pg 08/14/2018 Cbc With Differential Ord2 [place]% 13.8 % 08/14/2018 Cbc With Differential Ord2 [...] 1.50 K/ul 08/14/2018 Cbc With Differential Ord2 [place] ABS# 0.8 K/ul 08/14/2018 Cbc With Differential [...] accomodation 08/13/2018 None Full Exam - General 1995 Ears/Nose/Throat otoscopic exam Overall: external auditory canals [...] clear 08/13/2018 None Full Exam - General 1995 Ears/Nose/Throat oral cavity/pharynx/larynx Overall: oropharyngeal mucosa clear [...] Date URINALYSIS NONAUTO W /O SCOPE CPT-4: 06683 09/03/2018 REMOVAL OF ARM FOREI GN BODY CPT-4: 77560 08/13/2018 ADMIN INFLUENZA VIRU S VAC CPT-4: G0008 01/01/2018 FLU VACC PRSV FREE I NC ANTIG Formatting Model/CDA Sections, Assigned to/Radha Hobbs CPT-4: 02943Jcnbemp 01/01/2018 Vital Signs Date Vital 09/03/2018 Blood Pressure 1: 132/80 Code: 8480-6 BMI: 33.0 Code: 16895-3 Heart Rate 1: 64 bpm Height: 5' SpO2: 90% Weight: 172 lbs 08/13/2018 Blood Pressure 1: 156/76 Code: 8480-6 BMI: 33.0 Code: 39386-4 Heart Rate 1: 81 bpm Height: 5' SpO2: 92% Weight: 172 lbs 04/09/2018 Blood Pressure 1: 138/66 Code: 8480-6 BMI: 32.5 Code: 80245-7 Heart Rate 1: 69 bpm Height: 5' SpO2: 96% Weight: 169 lbs 03/05/2018 Blood Pressure 1: 124/68 Code: 8480-6 BMI: 32.5 Code: 24797-7 Heart Rate 1: 79 bpm Height: 5' SpO2: 93% Weight: 169 lbs 02/01/2018 Blood Pressure 1: 140/80 Code: 8480-6 BMI: 32.3 Code: 57609-6 Heart Rate 1: 72 bpm Height: 5' SpO2: 94% Weight: 168 lbs 01/01/2018 Blood Pressure 1: 138/62 Code: 8480-6 BMI: 31.1 Code: 53262-6 Heart Rate 1: 75 bpm Height: 5' [...] Encounters Encounter Performer Loca tion Codes Date ([id number]) 46694 EST. P ATIENT, LEVEL III Diagnosis: Urinary tract infection, site not specified[ICD10: N39.0] [facility] CPT-4: 26128 09/03/2018 ([id number]) 64369 EST. P ATIENT, LEVEL IV Diagnosis: Essential (primary) hypertension[ICD10: I10] Diagnosis: Other emphysema[ICD10: J43.8] Diagnosis: Other skin changes[ICD10: R23.8] [facility] CPT-4: 52199 08/13/2018 ([id number]) 56307 EST. P ATIENT, LEVEL III Diagnosis: Essential (primary) hypertension[ICD10: I10] Diagnosis: Other emphysema[ICD10: J43.8] [facility] CPT-4: 36261 04/09/2018 ([id number]) 18740 EST. P ATIENT, LEVEL III Diagnosis: Pain in right ankle and joints of right foot[ICD10: M25.571] Diagnosis: Pain in right foot[ICD10: M79.671] [facility] CPT-4: 36311 03/05/2018 ([id number]) 09546 EST. P ATIENT, LEVEL IV Diagnosis: Essential (primary) hypertension[ICD10: I10] Diagnosis: Pain in thoracic spine[ICD10: M54.6] Diagnosis: Age-related osteoporosis without current pathological fracture[ICD10: M81.0] Diagnosis: Other emphysema[ICD10: J43.8] [facility] CPT-4: 60265 02/01/2018 ([id number]) OFFICE [facility] - LEVEL 4 Diagnosis: Essential (primary) hypertension[ICD10: I10] Diagnosis: Cough[ICD10: R05] Diagnosis: Mixed hyperlipidemia[ICD10: E78.2] Diagnosis: Other emphysema[ICD10: J43.8] [facility] CPT-4: 33143 01/01/2018 Plan of Care Planned Activity Notes C odes Status Date Visit Plan: UTI - pt with positive urinalysis - culture sent if appropriate. Antibiotic electronically prescribed to pt's pharmacy of choice. Pt to call if symptoms do not improve. 09/03/2018 Appointment: Roxanna King WPtel: [address] [place], [place] [phone] [place] (15 min) Moderate 09/03/2018 Patient Education: [...] right elbow 08/13/2018 Appointment: Beronica Root WPtel: [facility] (15 min) Moderate 08/13/2018 Patient Education: Patient Medication Summary Completed 08/13/2018 Patient Education: Cholesterol Management Completed 08/13/2018 Appointment: Ber[facility] Root [facility]el[facility] (15 min) Moderate 05/08/2018 Visit Plan: Hypertension - well bhavesh moscoso - continue with current medications, continue with no added salt diet. Pt has been encouraged to exercise daily. The pt has been advised to call the office if there are any acute concerns about change in blood pressure readings at home. Emphysema - referral to pulmonary rehab 04/09/2018 Appointment: Beronica Root [facility]el[facility] (15 min) Moderate 04/09/2018 Patient Education: Patient Medication Summary Completed 04/09/2018 Visit Plan: Right ankle and foot pa in -will obtain xrays to evaluate for acute bony abnormality -discussed rest, ice and anti inflammatories as directed-call if symptoms do not resolve, new symptoms develop or any other concerns. 03/05/2018 App[facility]ment[phone] [facility] [place] (15 min) Moderate 03/05/2018 Patient Education: Patient Medication Summary Completed 03/05/2018 Visit Plan: COPD with chronic dyspn ea and nocturnal hypoxemia - recommend that she increase Advair to twice daily. Pt would like to switch to [facility] instead of via [facility] dme. Osteoporosis - schedule a Dexa scan. Upper back pain - referral to Physical Therapy at [facility]. Hypertension - well controlled - continue with current medications, continue with no added salt diet. Pt has been encouraged to exercise daily. The pt has been advised to call the office if there are any acute concerns about change in blood pressure readings at home. 02/01/2018 Appointment: Beronica Root WPtel: [address] [facility] (15 min) Moderate 02/01/2018 Patient Education: Patient Medication Summary Completed 02/01/2018 Care Plan: Referral Order SNOMED-CT : [id number] Pending 02/01/2018 Appointment: Nurse Visit 01/08/2018 Appointment: Nga Garcia WPtel: [address] [facility] (15 min) Moderate 01/02/2018 Visit Plan: Hypertension - well con troflorence -however with her chronic cough - will [...] comorbid conditions. 01/01/2018 Appointment: Beronica Root WPtel: [address] [facility] [place] New Patient 01/01/2018 Patient Education: Patient [...]
--- OUTSIDE RECORDS SUMMARY | 2019-07-05 11:52 | XMS REPORT | CCD ---
Author Author Rosy Root Organization Beronica Root MD, [facility] Address [address] [place] [address] Phone Care Team Providers Care Air Moving Technician Name Role Phone PP Unavailable CCM Unavailable Summary Purpose Interface Exchange Insurance Providers Payer name Policy type / Coverage type Covered republican ID Effective Begin Date Effective End Date WPS Medicare Part B Medicare Part B [id number] Unknown FOR LIFE WPS Medicare Part B [id number] Unknown Family history Father Diagnosis Age At Onset Colon cancer Unknown Myocardial infarction Unknown Mother Diagnosis Age At Onset Stroke Unknown Osteoporosis Unknown Social History Social History Element Codes Description Effective Dates Marital status Unknown M yumiko Lujan 01/01/2018 Number of children Unknown 2 01/01/2018 Employment Unknown Retir ed 01/01/[address]: 9098884 Former smoker 01/01/[address]: 780359 Currently drinks alcohol 01/01/2018 Frequency of drinks SNOMED CT: 282751856 More than 2 drinks per day 3 [...] Date Stop Date Sta tus Fill Instructions Keflex 500 mg capsule RxNorm: 670897 1 Capsule(s) PO TID 09/03/2018 09/09/2018 Active naproxen 500 mg tablet RxNorm: 204344 1 Tablet(s) PO BID 03/05/2018 03/14/2018 Inactive Advair Diskus 250 mc g-50 mcg/dose powder for inhalation RxNorm: 1300059 1 Puff(s) INH BID 02/01/2018 04/26/2019 Active Neurontin 400 mg cap marielos RxNorm: 492089 1 Capsule(s) PO QID a s needed 02/01/2018 05/01/2018 In active alprazolam 0.5 mg ta blet RxNorm: 851266 1 Tablet(s) PO TID 01/03/2018 09/29/[address] Hernandez 12-15-17 tramadol 50 mg tablet RxNorm: 666444 1 Tablet(s) PO Q6 as needed for pain 01/03/2018 No Stop Date Active filled by Dr. Hernandez 12-15-17 losartan 50 mg-hydro chlorothiazide 12.5 mg tablet RxNorm: 043673 1 Tablet(s) PO daily 01/01/2018 12/26/2018 Ac tive alprazolam 0.5 mg ta blet RxNorm: 393893 1 Tablet(s) PO TID 01/01/2018 01/02/2018 Inactive fill ed by Dr. Hernandez 12-15-17 tramadol 50 mg tablet RxNorm: 287103 1 Tablet(s) PO Q6 as needed for pain 01/01/2018 01/02/2018 In active filled by Dr. Hernandez 12-15-17 Tricor 145 mg tablet RxNorm: 365233 1 Tablet(s) PO daily No Start Date Active omeprazole 40 mg cap marielos,delayed release RxNorm: 671745 1 Capsule(s) PO BID No Start Date Active potassium gluconate 595 mg (99 mg) tablet RxNorm: 723139 1 Tablet(s) PO daily No Start Date Active Singulair 10 mg tablet RxNorm: 725963 1 Tablet(s) PO QPM No Start Date Active Klor-Con M20 mEq tab let,extended release RxNorm: 5564270 1 Tablet(s) PO BID No Start Date Active metoprolol succinate ER 25 mg tablet,extended release 24 hr RxNorm: 306038 1 Tablet(s) PO QPM No Start Date Active hydrochlorothiazide 25 mg tablet RxNorm: 364626 1 Tablet(s) PO BID No Start Date Active Spiriva Respimat 2.5 mcg/actuation solution for inhalation RxNorm: 6054577 2 Puff(s) INH daily No Start Date Active cetirizine 10 mg tablet RxNorm: 6249588 1 Tablet(s) PO daily No Start Date Active albuterol sulfate HF A 90 mcg/actuation aerosol inhaler RxNorm: 286028 2 Puff(s) INH QID No Start Date Active Calcium 600 + D(3) 6 00 mg (1,500 mg)-400 unit tablet RxNorm: 193281 1 Tablet(s) PO daily No Start Date Active Osteo Bi-Flex oral RxNorm: 6821838 oral No Start Date Active Iron (ferrous sulfat e) 325 mg (65 mg iron) tablet RxNorm: 723844 1 Tablet(s) PO BIW on Monday and Monday No Start Date Active Pomegranate oral RxNorm: 3442122 oral No Start Date Active Complete Senior tablet RxNorm: 1 Tablet(s) PO daily No Start Date Active Flonase Allergy Reli ef 50 mcg/actuation nasal spray,suspension RxNorm: 7802160 1-2 [place] NASAL daily for allergies No Start Date Active Lexapro 10 mg tablet RxNorm: 248820 1 Tablet(s) PO daily No Start Date Active beta carotene 25,000 unit tablet RxNorm: 960468 1 Tablet(s) PO daily No Start Date Active Vitamin C 1,000 mg t ablet RxNorm: 091748 1 Tablet(s) PO daily No Start Date Active Z-Thfdyg-U-Cysteine RxNorm: 197 miscellaneous No Start Date Active vitamin E (dl, aceta te) 400 unit capsule RxNorm: 729067 1 Capsule(s) PO daily No Start Date Active Vitamin B-12 1,000 m cg tablet RxNorm: 669375 2 Tablet(s) PO daily No Start Date Active Advair Diskus 250 mc g-50 mcg/dose powder for inhalation RxNorm: 1361632 1 Puff(s) INH daily No Start Date 01/31/2018 Inactive lisinopril 20 mg-hyd rochlorothiazide 25 mg tablet RxNorm: 438989 1 Tablet(s) PO daily No Start Date 12/31/2017 Inactive Neurontin 400 mg cap marielos RxNorm: 985085 1 Capsule(s) PO QID a s needed No Start Date 01/31/2018 Inactive tramadol 50 mg tablet RxNorm: 335994 1 Tablet(s) PO Q6 as needed for [...] Item Item Code Result Date Comp Metabolic Sya743 NA 139 mEq/L 08/14/2018 Comp Metabolic Ntk430 K 3.7 mEq/L 08/14/2018 Comp Metabolic Xtk865 CL 99 mEq/L 08/14/2018 Comp Metabolic Pww033 CO2 30.0 mEq/L 08/14/2018 Comp Metabolic Kvi873 AN ION GAP 14 08/14/2018 Comp Metabolic Vdd844 GL UCOSE 95 mg/dL 08/14/2018 Comp Metabolic Tlr629 Cr eat 0.7 mg/dL 08/14/2018 Comp Metabolic Ibo747 eG FR 94 ml/min/1.73m2 08/14 Comp Metabolic Mtp508 BUN 7 mg/dL 08/14/2018 Comp Metabolic Yrj272 B/ C Ratio 10.6 Ratio 08/14/2018 Comp Metabolic Vtz674 CA LCIUM 9.5 mg/dL 08/14/2018 Comp Metabolic Weu690 AL K PHOS 37 U/L 08/14/2018 Comp Metabolic Lwt835 T(SGOT) 30 U/L 08/14/2018 Comp Metabolic Pug888 AL T(SGPT) 19 U/L 08/14/2018 Comp Metabolic Frb089 BI LI T 0.7 mg/dL 08/14/2018 Comp Metabolic Qqh503 AL BUMIN 4.2 g/dL 08/14/2018 Comp Metabolic Jkc047 TP RO 6.5 g/dL 08/14/2018 Comp Metabolic Ulm448 GL OB 2.3 g/dL 08/14/2018 Comp Metabolic Cum880 A/ G Ratio 1.9 Ratio 08/14/2018 Comp Metabolic Rfp638 Os mo 275 mOsmo 08/14/2018 Cbc With [...] 32.5 pg 08/14/2018 Cbc With Differential Ord2 [place]% 13.8 % 08/14/2018 Cbc With Differential Ord2 [...] 1.50 K/ul 08/14/2018 Cbc With Differential Ord2 [place] ABS# 0.8 K/ul 08/14/2018 Cbc With Differential [...] Date URINALYSIS NONAUTO W /O SCOPE CPT-4: 86622 09/03/2018 REMOVAL OF ARM FOREI GN BODY CPT-4: 78316 08/13/2018 ADMIN INFLUENZA VIRU S VAC CPT-4: G0008 01/01/2018 FLU VACC PRSV FREE I NC ANTIG Formatting Model/CDA Sections, Assigned to/Radha Hobbs CPT-4: 45506Depgbmy 01/01/2018 Vital Signs Date Vital 09/03/2018 Blood Pressure 1: 132/80 Code: 8480-6 BMI: 33.0 Code: 17438-8 Heart Rate 1: 64 bpm Height: 5' SpO2: 90% Weight: 172 lbs 08/13/2018 Blood Pressure 1: 156/76 Code: 8480-6 BMI: 33.0 Code: 44939-5 Heart Rate 1: 81 bpm Height: 5' SpO2: 92% Weight: 172 lbs 04/09/2018 Blood Pressure 1: 138/66 Code: 8480-6 BMI: 32.5 Code: 61285-0 Heart Rate 1: 69 bpm Height: 5' SpO2: 96% Weight: 169 lbs 03/05/2018 Blood Pressure 1: 124/68 Code: 8480-6 BMI: 32.5 Code: 69210-7 Heart Rate 1: 79 bpm Height: 5' SpO2: 93% Weight: 169 lbs 02/01/2018 Blood Pressure 1: 140/80 Code: 8480-6 BMI: 32.3 Code: 68390-3 Heart Rate 1: 72 bpm Height: 5' SpO2: 94% Weight: 168 lbs 01/01/2018 Blood Pressure 1: 138/62 Code: 8480-6 BMI: 31.1 Code: 93898-2 Heart Rate 1: 75 bpm Height: 5' [...] Factors me dication 04/09/2018 None Pertinent Findings kettyarslan valentínness 04/09/2018 in the mornings when she gets [...] Encounters Encounter Performer Loca tion Codes Date ([id number]) 13863 EST. P ATIENT, LEVEL III Diagnosis: Urinary tract infection, site not specified[ICD10: N39.0] Roxanna Root MD, [facility] CPT-4: 82860 09/03/2018 ([id number]) 90737 EST. P ATIENT, LEVEL IV Diagnosis: Essential (primary) hypertension[ICD10: I10] Diagnosis: Other emphysema[ICD10: J43.8] Diagnosis: Other skin changes[ICD10: R23.8] Beronica Root MD, [facility] CPT-4: 89725 08/13/2018 ([id number]) 21067 EST. P ATIENT, LEVEL III Diagnosis: Essential (primary) hypertension[ICD10: I10] Diagnosis: Other emphysema[ICD10: J43.8] Beronica Root MD, [facility] CPT-4: 39600 04/09/2018 ([id number]) 16560 EST. P ATIENT, LEVEL III Diagnosis: Pain in right ankle and joints of right foot[ICD10: M25.571] Diagnosis: Pain in right foot[ICD10: M79.671] [facility] CPT-4: 33212 03/05/2018 ([id number]) 73067 EST. P ATIENT, LEVEL IV Diagnosis: Essential (primary) hypertension[ICD10: I10] Diagnosis: Pain in thoracic spine[ICD10: M54.6] Diagnosis: Age-related osteoporosis without current pathological fracture[ICD10: M81.0] Diagnosis: Other emphysema[ICD10: J43.8] Beronica Root MD, [facility] CPT-4: 98245 02/01/2018 ([id number]) [facility] LEVEL 4 Diagnosis: Essential (primary) hypertension[ICD10: I10] Diagnosis: Cough[ICD10: R05] Diagnosis: Mixed hyperlipidemia[ICD10: E78.2] Diagnosis: Other emphysema[ICD10: J43.8] Beronica Root MD, [facility] CPT-4: 79146 01/01/2018 Plan of Care Planned Activity Notes C odes Status Date Visit Plan: UTI - pt with positive urinalysis - culture sent if appropriate. Antibiotic electronically prescribed to pt's pharmacy of choice. Pt to call if symptoms do not improve. 09/03/2018 Patient Education: Patient Medication Summary Completed [...] right elbow 08/13/2018 Appointment: Beronica Root WPtel: [address] [facility] (15 min) Moderate 08/13/2018 Patient Education: Patient Medication Summary Completed 08/13/2018 Patient Education: Cholesterol Management Completed 08/13/2018 Appointment: Beronica Root WPtel: [address] [facility] [place] (15 min) Moderate 05/08/2018 Visit Plan: [...] rehab 04/09/2018 Appointment: Ber[facility] [place] (15 min) Moderate 04/09/2018 Patient Education: Patient Medication Summary Completed 04/09/2018 Visit Plan: Right ankle and foot pa in -will obtain xrays to evaluate for acute bony abnormality -discussed rest, ice and anti inflammatories as directed-call if symptoms do not resolve, new symptoms develop or any other concerns. 03/05/2018 Appointment: [facility]ox[facility] King [facility]el[facility] [place] (15 min) Moderate 03/05/2018 Patient Education: Patient Medication Summary Completed 03/05/2018 Visit Plan: COPD with chronic dyspn ea and nocturnal hypoxemia - recommend that she increase Advair to twice daily. Pt would like to switch to [facility] instead of via [facility] dme. Osteoporosis - schedule a Dexa scan. Upper back pain - referral to Physical Therapy at [facility]. Hypertension - well controlled - continue with current medications, continue with no added salt diet. Pt has been encouraged to exercise daily. The pt has been advised to call the office if there are any acute concerns about change in blood pressure readings at home. 02/01/2018 Appointment: Beronica Root WPtel: [address] [place] [address] (15 min) Moderate 02/01/2018 Patient Education: Patient Medication Summary Completed 02/01/2018 Care Plan: Referral Order SNOMED-CT : [id number] Pending 02/01/2018 Appointment: Nurse Visit 01/08/2018 Appointment: Nga Garcia WPtel: [facility] (15 min) Moderate 01/02/2018 Visit Plan: [...] comorbid conditions. 01/01/2018 Appointment: Beronica Root WPtel: [address] [place], [place] [phone] New Patient 01/01/2018 Patient Education: Patient Medication Summary Completed 01/01/2018 Patient Education: Cholesterol Management Completed 01/01/2018 Instructions Comment . COPD with chronic dyspnea and nocturnal hypoxemia - recommend that she increase Advair to twice daily. Pt would like to switch to [facility] instead of via [facility]. Osteoporosis - schedule a Dexa scan. Upper back pain - referral to Physical Therapy at [facility]. Hypertension - well controlled - continue with [...]
--- OUTSIDE RECORDS SUMMARY | 2019-07-05 11:52 | XMS REPORT | CCD ---
Author Author Rosy Root Organization Beronica Root MD, [facility] Address [address] [place] [address] Phone Care Team Providers Care Infant Room Teacher Name Role Phone PP Unavailable CCM Unavailable Summary Purpose Interface Exchange Insurance Providers Payer name Policy type / Coverage type Covered alliance party ID Effective Begin Date Effective End Date WPS Medicare Part B Medicare Part B [id number] Unknown FOR LIFE WPS Medicare Part B [id number] Unknown Family history Father Diagnosis Age At Onset Colon cancer Unknown Myocardial infarction Unknown Mother Diagnosis Age At Onset Stroke Unknown Osteoporosis Unknown Social History Social History Element Codes Description Effective Dates Marital status Unknown M yumiko Lujan 01/01/2018 Number of children Unknown 2 01/01/2018 Employment Unknown Retir ed 01/01/[address]: 8981575 Former smoker 01/01/[address]: 027180 Currently drinks alcohol 01/01/2018 Frequency of drinks SNOMED CT: 899286386 More than 2 drinks per day 3 [...] Fill Instructions Keflex 500 mg capsule RxNorm: 359393 1 Capsule(s) PO TID 09/03/2018 09/09/2018 Active naproxen 500 mg tablet RxNorm: 716620 1 Tablet(s) PO BID 03/05/2018 03/14/2018 Inactive Advair Diskus 250 mc g-50 mcg/dose powder for inhalation RxNorm: 9951634 1 Puff(s) INH BID 02/01/2018 04/26/2019 Active Neurontin 400 mg cap marielos RxNorm: 232082 1 Capsule(s) PO QID a s needed 02/01/2018 05/01/2018 In active alprazolam 0.5 mg ta blet RxNorm: 922961 1 Tablet(s) PO TID 01/03/2018 09/29/[address] Hernandez 12-15-17 tramadol 50 mg tablet RxNorm: 234052 1 Tablet(s) PO Q6 as needed for pain 01/03/2018 No Stop Date Active filled by Dr. Hernandez 12-15-17 losartan 50 mg-hydro chlorothiazide 12.5 mg tablet RxNorm: 339284 1 Tablet(s) PO daily 01/01/2018 12/26/2018 Ac tive alprazolam 0.5 mg ta blet RxNorm: 688575 1 Tablet(s) PO TID 01/01/2018 01/02/2018 In[address] fill ed [address] Dr. Hernandez 12-15-17 tramadol 50 mg tablet RxNorm: 046487 1 Tablet(s) PO Q6 as needed for pain 01/01/2018 01/02/2018 In active filled by Dr. Hernandez 12-15-17 Tricor 145 mg tablet RxNorm: 640586 1 Tablet(s) PO daily No Start Date Active omeprazole 40 mg cap marielos,delayed release RxNorm: 522355 1 Capsule(s) PO BID No Start Date Active potassium gluconate 595 mg (99 mg) tablet RxNorm: 844376 1 Tablet(s) PO daily No Start Date Active Singulair 10 mg tablet RxNorm: 210297 1 Tablet(s) PO QPM No Start Date Active Klor-Con M20 mEq tab let,extended release RxNorm: 0153184 1 Tablet(s) PO BID No Start Date Active metoprolol succinate ER 25 mg tablet,extended release 24 hr RxNorm: 392948 1 Tablet(s) PO QPM No Start Date Active hydrochlorothiazide 25 mg tablet RxNorm: 546541 1 Tablet(s) PO BID No Start Date Active Spiriva Respimat 2.5 mcg/actuation solution for inhalation RxNorm: 1282685 2 Puff(s) INH daily No Start Date Active cetirizine 10 mg tablet RxNorm: 6698723 1 Tablet(s) PO daily No Start Date Active albuterol sulfate HF A 90 mcg/actuation aerosol inhaler RxNorm: 836736 2 Puff(s) INH QID No Start Date Active Calcium 600 + D(3) 6 00 mg (1,500 mg)-400 unit tablet RxNorm: 925999 1 Tablet(s) PO daily No Start Date Active Osteo Bi-Flex oral RxNorm: 8285998 oral No Start Date Active Iron (ferrous sulfat e) 325 mg (65 mg iron) tablet RxNorm: 994415 1 Tablet(s) PO BIW on Monday and Monday No Start Date Active Pomegranate oral RxNorm: 7483154 oral No Start Date Active Complete Senior tablet RxNorm: 1 Tablet(s) PO daily No Start Date Active Flonase Allergy Reli ef 50 mcg/actuation nasal spray,suspension RxNorm: 3186521 1-2 [place] NASAL daily for allergies No Start Date Active Lexapro 10 mg tablet RxNorm: 294808 1 Tablet(s) PO daily No Start Date Active beta carotene 25,000 unit tablet RxNorm: 673008 1 Tablet(s) PO daily No Start Date Active Vitamin C 1,000 mg t ablet RxNorm: 882457 1 Tablet(s) PO daily No Start Date Active O-Qpjagk-A-Cysteine RxNorm: 197 miscellaneous No Start Date Active vitamin E (dl, aceta te) 400 unit capsule RxNorm: 437678 1 Capsule(s) PO daily No Start Date Active Vitamin B-12 1,000 m cg tablet RxNorm: 974886 2 Tablet(s) PO daily No Start Date Active Advair Diskus 250 mc g-50 mcg/dose powder for inhalation RxNorm: 0341152 1 Puff(s) INH daily No Start Date 01/31/2018 Inactive lisinopril 20 mg-hyd rochlorothiazide 25 mg tablet RxNorm: 622738 1 Tablet(s) PO daily No Start Date 12/31/2017 Inactive Neurontin 400 mg cap marielos RxNorm: 911135 1 Capsule(s) PO QID a s needed No Start Date 01/31/2018 Inactive tramadol 50 mg tablet RxNorm: 082592 1 Tablet(s) PO Q6 as needed for [...] Item Item Code Result Date Comp Metabolic Nsy457 NA 139 mEq/L 08/14/2018 Comp Metabolic Lnw453 K 3.7 mEq/L 08/14/2018 Comp Metabolic Iqe007 CL 99 mEq/L 08/14/2018 Comp Metabolic Hlp198 CO2 30.0 mEq/L 08/14/2018 Comp Metabolic Eph608 AN ION GAP 14 08/14/2018 Comp Metabolic Yde498 GL UCOSE 95 mg/dL 08/14/2018 Comp Metabolic Sqx324 Cr eat 0.7 mg/dL 08/14/2018 Comp Metabolic Sfq563 eG FR 94 ml/min/1.73m2 08/14 Comp Metabolic Jex763 BUN 7 mg/dL 08/14/2018 Comp Metabolic Nmk387 B/ C Ratio 10.6 Ratio 08/14/2018 Comp Metabolic Gxz813 CA LCIUM 9.5 mg/dL 08/14/2018 Comp Metabolic Igr603 AL K PHOS 37 U/L 08/14/2018 Comp Metabolic Cht954 T(SGOT) 30 U/L 08/14/2018 Comp Metabolic Wdj426 AL T(SGPT) 19 U/L 08/14/2018 Comp Metabolic Zdk018 BI LI T 0.7 mg/dL 08/14/2018 Comp Metabolic Aoq797 AL BUMIN 4.2 g/dL 08/14/2018 Comp Metabolic Unc124 TP RO 6.5 g/dL 08/14/2018 Comp Metabolic Qbd069 GL OB 2.3 g/dL 08/14/2018 Comp Metabolic Oam146 A/ G Ratio 1.9 Ratio 08/14/2018 Comp Metabolic Pmm417 Os mo 275 mOsmo 08/14/2018 Cbc With [...] 32.5 pg 08/14/2018 Cbc With Differential Ord2 [place]% 13.8 % 08/14/2018 Cbc With Differential Ord2 [...] 1.50 K/ul 08/14/2018 Cbc With Differential Ord2 [place] ABS# 0.8 K/ul 08/14/2018 Cbc With Differential [...] Date URINALYSIS NONAUTO W /O SCOPE CPT-4: 69408 09/03/2018 REMOVAL OF ARM FOREI GN BODY CPT-4: 25532 08/13/2018 ADMIN INFLUENZA VIRU S VAC CPT-4: G0008 01/01/2018 FLU VACC PRSV FREE I NC ANTIG Formatting Model/CDA Sections, Assigned to/Radha Hobbs CPT-4: 61114Naryuxq 01/01/2018 Vital Signs Date Vital 09/03/2018 Blood Pressure 1: 132/80 Code: 8480-6 BMI: 33.0 Code: 03025-6 Heart Rate 1: 64 bpm Height: 5' SpO2: 90% Weight: 172 lbs 08/13/2018 Blood Pressure 1: 156/76 Code: 8480-6 BMI: 33.0 Code: 50524-2 Heart Rate 1: 81 bpm Height: 5' SpO2: 92% Weight: 172 lbs 04/09/2018 Blood Pressure 1: 138/66 Code: 8480-6 BMI: 32.5 Code: 33205-1 Heart Rate 1: 69 bpm Height: 5' SpO2: 96% Weight: 169 lbs 03/05/2018 Blood Pressure 1: 124/68 Code: 8480-6 BMI: 32.5 Code: 79823-7 Heart Rate 1: 79 bpm Height: 5' SpO2: 93% Weight: 169 lbs 02/01/2018 Blood Pressure 1: 140/80 Code: 8480-6 BMI: 32.3 Code: 04733-9 Heart Rate 1: 72 bpm Height: 5' SpO2: 94% Weight: 168 lbs 01/01/2018 Blood Pressure 1: 138/62 Code: 8480-6 BMI: 31.1 Code: 01624-1 Heart Rate 1: 75 bpm Height: 5' [...] Encounters Encounter Performer Loca tion Codes Date ([id number]) 34387 EST. P ATIENT, LEVEL III Diagnosis: Urinary tract infection, site not specified[ICD10: N39.0] Roxanna Root MD, [facility] CPT-4: 46077 09/03/2018 ([id number]) 59226 EST. P ATIENT, LEVEL IV Diagnosis: Essential (primary) hypertension[ICD10: I10] Diagnosis: Other emphysema[ICD10: J43.8] Diagnosis: Other skin changes[ICD10: R23.8] Beronica Root MD, [facility] CPT-4: 51156 08/13/2018 ([id number]) 51239 EST. P ATIENT, LEVEL III Diagnosis: Essential (primary) hypertension[ICD10: I10] Diagnosis: Other emphysema[ICD10: J43.8] Beronica Root MD, [facility] CPT-4: 60307 04/09/2018 ([id number]) 80322 EST. P ATIENT, LEVEL III Diagnosis: Pain in right ankle and joints of right foot[ICD10: M25.571] Diagnosis: Pain in right foot[ICD10: M79.671] [facility] CPT-4: 04109 03/05/2018 ([id number]) 38085 EST. P ATIENT, LEVEL IV Diagnosis: Essential (primary) hypertension[ICD10: I10] Diagnosis: Pain in thoracic spine[ICD10: M54.6] Diagnosis: Age-related osteoporosis without current pathological fracture[ICD10: M81.0] Diagnosis: Other emphysema[ICD10: J43.8] Beronica Root MD, [facility] CPT-4: 56818 02/01/2018 ([id number]) [facility] LEVEL 4 Diagnosis: Essential (primary) hypertension[ICD10: I10] Diagnosis: Cough[ICD10: R05] Diagnosis: Mixed hyperlipidemia[ICD10: E78.2] Diagnosis: Other emphysema[ICD10: J43.8] Beronica Root MD, [facility] CPT-4: 98478 01/01/2018 Plan of Care Planned Activity Notes [...] elbow 08/13/2018 Appointment: Beronica Root WPtel: [phone] [facility] (15 min) Moderate 08/13/2018 [...] rehab 04/09/2018 [facility]ment[facility] [address] [facility] [place] (15 min) Moderate 04/09/2018 Patient Education: Patient Medication Summary Completed 04/09/2018 Visit Plan: Right ankle and foot pa in -will obtain xrays to evaluate for acute bony abnormality -discussed rest, ice and anti inflammatories as directed-call if symptoms do not resolve, new symptoms develop or any other concerns. 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 Pt would like to switch to [facility] instead of [facility]. Osteoporosis - schedule a Dexa scan. Upper back pain - referral to Physical Therapy at [facility]. Hypertension - well controlled - continue with current medications, continue with no added salt diet. Pt has been encouraged to exercise daily. The pt has been advised to call the office if there are any acute concerns about change in blood pressure readings at home. 02/01/2018 Appointment: Beronica Root WPtel: [address] [place] [address] (15 min) Moderate 02/01/2018 Patient Education: Patient Medication Summary Completed 02/01/2018 Care Plan: Referral Order SNOMED-CT : [id number] Pending 02/01/2018 Appointment: Nurse Visit 01/08/2018 Appointment: Nga Garcia WPtel: [facility] (15 min) Moderate 01/02/2018 Visit Plan: Hypertension [...] comorbid conditions. 01/01/2018 Appointment: Beronica Root WPtel: [address] [place], [place] [phone] New Patient 01/01/2018 Patient Education: Patient Medication [...] - referral to Physical Therapy at [facility]. Hypertension - well controlled - continue with [...]
--- OUTSIDE RECORDS SUMMARY | 2019-07-05 11:52 | XMS REPORT | CCD ---
Author Author Rosy Root Organization Beronica Root MD, [facility] Address [address] [place] [address] Phone Care Team Providers Care Semiconductor Technician Name Role Phone PP Unavailable CCM Unavailable Summary Purpose Interface Exchange Insurance Providers Payer name Policy type / Coverage type Covered green party ID Effective Begin Date Effective End Date WPS Medicare Part B Medicare Part B [id number] Unknown FOR LIFE WPS Medicare Part B [id number] Unknown Family history Father Diagnosis Age At Onset Colon cancer Unknown Myocardial infarction Unknown Mother Diagnosis Age At Onset Stroke Unknown Osteoporosis Unknown Social History Social History Element Codes Description Effective Dates Marital status Unknown M yumiko Lujan 01/01/2018 Number of children Unknown 2 01/01/2018 Employment Unknown Retir ed 01/01/[address]: 3691472 Former smoker 01/01/[address]: 654565 Currently drinks alcohol 01/01/2018 Frequency of drinks SNOMED CT: 197930773 More than 2 drinks per day 3 per evening 01/01/2018 Allergies, Adverse Reactions, Alerts Substance Reaction Codes Entered Date Inactivated Date Status * NO KNOWN DRUG KIRSTIN RGIES Unknown 01/01/2018 No Inactive Date Active Past Medical History Illness Codes Condition Status Onset Date Resolved Date Essential (primary) hypertension ICD-9: 401.1 ICD-10: I10 [...] Condition Codes Effectiv e Dates Condition Status Essential (primary) hypertension ICD-9: 401.1 ICD-10: I10 [...] Date Stop Date Sta tus Fill Instructions naproxen 500 mg tablet RxNorm: 282141 1 Tablet(s) PO BID 03/05/2018 03/14/2018 Inactive Advair Diskus 250 mc g-50 mcg/dose powder for inhalation RxNorm: 7298128 1 Puff(s) INH BID 02/01/2018 04/26/2019 Active Neurontin 400 mg cap marielos RxNorm: 927184 1 Capsule(s) PO QID a s needed 02/01/2018 05/01/2018 In active alprazolam 0.5 mg ta blet RxNorm: 157147 1 Tablet(s) PO TID 01/03/2018 09/29/[address] Hernandez 12-15-17 tramadol 50 mg tablet RxNorm: 476455 1 Tablet(s) PO Q6 as needed for pain 01/03/2018 No Stop Date Active filled by Dr. Hernandez 12-15-17 losartan 50 mg-hydro chlorothiazide 12.5 mg tablet RxNorm: 283082 1 Tablet(s) PO daily 01/01/2018 12/26/2018 Ac tive alprazolam 0.5 mg ta blet RxNorm: 504175 1 Tablet(s) PO TID 01/01/2018 01/02/2018 In[address] fill ed by Dr. Hernandez 12-15-17 tramadol 50 mg tablet RxNorm: 722674 1 Tablet(s) PO Q6 as needed for pain 01/01/2018 01/02/2018 In active filled by Dr. Hernandez 12-15-17 Tricor 145 mg tablet RxNorm: 360024 1 Tablet(s) PO daily No Start Date Active omeprazole 40 mg cap marielos,delayed release RxNorm: 615609 1 Capsule(s) PO BID No Start Date Active potassium gluconate 595 mg (99 mg) tablet RxNorm: 324236 1 Tablet(s) PO daily No Start Date Active Singulair 10 mg tablet RxNorm: 134621 1 Tablet(s) PO QPM No Start Date Active Klor-Con M20 mEq tab let,extended release RxNorm: 9626678 1 Tablet(s) PO BID No Start Date Active metoprolol succinate ER 25 mg tablet,extended release 24 hr RxNorm: 091086 1 Tablet(s) PO QPM No Start Date Active hydrochlorothiazide 25 mg tablet RxNorm: 935884 1 Tablet(s) PO BID No Start Date Active Spiriva Respimat 2.5 mcg/actuation solution for inhalation RxNorm: 7979704 2 Puff(s) INH daily No Start Date Active cetirizine 10 mg tablet RxNorm: 3705761 1 Tablet(s) PO daily No Start Date Active albuterol sulfate HF A 90 mcg/actuation aerosol inhaler RxNorm: 105342 2 Puff(s) INH QID No Start Date Active Calcium 600 + D(3) 6 00 mg (1,500 mg)-400 unit tablet RxNorm: 322360 1 Tablet(s) PO daily No Start Date Active Osteo Bi-Flex oral RxNorm: 1273151 oral No Start Date Active Iron (ferrous sulfat e) 325 mg (65 mg iron) tablet RxNorm: 266469 1 Tablet(s) PO BIW on Monday and Monday No Start Date Active Pomegranate oral RxNorm: 8692801 oral No Start Date Active Complete Senior tablet RxNorm: 1 Tablet(s) PO daily No Start Date Active Flonase Allergy Reli ef 50 mcg/actuation nasal spray,suspension RxNorm: 9835169 1-2 [place] NASAL daily for allergies No Start Date Active Lexapro 10 mg tablet RxNorm: 881540 1 Tablet(s) PO daily No Start Date Active beta carotene 25,000 unit tablet RxNorm: 785483 1 Tablet(s) PO daily No Start Date Active Vitamin C 1,000 mg t ablet RxNorm: 387797 1 Tablet(s) PO daily No Start Date Active Z-Kxykgm-R-Cysteine RxNorm: 197 miscellaneous No Start Date Active vitamin E (dl, aceta te) 400 unit capsule RxNorm: 867405 1 Capsule(s) PO daily No Start Date Active Vitamin B-12 1,000 m cg tablet RxNorm: 052757 2 Tablet(s) PO daily No Start Date Active Advair Diskus 250 mc g-50 mcg/dose powder for inhalation RxNorm: 7568994 1 Puff(s) INH daily No Start Date 01/31/2018 Inactive lisinopril 20 mg-hyd rochlorothiazide 25 mg tablet RxNorm: 920847 1 Tablet(s) PO daily No Start Date 12/31/2017 Inactive Neurontin 400 mg cap marielos RxNorm: 688933 1 Capsule(s) PO QID a s needed No Start Date 01/31/2018 Inactive tramadol 50 mg tablet RxNorm: 839404 1 Tablet(s) PO Q6 as needed for pain No Start Date 12/31/2017 Inactive Medication Administered No Medication Administered data Immunizations Vaccine Codes Date Status Influenza CVX: 141 01/01 completed Assessments Condition Codes Effectiv e Dates Essential (primary) hypertension ICD -10: I10 ICD-9: [...] Reason For Visit Effective Dates Notes hypertension 08/13/2018 hypertension 04/09/2018 ankle pain 03/05/2018 blood pressure followup 02/01/2018 hypertension 01/01/2018 Results No Results data Review of Systems System Result Effective Dates Constitutional No recent illness 08/13/2018 Constitutional No [...] plantar s urface Procedures Procedure Codes Date REMOVAL OF ARM FOREI GN BODY CPT-4: 72909 08/13/2018 ADMIN INFLUENZA VIRU S VAC CPT-4: G0008 01/01/2018 FLU VACC PRSV FREE I NC ANTIG Formatting Model/CDA Sections, Assigned to/Radha Hobbs CPT-4: 21375[place] 01/01/2018 Vital Signs Date Vital 08/13/2018 Blood Pressure 1: 156/76 Code: 8480-6 BMI: 33.0 Code: 78007-1 Heart Rate 1: 81 bpm Height: 5' SpO2: 92% Weight: 172 lbs 04/09/2018 Blood Pressure 1: 138/66 Code: 8480-6 BMI: 32.5 Code: 56675-6 Heart Rate 1: 69 bpm Height: 5' SpO2: 96% Weight: 169 lbs 03/05/2018 Blood Pressure 1: 124/68 Code: 8480-6 BMI: 32.5 Code: 58742-7 Heart Rate 1: 79 bpm Height: 5' SpO2: 93% Weight: 169 lbs 02/01/2018 Blood Pressure 1: 140/80 Code: 8480-6 BMI: 32.3 Code: 38355-0 Heart Rate 1: 72 bpm Height: 5' SpO2: 94% Weight: 168 lbs 01/01/2018 Blood Pressure 1: 138/62 Code: 8480-6 BMI: 31.1 Code: 39919-9 Heart Rate 1: 75 bpm Height: 5' SpO2: 93% Weight: 162 lbs Functional Status No Functional Status data History of Present Illness Symptom Name Status Resu lt Effective Date Notes Quality primary hypert ension 08/13/2018 None Onset [...] Encounters Encounter Performer Loca tion Codes Date ([id number]) 42789 EST. P ATIENT, LEVEL IV Diagnosis: Essential (primary) hypertension[ICD10: I10] Diagnosis: Other emphysema[ICD10: J43.8] Diagnosis: Other skin changes[ICD10: R23.8] Beronica Root MD, [facility] CPT-4: 53258 08/13/2018 ([id number]) 22430 EST. P ATIENT, LEVEL III Diagnosis: Essential (primary) hypertension[ICD10: I10] Diagnosis: Other emphysema[ICD10: J43.8] Beronica Root MD, [facility] CPT-4: 00581 04/09/2018 ([id number]) 42782 EST. P ATIENT, LEVEL III Diagnosis: Pain in right ankle and joints of right foot[ICD10: M25.571] Diagnosis: Pain in right foot[ICD10: M79.671] Roxanna Root MD, [facility] CPT-4: 28748 03/05/2018 ([id number]) 86673 EST. P ATIENT, LEVEL IV Diagnosis: Essential (primary) hypertension[ICD10: I10] Diagnosis: Pain in thoracic spine[ICD10: M54.6] Diagnosis: Age-related osteoporosis without current pathological fracture[ICD10: M81.0] Diagnosis: Other emphysema[ICD10: J43.8] [facility] CPT-4: 04726 02/01/2018 ([id number]) OFFICE [facility], [facility] - LEVEL 4 Diagnosis: Essential (primary) hypertension[ICD10: I10] Diagnosis: Cough[ICD10: R05] Diagnosis: Mixed hyperlipidemia[ICD10: E78.2] Diagnosis: Other emphysema[ICD10: J43.8] [facility] CPT-4: 00301 01/01/2018 Plan of Care Planned Activity Notes [...] of glass from her right elbow 08/13/2018 Patient Education: Patient Medication Summary Completed 08/13/2018 Patient Education: Cholesterol Management Completed 08/13/2018 Care Plan: Comp Metabolic Pending 08/13/2018 Care Plan: Cbc With Differential Pending 08/13/2018 Care Plan: Tsh Pending 08/13/2018 Appointment: Beronica Root WPtel: [facility] (15 min) Moderate 05/08/2018 Visit Plan: Hypertension - well con trolled - continue with current medications, continue with no added salt diet. Pt has been encouraged to exercise daily. The pt has been advised to call the office if there are any acute concerns about change in blood pressure readings at home. Emphysema - referral to pulmonary rehab 04/09/2018 Appointment: Beronica Root [facility]Ptel[facility] (15 min) Moderate 04/09/2018 Patient Education: Patient Medication Summary Completed 04/09/2018 Visit Plan: Right ankle and foot pa in -will obtain xrays to evaluate for acute bony abnormality -discussed rest, ice and anti inflammatories as directed-call if symptoms do not resolve, new symptoms develop or any other concerns. 03/05/2018 Appointment: Roxanna King [facility]el[facility] [place] (15 min) Moderate 03/05/2018 Patient Education: Patient Medication Summary Completed 03/05/2018 Visit Plan: COPD with chronic dyspn ea and nocturnal hypoxemia - recommend that she increase Advair to twice daily. [facility]. Osteoporosis - schedule a Dexa scan. Upper back pain - referral to Physical Therapy at [facility]. Hypertension - well controlled - continue with current medications, continue with no added salt diet. Pt has been encouraged to exercise daily. The pt has been advised to call the office if there are any acute concerns about change in blood pressure readings at home. 02/01/2018 Appointment: Beronica Root WPtel: [facility] (15 min) Moderate 02/01/2018 Patient Education: Patient Medication Summary Completed 02/01/2018 Care Plan: Referral Order SNOMED-CT : 539681262 Pending 02/01/2018 Appointment: Nurse Visit 01/08/2018 Appointment: Nga Garcia WPtel: [phone] [facility] (15 min) Moderate 01/02/2018 Visit Plan: Hypertension - well bhavesh moscoso [...] comorbid conditions. 01/01/2018 Appointment: Beronica Root WPtel: [facility] [place] New Patient 01/01/2018 Patient Education: Patient [...] due to her multiple comorbid conditions. . Right ankle and fo ot pain -will obtain xrays to evaluate for acute bony abnormality -discussed rest, ice and anti inflammatories as directed-call if symptoms do not resolve, new symptoms develop or any other concerns.
--- OUTSIDE RECORDS SUMMARY | 2019-07-05 11:53 | XMS REPORT | CCD ---
Author Author Rosy Root Organization Beronica Root MD, [facility] Address [address] [place] [address] Phone Care Team Providers Care Brick Baker Name Role Phone PP Unavailable CCM Unavailable Summary Purpose Interface Exchange Insurance Providers Payer name Policy type / Coverage type Covered alliance party ID Effective Begin Date Effective End Date WPS Medicare Part B Medicare Part B [id number] Unknown FOR LIFE WPS Medicare Part B [id number] Unknown Family history Father Diagnosis Age At Onset Colon cancer Unknown Myocardial infarction Unknown Mother Diagnosis Age At Onset Stroke Unknown Osteoporosis Unknown Social History Social History Element Codes Description Effective Dates Marital status Unknown M yumiko Lujan 01/01/2018 Number of children Unknown 2 01/01/2018 Employment Unknown Retir ed 01/01/[address]: 1117255 Former smoker 01/01/[address]: 424649 Currently drinks alcohol 01/01/2018 Frequency of drinks SNOMED CT: 229076883 More than 2 drinks per day 3 per evening 01/01/2018 Allergies, Adverse Reactions, Alerts Substance Reaction Codes Entered Date Inactivated Date Status * NO KNOWN DRUG KIRSTIN RGIES Unknown 01/01/2018 No Inactive Date Active Past Medical History Illness Codes Condition Status Onset Date Resolved Date Pain in right ankle and joints of right foot ICD-9: 719.47 ICD-10: M25.571 Active 03/05/2018 Unknown Pain in right foot ICD- 9: 729.5 ICD-10: M79.671 Active 03/05/2018 Unknown Age-related osteopor osis without current pathological fracture ICD-9: 733.00 ICD-10: M81.0 Active 02/01/2018 Unknown Essential (primary) hypertension ICD-9: 401.1 ICD-10: I10 Active 01/01/2018 Unknown Other emphysema ICD-9: 492.8 ICD-10: J43.8 Active 01/01/2018 Unknown Pain in thoracic spine ICD-9: 724.1 ICD-10: M54.6 Active 02/01/2018 Unknown Cough ICD-9: 786.2 ICD-10: R05 Active 01/01/2018 Unknown Encounter for immuni zation ICD-9: V04.81 ICD-10: Z23 Active 01/01/2018 Unknown Mixed hyperlipidemia ICD-9: 272.2 ICD-10: E78.2 Active 01/01/2018 Unknown Problems Condition Codes Effectiv e Dates Condition Status Pain in right ankle and joints of right foot ICD-9: 719.47 ICD-10: M25.571 03/05/2018 Active Pain in right foot ICD- 9: 729.5 ICD-10: M79.671 03/05/2018 Active Age-related osteopor osis without current pathological fracture ICD-9: 733.00 ICD-10: M81.0 02/01/2018 Active Essential (primary) hypertension ICD-9: 401.1 ICD-10: I10 01/01/2018 Active Other emphysema ICD-9: 492.8 ICD-10: J43.8 01/01/2018 Active Pain in thoracic spine ICD-9: 724.1 ICD-10: M54.6 02/01/2018 Active Cough ICD-9: 786.2 ICD-10: R05 01/01/2018 Active Encounter for immuni zation ICD-9: V04.81 ICD-10: Z23 01/01/2018 Active Mixed hyperlipidemia ICD-9: 272.2 ICD-10: E78.2 01/01/2018 Active Medications Medication Codes Instruc tions Start Date Stop Date Sta tus Fill Instructions naproxen 500 mg tablet RxNorm: 146157 1 Tablet(s) PO BID 03/05/2018 03/14/2018 Active Advair Diskus 250 mc g-50 mcg/dose powder for inhalation RxNorm: 4329745 1 Puff(s) INH BID 02/01/2018 04/26/2019 Active Neurontin 400 mg cap marielos RxNorm: 966552 1 Capsule(s) PO QID a s needed 02/01/2018 05/01/2018 Ac tive alprazolam 0.5 mg ta blet RxNorm: 473322 1 Tablet(s) PO TID 01/03/2018 09/29/[address] Hernandez 12-15-17 tramadol 50 mg tablet RxNorm: 380191 1 Tablet(s) PO Q6 as needed for pain 01/03/2018 No Stop Date Active filled by Dr. Hernnadez 12-15-17 losartan 50 mg-hydro chlorothiazide 12.5 mg tablet RxNorm: 094607 1 Tablet(s) PO daily 01/01/2018 12/26/2018 Ac tive alprazolam 0.5 mg ta blet RxNorm: 238683 1 Tablet(s) PO TID 01/01/2018 01/02/2018 In[address] fill ed [address] Dr. Hernandez 12-15-17 tramadol 50 mg tablet RxNorm: 991180 1 Tablet(s) PO Q6 as needed for pain 01/01/2018 01/02/2018 In active filled by Dr. Hernandez 12-15-17 Tricor 145 mg tablet RxNorm: 079631 1 Tablet(s) PO daily No Start Date Active omeprazole 40 mg cap marielos,delayed release RxNorm: 960613 1 Capsule(s) PO BID No Start Date Active potassium gluconate 595 mg (99 mg) tablet RxNorm: 893895 1 Tablet(s) PO daily No Start Date Active Singulair 10 mg tablet RxNorm: 195594 1 Tablet(s) PO QPM No Start Date Active Klor-Con M20 mEq tab let,extended release RxNorm: 0717333 1 Tablet(s) PO BID No Start Date Active metoprolol succinate ER 25 mg tablet,extended release 24 hr RxNorm: 423369 1 Tablet(s) PO QPM No Start Date Active hydrochlorothiazide 25 mg tablet RxNorm: 557485 1 Tablet(s) PO BID No Start Date Active Spiriva Respimat 2.5 mcg/actuation solution for inhalation RxNorm: 7823347 2 Puff(s) INH daily No Start Date Active cetirizine 10 mg tablet RxNorm: 4578121 1 Tablet(s) PO daily No Start Date Active albuterol sulfate HF A 90 mcg/actuation aerosol inhaler RxNorm: 679457 2 Puff(s) INH QID No Start Date Active Calcium 600 + D(3) 6 00 mg (1,500 mg)-400 unit tablet RxNorm: 998971 1 Tablet(s) PO daily No Start Date Active Osteo Bi-Flex oral RxNorm: 0457728 oral No Start Date Active Iron (ferrous sulfat e) 325 mg (65 mg iron) tablet RxNorm: 695827 1 Tablet(s) PO BIW on Monday and Monday No Start Date Active Pomegranate oral RxNorm: 2849477 oral No Start Date Active Complete Senior tablet RxNorm: 1 Tablet(s) PO daily No Start Date Active Flonase Allergy Reli ef 50 mcg/actuation nasal spray,suspension RxNorm: 2084257 1-2 [place] NASAL daily for allergies No Start Date Active Lexapro 10 mg tablet RxNorm: 581975 1 Tablet(s) PO daily No Start Date Active beta carotene 25,000 unit tablet RxNorm: 610385 1 Tablet(s) PO daily No Start Date Active Vitamin C 1,000 mg t ablet RxNorm: 510157 1 Tablet(s) PO daily No Start Date Active A-Bpwrck-I-Cysteine RxNorm: 197 miscellaneous No Start Date Active vitamin E (dl, aceta te) 400 unit capsule RxNorm: 084750 1 Capsule(s) PO daily No Start Date Active Vitamin B-12 1,000 m cg tablet RxNorm: 905606 2 Tablet(s) PO daily No Start Date Active Advair Diskus 250 mc g-50 mcg/dose powder for inhalation RxNorm: 8254866 1 Puff(s) INH daily No Start Date 01/31/2018 Inactive lisinopril 20 mg-hyd rochlorothiazide 25 mg tablet RxNorm: 502036 1 Tablet(s) PO daily No Start Date 12/31/2017 Inactive Neurontin 400 mg cap marielos RxNorm: 058986 1 Capsule(s) PO QID a s needed No Start Date 01/31/2018 Inactive tramadol 50 mg tablet RxNorm: 524382 1 Tablet(s) PO Q6 as needed for pain No Start Date 12/31/2017 Inactive Medication Administered No Medication Administered data Immunizations Vaccine Codes Date Status Influenza CVX: 141 01/01 completed Assessments Condition Codes Effectiv e Dates Pain in right foot ICD-10: M79.671 ICD-9: 729.5 03/05/2018 Pain in right ankle and joints of right foot ICD-10: M25.571 ICD-9: 719.47 03/05/2018 Age-related osteoporosis without current pathological fracture ICD-10: M81.0 ICD-9: 733.00 02/01/2018 Other emphysema ICD-10: J43.8 ICD-9: 492.8 02/01/2018 Essential (primary) hypertension ICD -10: I10 ICD-9: 401.1 02/01/2018 Pain in thoracic spine ICD-10: M54.6 ICD-9: 724.1 02/01/2018 Cough ICD-10: R05 ICD-9: 786.2 01/01/2018 Encounter for immunization ICD-10: Z 23 ICD-9: V04.81 01/01/2018 Mixed hyperlipidemia ICD-10: E78.2 ICD-9: 272.2 01/01/2018 Reason For Visit Reason For Visit Effective Dates Notes ankle pain 03/05/2018 blood pressure followup 02/01/2018 hypertension 01/01/2018 Results No Results data Review of Systems System Result Effective Dates Constitutional No recent illness 03/05/2018 Constitutional No [...] Result Effective Dates Notes Full Exam - Orthopedics Constitutional general appearance [...] affect 01/01/2018 None Full Exam - General 1995 Integument inspection of skin Location: right foot 01/01/2018 below 3rd digit plantar s urface Procedures Procedure Codes Date ADMIN INFLUENZA VIRU S VAC CPT-4: G0008 01/01/2018 FLU VACC PRSV FREE I NC ANTIG Formatting Model/CDA Sections, Assigned to/Radha Hobbs CPT-4: [id number] 01/01/2018 Vital Signs Date Vital 03/05/2018 Blood Pressure 1: 124/68 Code: 8480-6 BMI: 32.5 Code: 37580-4 Heart Rate 1: 79 bpm Height: 5' SpO2: 93% Weight: 169 lbs 02/01/2018 Blood Pressure 1: 140/80 Code: 8480-6 BMI: 32.3 Code: 92753-4 Heart Rate 1: 72 bpm Height: 5' SpO2: 94% Weight: 168 lbs 01/01/2018 Blood Pressure 1: 138/62 Code: 8480-6 BMI: 31.1 Code: 90999-5 Heart Rate 1: 75 bpm Height: 5' SpO2: 93% Weight: 162 lbs Functional Status No Functional Status data History of Present Illness Symptom Name Status Resu lt Effective Date Notes Location on the right 03/05/2018 None Quality [...] Encounters Encounter Performer Loca tion Codes Date ([id number]) 78489 EST. P DAISY, LEVEL III Diagnosis: Pain in right ankle and joints of right foot[ICD10: M25.571] Diagnosis: Pain in right foot[ICD10: M79.671] [facility] CPT-4: 93226 03/05/2018 ([id number]) 11528 EST. P DAISY, LEVEL IV Diagnosis: Essential (primary) hypertension[ICD10: I10] Diagnosis: Pain in thoracic spine[ICD10: M54.6] Diagnosis: Age-related osteoporosis without current pathological fracture[ICD10: M81.0] Diagnosis: Other emphysema[ICD10: J43.8] [facility] CPT-4: 50152 02/01/2018 ([id number]) OFFICE [facility] - LEVEL 4 Diagnosis: Essential (primary) hypertension[ICD10: I10] Diagnosis: Cough[ICD10: R05] Diagnosis: Mixed hyperlipidemia[ICD10: E78.2] Diagnosis: Other emphysema[ICD10: J43.8] [facility] CPT-4: 40451 01/01/2018 Plan of Care Planned Activity Notes C odes Status Date Visit Plan: Right ankle and foot pa in -will obtain xrays to evaluate for acute bony abnormality -discussed rest, ice and anti inflammatories as directed-call if symptoms do not resolve, new symptoms develop or any other concerns. 03/05/2018 Patient Education: Patient Medication Summary Completed [...] home. 02/01/2018 Appointment: Beronica Root WPtel: [phone] [facility] (15 min) Moderate 02/01/2018 Patient Education: Patient Medication Summary Completed 02/01/2018 Care Plan: Referral Order SNOMED-CT : [id number] Pending 02/01/2018 Appointment: Nurse Visit 01/08/2018 Appointment: Nga Garcia WPtel: [phone] [facility] (15 min) Moderate 01/02/2018 Visit Plan: Hypertension [...] comorbid conditions. 01/01/2018 Appointment: Beronica Root WPtel: [address] [place], [place] [address] [place] New Patient 01/01/2018 Patient Education: Patient [...] change in blood pressure readings at home. as soon as the rx fo r [...]
--- OUTSIDE RECORDS SUMMARY | 2019-07-05 11:53 | XMS REPORT | CCD ---
Author Author Rosy Root Organization Beronica Root MD, [facility] Address [address] [place] [address] Phone Care Team Providers Care Weights And Measures Sealer Name Role Phone PP Unavailable CCM Unavailable Summary Purpose Interface Exchange Insurance Providers Payer name Policy type / Coverage type Covered alliance party ID Effective Begin Date Effective End Date WPS Medicare Part B Medicare Part B [id number] Unknown FOR LIFE WPS Medicare Part B [id number] Unknown Family history Father Diagnosis Age At Onset Colon cancer Unknown Myocardial infarction Unknown Mother Diagnosis Age At Onset Stroke Unknown Osteoporosis Unknown Social History Social History Element Codes Description Effective Dates Marital status Unknown M yumiko Lujan 01/01/2018 Number of children Unknown 2 01/01/2018 Employment Unknown Retir ed 01/01/[address]: 2779212 Former smoker 01/01/[address]: 646981 Currently drinks alcohol 01/01/2018 Frequency of drinks SNOMED CT: 373154659 More than 2 drinks per day 3 per evening 01/01/2018 Allergies, Adverse Reactions, Alerts Substance Reaction Codes Entered Date Inactivated Date Status * NO KNOWN DRUG KIRSTIN RGIES Unknown 01/01/2018 No Inactive Date Active Past Medical History Illness Codes Condition Status Onset Date Resolved Date Age-related osteopor osis without current pathological fracture [...] Condition Codes Effectiv e Dates Condition Status Age-related osteopor osis without current pathological fracture [...] Date Stop Date Sta tus Fill Instructions Advair Diskus 250 mc g-50 mcg/dose powder for inhalation RxNorm: 8795935 1 Puff(s) INH BID 02/01/2018 04/26/2019 Active Neurontin 400 mg cap marielos RxNorm: 539588 1 Capsule(s) PO QID a s needed 02/01/2018 05/01/2018 Ac tive alprazolam 0.5 mg ta blet RxNorm: 167668 1 Tablet(s) PO TID 01/03/2018 09/29/[address] Hernandez 12-15-17 tramadol 50 mg tablet RxNorm: 957232 1 Tablet(s) PO Q6 as needed for pain 01/03/2018 No Stop Date Active filled by Dr. Hernandez 12-15-17 losartan 50 mg-hydro chlorothiazide 12.5 mg tablet RxNorm: 553554 1 Tablet(s) PO daily 01/01/2018 12/26/2018 Ac tive alprazolam 0.5 mg ta blet RxNorm: 607290 1 Tablet(s) PO TID 01/01/2018 01/02/2018 In[address] fill ed by Dr. Hernandez 12-15-17 tramadol 50 mg tablet RxNorm: 519692 1 Tablet(s) PO Q6 as needed for pain 01/01/2018 01/02/2018 In active filled by Dr. Hernandez 12-15-17 Tricor 145 mg tablet RxNorm: 629982 1 Tablet(s) PO daily No Start Date Active omeprazole 40 mg cap marielos,delayed release RxNorm: 432598 1 Capsule(s) PO BID No Start Date Active potassium gluconate 595 mg (99 mg) tablet RxNorm: 739334 1 Tablet(s) PO daily No Start Date Active Singulair 10 mg tablet RxNorm: 977543 1 Tablet(s) PO QPM No Start Date Active Klor-Con M20 mEq tab let,extended release RxNorm: 6294442 1 Tablet(s) PO BID No Start Date Active metoprolol succinate ER 25 mg tablet,extended release 24 hr RxNorm: 933538 1 Tablet(s) PO QPM No Start Date Active hydrochlorothiazide 25 mg tablet RxNorm: 314511 1 Tablet(s) PO BID No Start Date Active Spiriva Respimat 2.5 mcg/actuation solution for inhalation RxNorm: 1810395 2 Puff(s) INH daily No Start Date Active cetirizine 10 mg tablet RxNorm: 2220801 1 Tablet(s) PO daily No Start Date Active albuterol sulfate HF A 90 mcg/actuation aerosol inhaler RxNorm: 224630 2 Puff(s) INH QID No Start Date Active Calcium 600 + D(3) 6 00 mg (1,500 mg)-400 unit tablet RxNorm: 073783 1 Tablet(s) PO daily No Start Date Active Osteo Bi-Flex oral RxNorm: 5727278 oral No Start Date Active Iron (ferrous sulfat e) 325 mg (65 mg iron) tablet RxNorm: 137981 1 Tablet(s) PO BIW on Monday and Monday No Start Date Active Pomegranate oral RxNorm: 4308933 oral No Start Date Active Complete Senior tablet RxNorm: 1 Tablet(s) PO daily No Start Date Active Flonase Allergy Reli ef 50 mcg/actuation nasal spray,suspension RxNorm: 7168548 1-2 [place] NASAL daily for allergies No Start Date Active Lexapro 10 mg tablet RxNorm: 820516 1 Tablet(s) PO daily No Start Date Active beta carotene 25,000 unit tablet RxNorm: 436763 1 Tablet(s) PO daily No Start Date Active Vitamin C 1,000 mg t ablet RxNorm: 202804 1 Tablet(s) PO daily No Start Date Active L-Vseoew-V-Cysteine RxNorm: 197 miscellaneous No Start Date Active vitamin E (dl, aceta te) 400 unit capsule RxNorm: 778617 1 Capsule(s) PO daily No Start Date Active Vitamin B-12 1,000 m cg tablet RxNorm: 251327 2 Tablet(s) PO daily No Start Date Active Advair Diskus 250 mc g-50 mcg/dose powder for inhalation RxNorm: 5130469 1 Puff(s) INH daily No Start Date 01/31/2018 Inactive lisinopril 20 mg-hyd rochlorothiazide 25 mg tablet RxNorm: 176491 1 Tablet(s) PO daily No Start Date 12/31/2017 Inactive Neurontin 400 mg cap marielos RxNorm: 182816 1 Capsule(s) PO QID a s needed No Start Date 01/31/2018 Inactive tramadol 50 mg tablet RxNorm: 289239 1 Tablet(s) PO Q6 as needed for pain No Start Date 12/31/2017 Inactive Medication Administered No Medication Administered data Immunizations Vaccine Codes Date Status Influenza CVX: 141 01/01 completed Assessments Condition Codes Effectiv e Dates Age-related osteoporosis without current pathological fracture ICD-10: [...] Visit Reason For Visit Effective Dates Notes blood pressure followup 02/01/2018 hypertension 01/01/2018 Results No Results data Review of Systems System Result Effective Dates Respiratory productive sputum 02/01/2018 Respiratory cough 2017 [...] Effective Dates Notes Full Exam - General Constitutional general appearance [...] Formatting Model/CDA Sections, Assigned to/Radha Hobbs CPT-4: [id number] 01/01/2018 Vital Signs Date Vital 02/01/2018 Blood Pressure 1: 140/80 Code: 8480-6 BMI: 32.3 Code: 83010-1 Heart Rate 1: 72 bpm Height: 5' SpO2: 94% Weight: 168 lbs 01/01/2018 Blood Pressure 1: 138/62 Code: 8480-6 BMI: 31.1 Code: 63072-1 Heart Rate 1: 75 bpm Height: 5' SpO2: 93% Weight: 162 lbs Functional Status No Functional Status data History of Present Illness Symptom Name Status Resu lt Effective Date Notes blood pressure followup Quality intermittent 02/01/2018 None [...] Encounters Encounter Performer Loca tion Codes Date () 22888 EST. P ATIENT, LEVEL IV Diagnosis: Essential (primary) hypertension[ICD10: I10] Diagnosis: Pain in thoracic spine[ICD10: M54.6] Diagnosis: Age-related osteoporosis without current pathological fracture[ICD10: M81.0] Diagnosis: Other emphysema[ICD10: J43.8] Beronica Root MD, [facility] CPT-4: 54955 02/01/2018 ([id number]) OFFICE [facility] T [facility] - LEVEL 4 Diagnosis: Essential (primary) hypertension[ICD10: I10] Diagnosis: Cough[ICD10: R05] Diagnosis: Mixed hyperlipidemia[ICD10: E78.2] Diagnosis: Other emphysema[ICD10: J43.8] Beronica Root MD, [facility] CPT-4: 63477 01/01/2018 Plan of Care Planned Activity Notes C odes Status Date Visit Plan: COPD with chronic dyspn ea [...] in blood pressure readings at home. 02/01/2018 Patient Education: Patient Medication Summary Completed 02/01/2018 Care Plan: Referral Order SNOMED-CT : [id number] Pending 02/01/2018 Appointment: Nurse Visit 01/08/2018 Appointment: N[facility] ([facility] Moderate 01/02/2018 Visit Plan: [...] conditions. 01/01/2018 [facility]ment[facility] [phone] [facility] [place] New [facility] 01/01/2018 Patient Education: Patient Medication Summary Completed 01/01/2018 Patient Education: Cholesterol Management Completed 01/01/2018 Instructions Comment . COPD with chronic dyspnea and nocturnal hypoxemia - recommend that she increase Advair to twice daily. [facility]. [...]
--- OUTSIDE RECORDS SUMMARY | 2019-07-05 11:53 | XMS REPORT | CCD ---
Author Author Rosy Root Organization Beronica Root MD, [facility] Address [address] [place] [address] Phone Care Team Providers Care Gift Basket Packer Name Role Phone PP Unavailable CCM Unavailable Summary Purpose Interface Exchange Insurance Providers Payer name Policy type / Coverage type Covered constitution party ID Effective Begin Date Effective End Date WPS Medicare Part B Medicare Part B [id number] Unknown FOR LIFE WPS Medicare Part B [id number] Unknown Family history Father Diagnosis Age At Onset Colon cancer Unknown Myocardial infarction Unknown Mother Diagnosis Age At Onset Stroke Unknown Osteoporosis Unknown Social History Social History Element Codes Description Effective Dates Marital status Unknown M yumiko Lujan 01/01/2018 Number of children Unknown 2 01/01/2018 Employment Unknown Retir ed 01/01/[address]: 4966482 Former smoker 01/01/[address]: 839941 Currently drinks alcohol 01/01/2018 Frequency of drinks SNOMED CT: 813562909 More than 2 drinks per day 3 [...] Fill Instructions naproxen 500 mg tablet RxNorm: 873233 1 Tablet(s) PO BID 03/05/2018 03/14/2018 Active Advair Diskus 250 mc g-50 mcg/dose powder for inhalation RxNorm: 0304799 1 Puff(s) INH BID 02/01/2018 04/26/2019 Active Neurontin 400 mg cap marielos RxNorm: 708056 1 Capsule(s) PO QID a s needed 02/01/2018 05/01/2018 Ac tive alprazolam 0.5 mg ta blet RxNorm: 976430 1 Tablet(s) PO TID 01/03/2018 09/29/[address] Hernandez 12-15-17 tramadol 50 mg tablet RxNorm: 496569 1 Tablet(s) PO Q6 as needed for pain 01/03/2018 No Stop Date Active filled by Dr. Hernandez 12-15-17 losartan 50 mg-hydro chlorothiazide 12.5 mg tablet RxNorm: 092707 1 Tablet(s) PO daily 01/01/2018 12/26/2018 Ac tive alprazolam 0.5 mg ta blet RxNorm: 792076 1 Tablet(s) PO TID 01/01/2018 01/02/2018 Inactive fill ed by Dr. Hernandez 12-15-17 tramadol 50 mg tablet RxNorm: 946990 1 Tablet(s) PO Q6 as needed for pain 01/01/2018 01/02/2018 In active filled by Dr. Hernandez 12-15-17 Tricor 145 mg tablet RxNorm: 601242 1 Tablet(s) PO daily No Start Date Active omeprazole 40 mg cap marielos,delayed release RxNorm: 341319 1 Capsule(s) PO BID No Start Date Active potassium gluconate 595 mg (99 mg) tablet RxNorm: 255555 1 Tablet(s) PO daily No Start Date Active Singulair 10 mg tablet RxNorm: 290370 1 Tablet(s) PO QPM No Start Date Active Klor-Con M20 mEq tab let,extended release RxNorm: 3422098 1 Tablet(s) PO BID No Start Date Active metoprolol succinate ER 25 mg tablet,extended release 24 hr RxNorm: 324085 1 Tablet(s) PO QPM No Start Date Active hydrochlorothiazide 25 mg tablet RxNorm: 403123 1 Tablet(s) PO BID No Start Date Active Spiriva Respimat 2.5 mcg/actuation solution for inhalation RxNorm: 2132035 2 Puff(s) INH daily No Start Date Active cetirizine 10 mg tablet RxNorm: 0865202 1 Tablet(s) PO daily No Start Date Active albuterol sulfate HF A 90 mcg/actuation aerosol inhaler RxNorm: 141046 2 Puff(s) INH QID No Start Date Active Calcium 600 + D(3) 6 00 mg (1,500 mg)-400 unit tablet RxNorm: 935347 1 Tablet(s) PO daily No Start Date Active Osteo Bi-Flex oral RxNorm: 3080867 oral No Start Date Active Iron (ferrous sulfat e) 325 mg (65 mg iron) tablet RxNorm: 556585 1 Tablet(s) PO BIW on Monday and Monday No Start Date Active Pomegranate oral RxNorm: 2829033 oral No Start Date Active Complete Senior tablet RxNorm: 1 Tablet(s) PO daily No Start Date Active Flonase Allergy Reli ef 50 mcg/actuation nasal spray,suspension RxNorm: 7547470 1-2 [place] NASAL daily for allergies No Start Date Active Lexapro 10 mg tablet RxNorm: 608738 1 Tablet(s) PO daily No Start Date Active beta carotene 25,000 unit tablet RxNorm: 219023 1 Tablet(s) PO daily No Start Date Active Vitamin C 1,000 mg t ablet RxNorm: 811437 1 Tablet(s) PO daily No Start Date Active R-Jbjrmi-X-Cysteine RxNorm: 197 miscellaneous No Start Date Active vitamin E (dl, aceta te) 400 unit capsule RxNorm: 110612 1 Capsule(s) PO daily No Start Date Active Vitamin B-12 1,000 m cg tablet RxNorm: 086614 2 Tablet(s) PO daily No Start Date Active Advair Diskus 250 mc g-50 mcg/dose powder for inhalation RxNorm: 5170680 1 Puff(s) INH daily No Start Date 01/31/2018 Inactive lisinopril 20 mg-hyd rochlorothiazide 25 mg tablet RxNorm: 584353 1 Tablet(s) PO daily No Start Date 12/31/2017 Inactive Neurontin 400 mg cap marielos RxNorm: 942734 1 Capsule(s) PO QID a s needed No Start Date 01/31/2018 Inactive tramadol 50 mg tablet RxNorm: 959869 1 Tablet(s) PO Q6 as needed for [...] Formatting Model/CDA Sections, Assigned to/Radha Hobbs CPT-4: 43567Obnocpa 01/01/2018 Vital Signs Date Vital 03/05/2018 Blood Pressure 1: 124/68 Code: 8480-6 BMI: 32.5 Code: 90335-7 Heart Rate 1: 79 bpm Height: 5' SpO2: 93% Weight: 169 lbs 02/01/2018 Blood Pressure 1: 140/80 Code: 8480-6 BMI: 32.3 Code: 95935-7 Heart Rate 1: 72 bpm Height: 5' SpO2: 94% Weight: 168 lbs 01/01/2018 Blood Pressure 1: 138/62 Code: 8480-6 BMI: 31.1 Code: 59617-2 Heart Rate 1: 75 bpm Height: 5' [...] Encounters Encounter Performer Loca tion Codes Date ([id number]) 04980 EST. P DAISY, LEVEL III Diagnosis: Pain in right ankle and joints of right foot[ICD10: M25.571] Diagnosis: Pain in right foot[ICD10: M79.671] [facility] CPT-4: 39568 03/05/2018 ([id number]) 54382 EST. P DAISY, LEVEL IV Diagnosis: Essential (primary) hypertension[ICD10: I10] Diagnosis: Pain in thoracic spine[ICD10: M54.6] Diagnosis: Age-related osteoporosis without current pathological fracture[ICD10: M81.0] Diagnosis: Other emphysema[ICD10: J43.8] [facility] CPT-4: 71007 02/01/2018 ([id number]) OFFICE [facility] - LEVEL 4 Diagnosis: Essential (primary) hypertension[ICD10: I10] Diagnosis: Cough[ICD10: R05] Diagnosis: Mixed hyperlipidemia[ICD10: E78.2] Diagnosis: Other emphysema[ICD10: J43.8] [facility] CPT-4: 23685 01/01/2018 Plan of Care Planned Activity Notes C odes Status Date Visit Plan: Right ankle and foot pa in -will obtain xrays to evaluate for acute bony abnormality -discussed rest, ice and anti inflammatories as directed-call if symptoms do not resolve, new symptoms develop or any other concerns. 03/05/2018 Appointment: Roxanna King WPtel: [phone] [phone] (15 min) Moderate 03/05/2018 Patient Education: Patient Medication Summary Completed 03/05/2018 Visit Plan: COPD with chronic dyspn ea and nocturnal hypoxemia - recommend that she increase Advair to twice daily. Pt would like to switch to [employer] instead of via [employer]. Osteoporosis - schedule a Dexa scan. Upper back pain - referral to Physical Therapy at [facility] [place]. Hypertension - well controlled - continue with current medications, continue with no added salt diet. Pt has been encouraged to exercise daily. The pt has been advised to call the office if there are any acute concerns about change in blood pressure readings at home. 02/01/2018 Appointment: Beronica Root WPtel: [facility] (15 min) Moderate 02/01/2018 Patient Education: Patient Medication Summary Completed 02/01/2018 Care Plan: Referral Order SNOMED-CT : [id number] Pending 02/01/2018 Appointment: Nurse Visit 01/08/2018 Appointment: Nga Garcia WPtel: [facility] (15 min) Moderate 01/02/2018 Visit Plan: [...] conditions. 01/01/2018 Appointment: [facility] [phone] [facility] [place] New Patient 01/01/2018 Patient Education: Patient Medication Summary Completed 01/01/2018 Patient Education: Cholesterol Management Completed 01/01/2018 Instructions Comment . COPD with chronic dyspnea and nocturnal hypoxemia - recommend that she increase Advair to twice daily. Pt would like to switch to [employer] instead of via [employer]. Osteoporosis - schedule a Dexa scan. [...]
--- OUTSIDE RECORDS SUMMARY | 2019-07-05 11:53 | XMS REPORT | CCD ---
Author Author Rosy Root Organization Beronica Root MD, [facility] Address [address] [place] [address] Phone Care Team Providers Care Service Technician Copier Name Role Phone PP Unavailable CCM Unavailable Summary Purpose Interface Exchange Insurance Providers Payer name Policy type / Coverage type Covered republican ID Effective Begin Date Effective End Date WPS Medicare Part B Medicare Part B [id number] Unknown FOR LIFE WPS Medicare Part B [id number] Unknown Family history Father Diagnosis Age At Onset Colon cancer Unknown Myocardial infarction Unknown Mother Diagnosis Age At Onset Stroke Unknown Osteoporosis Unknown Social History Social History Element Codes Description Effective Dates Marital status Unknown M yumiko Lujan 01/01/2018 Number of children Unknown 2 01/01/2018 Employment Unknown Retir ed 01/01/[address]: 0263917 Former smoker 01/01/[address]: 869578 Currently drinks alcohol 01/01/2018 Frequency of drinks SNOMED CT: 226395582 More than 2 drinks per day 3 per evening 01/01/2018 Allergies, Adverse Reactions, Alerts Substance Reaction Codes Entered Date Inactivated Date Status * NO KNOWN DRUG KIRSTIN RGIES Unknown 01/01/2018 No Inactive Date Active Past Medical History Illness Codes Condition Status Onset Date Resolved Date Cough ICD-9: 786.2 ICD-10: R05 Active 01/01/2018 Unknown Encounter for immuni zation ICD-9: V04.81 ICD-10: Z23 Active 01/01/2018 Unknown Essential (primary) hypertension ICD-9: 401.1 ICD-10: I10 Active 01/01/2018 Unknown Mixed hyperlipidemia ICD-9: 272.2 ICD-10: E78.2 Active 01/01/2018 Unknown Other emphysema ICD-9: 492.8 ICD-10: J43.8 Active 01/01/2018 Unknown Problems Condition Codes Effectiv e Dates Condition Status Cough ICD-9: 786.2 ICD-10: R05 01/01/2018 Active Encounter for immuni zation ICD-9: V04.81 ICD-10: Z23 01/01/2018 Active Essential (primary) hypertension ICD-9: 401.1 ICD-10: I10 01/01/2018 Active Mixed hyperlipidemia ICD-9: 272.2 ICD-10: E78.2 01/01/2018 Active Other emphysema ICD-9: 492.8 ICD-10: J43.8 01/01/2018 Active Medications Medication Codes Instruc tions Start Date Stop Date Sta tus Fill Instructions Neurontin 400 mg cap marielos RxNorm: 732466 1 Capsule(s) PO QID a s needed 02/01/2018 05/01/2018 Ac tive alprazolam 0.5 mg ta blet RxNorm: 150112 1 Tablet(s) PO TID 01/03/2018 09/29/[address] Hernandez 12-15-17 tramadol 50 mg tablet RxNorm: 303444 1 Tablet(s) PO Q6 as needed for pain 01/03/2018 No Stop Date Active filled by Dr. Hernandez 12-15-17 losartan 50 mg-hydro chlorothiazide 12.5 mg tablet RxNorm: 249410 1 Tablet(s) PO daily 01/01/2018 12/26/2018 Ac tive alprazolam 0.5 mg ta blet RxNorm: 857649 1 Tablet(s) PO TID 01/01/2018 01/02/2018 In[address] fill ed by Dr. Hernandez 12-15-17 tramadol 50 mg tablet RxNorm: 021560 1 Tablet(s) PO Q6 as needed for pain 01/01/2018 01/02/2018 In active filled by Dr. Hernandez 12-15-17 Tricor 145 mg tablet RxNorm: 892279 1 Tablet(s) PO daily No Start Date Active omeprazole 40 mg cap marielos,delayed release RxNorm: 990072 1 Capsule(s) PO BID No Start Date Active potassium gluconate 595 mg (99 mg) tablet RxNorm: 214589 1 Tablet(s) PO daily No Start Date Active Singulair 10 mg tablet RxNorm: 494849 1 Tablet(s) PO QPM No Start Date Active Klor-Con M20 mEq tab let,extended release RxNorm: 7609180 1 Tablet(s) PO BID No Start Date Active metoprolol succinate ER 25 mg tablet,extended release 24 hr RxNorm: 565459 1 Tablet(s) PO QPM No Start Date Active hydrochlorothiazide 25 mg tablet RxNorm: 858180 1 Tablet(s) PO BID No Start Date Active Spiriva Respimat 2.5 mcg/actuation solution for inhalation RxNorm: 9663047 2 Puff(s) INH daily No Start Date Active cetirizine 10 mg tablet RxNorm: 6292640 1 Tablet(s) PO daily No Start Date Active albuterol sulfate HF A 90 mcg/actuation aerosol inhaler RxNorm: 659388 2 Puff(s) INH QID No Start Date Active Calcium 600 + D(3) 6 00 mg (1,500 mg)-400 unit tablet RxNorm: 315621 1 Tablet(s) PO daily No Start Date Active Osteo Bi-Flex oral RxNorm: 8297084 oral No Start Date Active Advair Diskus 250 mc g-50 mcg/dose powder for inhalation RxNorm: 7616941 1 Puff(s) INH daily No Start Date Active Iron (ferrous sulfat e) 325 mg (65 mg iron) tablet RxNorm: 140185 1 Tablet(s) PO BIW on Monday and Monday No Start Date Active Pomegranate oral RxNorm: 0492261 oral No Start Date Active Complete Senior tablet RxNorm: 1 Tablet(s) PO daily No Start Date Active Flonase Allergy Reli ef 50 mcg/actuation nasal spray,suspension RxNorm: 7067622 1-2 [place] NASAL daily for allergies No Start Date Active Lexapro 10 mg tablet RxNorm: 354441 1 Tablet(s) PO daily No Start Date Active beta carotene 25,000 unit tablet RxNorm: 743420 1 Tablet(s) PO daily No Start Date Active Vitamin C 1,000 mg t ablet RxNorm: 657059 1 Tablet(s) PO daily No Start Date Active C-Lthqdl-Q-Cysteine RxNorm: 197 miscellaneous No Start Date Active vitamin E (dl, aceta te) 400 unit capsule RxNorm: 024109 1 Capsule(s) PO daily No Start Date Active Vitamin B-12 1,000 m cg tablet RxNorm: 724965 2 Tablet(s) PO daily No Start Date Active lisinopril 20 mg-hyd rochlorothiazide 25 mg tablet RxNorm: 220008 1 Tablet(s) PO daily No Start Date 12/31/2017 Inactive Neurontin 400 mg cap marielos RxNorm: 112019 1 Capsule(s) PO QID a s needed No Start Date 01/31/2018 Inactive tramadol 50 mg tablet RxNorm: 354250 1 Tablet(s) PO Q6 as needed for pain No Start Date 12/31/2017 Inactive Medication Administered No Medication Administered data Immunizations Vaccine Codes Date Status Influenza CVX: 141 01/01 completed Assessments Condition Codes Effectiv e Dates Essential (primary) hypertension ICD -10: I10 ICD-9: 401.1 01/01/2018 Other emphysema ICD-10: J43.8 ICD-9: 492.8 01/01/2018 Cough ICD-10: R05 ICD-9: 786.2 01/01/2018 Encounter for immunization ICD-10: Z 23 ICD-9: V04.81 01/01/2018 Mixed hyperlipidemia ICD-10: E78.2 ICD-9: 272.2 01/01/2018 Reason For Visit Reason For Visit Effective Dates Notes hypertension 01/01/2018 Results No Results data Review of Systems System Result Effective Dates Constitutional No recent illness 01/01/2018 Constitutional No [...] Formatting Model/CDA Sections, Assigned to/Radha Hobbs CPT-4: [id number] 01/01/2018 Vital Signs Date Vital 01/01/2018 Blood Pressure 1: 138/62 Code: 8480-6 BMI: 31.1 Code: 05127-4 Heart Rate 1: 75 bpm Height: 5' SpO2: 93% Weight: 162 lbs Functional Status No Functional Status data History of Present Illness Symptom Name Status Resu lt Effective Date Notes hypertension Onset and Resolution ongoing 01/01/2018 None [...] Encounters Encounter Performer Loca tion Codes Date (29859) OFFICE [facility], [facility] - LEVEL 4 Diagnosis: Essential (primary) hypertension[ICD10: I10] Diagnosis: Cough[ICD10: R05] Diagnosis: Mixed hyperlipidemia[ICD10: E78.2] Diagnosis: Other emphysema[ICD10: J43.8] Beronica Root MD, [facility] CPT-4: 07532 01/01/2018 Plan of Care Planned Activity Notes C odes Status Date Appointment: Nurse Visit 01/08/2018 Appointment: [facility] [phone] [facility] (15 min) Moderate 01/02/2018 Visit Plan: Hypertension [...] conditions. 01/01/2018 App[facility]ment: [facility] [phone] [facility] New Patient 01/01/2018 Patient Education: Patient Medication Summary Completed 01/01/2018 Patient Education: Cholesterol Management Completed 01/01/2018 Instructions Comment as soon as the rx fo r [...]
--- OUTSIDE RECORDS SUMMARY | 2019-07-05 11:54 | XMS REPORT | Continuity of Care Document ---
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 REGION 07/25/2017 NAIMA CUELLAR MIMI Ot Z12.31 ENCNTR SCREEN MAMMOGRAM FOR MALIGNANT NE 07/25/2017 MIMI MCNAMARA DO Ot J01.10 ACUTE FRONTAL SINUSITIS, UNSPECIFIED 07/25/2017 HE MATHEWS DO Ot R06. 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, RIGHT SHOULDER 07/25/2017 DEXTER DO SUSI Edwards Ot S43.431A SUPERIOR GLENOID LABRUM LESION OF RIGHT 07/25/2017 DEXTER DO SUSI Grace Ot S46.811A STRAIN OF MUSC/FASC/TEND AT SHLDR/UP ARM 07/25/2017 DEXTER DO SUSI Grace Ot X58.XXXA EXPOSURE TO OTHER SPECIFIED FACTORS, INI 07/25/2017 SUSI RENTERIA DO Ot Y99.8 OTHER EXTERNAL CAUSE STATUS 07/25/2017 MIMI MCNAMARA DO Ot R05 COUGH 07/25/2017 MIMI MCNAMARA DO Ot I51.7 CARDIOMEGALY 07/25/2017 KEMAL TY, SOL S Ot J44.9 CHRONIC OBSTRUCTIVE PULMONARY DISEASE, U 07/25/2017 MIMI MCNAMARA DO Ot R05 COUGH 07/26/2017 KEMAL TY, SOL S Ot J44.9 CHRONIC OBSTRUCTIVE PULMONARY DISEASE, U 08/07/2017 KEMAL TY, SOL S Ot J44.9 CHRONIC OBSTRUCTIVE PULMONARY DISEASE, U 09/10/2017 KEMAL TY, SOL S Ot J44.9 CHRONIC OBSTRUCTIVE PULMONARY DISEASE, U 09/11/2017 KEMAL TY, SOL S Ot J44.9 CHRONIC OBSTRUCTIVE PULMONARY DISEASE, U 09/17/2017 NATALIA MCNAMARA DOI Ot 493.90 ASTHMA, UNSPECIFIED 09/17/2017 NATALIA MCNAMARA DOI Ot V76.12 OTH SCREEN MAMMO-MALIGN NEOPLASM OF JORJE 09/17/2017 MIKY TY, GURPREET Lo Ot 724. 02 SPINAL STENOSIS, LUMBAR REG, W/OUT NEURO 09/17/2017 NATALIA MCNAMARA DOI Ot V76.12 OTH SCREEN MAMMO-MALIGN NEOPLASM OF JORJE 09/17/2017 MARVA TY, STEVE Lo Ot M54.1 6 RADICULOPATHY, LUMBAR REGION 09/17/2017 MIMI MCNAMARA DO Ot Z12.31 ENCNTR SCREEN MAMMOGRAM FOR MALIGNANT NE 09/17/2017 MIIM MCNAMARA DO Ot J01.10 ACUTE FRONTAL SINUSITIS, UNSPECIFIED 09/17/2017 HE MATHEWS DO Ot R06. 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, RIGHT SHOULDER 09/17/2017 SUSI RENTERIA DO Ot S43.431A SUPERIOR GLENOID LABRUM LESION OF RIGHT 09/17/2017 SUSI RENTERIA DO Ot S46.811A STRAIN OF MUSC/FASC/TEND AT SHLDR/UP ARM 09/17/2017 SUSI RENTERIA DO Ot X58.XXXA EXPOSURE TO OTHER SPECIFIED FACTORS, INI 09/17/2017 SUSI RENTERIA DO Ot Y99.8 OTHER EXTERNAL CAUSE STATUS 09/17/2017 MCNAMARA DO, MIMI Ot R05 COUGH 09/17/2017 MCNAMARA DO, MIMI Ot I51.7 CARDIOMEGALY 09/17/2017 MCNAMARA DO, MIMI Ot R05 COUGH 10/26/2017 BHARATH HARDING MAISHA Ot V76.12 OTH SCREEN MAMMO-MALIGN NEOPLASM OF JORJE 12/20/2017 KING ROCHA MD Ot F17.201 NICOTINE DEPENDENCE, UNSPECIFIED, IN REM 12/20/2017 KING ROCHA MD Ot I35. 1 NONRHEUMATIC AORTIC (VALVE) INSUFFICIENC 12/20/2017 KING ROCHA MD Ot I51. 9 HEART DISEASE, UNSPECIFIED 12/20/2017 KING ROCHA MD Ot J44. 9 CHRONIC OBSTRUCTIVE PULMONARY DISEASE, U 12/20/2017 KING ROCHA MD Ot R06. 00 DYSPNEA, UNSPECIFIED 01/08/2018 KING ROCHA MD Ot F17.201 NICOTINE DEPENDENCE, UNSPECIFIED, IN REM 01/08/2018 KING ROCHA MD Ot I35. 1 NONRHEUMATIC AORTIC (VALVE) INSUFFICIENC 01/08/2018 KING ROCHA MD Ot I51. 9 HEART DISEASE, UNSPECIFIED 01/08/2018 KING ROCHA MD Ot J44. 9 CHRONIC OBSTRUCTIVE PULMONARY DISEASE, U 01/08/2018 KING ROCHA MD Ot R06. 00 DYSPNEA, UNSPECIFIED 02/05/2018 DAKOTAH VILLARREAL Ot M81.0 AGE-RELATED OSTEOPOROSIS W/O CURRENT PAT 02/28/2018 DAKOTAH VILLARREALP Ot M81.0 AGE-RELATED OSTEOPOROSIS W/O CURRENT PAT 02/28/2018 DAKOTAH VILLARREAL CHEF DE FROID Ot M81.0 AGE-RELATED OSTEOPOROSIS W/O CURRENT PAT 03/01/2018 DAKOTAH VILLARREALP Ot M81.0 AGE-RELATED OSTEOPOROSIS W/O CURRENT PAT 03/09/2018 DEISI POE APRN Ot I1 0 ESSENTIAL (PRIMARY) HYPERTENSION 03/09/2018 DEISI POE APRN Ot J44.9 CHRONIC OBSTRUCTIVE PULMONARY DISEASE, U 03/09/2018 DEISI POE APRN Ot M54.6 PAIN IN THORACIC SPINE 03/09/2018 DEISI POE HOT DIP PLATER Ot R07.81 PLEURODYNIA 03/09/2018 DEISI POE HOT DIP PLATER Ot Z96.641 PRESENCE OF RIGHT ARTIFICIAL HIP JOINT 03/22/2018 DEISI POE HOT DIP PLATER Ot I1 0 ESSENTIAL (PRIMARY) HYPERTENSION 03/22/2018 DEISI POE HOT DIP PLATER Ot J44.9 CHRONIC OBSTRUCTIVE PULMONARY DISEASE, U 03/22/2018 DEISI POE HOT DIP PLATER Ot M54.6 PAIN IN THORACIC SPINE 03/22/2018 DEISI POE HOT DIP PLATER Ot R07.81 PLEURODYNIA 03/22/2018 DEISI POE HOT DIP PLATER Ot Z96.641 PRESENCE OF RIGHT ARTIFICIAL HIP JOINT 03/26/2018 DAKOTAH VILLARREAL CHEF DE FROID Ot M81.0 AGE-RELATED OSTEOPOROSIS W/O CURRENT PAT 03/26/2018 DAKOTAH VILLARREAL CHEF DE FROID Ot Z13.820 ENCOUNTER FOR SCREENING FOR OSTEOPOROSIS 03/26/2018 DAKOTAH VILLARREAL CHEF DE FROID Ot Z78.0 ASYMPTOMATIC MENOPAUSAL STATE 03/31/2018 DAKOTAH VILLARREAL CHEF DE FROID Ot R60.0 LOCALIZED EDEMA 04/20/2018 DAKOTAH VILLARREAL CHEF DE FROID Ot R60.0 LOCALIZED EDEMA 06/14/2018 KOFI TY, KAVITA Costa Ot J44.9 CHRONIC OBSTRUCTIVE PULMONARY DISEASE, U 06/21/2018 KOFI TY, KAVITA Costa Ot J44.9 CHRONIC OBSTRUCTIVE PULMONARY DISEASE, U 06/28/2018 KAVITA KIRBY MD Ot J44.9 CHRONIC OBSTRUCTIVE PULMONARY DISEASE, U 06/28/2018 KAVITA KIRBY MD Ot J44.9 CHRONIC OBSTRUCTIVE PULMONARY DISEASE, U 07/03/2018 KAVITA KIRBY MD Ot J44.9 CHRONIC OBSTRUCTIVE PULMONARY DISEASE, U 07/10/2018 KAVITA KIRBY MD Ot J44.9 CHRONIC OBSTRUCTIVE PULMONARY DISEASE, U 07/19/2018 KAVITA KIRBY MD Ot J44.9 CHRONIC OBSTRUCTIVE PULMONARY DISEASE, U 07/24/2018 KAVITA KIRBY MD Ot J44.9 CHRONIC OBSTRUCTIVE PULMONARY DISEASE, U 07/25/2018 KAVITA KIRBY MD Ot J44.9 CHRONIC OBSTRUCTIVE PULMONARY DISEASE, U 07/31/2018 KAVITA KIRBY MD Ot J44.9 CHRONIC OBSTRUCTIVE PULMONARY DISEASE, U 08/02/2018 KAVITA KIRBY MD Ot J44.9 CHRONIC OBSTRUCTIVE PULMONARY DISEASE, U 08/06/2018 KOFI TY, KAVITA Costa Ot J44.9 CHRONIC OBSTRUCTIVE PULMONARY DISEASE, U 08/07/2018 KAVITA KIRBY MD Ot J44.9 CHRONIC OBSTRUCTIVE PULMONARY DISEASE, U 08/14/2018 KOFI TY, KAVITA Costa Ot J44.9 CHRONIC OBSTRUCTIVE PULMONARY DISEASE, U 09/02/2018 KAVITA KIRBY MD Ot J44.9 CHRONIC OBSTRUCTIVE PULMONARY DISEASE, U 09/06/2018 KOFI TY, KAVITA Costa Ot J44.9 CHRONIC OBSTRUCTIVE PULMONARY DISEASE, U 09/08/2018 KOFI TY, KAVITA Costa Ot J44.9 CHRONIC OBSTRUCTIVE PULMONARY DISEASE, U 12/28/2018 DEISI POE HOT DIP PLATER Ot M79.604 PAIN IN RIGHT LEG 12/28/2018 DEISI POE HOT DIP PLATER Ot Z96.641 PRESENCE OF RIGHT ARTIFICIAL HIP JOINT 01/30/2019 KING ROCHA MD Ot I10 ESSENTIAL (PRIMARY) HYPERTENSION 01/30/2019 KING ROCHA MD Ot I35. 1 NONRHEUMATIC AORTIC (VALVE) INSUFFICIENC 01/30/2019 KING ROCHA MD Ot M48.061 SPINAL STENOSIS, LUMBAR REGION WITHOUT N 02/05/2019 DEISI POE HOT DIP PLATER Ot R92.2 INCONCLUSIVE MAMMOGRAM 02/05/2019 DEISI POE APRN Ot R92.2 INCONCLUSIVE MAMMOGRAM 02/05/2019 KAVITA KIRBY MD Ot Z12.31 ENCNTR SCREEN MAMMOGRAM FOR MALIGNANT NE 02/13/2019 KAVITA KIRBY MD Ot R92.1 MAMMOGRAPHIC CALCIFCN FOUND ON DIAGNOSTI 02/13/2019 KAVITA KIRBY MD Ot R92.1 MAMMOGRAPHIC CALCIFCN FOUND ON DIAGNOSTI 02/14/2019 KAVITA KIRBY MD Ot R92.1 MAMMOGRAPHIC CALCIFCN FOUND ON DIAGNOSTI 02/15/2019 KING ROCHA MD Ot I10 ESSENTIAL (PRIMARY) HYPERTENSION 02/15/2019 KING ROCHA MD Ot I35. 1 NONRHEUMATIC AORTIC (VALVE) INSUFFICIENC 02/15/2019 KING ROCHA MD Ot M48.061 SPINAL STENOSIS, LUMBAR REGION WITHOUT N 02/15/2019 DEISI POE HOT DIP PLATER Ot N63.11 UNSPECIFIED LUMP IN THE RIGHT BREAST, UP 02/15/2019 DEISI POE HOT DIP PLATER Ot R92.0 MAMMOGRAPHIC MICROCALCIFICATION FOUND ON 03/05/2019 DEXTER DO, SUSI Edwards Ot M17.11 UNILATERAL PRIMARY OSTEOARTHRITIS, RIGHT 03/05/2019 DEXTER DO, SUSI Grace Ot M23.203 DERANG OF UNSP MEDIAL MENISCUS DUE TO OL 03/05/2019 DEXTER DO, SUSI Edwards Ot M23.41 LOOSE BODY IN KNEE, RIGHT KNEE 03/05/2019 DEXTER DO, SUSI Grace Ot M25.461 EFFUSION, RIGHT KNEE 03/05/2019 DEXTER DO, SUSI Edwards Ot M94.261 CHONDROMALACIA, RIGHT KNEE 03/08/2019 KOFI TY, KAVITA Costa Ot R92.1 MAMMOGRAPHIC CALCIFCN FOUND ON DIAGNOSTI 03/29/2019 DEXTER CUELLAR, SUSI Edwards Ot M17.11 UNILATERAL PRIMARY OSTEOARTHRITIS, RIGHT 03/29/2019 DEXTER DO, SUSI Grace Ot M23.203 DERANG OF UNSP MEDIAL MENISCUS DUE TO OL 03/29/2019 DEXTER DO, SUSI Grace Ot M23.41 LOOSE BODY IN KNEE, RIGHT KNEE 03/29/2019 DEXTER DO, SUSI Grace Ot M25.461 EFFUSION, RIGHT KNEE 03/29/2019 DEXTER DO, SUSI Grace Ot M94.261 CHONDROMALACIA, RIGHT KNEE 04/09/2019 TREVOR, GOGO FERRERA Ot I10 ESSENTIAL (PRIMARY) HYPERTENSION 04/09/2019 TREVOR, GOGO FERRERA Ot J44.9 CHRONIC OBSTRUCTIVE PULMONARY DISEASE, U 04/09/2019 TREVOR, GOGO FERRERA Ot M54.2 CERVICALGIA 04/09/2019 TREVOR, GOGO FERRERA Ot R40.2142 COMA SCALE, EYES OPEN, SPONTANEOUS, EMR 04/09/2019 TREVOR, GOGO FERRERA Ot R40.2252 COMA SCALE, BEST VERBAL RESPONSE, ORIENT 04/09/2019 TREVOR, GOGO FERRERA Ot R40.2362 COMA SCALE, BEST MOTOR RESPONSE, OBEYS C 04/09/2019 TREVOR, GOGO FERRERA Ot S12.190A OTH DISP FX OF SECOND CERVICAL VERTEBRA, 04/09/2019 TREVOR, GOGO FERRERA Ot W01.0XXA FALL SAME LEV FROM SLIP/TRIP W/O STRIKE 04/09/2019 TREVOR, GOGO CHEF DE FROID Ot Z23 ENCOUNTER FOR IMMUNIZATION 04/09/2019 TREVOR, GOGO CHEF DE FROID Ot Z79.51 CHCF (CURRENT) USE OF INHALED STERO 04/09/2019 TREVOR, GOGO CHEF DE FROID Ot Z82.49 FAMILY HX OF ISCHEM HEART DIS AND OTH DI 04/09/2019 TREVOR, GOGO CHEF DE FROID Ot Z87.891 PERSONAL HISTORY OF NICOTINE DEPENDENCE 04/09/2019 TREVOR, GOGO CHEF DE FROID Ot Z88.8 ALLERGY STATUS TO OTH DRUG/MEDS/BIOL SUB 04/09/2019 TREVOR, GOGO CHEF DE FROID Ot Z96.611 PRESENCE OF RIGHT ARTIFICIAL SHOULDER ANUP 04/15/2019 TREVOR, GOGO CHEF DE FROID Ot I10 ESSENTIAL (PRIMARY) HYPERTENSION 04/15/2019 TREVOR, GOGO CHEF DE FROID Ot J44.9 CHRONIC OBSTRUCTIVE PULMONARY DISEASE, U 04/15/2019 TREVOR, GOGO CHEF DE FROID Ot M54.2 CERVICALGIA 04/15/2019 TREVOR, GOGO CHEF DE FROID Ot R40.2142 COMA SCALE, EYES OPEN, SPONTANEOUS, EMR 04/15/2019 TREVOR, GOGO CHEF DE FROID Ot R40.2252 COMA SCALE, BEST VERBAL RESPONSE, ORIENT 04/15/2019 TREVOR, GOGO CHEF DE FROID Ot R40.2362 COMA SCALE, BEST MOTOR RESPONSE, OBEYS C 04/15/2019 TREVOR, GOGO CHEF DE FROID Ot S12.190A OTH DISP FX OF SECOND CERVICAL VERTEBRA, 04/15/2019 TREVOR, GOGO CHEF DE FROID Ot W01.0XXA FALL SAME LEV FROM SLIP/TRIP W/O STRIKE 04/15/2019 TREVOR, GOGO CHEF DE FROID Ot Z23 ENCOUNTER FOR IMMUNIZATION 04/15/2019 TREVOR, GOGO CHEF DE FROID Ot Z79.51 FUR IRONER (CURRENT) USE OF INHALED STERO 04/15/2019 TREVOR, GOGO CHEF DE FROID Ot Z82.49 FAMILY HX OF ISCHEM HEART DIS AND OTH DI 04/15/2019 TREVOR, GOGO CHEF DE FROID Ot Z87.891 PERSONAL HISTORY OF NICOTINE DEPENDENCE 04/15/2019 TREVOR, GOGO CHEF DE FROID Ot Z88.8 ALLERGY STATUS TO OTH DRUG/MEDS/BIOL SUB 04/15/2019 TREVOR, GOGO CHEF DE FROID Ot Z96.611 PRESENCE OF RIGHT ARTIFICIAL SHOULDER ANUP 05/23/2019 STEVE DURHAM MD Ot M43.2 2 FUSION OF SPINE, CERVICAL REGION 06/13/2019 STEVE DURHAM MD Ot Z09 ENCNTR FOR F/U EXAM AFT TRTMT FOR COND O 06/13/2019 STEVE DURHAM MD Ot Z98.1 ARTHRODESIS STATUS 07/02/2019 DORA CARDONA APRN Ot I10 ESSENTIAL (PRIMARY) HYPERTENSION 07/02/2019 DORA CARDONA APRN Ot S01.01XA LACERATION WITHOUT FOREIGN BODY OF SCALP 07/02/2019 DORA CARDONA APRN Ot S09.90XA UNSPECIFIED INJURY OF HEAD, INITIAL ENCO 07/02/2019 DORA CARDONA APRN Ot W18.09XA STRIKING AGAINST OTH OBJECT W SUBSEQUENT 07/02/2019 DORA CARDONA APRN Ot Y92.096 GARDEN OR YARD OF NON-INSTITUTIONAL RESI 07/02/2019 DEISI POE APRN Ot M47.814 SPONDYLOSIS W/O MYELOPATHY OR RADICULOPA 07/02/2019 DEISI POE APRN Ot M47.816 SPONDYLOSIS W/O MYELOPATHY OR RADICULOPA 07/02/2019 DEISI POE APRN Ot R29.6 REPEATED FALLS Procedures There is no data. Results Test Result Range Complete blood count (CBC) with automate d white blood cell (WBC) differential - 04/23/17 13:30 Blood leukocytes automated count (number/volume) 12.1 10*3/uL 4.3-11.0 Blood erythrocytes automated count (number/volume) 4.24 10*6/uL 4.35-5.85 Venous blood hemoglobin measurement (mass/volume) 13.7 g/dL 11.5-16.0 Blood hematocrit (volume fraction) 39 % 35-52 Automated erythrocyte mean corpuscular volume 93 [ foz_us] 80-99 Automated erythrocyte mean corpuscular h emoglobin (mass per erythrocyte) 32 pg 25-34 Automated erythrocyte mean corpuscular h emoglobin concentration measurement (mass/volume) 35 g/dL 32-36 Automated erythrocyte distribution width ratio 12. 6 % 10.0- 14.5 Automated blood platelet count (count/volume) 275 10*3/uL [...] 10*3 1.0-4.0 Blood monocytes automated count (number/volume) 1. 6 10*3 0.0-1.0 Automated eosinophil count 0.0 10*3/uL 0 .0-0.3 Automated blood basophil count (count/volume) 0.0 10*3/uL 0.0-0.1 Comprehensive metabolic panel - 04/23/17 13:30 Serum or plasma sodium measurement (moles/volume) 135 mmol/L 135-145 Serum or plasma potassium measurement (moles/volume) 3.0 mmol/L 3.6-5.0 Serum or plasma chloride measurement (moles/volume) 94 mmol/L 98-107 Carbon dioxide 28 mmol/L 21-32 Serum or plasma anion gap determination (moles/volume) 13 mmol/L 5-14 Serum or plasma urea nitrogen measurement (mass/volume ) 12 mg/dL 7-18 Serum or plasma creatinine measurement (mass/volume) 0.88 mg/dL 0.60-1.30 Serum or plasma urea nitrogen/creatinine mass ratio 14 NRG Serum or plasma creatinine measurement w ith calculation of estimated glomerular filtration rate > NRG Serum or plasma glucose measurement (mass/volume) 120 mg/dL 70-105 Serum or plasma calcium measurement (mass/volume) 8.4 mg/dL 8.5-10.1 Serum or plasma total bilirubin measurement (mass/volu me) 1.1 mg/dL 0.1-1.0 Serum or plasma alkaline phosphatase nick surement (enzymatic activity/volume) 66 U/L 40-136 Serum or plasma aspartate aminotransfera se measurement (enzymatic activity/volume) 93 U/L 5-34 Serum or plasma alanine aminotransferase measurement (enzymatic activity/volume) 36 U/L 0-55 Serum or plasma protein measurement (mass/volume) 5.9 g/dL 6.4-8.2 Serum or plasma albumin measurement (mass/volume) 3.2 g/dL 3.2-4.5 Blood manual differential performed dete ction - 04/23/17 13:30 Blood monocytes/100 leukocytes 10 % NRG Manual blood segmented neutrophils/100 leukocytes 82 % NRG Blood band neutrophils/100 leukocytes 0 % NRG Manual blood lymphocytes/100 leukocytes 8 % NRG Manual eosinophils/100 leukocytes in nose 0 % NRG Manual blood basophils/100 leukocytes 0 % NRG Blood erythrocyte morphology finding identification NORMAL NRG Influenza virus A and B antigen detectio n - 04/23/17 13:40 FLU RESULT NEGATIVE FOR INFLUENZA A AND B ANTIGENS BY IA NRG Complete urinalysis with reflex to cultu re - 04/23/17 15:00 Urine color determination YELLOW NRG Urine clarity determination VERY CLOUDY NRG Urine pH measurement by test strip 6.5 5-9 Specific gravity of urine by test strip 1.005 1.016-1.022 Urine protein assay by test strip, semi-quantitative 2+ NEGATIVE Urine glucose detection by automated test strip NE GATIVE NEGATIVE Erythrocytes detection in urine sediment by light micr oscopy 3+ NEGATIVE Urine ketones detection by automated test strip NE GATIVE NEGATIVE Urine nitrite detection by test strip NEGATIVE NEGATIVE Urine total bilirubin detection by test strip NEGA TIVE NEGATIVE Urine urobilinogen measurement by automated test strip (mass/volume) NORMAL NORMAL Urine leukocyte esterase detection by dipstick 3+ NEGATIVE Automated urine sediment erythrocyte cou nt by microscopy (number/high power field) [HPF] NRG Automated urine sediment leukocyte count by microscopy (number/high power field) TNTC NRG Bacteria detection in urine sediment by light microsco py MODERATE NRG Squamous epithelial cells detection in u rine sediment by light microscopy 5-10 NRG Crystals detection in urine sediment by light microsco py NONE NRG Casts detection in urine sediment by light microscopy NONE NRG Mucus detection in urine sediment by light microscopy NEGATIVE NRG Complete urinalysis with reflex to culture YES NRG Bacterial urine culture - 04/23/17 15:00 Bacterial urine culture [id number] NRG COLONY COUNT >100,000/ML NRG FTX;REPORTABLE SENSITIVITY REPORTED AT 1538, NRG URINE CULTURE RESULTS PLUS NRG Bacterial susceptibility panel - 8 15:00 Gentamicin susceptibility test by minimum inhibitory c oncentration <= NRG Trimethoprim/sulfamethoxazole susceptibi lity test by minimum inhibitoryconcentration R NRG Ampicillin susceptibility test by minimum inhibitory c oncentration >= NRG Tobramycin susceptibility test by minimum inhibitory c oncentration <= NRG Cefazolin susceptibility test by minimum inhibitory co ncentration <= NRG Ceftriaxone susceptibility test by minimum inhibitory concentration <= NRG Ampicillin/sulbactam susceptibility test by minimum inhibitory concentration R NRG Piperacillin/tazobactam susceptibility t est by minimum inhibitory concentration S NRG Ciprofloxacin susceptibility test by minimum inhibitor y concentration >= NRG Meropenem susceptibility test by minimum inhibitory co ncentration <= NRG Nitrofurantoin susceptibility test by mi nimum inhibitory concentration <= NRG Aztreonam susceptibility test by minimum inhibitory co ncentration <= NRG Extended spectrum beta lactamase (ESBL) producing bacteria susceptibility test by minimum inhibitory concentration - NRG Bacterial blood culture - 04/23/17 18:46 Bacterial blood culture NG NRG Complete blood count (CBC) with automate d white blood cell (WBC) differential - 04/23/17 18:47 Blood leukocytes automated count (number/volume) 11.6 10*3/uL 4.3-11.0 Blood erythrocytes automated count (number/volume) 4.29 10*6/uL 4.35-5.85 Venous blood hemoglobin measurement (mass/volume) 13.7 g/dL 11.5-16.0 Blood hematocrit (volume fraction) 40 % 35-52 Automated erythrocyte mean corpuscular volume 93 [ foz_us] 80-99 Automated erythrocyte mean corpuscular h emoglobin (mass per erythrocyte) 32 pg 25-34 Automated erythrocyte mean corpuscular h emoglobin concentration measurement (mass/volume) 34 g/dL 32-36 Automated erythrocyte distribution width ratio 12. 7 % 10.0- 14.5 Automated blood platelet count (count/volume) 261 10*3/uL [...] 10*3 1.0-4.0 Blood monocytes automated count (number/volume) 1. 3 10*3 0.0-1.0 Automated eosinophil count 0.0 10*3/uL 0 .0-0.3 Automated blood basophil count (count/volume) 0.0 10*3/uL 0.0-0.1 Blood lactic acid measurement (moles/vol ume) - 04/23/17 18:47 Blood lactic acid measurement (moles/volume) 1.95 mmol/L 0.50-2.00 Whole blood basic metabolic panel - 04/04 04/20 18:47 Serum or plasma sodium measurement (moles/volume) 135 mmol/L 135-145 Serum or plasma potassium measurement (moles/volume) 3.5 mmol/L 3.6-5.0 Serum or plasma chloride measurement (moles/volume) 94 mmol/L 98-107 Carbon dioxide 23 mmol/L 21-32 Serum or plasma anion gap determination (moles/volume) 18 mmol/L 5-14 Serum or plasma urea nitrogen measurement (mass/volume ) 11 mg/dL 7-18 Serum or plasma creatinine measurement (mass/volume) 0.85 mg/dL 0.60-1.30 Serum or plasma urea nitrogen/creatinine mass ratio 13 NRG Serum or plasma creatinine measurement w ith calculation of estimated glomerular filtration rate > NRG Serum or plasma glucose measurement (mass/volume) 97 mg/dL 70-105 Serum or plasma calcium measurement (mass/volume) 8.8 mg/dL 8.5-10.1 Bacterial blood culture - 04/23/17 19:03 Bacterial blood culture NG NRG Methicillin resistant Staphylococcus aur eus (MRSA) screening culture - 04/23/17 20:20 Methicillin resistant Staphylococcus aureus (MRSA) scr eening culture NEG NRG Complete blood count (CBC) with automate d white blood cell (WBC) differential - 04/24/17 04:40 Blood leukocytes automated count (number/volume) 8.6 10*3/uL 4.3-11.0 Blood erythrocytes automated count (number/volume) 4.06 10*6/uL 4.35-5.85 Venous blood hemoglobin measurement (mass/volume) 13.1 g/dL 11.5-16.0 Blood hematocrit (volume fraction) 38 % 35-52 Automated erythrocyte mean corpuscular volume 95 [ foz_us] 80-99 Automated erythrocyte mean corpuscular h emoglobin (mass per erythrocyte) 32 pg 25-34 Automated erythrocyte mean corpuscular h emoglobin concentration measurement (mass/volume) 34 g/dL 32-36 Automated erythrocyte distribution width ratio 12. 7 % 10.0- 14.5 Automated blood platelet count (count/volume) 249 10*3/uL 130-400 Automated blood platelet mean volume measurement 8.5 [foz_us] 7.4-10.4 Automated blood neutrophils/100 leukocytes 79 % 42-75 Automated blood lymphocytes/100 leukocytes 9 % 12-44 Blood monocytes/100 leukocytes 11 % 0-12 Automated blood eosinophils/100 leukocytes 1 % 0-10 Automated blood basophils/100 leukocytes 0 % 0-10 Blood neutrophils automated count (number/volume) 6.9 10*3 1.8-7.8 Blood lymphocytes automated count (number/volume) 0.7 10*3 1.0-4.0 Blood monocytes automated count (number/volume) 1. 0 10*3 0.0-1.0 Automated eosinophil count 0.1 10*3/uL 0 .0-0.3 Automated blood basophil count (count/volume) 0.0 10*3/uL 0.0-0.1 Comprehensive metabolic panel - 04/24/17 04:40 Serum or plasma sodium measurement (moles/volume) 136 mmol/L 135-145 Serum or plasma potassium measurement (moles/volume) 3.2 mmol/L 3.6-5.0 Serum or plasma chloride measurement (moles/volume) 98 mmol/L 98-107 Carbon dioxide 25 mmol/L 21-32 Serum or plasma anion gap determination (moles/volume) 13 mmol/L 5-14 Serum or plasma urea nitrogen measurement (mass/volume ) 12 mg/dL 7-18 Serum or plasma creatinine measurement (mass/volume) 0.82 mg/dL 0.60-1.30 Serum or plasma urea nitrogen/creatinine mass ratio 15 NRG Serum or plasma creatinine measurement w ith calculation of estimated glomerular filtration rate > NRG Serum or plasma glucose measurement (mass/volume) 85 mg/dL 70-105 Serum or plasma calcium measurement (mass/volume) 8.1 mg/dL 8.5-10.1 Serum or plasma total bilirubin measurement (mass/volu me) 0.7 mg/dL 0.1-1.0 Serum or plasma alkaline phosphatase nick surement (enzymatic activity/volume) 67 U/L 40-136 Serum or plasma aspartate aminotransfera se measurement (enzymatic activity/volume) 75 U/L 5-34 Serum or plasma alanine aminotransferase measurement (enzymatic activity/volume) 34 U/L 0-55 Serum or plasma protein measurement (mass/volume) 5.4 g/dL 6.4-8.2 Serum or plasma albumin measurement (mass/volume) 2.9 g/dL 3.2-4.5 Serum or plasma phosphate measurement (m ass/volume) - 04/24/17 04:40 Serum or plasma phosphate measurement (mass/volume) 2.4 mg/dL 2.3-4.7 Magnesium - 04/24/17 04:40 Magnesium 1.7 mg/dL 1.8-2.4 Complete blood count (CBC) with automate d white blood cell (WBC) differential - 04/25/17 07:55 Blood leukocytes automated count (number/volume) 6.1 10*3/uL 4.3-11.0 Blood erythrocytes automated count (number/volume) 4.09 10*6/uL 4.35-5.85 Venous blood hemoglobin measurement (mass/volume) 12.8 g/dL 11.5-16.0 Blood hematocrit (volume fraction) 38 % 35-52 Automated erythrocyte mean corpuscular volume 93 [ foz_us] 80-99 Automated erythrocyte mean corpuscular h emoglobin (mass per erythrocyte) 31 pg 25-34 Automated erythrocyte mean corpuscular h emoglobin concentration measurement (mass/volume) 34 g/dL 32-36 Automated erythrocyte distribution width ratio 12. 5 % 10.0- 14.5 Automated blood platelet count (count/volume) 248 10*3/uL 130-400 Automated blood platelet mean volume measurement 8.7 [foz_us] 7.4-10.4 Automated blood neutrophils/100 leukocytes 73 % 42-75 Automated blood lymphocytes/100 leukocytes 14 % 12-44 Blood monocytes/100 leukocytes 12 % 0-12 Automated blood eosinophils/100 leukocytes 1 % 0-10 Automated blood basophils/100 leukocytes 0 % 0-10 Blood neutrophils automated count (number/volume) 4.4 10*3 1.8-7.8 Blood lymphocytes automated count (number/volume) 0.9 10*3 1.0-4.0 Blood monocytes automated count (number/volume) 0. 7 10*3 0.0-1.0 Automated eosinophil count 0.1 10*3/uL 0 .0-0.3 Automated blood basophil count (count/volume) 0.0 10*3/uL 0.0-0.1 Whole blood basic metabolic panel - 04/04 06/18 07:55 Serum or plasma sodium measurement (moles/volume) 136 mmol/L 135-145 Serum or plasma potassium measurement (moles/volume) 4.5 mmol/L 3.6-5.0 Serum or plasma chloride measurement (moles/volume) 105 mmol/L 98-107 Carbon dioxide 20 mmol/L 21-32 Serum or plasma anion gap determination (moles/volume) 11 mmol/L 5-14 Serum or plasma urea nitrogen measurement (mass/volume ) 7 mg/dL 7-18 Serum or plasma creatinine measurement (mass/volume) 0.63 mg/dL 0.60-1.30 Serum or plasma urea nitrogen/creatinine mass ratio 11 NRG Serum or plasma creatinine measurement w ith calculation of estimated glomerular filtration rate > NRG Serum or plasma glucose measurement (mass/volume) 85 mg/dL 70-105 Serum or plasma calcium measurement (mass/volume) 8.2 mg/dL 8.5-10.1 Serum or plasma phosphate measurement (m ass/volume) - 04/25/17 07:55 Serum or plasma phosphate measurement (mass/volume) 1.6 mg/dL 2.3-4.7 Magnesium - 04/25/17 07:55 Magnesium 1.9 mg/dL 1.8-2.4 Influenza virus A and B antigen detectio n - 04/25/17 08:40 FLU RESULT NEGATIVE FOR INFLUENZA A AND B ANTIGENS BY IA NRG Complete urinalysis with reflex to cultu re - 04/09/19 12:06 Urine color determination YELLOW NRG Urine clarity determination CLEAR NR G Urine pH measurement by test strip 7.5 5-9 Specific gravity of urine by test strip 1.020 1.016-1.022 Urine protein assay by test strip, semi-quantitative NEGATIVE NEGATIVE Urine glucose detection by automated test strip NE GATIVE NEGATIVE Erythrocytes detection in urine sediment by light micr oscopy NEGATIVE NEGATIVE Urine ketones detection by automated test strip NE GATIVE NEGATIVE Urine nitrite detection by test strip NEGATIVE NEGATIVE Urine total bilirubin detection by test strip NEGA TIVE NEGATIVE Urine urobilinogen measurement by automated test strip (mass/volume) 0.2 mg/dL < = 1.0 Urine leukocyte esterase detection by dipstick NEG ATIVE NEGATIVE Automated urine sediment erythrocyte cou nt by microscopy (number/high power field) NONE NRG Automated urine sediment leukocyte count by microscopy (number/high power field) NONE NRG Bacteria detection in urine sediment by light microsco py NEGATIVE NRG Squamous epithelial cells detection in u rine sediment by light microscopy 0-2 NRG Crystals detection in urine sediment by light microsco py NONE NRG Casts detection in urine sediment by light microscopy NONE NRG Mucus detection in urine sediment by light microscopy NEGATIVE NRG Complete urinalysis with reflex to culture NO NRG Complete blood count (CBC) with automate d white blood cell (WBC) differential - 04/09/19 12:54 Blood leukocytes automated count (number/volume) 8.4 10*3/uL 4.3-11.0 Blood erythrocytes automated count (number/volume) 4.71 10*6/uL 4.35-5.85 Venous blood hemoglobin measurement (mass/volume) 15.2 g/dL 11.5-16.0 Blood hematocrit (volume fraction) 45 % 35-52 Automated erythrocyte mean corpuscular volume 96 [ foz_us] 80-99 Automated erythrocyte mean corpuscular h emoglobin (mass per erythrocyte) 32 pg 25-34 Automated erythrocyte mean corpuscular h emoglobin concentration measurement (mass/volume) 34 g/dL 32-36 Automated erythrocyte distribution width ratio 12. 0 % 10.0- 14.5 Automated blood platelet count (count/volume) 299 10*3/uL 130-400 Automated blood platelet mean volume measurement 8.6 [foz_us] 7.4-10.4 Automated blood neutrophils/100 leukocytes 77 % 42-75 Automated blood lymphocytes/100 leukocytes 11 % 12-44 Blood monocytes/100 leukocytes 12 % 0-12 Automated blood eosinophils/100 leukocytes 0 % 0-10 Automated blood basophils/100 leukocytes 0 % 0-10 Blood neutrophils automated count (number/volume) 6.5 10*3 1.8-7.8 Blood lymphocytes automated count (number/volume) 0.9 10*3 1.0-4.0 Blood monocytes automated count (number/volume) 1. 0 10*3 0.0-1.0 Automated eosinophil count 0.0 10*3/uL 0 .0-0.3 Automated blood basophil count (count/volume) 0.0 10*3/uL 0.0-0.1 PT panel in platelet poor plasma by coag ulation assay - 04/09/19 12:54 Prothrombin time (PT) in platelet poor plasma by coagu lation assay 14.7 s 12.2-14.7 INR in platelet poor plasma or blood by coagulation as say 1.1 0.8-1.4 Activated partial thromboplastin time (a PTT) in platelet poor plasma bycoagulation assay - 04/09/19 12:54 Activated partial thromboplastin time (a PTT) in platelet poor plasma bycoagulation assay 30 s 24-35 Comprehensive metabolic panel - 04/09/19 12:54 Serum or plasma sodium measurement (moles/volume) 134 mmol/L 135-145 Serum or plasma potassium measurement (moles/volume) 3.2 mmol/L 3.6-5.0 Serum or plasma chloride measurement (moles/volume) 95 mmol/L 98-107 Carbon dioxide 23 mmol/L 21-32 Serum or plasma anion gap determination (moles/volume) 16 mmol/L 5-14 Serum or plasma urea nitrogen measurement (mass/volume ) 4 mg/dL 7-18 Serum or plasma creatinine measurement (mass/volume) 0.69 mg/dL 0.60-1.30 Serum or plasma urea nitrogen/creatinine mass ratio 6 NRG Serum or plasma creatinine measurement w ith calculation of estimated glomerular filtration rate > NRG Serum or plasma glucose measurement (mass/volume) 108 mg/dL 70-105 Serum or plasma calcium measurement (mass/volume) 9.8 mg/dL 8.5-10.1 Serum or plasma total bilirubin measurement (mass/volu me) 0.8 mg/dL 0.1-1.0 Serum or plasma alkaline phosphatase nick surement (enzymatic activity/volume) 56 U/L 40-136 Serum or plasma aspartate aminotransfera se measurement (enzymatic activity/volume) 23 U/L 5-34 Serum or plasma alanine aminotransferase measurement (enzymatic activity/volume) 15 U/L 0-55 Serum or plasma protein measurement (mass/volume) 7.4 g/dL 6.4-8.2 Serum or plasma albumin measurement (mass/volume) 4.4 g/dL 3.2-4.5 CALCIUM CORRECTED 9.5 mg/dL 8.5-10.1 Encounters ACCT No. Visit Date/Time Discharge Status Pt. Type Provider Facility Loc./Unit Complaint [id number] 06/28/2019 17:20:00 19:48:00 DIS Outpatient DORA CARDONA HOT DIP PLATER [facility] ER FALL/HEAD INJ [id number] 06/04/2019 14:46:00 14:27:00 DIS Outpatient STEVE DURHAM MD [facility] REHAB POST OP CERVICAL FUSION [id number] 06/11/2019 12:29:00 23:59:59 CLS Outpatient DEISI POE APRN [facility] RAD FALL [id number] 04/09/2019 11:07:00 13:32:00 DIS Emergency GOGO MURRAY CHEF DE FROID [facility] ER FALL [id number] 03/04/2019 14:49:00 23:59:59 CLS Outpatient SUSI RENTERIA DO [facility] RAD RT KNEE PAIN [id number] 02/14/2019 08:13:00 23:59:59 CLS Outpatient KAVITA KIRBY MD [facility] RAD RT BREAST CLUSTER MICR O CALCIFICATIONS [id number] 02/06/2019 08:57:00 23:59:59 CLS Outpatient DEISI POE APRN [facility] RAD RT BREAST DENSITY [id number] 01/24/2019 11:18:00 23:59:59 CLS Outpatient KAVITA KIRBY MD [facility] RAD SCREENING [id number] 01/24/2019 11:14:00 23:59:59 CLS Outpatient KING ROCHA MD [facility] CARD DYSPNEA [id number] 12/26/2018 13:46:00 23:59:59 CLS Outpatient DEISI POE APRN [facility] RAD R LEG PAIN [id number] 09/03/2018 14:15:00 019 23:59:59 CLS Preadmit KAVITA KIRBY MD [facility] PULM COPD J44.9 [id number] 06/04/2018 13:11:00 019 00:01:00 DIS Outpatient KAVITA KIRBY MD [facility] PULM COPD J44.9 [id number] 03/22/2018 11:00:00 018 13:44:00 DIS Outpatient DEISI POE APRN [facility] REHAB UPPER BACK PAIN [id number] 03/05/2018 14:50:00 23:59:59 CLS Outpatient DAKOTAH VILLARREAL [facility] RAD RIGHT FOOT/ANKL E SWELLING,PAIN [id number] 03/01/2018 08:54:00 23:59:59 CLS Outpatient DAKOTAH VILLARREAL [facility] RAD OSTEOPOROSIS [id number] 01/01/2018 14:39:00 23:59:59 CLS Preadmit KAVITA KIRBY MD [facility] RAD SCREENING [id number] 10/02/2017 14:08:00 23:59:59 CLS Outpatient KING ROCHA MD [facility] CARD AR,COPD, DIASTOLIC DYSF UNCTION [id number] 09/11/2017 10:45:00 23:59:59 CLS Preadmit SOL SOMMER MD, V [facility] PULM MODERATE COPD [id number] 06/12/2017 12:38:00 00:01:00 DIS Outpatient SOL SOMMER MD [facility] PULM MODERATE COPD [id number] 07/19/2017 00:09:00 23:59:59 CLS Preadmit BRANDAN GREER APRN [facility] REHAB S/P R SHOULDER REPLACEM ENT [id number] 06/29/2017 13:56:00 018 00:01:00 DIS Outpatient ZOEYBRANDAN HOT DIP PLATER [facility] REHAB S/P R SHOULDER REPLACEM ENT [id number] 04/23/2017 19:20:00 018 12:30:00 DIS Inpatient MCNAMARA DO, MIMI [facility] 4TH UTI,WEAKNES,SEPSIS [id number] 04/23/2017 13:25:00 018 16:37:00 DIS Emergency BRENDAN DORA Teresita HOT DIP PLATER [facility] ER DIZZINESS/DISORIENTED [id number] 04/21/2017 07:21:00 018 23:59:59 CLS Preadmit KEMAL TY, SOL S [facility] RAD CT LUNG SCREENING [id number] 03/13/2017 16:04:00 017 23:59:59 CLS Outpatient MCNAMARA DO, MIMI [facility] RAD COUGH [id number] 01/26/2017 09:08:00 017 23:59:59 CLS Outpatient MCNAMARA DO, MIMI [facility] CARD ENLARGED HEART I51.7 [id number] 01/10/2017 09:32:00 017 23:59:59 CLS Outpatient DEXTER DO, SUSI F [facility] RAD PRIMARY OA RT S HOULDER [id number] 01/06/2017 09:44:00 017 23:59:59 CLS Outpatient MCNAMARA DO, MIMI [facility] RAD R05 [id number] 01/03/2017 09:11:00 017 23:59:59 CLS Outpatient MCNAMARA DO, MIMI [facility] RAD Z12.31 [id number] 01/01/2017 02:46:00 017 23:59:59 CLS Preadmit DEXTER DO SUSI F [facility] REHAB RT KNEE; LOW BACK PAIN [id number] 12/20/2016 10:08:00 09/30/2 017 00:01:00 DIS Outpatient DEXTER CUELLAR SUSI Edwards [facility] REHAB RT KNEE; LOW BA CK PAIN [id number] 10/25/2016 13:36:00 017 23:59:59 CLS Outpatient DEXTER CUELLARSUSI [facility] RAD RIGHT KNEE TMM [id number] 08/04/2016 10:15:00 23:59:59 CLS Preadmit MIMI MCNAMARA DO [facility] PULM UNSPECIFIED ASTHMA W/ST ATUS ASTHMATICUS [id number] 05/19/2016 10:00:00 017 00:01:00 DIS Outpatient MIMI MCNAMARA DO [facility] PULM UNSPECIFIED ASTHMA W/ST ATUS ASTHMATICUS [id number] 06/28/2016 10:28:00 017 13:19:00 DIS Outpatient [facility]AR [facility] JENNA OHUMERAL JOINT; RT SHOULDER [id number] 04/26/2016 10:00:00 017 00:01:00 DIS Outpatient MIMI MCNAMARA DO [facility] PULM UNSPECIFIED ASTHMA W/ST ATUS ASTHMATICUS [id number] 04/06/2016 15:10:00 017 23:59:59 CLS Outpatient HE MATHEWS DO [facility] RT DYSPNEA [id number] 02/19/2016 13:29:00 016 23:59:59 CLS Outpatient MIMI MCNAMARA DO [facility] RAD J01.10 [id number] 12/31/2015 10:19:00 016 23:59:59 CLS Outpatient MIMI MCNAMARA DO [facility] RAD SCREENING [id number] 07/13/2015 12:54:00 15:24:00 DIS Outpatient ARMANI ORDOÑEZ [facility] REHAB S/P LUMBAR LAMI NECTOMY [id number] 05/14/2015 12:55:00 02/29/2 016 15:40:00 DIS Outpatient ARMAIN ORDOÑEZ [facility] REHAB S/P C4-7 ANTERI OR FUSION;UPPER BACK PAIN [id number] 04/16/2015 07:01:00 016 23:59:59 CLS Outpatient STEVE DURHAM MD [facility] RAD RADICULOPATHY [id number] 12/29/2014 10:29:00 015 23:59:59 CLS Outpatient MCNAMARA DO, MIMI [facility] RAD SCREENING [id number] 11/14/2014 13:03:00 015 10:06:00 DIS Outpatient LISSA EDWARDS MD [facility] REHAB LUMBAR RADICULOPATHY [id number] 10/17/2014 09:53:00 015 10:55:00 DIS Emergency DORA CARDONA HOT DIP PLATER [facility] ER LEFT PINKIE FINGER LAC [id number] 05/01/2014 13:01:00 015 23:59:59 CLS Outpatient GURPREET BOLAÑOS MD [facility] RAD LBP [id number] 11/27/2013 09:59:00 014 23:59:59 CLS Outpatient MCNAMARA DO, MIMI [facility] RAD SCREENING [id number] 10/07/2013 14:15:00 014 23:59:59 CLS Outpatient MCNAMARA DO, MIMI [facility] RT ASTHMA,WHEEZING [id number] 04/22/2013 08:42:00 014 23:59:59 CLS Outpatient [id number] 04/08/2013 18:20:00 014 11:55:00 DIS Inpatient [id number] 04/02/2013 07:57:00 013 23:59:59 CLS Outpatient [id number] 10/29/2012 07:00:00 013 23:59:59 CLS Outpatient BHARATH HARDING [facility] RAD SCREENING [id number] 07/18/2014 16:19:00 Document Registration [id number] 10/28/2011 07:42:00 Document Registration [id number] 10/19/2010 10:12:00 Document Registration [id number] 07/07/2010 07:58:00 Document Registration [id number] 04/26/2010 13:24:00 Document Registration [id number] 10/28/2009 15:16:00 Document Registration [id number] 09/01/2009 15:00:00 Document Registration [id number] 02/19/2009 11:52:00 Document Registration [id number] 02/03/2009 14:14:00 Document Registration
--- NOTE | 2019-07-05 11:56 | NUR ---
SUTURES X3 REMOVED FROM POST HEAD
--- NOTE | 2019-07-05 12:30 | ED Head Injury ---
General Chief Complaint: Trauma-Non Activation Stated Complaint: STITCH REMOVAL Nursing Triage Note: PT HERE FOR SUTURE REMOVAL, PT STATE HAS FALLEN 4 TIMES SINCE HAD SUTURES PUT IN. PT CO OF DIZZINESS. STATES DIZZINESS HAS CAUSED HER TO FALL Source: patient Exam Limitations: no limitations History of Present Illness Date Seen by Provider: Jul 05, 2019 Time Seen by Provider: 12:00 Initial Comments Who ER for suture removal, sooner here because she is since that visit, she has fallen several more times. She had cervical spine surgery for neck fracture in April of this year also for a fall. Location Injury Occurred: HOME Occurred: last week Severity: moderate Location: parietal Method of Injury: fell Loss of Consciousness: no loss of consciousness Associated Systoms: Headaches Allergies and Home Medications Allergies Coded Allergies: succinylcholine (Unverified Allergy, Unknown, 04/24/17) Home Medications Acetylcysteine 500 Mg Capsule, 500 MG PO BID, (Reported) Albuterol Sulfate 18 Gm Hfa.aer.ad, 2 PUFF INH Q4H PRN for SHORTNESS OF BREATH, (Reported) Alprazolam 0.5 Mg Tablet, 1 MG PO HS, (Reported) TAKES 2 (0.5MG) TABLETS Alprazolam 0.5 Mg Tablet, 0.5 MG PO DAILY PRN for ANXIETY, (Reported) Ascorbate Calcium 500 Mg Tablet, 500 MG PO DAILY, (Reported) Beta-Carotene 25,000 Unit Capsule, 25,000 UNIT PO DAILY, (Reported) Cefdinir 300 Mg Capsule, 300 MG PO BID Prescribed by: AGAPITO PÉREZ on 04/25/17 1147 Cetirizine HCl 10 Mg Tablet, 10 MG PO DAILY, (Reported) Cholecalciferol (Vitamin D3) 400 Unit Capsule, 400 UNIT PO DAILY, (Reported) Escitalopram Oxalate 10 Mg Tablet, 10 MG PO DAILY, (Reported) Fenofibrate Nanocrystallized 145 Mg Tablet, 145 MG PO DAILY, (Reported) Fluticasone Propionate 16 Gm Superior.susp, 2 SPRAY NS DAILY, (Reported) Fluticasone/Salmeterol 1 Each Blst.w.dev, 1 PUFF INH DAILY, (Reported) Gabapentin 400 Mg Capsule, 400 MG PO QID, (Reported) LAST FILLED #360 7-6-17 Glucosa Prince 2Kcl/Chondroitin Prince 1 Each Tablet, 1 TAB PO DAILY, (Reported) Hydrochlorothiazide 25 Mg Tablet, 25 MG PO DAILY, (Reported) Hydrocodone Bit/Acetaminophen 1 Tab Tab, 1 EACH PO Q6H PRN for PAIN-MODERATE Prescribed by: GOGO MURRAY on 04/09/19 1327 Ibuprofen 200 Mg Tablet, 200 MG PO DAILY, (Reported) Lisinopril/Hydrochlorothiazide 1 Each Tablet, 1 TAB PO DAILY, (Reported) Montelukast Sodium 10 Mg Tablet, 10 MG PO HS, (Reported) Multivitamin 1 Each Tablet, 1 TAB PO DAILY, (Reported) Omeprazole 40 Mg Capsule.dr, 40 MG PO BID, (Reported) Pomegranate Fruit Extract 250 Mg Capsule, 250 MG PO DAILY, (Reported) Potassium Chloride 20 Meq Tab.er.prt, 20 MEQ PO BID, (Reported) Tiotropium [place] 4 Gm Mist.inhal, 2 PUFF INH DAILY, (Reported) Tramadol HCl 50 Mg Tablet, 50 MG PO Q6H PRN for PAIN-MODERATE, (Reported) Vitamin E Acetate 400 Unit Capsule, 400 UNIT PO DAILY, (Reported) Patient Home Medication List Home Medication List Reviewed: Yes Review of Systems Review of Systems Constitutional: see HPI Eyes: No Symptoms Reported Ears, Nose, Mouth, Throat: no symptoms reported Respiratory: no symptoms reported Cardiovascular: no symptoms reported Genitourinary: no symptoms reported Musculoskeletal: no symptoms reported Skin: no symptoms reported Psychiatric/Neurological: No Symptoms Reported Endocrine: No Symptoms Reported Hematologic/Lymphatic: No Symptoms Reported Past Mapleej-Zfkwyi-Gbhzls Hx Patient Social History Alcohol Use: Denies Use Number of Drinks Today: EE Alcohol Beverage of Choice: Scotch Recreational Drug Use: No Smoking Status: Former Smoker Type Used: Cigarettes Former Smoker, Quit: Apr 03, 2001 Recent Foreign Travel: No Contact w/Someone Who Travel: No Recent Infectious Disease Expo: No Recent Hopitalizations: Yes (03/19 SHOULDER SURGERY) Physical Abuse: No Sexual Abuse: No Immunizations Up To Date Tetanus Booster (TDap): Less than 5yrs Date of Pneumonia Vaccine: Feb 16, 2012 Date of Influenza Vaccine: Jan 04, 2017 Past Medical History Surgeries: No (HIP BACK TENDONITIS; rt. wrist carpal tunnel, cervical spine fusion) Gallbladder, Orthopedic Respiratory: Yes (ALLERGIES COMBIVENT) Currently Using CPAP: No Currently Using BIPAP: No Cardiac: Yes Hypertension Neurological: No Reproductive Disorders: No Sexually Transmitted Disease: No HIV/AIDS: No Genitourinary: No Gastrointestinal: Yes (COLON POLYPS/HIATAL HERNIA) Gall Bladder Disease Musculoskeletal: Yes (rt. hip replacement 08/31/10) Chronic Back Pain, Fractures Endocrine: No Loss of Vision: Bilateral Hearing Impairment: Denies Cancer: No Psychosocial: No Integumentary: No Blood Disorders: No (BLEEDS EASILY) Adverse Reaction/Blood Tranf: No (NEVER HAD BLOOD TRANSFUSION) Family Medical History Family history: Hypertension 03 FATHER, Onset:Unknown Myocardial infarction 03 FATHER, Onset:60 years & older Stroke 03 MOTHER, Onset:Unknown No Pertinent Family Hx Physical Exam Vital Signs Vital Signs - First Documented 07/05/19 11:40 Temp 36.5 Pulse 83 Resp 18 B/P (MAP) 146/83 (104) Pulse Ox 95 Capillary Refill : Less Than 3 Seconds Height, Weight, BMI Height: 5'2.00" Weight: 169lbs. 6.0oz. 74.243125pw; 32.00 BMI Method:Stated General Appearance: WD/WN, no apparent distress Procedures/Interventions Suture Size: 4-0 Progress/Results/Core Measures Results/Orders My Orders Orders - DORA CARDONA APRN Ct Head/Cervical Spine Wo (07/05/19 11:49) Vital Signs/I&O 07/05/19 11:40 Temp 36.5 Pulse 83 Resp 18 B/P (MAP) 146/83 (104) Pulse Ox 95 Blood Pressure Mean: 104 Diagnostic Imaging Comments NAME: [facility] REC#: [id number] PT STATUS: REG ER : 1950 PHYSICIAN: DORA CARDONA APRN ADMIT DATE: 07/05/19/ER Draft Date of Exam:07/05/19 CT HEAD/CERVICAL SPINE WO PROCEDURE: CT head and CT cervical spine without contrast. TECHNIQUE: Multiple contiguous axial images were obtained through the brain and cervical spine without the use of intravenous contrast. Sagittal and coronal reformations through the cervical spine were then performed. Auto Exposure Controls were utilized during the CT exam to meet ALARA standards for radiation dose reduction. INDICATION: Multiple recent falls. Patient has known recent C2 fracture with fixation. COMPARISON: Correlation is made with recent CT head and cervical spine study from 06/28/2019. FINDINGS: CT head: There is some soft tissue swelling in the left posterior parietal scalp. This has improved since the recent CT. Parenchymal volume loss is again noted. Periventricular hypodensities noted, consistent with chronic microvascular ischemia. No sulcal effacement or midline shift is identified. No acute intra-axial or extra-axial hemorrhage is detected. Cisterns are patent. Visualized paranasal sinuses are clear. IMPRESSION: 1. Decrease in size of left posterior parietal scalp hematoma. 2. No acute intracranial process is detected. CT cervical spine: Postsurgical changes of posterior instrumented fusion from C1 through C4 are again noted. There are postop changes of ACDF from C4 through C7. Alignment of the cervical spine is stable. Previously noted C2 fracture appears stable. Fracture lines do remain visible. No new fractures identified. Prevertebral tissues are within normal limits. Odontoid is intact. IMPRESSION: Stable post-traumatic and postsurgical changes through the cervical spine when compared with examination from 06/28/2019. No new abnormality is detected. Dictated on workstation # [id number] Dict: 07/05/19 1216 Trans: 07/05/19 1226 [id number] Interpreted by: MARYCARMEN GRIMES MD Electronically signed by: Departure Impression Primary Impression: Encounter for removal of sutures Additional Impression: Frequent falls Disposition: 01 HOME, SELF-CARE Condition: Stable Departure-Patient Inst. Decision time for Depature: 12:28 Referrals: KAVITA KIRBY MD (PCP/Family) Primary Care Physician Patient Instructions: Stitches Removal, Preventing Falls in the Older Adult Add. Discharge Instructions: 1. Follow-up with your doctor next week. Return to ER for any concerns. All discharge instructions reviewed with patient and/or family. Voiced understanding. DORA CARDONA DISCHARGE COORDINATOR Jul 05, 2019 12:30
[2019-07-05 12:45] VITALS: BP 146/83
== END 2019-07-05 12:46 | disposition home or self-care (01) ==
LOC: EDUNIT# 11:27 → ER 11:29
DX: S01.01XD Laceration without foreign body of scalp, subsequent encounter (principal); W18.09XD Striking against other object with subsequent fall, subsequent encounter; R29.6 Repeated falls; Z98.1 Arthrodesis status; I10 Essential (primary) hypertension; Z96.641 Presence of right artificial hip joint; Z87.891 Personal history of nicotine dependence; Z79.899 Other long term (current) drug therapy
CPT/HCPCS: 70450; 72125

== ENCOUNTER → 2019-08-08 | Outpatient (CLI) | payer MEDICARE, OTHER ==
--- NOTE | 2019-08-08 17:38 | Diagnostic Imaging Report ---
EXAM: Ultrasound right breast, limited. INDICATION: Calcifications. The diagnostic mammogram performed earlier today noted a newly developed group of microcalcifications in the biopsy site in the upper outer aspect of the right breast. There is also a surgical clip in this region as well as a small soft tissue density about the clip. On this exam there is a small 5 x 5 x 4 mm hypoechoic area containing a few minute echogenic densities. This may well correspond to the microcalcifications and the soft tissue density. I suspect this finding is related to scar formation and not to malignancy. There is also a suggestion of the clip itself in this area although it is difficult to identify with certainty. IMPRESSION: I do feel that the mammographic appearance of the calcifications is consistent with a benign process. Even so, as they have developed in the interval since the prior exam, a short-term (6 month) follow-up mammogram would be recommended. These results were discussed with Dr. Beronica Root. ACR category 3 ACR BI-RADS Category 3: Probably benign findings. Result letter will be mailed to the patient. Note: At least 10% of breast cancer is not imaged by mammography. Dictated by: Dictated on workstation # [id number]
--- NOTE | 2019-08-08 20:09 | Diagnostic Imaging Report ---
Diagnostic right mammogram INDICATION: Six-month followup biopsy This study was compared to the prior exam of 01/24/2019, 01/23/2017 and 12/31/2015. At this time, there are no current complaints. The current study was also evaluated with a Computer Aided Detection (CAD) system. The previous diagnostic mammogram of 02/06/2019 noted a cluster of pleomorphic calcifications with an adjacent soft tissue nodule in the upper-outer aspect of the right breast. A stereotactic biopsy was recommended to exclude malignancy. The patient did undergo a stereotactic biopsy on 02/14/2019. The results of the exam failed to show any sign of malignancy. The pathology report did note negative for calcification. However, in reviewing the specimen radiograph there was clear evidence of calcification within the specimen. On this exam, the calcifications in question appear to have been partially removed. There is also a stereotactic clip in this area and there is a new small soft tissue density about the stereotactic clip. Furthermore, a small cluster of benign-appearing calcifications has developed in this same region. I do suspect that all of these findings are benign. Even so, I would recommend that ultrasound be performed for further study. The fibroglandular tissue in the right breast is heterogeneously dense. This does limit the sensitivity of this exam. Overall, there does not appear to have been any significant change. There is no primary or secondary sign of malignancy noted. IMPRESSION: There are post biopsy changes involving the right breast. The newly developed group of calcifications in this area is most likely benign. Ultrasound would be recommended for further study. ACR BI-RADS Category 0 : Needs additional imaging Result letter will be mailed to the patient. Note: At least 10% of breast cancer is not imaged by mammography. Dictated by: Dictated on workstation # [id number]
== END ==
LOC: RAD 12:51
PROVIDERS: ATTEND Nurse Practitioner Family
DX: Z09 Encounter for follow-up examination after completed treatment for conditions other than malignant neoplasm (principal); R92.1 Mammographic calcification found on diagnostic imaging of breast

== ENCOUNTER 2019-08-23 22:22 | Emergency (ER) | payer MEDICARE, OTHER ==
[~2019-08-23] VITALS: Ht 152 cm; Wt 65.8 kg
--- OUTSIDE RECORDS SUMMARY | 2019-08-23 22:34 | XMS REPORT | Continuity of Care Document ---
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 CARDONA APRN Ot I10 ESSENTIAL (PRIMARY) HYPERTENSION 06/28/2019 DORA CARDONA APRN Ot S01.01XA LACERATION WITHOUT FOREIGN BODY OF SCALP 06/28/2019 ODRA CARDONA APRN Ot S09.90XA UNSPECIFIED INJURY OF HEAD, INITIAL ENCO 06/28/2019 DORA CARDONA APRN Ot W18.09XA STRIKING AGAINST OTH OBJECT W SUBSEQUENT 06/28/2019 DORA CARDONA APRN Ot Y92.096 GARDEN OR YARD OF NON-INSTITUTIONAL RESI 07/02/2019 DORA CARDONA APRN Ot I10 ESSENTIAL [...] DEISI POE APRN Ot R29.6 REPEATED FALLS 07/05/2019 CARDONA, PETER J QUANTITY SURVEYOR Ot I10 ESSENTIAL (PRIMARY) HYPERTENSION 07/05/2019, DORA Lo QUANTITY SURVEYOR Ot R29 .6 REPEATED FALLS 07/05/2019, DORA Lo QUANTITY SURVEYOR Ot S01.01XD LACERATION WITHOUT FOREIGN BODY OF SCALP 07/05/2019, DORA Lo APRN Ot W18.09XD STRIKING AGAINST OTH OBJECT W SUBSEQUENT 07/05/2019, DORA Lo APRN Ot Z79.899 OTHER PROGRAM CONSULTANT (CURRENT) DRUG THERAPY 07/05/2019, DORA Lo QUANTITY SURVEYOR Ot Z87.891 PERSONAL HISTORY OF NICOTINE DEPENDENCE 07/05/2019, DORA Lo APRN Ot Z96.641 PRESENCE OF RIGHT ARTIFICIAL HIP JOINT 07/05/2019, DORA Lo QUANTITY SURVEYOR Ot Z98 .1 ARTHRODESIS STATUS 07/08/2019 CARDONA, DORA Lo QUANTITY SURVEYOR Ot I10 ESSENTIAL (PRIMARY) HYPERTENSION 07/08/2019, DORA Lo APRN Ot R29 .6 REPEATED FALLS 07/08/2019, DORA Lo QUANTITY SURVEYOR Ot S01.01XD LACERATION WITHOUT FOREIGN BODY OF SCALP 07/08/2019, DORA Lo APRN Ot W18.09XD STRIKING AGAINST OTH OBJECT W SUBSEQUENT 07/08/2019, DORA Lo APRN Ot Z79.899 OTHER [facility] (CURRENT) DRUG THERAPY 07/08/2019, DORA Lo APRN Ot Z87.891 PERSONAL HISTORY OF NICOTINE DEPENDENCE 07/08/2019, DORA Lo APRN Ot Z96.641 PRESENCE OF RIGHT ARTIFICIAL HIP JOINT 07/08/2019, DORA Lo APRN Ot Z98 .1 ARTHRODESIS STATUS 08/09/2019 W R92.8 Abno rmal mammogram [place], Kavita 08/09/2019 DEISI POE QUANTITY SURVEYOR Ot R92.1 MAMMOGRAPHIC CALCIFCN FOUND ON DIAGNOSTI 08/09/2019 DEISI POE QUANTITY SURVEYOR Ot Z0 9 ENCNTR FOR F/U EXAM AFT TRTMT FOR COND O Procedures There is no data. Results Test [...] culture - 04/23/17 15:00 Bacterial urine culture [id number] NRG COLONY COUNT >100,000/ML NRG FTX;REPORTABLE SENSITIVITY [...] Status Pt. Type Provider Facility Loc./Unit Complaint [id number] 12/26/2017 13:45:35 12/26/2017 23:59:5 9 CLS Outpatient [id number] 08/08/2019 12:51:00 23:59:59 CLS Outpatient DEISI POE APRN [facility] RAD RT BREAST DENSITY CA LCIFICATIONS F/U [id number] 07/05/2019 11:29:00 12:46:00 DIS Emergency DORA CARDONA APRN [facility] ER STITCH REMOVAL [id number] 06/28/2019 17:20:00 19:48:00 DIS Emergency DORA CARDONA APRN [facility] ER FALL/HEAD INJ [id number] 06/04/2019 14:46:00 14:27:00 DIS Outpatient STEVE DURHAM MD [facility] REHAB POST OP CERVICAL FUSION [id number] 06/11/2019 12:29:00 23:59:59 CLS Outpatient DEISI POE APRN [facility] RAD FALL [id number] 04/09/2019 11:07:00 13:32:00 DIS Emergency GOGO MURRAY MAISHA [facility] ER FALL [id number] 03/04/2019 14:49:00 23:59:59 CLS Outpatient SUSI RENTERIA DO [facility] RAD RT KNEE PAIN [id number] 02/14/2019 08:13:00 23:59:59 CLS Outpatient KAVITA KIRBY MD [facility] RAD RT BREAST CLUSTER MICR O CALCIFICATIONS [id number] 02/06/2019 08:57:00 23:59:59 CLS Outpatient DEISI POE APRN [facility] RAD RT BREAST DENSITY [id number] 01/24/2019 11:18:00 23:59:59 CLS Outpatient KAVITA KIRBY MD [facility] RAD SCREENING [id number] 01/24/2019 11:14:00 23:59:59 CLS Outpatient KING ROCHA MD [facility] CARD DYSPNEA [id number] 12/26/2018 13:46:00 23:59:59 CLS Outpatient DEISI POE APRN [facility] RAD R LEG PAIN [id number] 09/03/2018 14:15:00 23:59:59 CLS Preadmit KAVITA KIRBY MD [facility] PULM COPD J44.9 [id number] 06/04/2018 13:11:00 00:01:00 DIS Outpatient KAVITA KIRBY MD [facility] PULM COPD J44.9 [id number] 03/22/2018 11:00:00 13:44:00 DIS Outpatient DEISI POE APRN [facility] REHAB UPPER BACK PAIN [id number] 03/05/2018 14:50:00 23:59:59 CLS Outpatient DAKOTAH VILLARREAL [facility] RAD RIGHT FOOT/ANKL E SWELLING,PAIN [id number] 03/01/2018 08:54:00 23:59:59 CLS Outpatient DAKOTAH VILLARREAL [facility] RAD OSTEOPOROSIS [id number] 01/01/2018 14:39:00 23:59:59 CLS Preadmit KAVITA KIRBY MD [facility] RAD SCREENING [id number] 10/02/2017 14:08:00 23:59:59 CLS Outpatient JOSEFINA TY, KING Lo [facility] CARD AR,COPD, DIASTOLIC DYSF UNCTION [id number] 09/11/2017 10:45:00 23:59:59 CLS Preadmit SOL SOMMER MD [facility] PULM MODERATE COPD [id number] 06/12/2017 12:38:00 018 00:01:00 DIS Outpatient SOL SOMMER MD [facility] PULM MODERATE COPD [id number] 07/19/2017 00:09:00 23:59:59 CLS Preadmit BRANDAN GREER QUANTITY SURVEYOR [facility] REHAB S/P R SHOULDER REPLACEM ENT [id number] 06/29/2017 13:56:00 018 00:01:00 DIS Outpatient BRANDAN GREER QUANTITY SURVEYOR [facility] REHAB S/P R SHOULDER REPLACEM ENT [id number] 04/23/2017 19:20:00 018 12:30:00 DIS Inpatient MCNAMARA DO, MIMI V [facility] 4TH UTI,WEAKNES,SEPSIS [id number] 04/23/2017 13:25:00 018 16:37:00 DIS Emergency DORA CARDONA QUANTITY SURVEYOR [facility] ER DIZZINESS/DISORIENTED [id number] 04/21/2017 07:21:00 018 23:59:59 CLS Preadmit SOL SOMMER MD S V [facility] RAD CT LUNG SCREENING [id number] 03/13/2017 16:04:00 017 23:59:59 CLS Outpatient MCNAMARA DO, MIMI [facility] RAD COUGH [id number] 01/26/2017 09:08:00 017 23:59:59 CLS Outpatient MCNAMARA DO, MIMI [facility] CARD ENLARGED HEART I51.7 [id number] 01/10/2017 09:32:00 017 23:59:59 CLS Outpatient DEXTER DOSUSI F [facility] RAD PRIMARY OA RT S HOULDER [id number] 01/06/2017 09:44:00 017 23:59:59 CLS Outpatient MCNAMARA DO, MIMI [facility] RAD R05 [id number] 01/03/2017 09:11:00 017 23:59:59 CLS Outpatient MCNAMARA DO, MIMI [facility] RAD Z12.31 [id number] 01/01/2017 02:46:00 017 23:59:59 CLS Preadmit SUSI RENTERIA DO F [facility] REHAB RT KNEE; LOW BACK PAIN [id number] 12/20/2016 10:08:00 017 00:01:00 DIS Outpatient SUSI RENTERIA DO F [facility] REHAB RT KNEE; LOW BA CK PAIN [id number] 10/25/2016 13:36:00 017 23:59:59 CLS Outpatient SUSI RENTERIA DO F [facility] RAD RIGHT KNEE TMM [id number] 08/04/2016 10:15:00 017 23:59:59 CLS Preadmit MCNAMARA DO, MIMI Vi [facility] PULM UNSPECIFIED ASTHMA W/ST ATUS ASTHMATICUS [id number] 05/19/2016 10:00:00 00:01:00 DIS Outpatient MCNAMARA DO, MIMI [facility] PULM UNSPECIFIED ASTHMA W/ST ATUS ASTHMATICUS [id number] 06/28/2016 10:28:00 017 13:19:00 DIS Outpatient DEXTER CUELLARSUSI [facility] REHAB PRIMARY OA JENNA OHUMERAL JOINT; RT SHOULDER [id number] 04/26/2016 10:00:00 017 00:01:00 DIS Outpatient NAIMA CUELLAR MIMI [facility] PULM UNSPECIFIED ASTHMA W/ST ATUS ASTHMATICUS [id number] 04/06/2016 15:10:00 017 23:59:59 CLS Outpatient REID CUELLAR HE M [facility] RT DYSPNEA [id number] 02/19/2016 13:29:00 016 23:59:59 CLS Outpatient NAIMA CUELLAR MIMI [facility] RAD J01.10 [id number] 12/31/2015 10:19:00 016 23:59:59 CLS Outpatient NAIMA CUELLAR MIMI [facility] RAD SCREENING [id number] 07/13/2015 12:54:00 016 15:24:00 DIS Outpatient ARMANI ORDOÑEZ [facility] REHAB S/P LUMBAR LAMI NECTOMY [id number] 05/14/2015 12:55:00 016 15:40:00 DIS Outpatient ARMANI ORDOÑEZ [facility] REHAB S/P C4-7 ANTERI OR FUSION;UPPER BACK PAIN [id number] 04/16/2015 07:01:00 016 23:59:59 CLS Outpatient STEVE DURHAM MD [facility] RAD RADICULOPATHY [id number] 12/29/2014 10:29:00 015 23:59:59 CLS Outpatient NAIMA CUELLAR MIMI [facility] RAD SCREENING [id number] 11/14/2014 13:03:00 015 10:06:00 DIS Outpatient LISSA EDWARDS MD [facility] REHAB LUMBAR RADICULOPATHY [id number] 10/17/2014 09:53:00 015 10:55:00 DIS Emergency DORA CARDONA QUANTITY SURVEYOR [facility] ER LEFT PINKIE FINGER LAC [id number] 05/01/2014 13:01:00 015 23:59:59 CLS Outpatient GURPREET BOLAÑOS MD [facility] RAD LBP [id number] 11/27/2013 09:59:00 014 23:59:59 CLS Outpatient MCNAMARA DO, MIMI [facility] RAD SCREENING [id number] 10/07/2013 14:15:00 014 23:59:59 CLS Outpatient MCNAMARA DO, MIMI [facility] RT ASTHMA,WHEEZING [id number] 04/22/2013 08:42:00 014 23:59:59 CLS Outpatient [id number] 04/08/2013 18:20:00 014 11:55:00 DIS Inpatient [id number] 04/02/2013 07:57:00 013 23:59:59 CLS Outpatient [id number] 10/29/2012 07:00:00 013 23:59:59 CLS Outpatient BHARATH HARDING [facility] RAD SCREENING [id number] 07/18/2014 16:19:00 Document Registration [id number] 10/28/2011 07:42:00 Document Registration [id number] 10/19/2010 10:12:00 Document Registration [id number] 07/07/2010 07:58:00 Document Registration [id number] 04/26/2010 13:24:00 Document Registration [id number] 10/28/2009 15:16:00 Document Registration [id number] 09/01/2009 15:00:00 Document Registration [id number] 02/19/2009 11:52:00 Document Registration [id number] 02/03/2009 14:14:00 Document Registration
[2019-08-23 22:40] LABS: BASOPHILS % (AUTO) 0 % (0-10); EOSINOPHILS # (AUTO) 0.2 10^3/uL (0.0-0.3); EOSINOPHILS % (AUTO) 3 % (0-10); HEMATOCRIT 40 % (35-52); HEMOGLOBIN 13.7 G/DL (11.5-16.0); LYMPHOCYTES # (AUTO) 1.9 X 10^3 (1.0-4.0); LYMPHOCYTES % (AUTO) 27 % (12-44); MEAN CORPUSCULAR HEMOGLOBIN 32 PG (25-34); MEAN CORPUSCULAR HGB CONC 34 G/DL (32-36); MEAN CORPUSCULAR VOLUME 94 FL (80-99); MEAN PLATELET VOLUME 8.3 FL (7.4-10.4); MONOCYTES # (AUTO) 0.8 X 10^3 (0.0-1.0); MONOCYTES % (AUTO) 12 % (0-12); NEUTROPHILS % (AUTO) 58 % (42-75); PLATELET COUNT 298 10^3/uL (130-400); RED CELL DISTRIBUTION WIDTH 12.6 % (10.0-14.5); WHITE BLOOD COUNT 6.9 10^3/uL (4.3-11.0)
[2019-08-23 22:53] LABS: BILIRUBIN,URINE NEGATIVE (NEGATIVE); CLARITY,URINE SL CLOUDY; COLOR,URINE YELLOW; GLUCOSE, URINE (UA) NEGATIVE (NEGATIVE); KETONES,URINE NEGATIVE (NEGATIVE); LEUKOCYTE ESTERASE ,URINE 2+ (NEGATIVE); NITRITE,URINE NEGATIVE (NEGATIVE); PROTEIN,URINE NEGATIVE (NEGATIVE)
--- NOTE | 2019-08-23 22:59 | ED Fall/Injury ---
General Chief Complaint: Trauma-Non Activation Stated Complaint: FALL Nursing Triage Note: Pt to RM 6 via [facility] after an unwitnessed fall in kitchen. C-collar in place on arrival. Pt does not recall event leading up to fall but has bruising/swelling to right side of forehead. Pt denies pain other than head pain at this time. Source: patient Exam Limitations: no limitations History of Present Illness Date Seen by Provider: August 23, 2019 Time Seen by Provider: 22:25 Initial Comments Here by EMS with report of fall and hitting her head. Patient does not n ecessarily recall the event but she apparently got into the kitchen when she became dizzy and fell. She's had multiple falls in the last several months and has actually had neck fracture related to one of the falls in April. She follows with Dr. DURHAM for that. States that she only has pain to the areas of swelling on her for head on the right side. Does have C collar placed by EMS due to history of neck fracture. States that she does have screws in place and she wants to make sure those were not knocked out and that she did not lose any marbles. Denies other injury or concerns. She was able to stand afterwards without difficulty. Her is very concerned about her and requested EMS to let us know that he would like her admitted. Patient states she is feeling better now but does have periods of intermittent dizziness that has been going on for quite a while. He states that sometimes it can be quite severe causing her to fall. She follows with Dr. Root. Occurred: just prior to arrival (approximately 30 minutes ago) Severity: moderate Injuries/Pain Location: head Context: lightheaded Loss of Consciousness: dazed Modifying Factors: Improves With Rest Associated Symptoms (Fall): No Abdominal Pain, No Chest Pain, No Confusion; D izziness; No Headache; Lightheadedness; No Muscle Spasms, No Neck Pain, No Shortness of Air, No Slurred Speech, No Vision Changes Allergies and Home Medications Allergies Coded Allergies: succinylcholine (Unverified Allergy, Unknown, 04/24/17) Home Medications Acetylcysteine 500 Mg Capsule, 500 MG PO BID, (Reported) Albuterol Sulfate 18 Gm Hfa.aer.ad, 2 PUFF INH Q4H PRN for SHORTNESS OF BREATH, (Reported) Alprazolam 0.5 Mg Tablet, 1 MG PO HS, (Reported) TAKES 2 (0.5MG) TABLETS Alprazolam 0.5 Mg Tablet, 0.5 MG PO DAILY PRN for ANXIETY, (Reported) Ascorbate Calcium 500 Mg Tablet, 500 MG PO DAILY, (Reported) Beta-Carotene 25,000 Unit Capsule, 25,000 UNIT PO DAILY, (Reported) Cefdinir 300 Mg Capsule, 300 MG PO BID Prescribed by: AGAPITO PÉREZ on 04/25/17 1147 Cetirizine HCl 10 Mg Tablet, 10 MG PO DAILY, (Reported) Cholecalciferol (Vitamin D3) 400 Unit Capsule, 400 UNIT PO DAILY, (Reported) Escitalopram Oxalate 10 Mg Tablet, 10 MG PO DAILY, (Reported) Fenofibrate Nanocrystallized 145 Mg Tablet, 145 MG PO DAILY, (Reported) Fluticasone Propionate 16 Gm Thornton.susp, 2 SPRAY NS DAILY, (Reported) Fluticasone/Salmeterol 1 Each Blst.w.dev, 1 PUFF INH DAILY, (Reported) Gabapentin 400 Mg Capsule, 400 MG PO QID, (Reported) LAST FILLED #360 10-06-17 Glucosa Prince 2Kcl/Chondroitin Prince 1 Each Tablet, 1 TAB PO DAILY, (Reported) Hydrochlorothiazide 25 Mg Tablet, 25 MG PO DAILY, (Reported) Hydrocodone Bit/Acetaminophen 1 Tab Tab, 1 EACH PO Q6H PRN for PAIN-MODERATE Prescribed by: GOGO MURRAY on 04/09/19 1327 Ibuprofen 200 Mg Tablet, 200 MG PO DAILY, (Reported) Lisinopril/Hydrochlorothiazide 1 Each Tablet, 1 TAB PO DAILY, (Reported) Montelukast Sodium 10 Mg Tablet, 10 MG PO HS, (Reported) Multivitamin 1 Each Tablet, 1 TAB PO DAILY, (Reported) Nitrofurantoin Macrocrystal 100 Mg Capsule, 100 MG PO BID Prescribed by: GHANSHYAM ROTH on 08/24/19 0004 Omeprazole 40 Mg Capsule.dr, 40 MG PO BID, (Reported) Pomegranate Fruit Extract 250 Mg Capsule, 250 MG PO DAILY, (Reported) Potassium Chloride 20 Meq Tab.er.prt, 20 MEQ PO BID, (Reported) Tiotropium [place] 4 Gm Mist.inhal, 2 PUFF INH DAILY, (Reported) Tramadol HCl 50 Mg Tablet, 50 MG PO Q6H PRN for PAIN-MODERATE, (Reported) Vitamin E Acetate 400 Unit Capsule, 400 UNIT PO DAILY, (Reported) Patient Home Medication List Home Medication List Reviewed: Yes Review of Systems Review of Systems Constitutional: see HPI; No chills, No fever Eyes: Denies Blurred Vision, Denies Pain Ears, Nose, Mouth, Throat: no symptoms reported Respiratory: no symptoms reported Cardiovascular: No chest pain; other (lightheaded) Gastrointestinal: No abdominal pain, No nausea, No vomiting Genitourinary: no symptoms reported Musculoskeletal: see HPI; No back pain, No neck pain Skin: change in color, lesions Psychiatric/Neurological: See HPI Past Adturgy-Abfbvs-Llmhjo Hx Past Med/Social Hx: Reviewed Nursing Past Med/Soc Hx Patient Social History Alcohol Use: Occasionally Uses Alcohol Beverage of Choice: Scotch Recreational Drug Use: No Smoking Status: Former Smoker Type Used: Cigarettes Former Smoker, Quit: Apr 03, 2001 Recent Foreign Travel: No Contact w/Someone Who Travel: No Recent Infectious Disease Expo: No Recent Hopitalizations: Yes (03/19 SHOULDER SURGERY) Immunizations Up To Date Tetanus Booster (TDap): Less than 5yrs Date of Pneumonia Vaccine: Feb 16, 2012 Date of Influenza Vaccine: Jan 04, 2017 Past Medical History Surgeries: No (HIP BACK TENDONITIS; rt. wrist carpal tunnel, cervical spine fusion) Gallbladder, Orthopedic Respiratory: Yes (ALLERGIES COMBIVENT) Currently Using CPAP: No Currently Using BIPAP: No Cardiac: Yes Hypertension Neurological: No Reproductive Disorders: No Sexually Transmitted Disease: No HIV/AIDS: No Genitourinary: No Gastrointestinal: Yes (COLON POLYPS/HIATAL HERNIA) Gall Bladder Disease Musculoskeletal: Yes (rt. hip replacement 08/31/10) Chronic Back Pain, Fractures Endocrine: No Loss of Vision: Bilateral Hearing Impairment: Denies Cancer: No Psychosocial: No Integumentary: No Blood Disorders: No (BLEEDS EASILY) Adverse Reaction/Blood Tranf: No (NEVER HAD BLOOD TRANSFUSION) Family Medical History Reviewed Nursing Family Hx Family history: Hypertension 03 FATHER, Onset:Unknown Myocardial infarction 03 FATHER, Onset:60 years & older Stroke 03 MOTHER, Onset:Unknown No Pertinent Family Hx Physical Exam Vital Signs Vital Signs - First Documented Capillary Refill : Less Than 3 Seconds Height, Weight, BMI Height: 5'2.00" Weight: 169lbs. 6.0oz. 74.479117wc; 28.00 BMI Method:Stated General Appearance: WD/WN, no apparent distress HEENT: PERRL/EOMI, pharynx normal Neck: other (and c-collar on arrival. Denies neck pain.) Cardiovascular: regular rate, rhythm, no murmur Respiratory: lungs clear, normal breath sounds Gastrointestinal: non tender, soft Back: normal inspection, no CVA tenderness, no vertebral tenderness Extremities: non-tender, normal inspection, pelvis stable Neurologic/Psychiatric: alert, normal mood/affect, oriented x 3 Skin: warm/dry, ecchymosis (right for head and skin tear right upper arm) Vishnu Coma Score Best Eye Response: (4) Open Spontaneously Best Verbal Response: (5) Oriented Best Motor Response: (6) Obeys Commands Singer Total: 15 Procedures/Interventions Suture Size: 4-0 Progress/Results/Core Measures Results/Orders Lab Results Laboratory Tests Test 08/23/19 22:30 08/23/19 22:48 Range/Units White Blood Count 6.9 4.3-11.0 10^3/uL Red Blood Count 4.28 L 4.35-5.85 10^6/uL Hemoglobin 13.7 11.5-16.0 G/DL Hematocrit 40 35-52 % Mean Corpuscular Volume 94 80-99 FL Mean Corpuscular Hemoglobin 32 25-34 PG Mean Corpuscular Hemoglobin Concent 34 32-36 G/DL Red Cell Distribution Width 12.6 10.0-14.5 % Platelet Count 298 130-400 10^3/uL Mean Platelet Volume 8.3 7.4-10.4 FL Neutrophils (%) (Auto) 58 42-75 % Lymphocytes (%) (Auto) 27 12-44 % Monocytes (%) (Auto) 12 0-12 % Eosinophils (%) (Auto) 3 0-10 % Basophils (%) (Auto) 0 0-10 % Neutrophils # (Auto) 4.0 1.8-7.8 X 10^3 Lymphocytes # (Auto) 1.9 1.0-4.0 X 10^3 Monocytes # (Auto) 0.8 0.0-1.0 X 10^3 Eosinophils # (Auto) 0.2 0.0-0.3 10^3/uL Basophils # (Auto) 0.0 0.0-0.1 10^3/uL Sodium Level 134 L 135-145 MMOL/L Potassium Level 3.2 L 3.6-5.0 MMOL/L Chloride Level 99 98-107 MMOL/L Carbon Dioxide Level 24 21-32 MMOL/L Anion Gap 11 5-14 MMOL/L Blood Urea Nitrogen 5 L 7-18 MG/DL Creatinine 0.68 0.60-1.30 MG/DL Estimat Glomerular Filtration Rate > 60 BUN/Creatinine Ratio 7 Glucose Level 111 H 70-105 MG/DL Calcium Level 9.2 8.5-10.1 MG/DL Corrected Calcium 9.3 8.5-10.1 MG/DL Magnesium Level 1.6 1.6-2.4 MG/DL Total Bilirubin 0.3 0.1-1.0 MG/DL Aspartate Amino Transf (AST/SGOT) 19 5-34 U/L Alanine Aminotransferase (ALT/SGPT) 13 0-55 U/L Alkaline Phosphatase 48 40-136 U/L C-Reactive Protein High Sensitivity 0.43 0.00-0.50 MG/DL Total Protein 6.2 L 6.4-8.2 GM/DL Albumin 3.9 3.2-4.5 GM/DL Serum Alcohol 160 H <10 MG/DL Urine Color YELLOW Urine Clarity SL CLOUDY Urine pH 6.0 5-9 Urine Specific [place] 1.020 1.016-1.022 Urine Protein NEGATIVE NEGATIVE Urine Glucose (UA) NEGATIVE NEGATIVE Urine Ketones NEGATIVE NEGATIVE Urine Nitrite NEGATIVE NEGATIVE Urine Bilirubin NEGATIVE NEGATIVE Urine Urobilinogen 0.2 < = 1.0 MG/DL Urine Leukocyte Esterase 2+ H NEGATIVE Urine RBC (Auto) NEGATIVE NEGATIVE Urine RBC NONE /HPF Urine WBC 10-25 H /HPF Urine Squamous Epithelial Cells 2-5 /HPF Urine Crystals NONE /LPF Urine Bacteria FEW H /HPF Urine Casts PRESENT /LPF Urine Hyaline Casts 2-5 H /LPF Urine Mucus SMALL H /LPF Urine Culture Indicated YES My Orders Orders - GHANSHYAM ROTH MD Ct Head/Cervical Spine Wo (08/23/19 22:33) Ekg Tracing (08/23/19 22:33) O2 (08/23/19 22:33) Monitor-Rhythm Ecg Trace Only (08/23/19 22:33) Cbc With Automated Diff (08/23/19 22:33) Comprehensive Metabolic Panel (08/23/19 22:33) Hs C Reactive Protein (08/23/19 22:33) Magnesium (08/23/19 22:33) Ua Culture If Indicated (08/23/19 22:33) Urine Culture (08/23/19 22:48) Alcohol (08/23/19 23:57) Nitrofurantoin Capsule,Macro (Macrobid C (08/24/19 00:00) Medications Given in ED Current Medications Medications Dose Ordered Sig/Doug Route Start Time Stop Time Status Last Admin Dose Admin Nitrofurantoin Macrocrystals 100 mg ONCE ONCE PO 08/24/19 00:00 08/24/19 00:02 DC 08/24/19 00:06 100 MG Vital Signs/I&O 08/23/19 08/23/19 08/24/19 22:31 22:31 00:12 Temp 36.9 36.9 Pulse 67 65 Resp 19 19 B/P (MAP) 130/71 (90) 119/62 (90) Pulse Ox 97 97 95 O2 Delivery Nasal Cannula Nasal Cannula Room Air O2 Flow Rate 2.00 2.00 2.00 Blood Pressure Mean: 90 Progress Progress Note : Progress Note Seen and evaluated. CT head and neck ordered. Labs, UA and EKG ordered. We will continue and complete normal saline 1 L bolus that was started by EMS. Monitor patient. 2358: CT complete and shows no acute findings. Patient wants to go home. UA does show probable urinary tract infection so we will initiate treatment with nitrofurantoin based on microbiology history. Patient was able to stand without difficulty. She did have a little bit of dizziness briefly but admits that she did have a few scotches tonight at home. We have added alcohol level just to see where she was out on arrival as this may be part of the dizziness problem. That being said there is no reason to hold for discharge home so we will let her go home. C-collar cleared at 2340. Discharged home with ret urn precautions. Patient verbalize understanding of instructions and agreement with plan. I will send a copy of the chart Dr. Root. Alcohol noted to be 160 on arrival lab. Initial ECG Impression Date: August 23, 2019 Initial ECG Impression Time: 22:49 Initial ECG Rate: 66 Initial ECG Rhythm: Normal Sinus Comment Sinus rhythm with normal axis. Borderline prolonged QT interval. No evidence of ST elevation VT. Similar to previous of 04/23/17. Interpreted by me. Diagnostic Imaging Diagonstic Imaging: CT Plain Films/CT/US/NM/MRI: c-spine, head Comments No evidence of mass effect or intracranial hemorrhage unsteady significantly degraded by motion. Changes of acdf C4 to C7. No evidence of fracture o or malalignment Reviewed: Reviewed [place] Study ( ) Departure Impression Primary Impression: Urinary tract infection Qualified Codes: N30.00 - Acute cystitis without hematuria Additional Impressions: Injury, head Qualified Codes: S09.90XA - Unspecified injury of head, initial encounter Dizziness Disposition: HOME, SELF-CARE Condition: Stable Departure-Patient Inst. Decision time for Depature: 00:01 Referrals: KAVITA ROOT MD (PCP/Family) Primary Care Physician Patient Instructions: Closed Head Injury (DC), Vertigo (a Type of Dizziness) (DC), Urinary Tract Infections in Adults Add. Discharge Instructions: All discharge instructions reviewed with patient and/or family. Voiced understanding. Take medications as directed. Drink an appropriate amount of fluids. You should avoid alcohol for a while. Follow-up with your Dr. early next week for recheck and further evaluation. Return for worse pain, fever, vomiting, weakness, breathing problems or other concerns as needed. Discussed with her doctor about carotid artery ultrasound study to see if you may benefit from this if it has not been done as a possible cause for your dizziness. Scripts Nitrofurantoin Macrocrystal (Nitrofurantoin) 100 Mg Capsule 100 MG PO BID, #8 CAP 0 Refills Prov: GHANSHYAM ROTH MD 08/24/19 Copy Copies To 1: KAVITA ROOT MD, TIMOTHY D MD August 23, 2019 22:59
[2019-08-23 23:00] LABS: ALBUMIN 3.9 GM/DL (3.2-4.5); CHLORIDE 99 MMOL/L (98-107); POTASSIUM 3.2 MMOL/L (3.6-5.0); SODIUM 134 MMOL/L (135-145)
[2019-08-23 23:01] LABS: BACTERIA,URINE FEW /HPF
[2019-08-23 23:01] LABS: CALCIUM 9.2 MG/DL (8.5-10.1)
[2019-08-23 23:02] LABS: GLUCOSE 111 MG/DL (70-105); TOTAL PROTEIN 6.2 GM/DL (6.4-8.2)
[2019-08-23 23:03] LABS: CARBON DIOXIDE 24 MMOL/L (21-32)
[2019-08-23 23:04] LABS: BILIRUBIN,TOTAL 0.3 MG/DL (0.1-1.0)
[2019-08-23 23:06] LABS: ALKALINE PHOSPHATASE 48 U/L (40-136); CREATININE SERUM 0.68 MG/DL (0.60-1.30); GFR ESTIMATED > 60
[2019-08-23 23:07] LABS: BUN/CREATININE RATIO 7
[2019-08-23 23:09] LABS: ALANINE AMINOTRANSFERASE 13 U/L (0-55); MAGNESIUM 1.6 MG/DL (1.6-2.4)
[2019-08-24] MEDS ORDERED: NITROFURANTOIN 100 MG (MACROBID) CAPSULE PO ONE
[2019-08-24] MEDS ORDERED: NITR100C PO (00:04)
[2019-08-24 00:12] VITALS: BP 119/62
--- NOTE | 2019-08-24 05:46 | Diagnostic Imaging Report ---
PROCEDURE: CT head and CT cervical spine without contrast. TECHNIQUE: Multiple contiguous axial images were obtained through the brain and cervical spine without the use of intravenous contrast. Sagittal and coronal reformations through the cervical spine were then performed. Auto Exposure Controls were utilized during the CT exam to meet ALARA standards for radiation dose reduction. INDICATION: Fall. Scalp contusion. Neck pain. COMPARISON: 07/05/2019. FINDINGS: CT head: No large acute territorial ischemia, mass, or hemorrhage. No midline shift or mass effect. Decreased attenuation is seen in the periventricular and subcortical white matter. The ventricles and cortical sulci are prominent. The basilar cisterns are patent and unremarkable. The calvarium is intact. Scalp contusion is noted in the right forehead. The visualized paranasal sinuses are clear. Bilateral lens implants are noted. CT cervical spine: Postsurgical changes of posterior fusion are seen from C1 to C4 and ACDF from C4 to C7. No acute fracture or dislocation is seen in the cervical spine. No focal osseous lesions. Vertebral body heights are well-maintained. There is straightening of the cervical spine. The craniocervical junction is well-maintained. Moderate degenerative changes are seen in the cervical spine with disc osteophyte complexes and uncovertebral arthropathy. Soft tissues of the neck are unremarkable. The included lung apices are clear. IMPRESSION: 1. No hemorrhage or focal intra-axial mass. No CT evidence of large acute territorial ischemia. 2. No acute fracture or dislocation in the cervical spine. 3. Chronic microvascular disease with generalized parenchymal volume loss. 4. Stable surgical changes of posterior fusion from C1 to C4 and ACDF from C4 to C7. No evidence of hardware fracture or loosening. Agree with overnight report. Dictated by: Dictated on workstation # [id number]
== END 2019-08-24 00:10 | disposition home or self-care (01) ==
LOC: EDUNIT# 22:22 → ER 22:23
DX: S09.90XA Unspecified injury of head, initial encounter (principal); N39.0 Urinary tract infection, site not specified; R42 Dizziness and giddiness; I10 Essential (primary) hypertension; M54.9 Dorsalgia, unspecified; G89.29 Other chronic pain; Z88.8 Allergy status to other drugs, medicaments and biological substances; Z87.891 Personal history of nicotine dependence; Z96.641 Presence of right artificial hip joint; Z82.49 Family history of ischemic heart disease and other diseases of the circulatory system; R40.2142 Coma scale, eyes open, spontaneous, at arrival to emergency department; R40.2252 Coma scale, best verbal response, oriented, at arrival to emergency department; R40.2362 Coma scale, best motor response, obeys commands, at arrival to emergency department; W01.198A Fall on same level from slipping, tripping and stumbling with subsequent striking against other object, initial encounter; Y92.000 Kitchen of unspecified non-institutional (private) residence as the place of occurrence of the external cause
CPT/HCPCS: 36415; 70450; 72125; 80053; 80320; 81000; 83735; 85025; 86141; 87088; 93005; 93041

== ENCOUNTER → 2019-09-09 | Outpatient (CLI) | payer MEDICARE, OTHER ==
[~2019-09-09] VITALS: Ht 155 cm; Wt 71.0 kg
[~2019-09-09] MED LIST changes: +CATHETER FLUSH 10 ML SYR IV PRN; +NITR100C PO; +REGADENOSON 0.4 MG/5 ML SYR (LEXISCAN) IV ONE
[2019-09-09 11:43] VITALS: BP 140/75
--- NOTE | 2019-09-09 11:43 | Cardiology Stress Test Report ---
Stress Test Report Date of Procedure/Referring: Date of Procedure: Sep 09, 2019 PCP King Thomas MD Admitting Physician Beronica Root MD Indications: Dyspnea Baseline Heart Rate: 71 Baseline Blood Pressure: Blood Pressure Systolic: 140 Blood Pressure Diastolic: 75 Baseline EKG: Baseline EKG: NSR Summary: Patient received 0.4 mg Lexiscan for stress test, ECG, heart rate and blood pressure were monitored continuously. Resting and stress dose of radio tracer were injected, imaging was acquired and reviewed in short axis, horizontal long axis and vertical long axis views. TID 1.12 SSS 10 SDS 4 EF 52% Conclusion: Patient tolerated Lexiscan well. Diaphragmatic attenuation with decreased uptake involving the whole inferior wall and inferolateral wall with mild reversibility Normal left ventricular size, EF 52 percent KING THOMAS MD Sep 09, 2019 11:43
== END ==
LOC: CARD 07:40
PROVIDERS: ATTEND Internal Medicine Cardiovascular Disease
DX: I35.1 Nonrheumatic aortic (valve) insufficiency (principal); I35.8 Other nonrheumatic aortic valve disorders; J98.6 Disorders of diaphragm; I51.89 Other ill-defined heart diseases
CPT/HCPCS: 78452; 93017

== ENCOUNTER → 2019-09-11 | Outpatient (CLI) | payer MEDICARE, OTHER ==
[~2019-09-11] MED LIST changes: +HOLD METFORMIN - RECEIVED CONTRAST 20 ML VIAL IV SCH; +IOHEXOL 350 MG/ML 100 ML (OMNIPAQUE 350) VIAL IV ONE; +NS 100 ML (IVPB) BAG IV ONE; -REGADENOSON 0.4 MG/5 ML SYR (LEXISCAN) IV ONE
--- NOTE | 2019-09-11 14:43 | Diagnostic Imaging Report ---
PROCEDURE: CT angiography of the head and CT angiography of the neck with and without contrast. TECHNIQUE: Contiguous noncontrast images were obtained from the skull base through the vertex. After intravenous contrast administration, helical CT angiography of the neck was performed. Source data was reformatted into 3D MIP projections. Delayed post contrast acquisition was also obtained. Auto Exposure Controls were utilized during the CT exam to meet ALARA standards for radiation dose reduction. INDICATION: Carotid stenosis and COPD. FINDINGS: Precontrast imaging through the brain demonstrates the ventricles and sulci to be appropriate for the patient's age. There is no sulcal effacement or midline shift. No acute intra-axial or extra-axial hemorrhage is detected. The cisterns are patent. The visualized paranasal sinuses are clear. Delayed post contrast imaging through the brain was also performed. No enhancing lesion is detected. The CT angiographic portion of the study through the head and neck demonstrates a three-vessel branching pattern to the aortic arch. There is some calcified plaque in the aortic arch and proximal brachiocephalic artery. The common carotid arteries are patent. There is some calcified plaque at the carotid bifurcations bilaterally. There is significant tortuosity of the proximal aspect of the right internal carotid artery. At the 180 degree turn of the proximal right internal carotid artery, there is a focal stenosis. The remainder of the right internal carotid artery is widely patent. The right middle cerebral and anterior cerebral arteries are widely patent. The left internal carotid artery also shows some tortuosity but no stenosis is detected. The left anterior and middle cerebral arteries are widely patent. The basilar artery is patent. The bilateral posterior cerebral arteries are patent. The left vertebral artery is very small. The right vertebral artery is dominant. There are extensive post surgical changes in the cervical spine with changes of ACDF extending from C4 through C7. There is also posterior instrumented fusion extending from C1 to C4. This does produce moderate artifact. IMPRESSION: Essentially unremarkable CT angiogram of the head and neck with the exception of significant tortuosity of the proximal right internal carotid artery. There is a focal stenosis at the 180 degree turn of the proximal right internal carotid artery. No other stenoses are seen. No intracranial abnormality is detected. Dictated by: Dictated on workstation # [id number]
== END ==
LOC: RAD 13:08
PROVIDERS: ATTEND Physician Assistant
DX: I65.21 Occlusion and stenosis of right carotid artery (principal); I10 Essential (primary) hypertension; J44.9 Chronic obstructive pulmonary disease, unspecified
CPT/HCPCS: 70496; 70498

== ENCOUNTER → 2019-09-11 | Outpatient (CLI) | payer MEDICARE, OTHER ==
[~2019-09-11] MED LIST changes: -CATHETER FLUSH 10 ML SYR IV PRN; -HOLD METFORMIN - RECEIVED CONTRAST 20 ML VIAL IV SCH; -IOHEXOL 350 MG/ML 100 ML (OMNIPAQUE 350) VIAL IV ONE; -NS 100 ML (IVPB) BAG IV ONE
== END ==
LOC: LABNPT 07:02
PROVIDERS: ATTEND Physician Assistant
DX: Z01.818 Encounter for other preprocedural examination (principal); Z87.898 Personal history of other specified conditions; Z20.828 Contact with and (suspected) exposure to other viral communicable diseases
CPT/HCPCS: 87635

== ENCOUNTER 2019-09-18 06:59 | Day surgery (SDC) | payer MEDICARE, OTHER ==
[2019-09-18] VITALS (10 sets, daily range): BP systolic 112–161; BP diastolic 54–78
[~2019-09-18] VITALS: Ht 150 cm; Wt 69.0 kg
[2019-09-18] MEDS ORDERED: LIDOCAINE 1% INJ 20 ML 20 ML VIAL ONE (07:06)
[2019-09-18] MEDS ORDERED: HEParin (CATH LAB) 2,000 ML IV ONE (07:06)
[2019-09-18] MEDS ORDERED: NS IV 1000 ML 1,000 ML ONE (07:06)
[2019-09-18] MEDS ORDERED: NS IV 1000 ML 1,000 ML IV SCH ×2 (07:15→09:46)
[2019-09-18 07:33] LABS: BILIRUBIN,URINE NEGATIVE (NEGATIVE); CLARITY,URINE CLEAR; COLOR,URINE YELLOW; GLUCOSE, URINE (UA) NEGATIVE (NEGATIVE); KETONES,URINE NEGATIVE (NEGATIVE); LEUKOCYTE ESTERASE ,URINE 1+ (NEGATIVE); NITRITE,URINE NEGATIVE (NEGATIVE); PH,URINE 7.5 (5-9); PROTEIN,URINE NEGATIVE (NEGATIVE)
[2019-09-18 07:35] LABS: MEAN PLATELET VOLUME 8.6 FL (7.4-10.4); WHITE BLOOD COUNT 5.8 10^3/uL (4.3-11.0)
[2019-09-18 07:43] LABS: CHLORIDE 103 MMOL/L (98-107); POTASSIUM 3.6 MMOL/L (3.6-5.0); SODIUM 141 MMOL/L (135-145)
--- NOTE | 2019-09-18 07:43 | Diagnostic Imaging Report ---
EXAM: CHEST 1 VIEW, AP/PA ONLY INDICATION: Dyspnea. Dizziness. COMPARISON: 04/25/2017. FINDINGS: Stable cardiomegaly with normal central pulmonary vascularity. Mild atelectasis or infiltrate in the right lung base. No pleural effusion or pneumothorax. No acute osseous findings. Postoperative changes in the right shoulder and lower cervical spine. IMPRESSION: 1. Mild atelectasis or infiltrate right lung base. 2. Stable cardiomegaly with normal central pulmonary vascularity. Dictated by: Dictated on workstation # [id number]
[2019-09-18 07:44] LABS: BACTERIA,URINE NEGATIVE /HPF; CALCIUM 9.2 MG/DL (8.5-10.1); PROTHROMBIN TIME PATIENT 13.6 SEC (12.2-14.7); SQUAMOUS EPITHELIAL CELL,UR 0-2 /HPF; WBC,URINE 0-2 /HPF
[2019-09-18 07:45] LABS: TRIGLYCERIDES 122 MG/DL (<150); VLDL CHOLESTEROL 24 MG/DL (5-40)
[2019-09-18 07:46] LABS: GLUCOSE 84 MG/DL (70-105); TOTAL PROTEIN 6.7 GM/DL (6.4-8.2)
[2019-09-18 07:47] LABS: BILIRUBIN,TOTAL 0.4 MG/DL (0.1-1.0); CARBON DIOXIDE 30 MMOL/L (21-32)
[2019-09-18 07:49] LABS: ALKALINE PHOSPHATASE 57 U/L (40-136); CREATININE SERUM 0.71 MG/DL (0.60-1.30); GFR ESTIMATED > 60
[2019-09-18 07:50] LABS: BUN/CREATININE RATIO 6; CHOLESTEROL 132 MG/DL (< 200)
[2019-09-18 07:51] LABS: HDL CHOLESTEROL 65 MG/DL (40-60)
[2019-09-18] MEDS ORDERED: FLUT1DIS26 IH (07:51)
[2019-09-18] MEDS ORDERED: LOSA1TAB20 PO (07:51)
[2019-09-18] MEDS ORDERED: CETI-267 PO (07:51)
[2019-09-18] MEDS ORDERED: ESCI20TA PO (07:51)
[2019-09-18] MEDS ORDERED: FENO145T2 PO (07:51)
[2019-09-18] MEDS ORDERED: GABA-490 PO (07:51)
[2019-09-18 07:52] LABS: ALANINE AMINOTRANSFERASE 12 U/L (0-55)
[2019-09-18] MEDS ORDERED: fentaNYL INJECTION 100 MCG/2 ML AMP ONE (09:03)
[2019-09-18] MEDS ORDERED: MIDAZOLAM 5 MG/5 ML (VERSED) VIAL ONE (09:03)
--- NOTE | 2019-09-18 09:46 | Cardiac Procedure Note-CS/ASA ---
Pre-Procedure Note Pre-Op Procedure Note H&P Reviewed The H&P was reviewed, patient examined and no changes noted. Date H&P Reviewed: Sep 18, 2019 Time H&P Reviewed: 09:46 Conscious Sedation Pre-Proced Time 09:46 ASA Score 3 For ASA 3 and 4: Consider anesthesia and medical clearance. Also, for patients with a history of failed moderate sedation consider anesthesia. Airway Lungs Heart ASA score ASA 1: a normal healthy patient ASA 2: a patient with a mild systemic disease (mid diabetes, controlled hypertension, obesity x ASA 3: a patient with a severe systemic disease that limits activity (angina, COPD, prior Myocardial infarction) ASA 4: a patient with an incapacitating disease that is a constant threat to life (CHF, renal failure) ASA 5: a moribund patient not expected to survive 24 hrs. (ruptured aneurysm) ASA 6: a declared brain- patient whose organs are being harvested. For emergent operations, add the letter E after the classification Mallampati Classification Grade 3 Sedation Plan Analgesia, Amnesia, Plan communicated to team members, Discussed options with patient/fam, Discussed risks with patient/fam The patient is an appropriate candidate to undergo the planned procedure, sedation, and anesthesia. The patient immediately re-assessed prior to indication. KING ROCHA MD Sep 18, 2019 09:46
--- NOTE | 2019-09-18 09:49 | Discharge Inst-Post CATH ---
Discharge Inst-CATH/EP Problems Reviewed?: Yes Post Cardiac Cath/EP D/C Inst Follow Up/Plan Appointment with Dr. Thomas's office in 4 weeks <b>CARDIAC CATH/EP PROCEDURE DISCHARGE INSTRUCTIONS</b> ACTIVITY * Go Home directly and rest. * Limit activity of the leg (or wrist if it was used) for 7 days including aerobics, swimming, jogging, bicycling, etc. * Restrict stair-climbing for 7 days if possible, if not, climb up with your non-cath leg, then bring together on the same step. * Avoid lifting, pushing, pulling or excessive movement of the affected extremity for 7 days. * Customary sexual activity may be resumed after 2 days-use caution not to use a position that strains or causes pain to the affected extremity. * No driving for 24 hours. * NO SMOKING. * Avoid straining for bowel movements for 7 days. * Gentle walking on level ground is allowed. * Returning to work will depend on the type of procedure and the results. Your doctor will discuss this with you. CALL YOUR DOCTOR FOR ANY OF THE FOLLOWING: *If bleeding from the puncture site occurs- Apply gentle pressure to site with clean cloth and call your doctor or EMS. * If a knot or lump forms under the skin, increases in size, or causes pain. * If bruising appears to be worsening or moving further down your leg instead of disappearing. * Temperature above 101 F. CARE OF YOUR GROIN INCISION; * Bruising or purple discoloration of the skin near the puncture site is common. * You may shower only, no bathtub bathing for 5 days. Be careful to avoid slipping as your leg may feel stiff. * If a closure device was used on your femoral artery, please see the attached guide regarding care of the device and your leg. * Leave dressing on FOR 24 hours. CARE OF YOUR WRIST INCISION; * Bruising or purple discoloration of the skin near the puncture site is common. * You may shower. * DO NOT submerge wrist. * Leave dressing on FOR 24 hours. KING THOMAS MD Sep 18, 2019 09:49
--- NOTE | 2019-09-18 09:52 | Cardiac Cath Report ---
Cardiac Cath Report Physician (s)/Partition Assembler (s) Physician KING ROCHA MD Pre-Procedure Diagnosis Pre-Procedure Diagnosis: Coronary artery disease Post-Procedure Note Procedure Start Date: Sep 18, 2019 Name of Procedure: Left heart catheterization Left ventriculogram Findings/Procedure Note PROCEDURE NOTE: 68-year-old lady with history of hypertension, hyperlipidemia, had an abnormal stress test scheduled for cardiac catheterization possible PTCA. After explaining the procedure to the patient, all pros and cons were explained, all questions were answered. The patient signed the consent and then she was placed on the cardiac catheterization laboratory. Groin was prepped SL fashion local anesthesia was used. Sheath placed in the right femoral artery. Rahel right and left catheter were used to access the coronary system. Pigtail was used to access the left ventricular cavity. Left ventriculogram was done At the end of the procedure the sheath was removed. Closure device was used FINDINGS: Hemodynamics LV 132/16, end-diastolic pressure of 16 Aorta 130/63 mean of 92 ANATOMY: Left Main is free of obstructive disease Left Anterior Descending has mild disease nonobstructive disease Left Circumflex has mild to moderate disease in the proximal portion otherwise nonobstructive disease Right Coronory Artery has mild disease nonobstructive disease LV Gram was done showing normal left ventricular size and systolic function estimated ejection fraction 60 percent CONCLUSION: 1. Ttki-kj-kqztencv stenosis in the proximal circumflex artery, nonobstructive disease otherwise mild coronary artery disease 2. Normal left ventricular size and systolic function estimated ejection fraction 60 percent DISCUSSION AND RECOMMENDATION: Medical therapy is recommended no intervention is needed Anesthesia Type: Conscious Sedation Estimated blood loss (mL): 15 ml Contrast Amount: 35 ml Total Radiation Dose: 311 mGy Post-Procedure Diagnosis Post-operative diagnosis: Chest pain Coronary artery disease Hypertension Hyperlipidemia KING ROCHA MD Sep 18, 2019 09:52
[2019-09-18] MEDS ORDERED: PATIENT MAY USE OWN MEDS, ALL PO SCH (10:00)
== END 2019-09-18 14:00 | disposition home or self-care (01) ==
LOC: CATH 06:59 → SDC 10:13 → CATH 14:00
PROVIDERS: ATTEND Internal Medicine Cardiovascular Disease
DX: I25.10 Atherosclerotic heart disease of native coronary artery without angina pectoris (principal); I10 Essential (primary) hypertension; I65.29 Occlusion and stenosis of unspecified carotid artery; I35.1 Nonrheumatic aortic (valve) insufficiency; E78.5 Hyperlipidemia, unspecified; J44.9 Chronic obstructive pulmonary disease, unspecified; G93.2 Benign intracranial hypertension; J30.9 Allergic rhinitis, unspecified; M19.90 Unspecified osteoarthritis, unspecified site; M51.36 Other intervertebral disc degeneration, lumbar region; M48.061 Spinal stenosis, lumbar region without neurogenic claudication; Z88.8 Allergy status to other drugs, medicaments and biological substances; Z79.899 Other long term (current) drug therapy; Z90.49 Acquired absence of other specified parts of digestive tract; Z87.891 Personal history of nicotine dependence; Z82.3 Family history of stroke; Z80.9 Family history of malignant neoplasm, unspecified
CPT/HCPCS: 71045; 80053; 80061; 81000; 85027; 85610; 85730; 87081; 93458; C1760; C1894; 36415

== ENCOUNTER 2019-10-14 11:34 | Emergency (ER) | payer MEDICARE, OTHER ==
[~2019-10-14] VITALS: Ht 150 cm; Wt 68.9 kg
[~2019-10-14 11:34] MED LIST changes: +CETI-267 PO; +ESCI20TA PO; +FLUT1DIS26 IH; +LOSA1TAB20 PO; +MULT-567 PO; -MULT1TAB69 PO
--- NOTE | 2019-10-14 11:58 | ED Lower Extremity ---
General Chief Complaint: Lower Extremity Stated Complaint: FOOT PAIN Source: patient Exam Limitations: no limitations History of Present Illness Date Seen by Provider: Oct 14, 2019 Time Seen by Provider: 11:53 Initial Comments To ER with severe intermittent stinging pain to the top of her right foot. She was outside in her garden barefooted. She thought she might have gotten stung. However the pain persisted into today. Onset: just prior to arrival Severity: moderate Pain/Injury Location: right foot Method of Injury: unknown Modifying Factors: Worse With Movement Allergies and Home Medications Allergies Coded Allergies: succinylcholine (Unverified Allergy, Unknown, 04/24/17) Home Medications Albuterol Sulfate 18 Gm Hfa.aer.ad, 2 PUFF INH Q4H PRN for SHORTNESS OF BREATH, (Reported) Ascorbate Calcium 500 Mg Tablet, 500 MG PO DAILY, (Reported) Beta-Carotene 25,000 Unit Capsule, 25,000 UNIT PO DAILY, (Reported) Cetirizine HCl 10 Mg Tab.rapdis, 10 MG PO DAILY, (Reported) Cholecalciferol (Vitamin D3) 400 Unit Capsule, 400 UNIT PO DAILY, (Reported) Escitalopram Oxalate 20 Mg Tablet, 20 MG PO HS, (Reported) Fenofibrate Nanocrystallized 145 Mg Tablet, 145 MG PO DAILY, (Reported) Fluticasone/Salmeterol 1 Each Blst.w.dev, 1 EACH IH BID, (Reported) Gabapentin 400 Mg Capsule, 400 MG PO QID PRN for PAIN-MODERATE (5-7), (Reported) Glucosa Prince 2Kcl/Chondroitin Prince 1 Each Tablet, 1 TAB PO DAILY, (Reported) Losartan/Hydrochlorothiazide 1 Each Tablet, 1 EACH PO DAILY, (Reported) Montelukast Sodium 10 Mg Tablet, 10 MG PO HS, (Reported) Multivitamin 1 Each Tablet, 1 TAB PO DAILY, (Reported) Omeprazole 40 Mg Capsule.dr, 40 MG PO BID, (Reported) Pomegranate Fruit Extract 250 Mg Capsule, 250 MG PO DAILY, (Reported) Potassium Chloride 20 Meq Tab.er.prt, 20 MEQ PO BID, (Reported) Tramadol HCl 50 Mg Tablet, 50 MG PO Q6H PRN for PAIN-MODERATE, (Reported) Vitamin E Acetate 400 Unit Capsule, 400 UNIT PO DAILY, (Reported) Patient Home Medication List Home Medication List Reviewed: Yes Review of Systems Constitutional: see HPI EENTM: see HPI Respiratory: no symptoms reported Cardiovascular: no symptoms reported Genitourinary: no symptoms reported Musculoskeletal: no symptoms reported Skin: see HPI Psychiatric/Neurological: No Symptoms Reported Past Gmgonvj-Skiyxl-Ihcyty Hx Patient Social History Alcohol Beverage of Choice: Scotch Type Used: Cigarettes Former Smoker, Quit: Apr 03, 2001 Recent Foreign Travel: No Contact w/Someone Who Travel: No Recent Hopitalizations: Yes (03/19 SHOULDER SURGERY) Immunizations Up To Date Tetanus Booster (TDap): Less than 5yrs Date of Pneumonia Vaccine: Feb 15, 2017 Date of Influenza Vaccine: Jan 04, 2017 Past Medical History Surgeries: No (HIP BACK TENDONITIS; rt. wrist carpal tunnel, cervical spine fusion) Gallbladder, Orthopedic Respiratory: Yes (ALLERGIES COMBIVENT) Currently Using CPAP: No Currently Using BIPAP: No Cardiac: Yes Hypertension Neurological: No Reproductive Disorders: No Sexually Transmitted Disease: No HIV/AIDS: No Genitourinary: No Gastrointestinal: Yes (COLON POLYPS/HIATAL HERNIA) Gall Bladder Disease Musculoskeletal: Yes (rt. hip replacement 08/31/10) Chronic Back Pain, Fractures Endocrine: No Loss of Vision: Bilateral Hearing Impairment: Denies Cancer: No Psychosocial: No Integumentary: No Blood Disorders: No (BLEEDS EASILY) Adverse Reaction/Blood Tranf: No (NEVER HAD BLOOD TRANSFUSION) Family Medical History Family history: Hypertension 03 FATHER, Onset:Unknown Myocardial infarction 03 FATHER, Onset:60 years & older Stroke 03 MOTHER, Onset:Unknown No Pertinent Family Hx Physical Exam Vital Signs Capillary Refill : Height, Weight, BMI Height: 5'2.00" Weight: 169lbs. 6.0oz. 74.893996uc; 30.66 BMI Method:Stated General Appearance: WD/WN, no apparent distress HEENT: PERRL/EOMI, normal ENT inspection Respiratory: no respiratory distress, no accessory muscle use Hips: bilateral hip non-tender, bilateral hip normal inspection, bilateral hip normal range of motion Legs: bilateral leg non-tender, bilateral leg normal inspection, bilateral leg normal range of motion; right leg other (chronic bruising of right leg which she states has been present since her heart catheter in May.) Knees: bilateral knee non-tender, bilateral knee normal inspection, bilateral knee normal range of motion Ankles: bilateral ankle non-tender, bilateral ankle normal inspection, bilateral ankle normal range of motion Feet: right foot other (silver dollar-sized area of erythema to the dorsum of the left foot with a central punctum. This could certainly be an insect sting. I'll get an x-ray, given a shot of Rocephin. She took one of her 's hydrocodone last night because of the pain and it helped.) Neurologic/Psychiatric: alert Skin: normal color, warm/dry Procedures/Interventions Suture Size: 4-0 Progress/Results/Core Measures Results/Orders My Orders Orders - DORA CARDONA APRN Foot, Right, 3 View (10/14/19 11:50) Ceftriaxone For Im Use (Rocephin For Im (10/14/19 12:00) Lidocaine 1% Inj 20 Ml (Xylocaine 1% Inj (10/14/19 12:00) Hydrocodone/Apap 5/325 Tablet (Lortab 5 (10/14/19 12:00) Departure Impression Primary Impression: Soft tissue infection of foot Disposition: HOME, SELF-CARE Condition: Stable Departure-Patient Inst. Decision time for Depature: 11:57 Referrals: KAVITA KIRBY MD (PCP/Family) Primary Care Physician Patient Instructions: Wound Infection Add. Discharge Instructions: 1. This could be a sting from an insect yesterday or it could be infection. Cool compresses to the foot, antibiotics as directed. Topical steroid as directed. All discharge instructions reviewed with patient and/or family. Voiced understanding. Scripts Triamcinolone Acet (Triamcinolone Acetonide 0.1% Cream) 15 Gm Cr 15 GM TP TID for 3 Days, #1 TUBE Prov: DORA CARDONA APRN 10/14/19 Cephalexin (Cephalexin) 500 Mg Tablet 500 MG PO QID, #20 TAB 0 Refills Prov: DORA CARDONA APRN 10/14/19 DORA CARDONA APRN Oct 14, 2019 11:58
[2019-10-14] MEDS ORDERED: CEPH500T PO (11:59)
[2019-10-14] MEDS ORDERED: TR1C15 TP (11:59)
[2019-10-14] MEDS ORDERED: HYDR-3870 PO (11:59)
[2019-10-14] MEDS ORDERED: cefTRIAXone 1,000 MG/2.86 ml vial (IM ONLY) IM SCH (12:00)
[2019-10-14] MEDS ORDERED: HYDROcodone/APAP 5 MG/325 MG (LORTAB) TAB PO ONE (12:00)
[2019-10-14] MEDS ORDERED: LIDOCAINE 1% INJ 20 ML 20 ML VIAL INJ ONE (12:00)
--- NOTE | 2019-10-14 12:45 | Diagnostic Imaging Report ---
INDICATION: Pain of the right foot. COMPARISON: None. FINDINGS: Multiple radiographic views of the right foot were obtained. There is no acute fracture or dislocation. Osseous structures are intact. Joint spaces are maintained. Small calcaneal plantar enthesophyte is noted. Orthopedic cerclage wire is also noted involving the distal margins of the second metatarsal. No unexpected radiopaque foreign bodies are seen. IMPRESSION: 1. No acute fracture or dislocation of the right foot. Dictated by: Dictated on workstation # [id number]
[2019-10-14 12:51] VITALS: BP 154/82
== END 2019-10-14 12:51 | disposition home or self-care (01) ==
LOC: EDUNIT# 11:34 → ER 11:35
DX: L08.9 Local infection of the skin and subcutaneous tissue, unspecified (principal); S80.11XA Contusion of right lower leg, initial encounter; I10 Essential (primary) hypertension; G89.29 Other chronic pain; M54.5 Low back pain; Z88.8 Allergy status to other drugs, medicaments and biological substances; Z79.51 Long term (current) use of inhaled steroids; Z96.641 Presence of right artificial hip joint; Z87.891 Personal history of nicotine dependence; Z79.891 Long term (current) use of opiate analgesic; Z82.49 Family history of ischemic heart disease and other diseases of the circulatory system; X58.XXXA Exposure to other specified factors, initial encounter
CPT/HCPCS: 73630

== ENCOUNTER 2020-01-06 13:25 | Outpatient (RCR) | payer MEDICARE, OTHER ==
[~2020-01-06 13:25] MED LIST changes: +CEPH500T PO; +HYDR-3870 PO; +TR1C15 TP
== END 2020-01-13 13:15 | disposition home or self-care (01) ==
PROVIDERS: ATTEND Nurse Practitioner Family
DX: M54.6 Pain in thoracic spine (principal); M54.2 Cervicalgia; M54.5 Low back pain; R29.6 Repeated falls; H26.9 Unspecified cataract; I10 Essential (primary) hypertension; Z98.890 Other specified postprocedural states; Z87.820 Personal history of traumatic brain injury; Z87.81 Personal history of (healed) traumatic fracture; Z72.89 Other problems related to lifestyle; Z96.641 Presence of right artificial hip joint; Z96.611 Presence of right artificial shoulder joint

== ENCOUNTER 2020-02-03 13:27 | Emergency (ER) | payer MEDICARE, OTHER ==
[~2020-02-03] VITALS: Ht 149.8 cm; Wt 65.7 kg
--- NOTE | 2020-02-03 14:09 | ED EENT ---
History of Present Illness General Chief Complaint: Trauma-Non Activation Stated Complaint: BUSTED LIP Nursing Triage Note: PT AMB TO [facility] 6 WITH COMPLAINT OF FALL. PT TRIPPED OVER THE CURB AT [facility]. STATES HIT FACE FLAT ON CURB. DENIES NECK PAIN. DENIES LOC. PT HAS LACERATION TO INSIDE BOTTOM LIP, BRUISING UNDER HER CHIN, AND BRUISING/SWELLING TO NOSE. Source: patient Exam Limitations: no limitations History of Present Illness Date Seen by Provider: Feb 03, 2020 Time Seen by Provider: 14:00 Initial Comments Patient is a 69yo female who presents to the ER today after a mechanical trip and fall. She states she was stepping out of her car and over a curb when she caught her foot and went straight down on her face. She complains of facial pain to her nasal bridge, bottim lip and chin. She did just break her neck in April of this year and had to have surgery by Dr Alvin Herzog. She denies any current neck pain, extremity pain. No headache. No vision changes. She has a history of dizzy spells - but does not currently feel dizzy. All other ROS reviewed and negative except as stated Timing/Duration: abrupt Prearrival Treatment: no prearrival treatment Associated Symptoms: No change in hearing; facial pain/swelling; No nasal congestion/drainage, No tooth pain Allergies and Home Medications Allergies Coded Allergies: succinylcholine (Unverified Allergy, Unknown, 04/24/17) Home Medications Albuterol Sulfate 18 Gm Hfa.aer.ad, 2 PUFF INH Q4H PRN for SHORTNESS OF BREATH, (Reported) Ascorbate Calcium 500 Mg Tablet, 500 MG PO DAILY, (Reported) Beta-Carotene 25,000 Unit Capsule, 25,000 UNIT PO DAILY, (Reported) Cephalexin 500 Mg Tablet, 500 MG PO QID Prescribed by: DORA CARDONA on 10/14/19 1159 Cetirizine HCl 10 Mg Tab.rapdis, 10 MG PO DAILY, (Reported) Cholecalciferol (Vitamin D3) 400 Unit Capsule, 400 UNIT PO DAILY, (Reported) Escitalopram Oxalate 20 Mg Tablet, 20 MG PO HS, (Reported) Fenofibrate Nanocrystallized 145 Mg Tablet, 145 MG PO DAILY, (Reported) Fluticasone/Salmeterol 1 Each Blst.w.dev, 1 EACH IH BID, (Reported) Gabapentin 400 Mg Capsule, 400 MG PO QID PRN for PAIN-MODERATE (5-7), (Reported) Glucosa Prince 2Kcl/Chondroitin Prince 1 Each Tablet, 1 TAB PO DAILY, (Reported) Hydrocodone/Acetaminophen 1 Each Tablet, 1 EACH PO Q4-6HR PRN for PAIN-MODERATE Prescribed by: DORA CARDONA on 10/14/19 1159 Losartan/Hydrochlorothiazide 1 Each Tablet, 1 EACH PO DAILY, (Reported) Montelukast Sodium 10 Mg Tablet, 10 MG PO HS, (Reported) Multivitamin 1 Each Tablet, 1 TAB PO DAILY, (Reported) Omeprazole 40 Mg Capsule.dr, 40 MG PO BID, (Reported) Pomegranate Fruit Extract 250 Mg Capsule, 250 MG PO DAILY, (Reported) Potassium Chloride 20 Meq Tab.er.prt, 20 MEQ PO BID, (Reported) Tramadol HCl 50 Mg Tablet, 50 MG PO Q6H PRN for PAIN-MODERATE, (Reported) Triamcinolone Acet 15 Gm Cr, 15 GM TP TID Prescribed by: DORA CARDONA on 10/14/19 115 Vitamin E Acetate 400 Unit Capsule, 400 UNIT PO DAILY, (Reported) Review of Systems Review of Systems Constitutional: no symptoms reported Eyes: No Symptoms Reported Ears: No Symptoms Reported Nose: pain Mouth: denies loose teeth; swelling, bloody discharge Throat: no symptoms reported Respiratory: no symptoms reported Cardiovascular: no symptoms reported Gastrointestinal: no symptoms reported : No Musculoskeletal: no symptoms reported Skin: other (laceration to mucosal surface of bottom lip - ) All Other Systems Reviewed Negative Unless Noted: Yes Past Nrltpfm-Szcfce-Cxqsjk Hx Patient Social History Alcohol Use: Rarely Uses Number of Drinks Today: EE Alcohol Beverage of Choice: [employer] Recreational Drug Use: No Smoking Status: Former Smoker Type Used: Cigarettes Former Smoker, Quit: Apr 03, 2001 2nd Hand Smoke Exposure: No Recent Foreign Travel: No Contact w/Someone Who Travel: No Recent Infectious Disease Expo: No Recent Hopitalizations: No Immunizations Up To Date Tetanus Booster (TDap): Less than 5yrs Date of Pneumonia Vaccine: Feb 15, 2017 Date of Influenza Vaccine: Jan 04, 2017 Past Medical History Surgeries: Yes (HIP BACK TENDONITIS; rt. wrist carpal tunnel, cervical spine fusion) Gallbladder, Orthopedic Respiratory: Yes (ALLERGIES COMBIVENT) Currently Using CPAP: No Currently Using BIPAP: No Cardiac: Yes Hypertension Neurological: No Reproductive Disorders: No Sexually Transmitted Disease: No HIV/AIDS: No Genitourinary: No Gastrointestinal: Yes (COLON POLYPS/HIATAL HERNIA) Gall Bladder Disease Musculoskeletal: Yes (rt. hip replacement 08/31/10) Chronic Back Pain, Fractures Endocrine: No Loss of Vision: Bilateral Hearing Impairment: Denies Cancer: No Psychosocial: No Integumentary: No Blood Disorders: No (BLEEDS EASILY) Adverse Reaction/Blood Tranf: No (NEVER HAD BLOOD TRANSFUSION) Family Medical History Family history: Hypertension 03 FATHER, Onset:Unknown Myocardial infarction 03 FATHER, Onset:60 years & older Stroke 03 MOTHER, Onset:Unknown No Pertinent Family Hx Physical Exam Vital Signs Vital Signs - First Documented 02/03/20 13:31 Temp 36.9 Pulse 98 Resp 20 B/P (MAP) 142/91 (108) Pulse Ox 94 O2 Delivery Room Air Height, Weight, BMI Height: 5'2.00" Weight: 169lbs. 6.0oz. [id number]; 29.00 BMI Method:Stated General Appearance: WD/WN, no apparent distress Eyes: bilateral eye normal inspection, bilateral eye PERRL, bilateral eye EOMI Ears: bilateral ear auricle normal, bilateral ear TM normal Nose: other (tenderness to palpation right side of nasal bridge, no nasal septal hematoma; no crepitance) Mouth/Throat: other (lower lip stellate laceration that is NOT through and through. POsitive oozing blood. 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, no motor/sensory deficits, alert, normal mood/affect, oriented x 3 Skin: normal color, warm/dry Procedures/Interventions Wound Location: Face (lower lip) Wound's Depth, Shape: superficial, irregular Wound Explored: clean Anesthesia: 1% Lidocaine Volume Anesthetic (ccs): 2 Suture: Vicryl Suture Size: 4-0 Number of Sutures: 2 Layer Closure?: 1 Sterile Dressing Applied?: No Progress/Results/Core Measures Results/Orders My Orders Orders - NIDA FRIAS MD Lidocaine 1% Inj 20 Ml (Xylocaine 1% Inj (02/03/20 14:15) Medications Given in ED Current Medications Medications Dose Ordered Sig/Doug Route Start Time Stop Time Status Last Admin Dose Admin Lidocaine HCl 20 ml ONCE ONCE INJ 02/03/20 14:15 02/03/20 14:16 DC 02/03/20 14:28 20 ML Vital Signs/I&O 02/03/20 13:31 Temp 36.9 Pulse 98 Resp 20 B/P (MAP) 142/91 (108) Pulse Ox 94 O2 Delivery Room Air Blood Pressure Mean: 108 Departure Impression Primary Impression: Laceration of lip Additional Impression: Contusion of face Disposition: HOME, SELF-CARE Condition: Stable Departure-Patient Inst. Decision time for Depature: 14:50 Referrals: KAVITA KIRBY MD (PCP/Family) Primary Care Physician Patient Instructions: Laceration Repair Add. Discharge Instructions: The stitches will dissolve on their own. Use an ice pack for the next 2 days to your lip. Return to the ER for any new concerns or emergencies. All discharge instructions reviewed with patient and/or family. Voiced unders tanding. NIDA FRIAS MD Feb 03, 2020 14:08
[2020-02-03] MEDS ORDERED: LIDOCAINE 1% INJ 20 ML 20 ML VIAL INJ ONE (14:15)
[2020-02-03 14:53] VITALS: BP 142/91
== END 2020-02-03 14:53 | disposition home or self-care (01) ==
LOC: EDUNIT# 13:27 → ER 13:28
DX: S01.511A Laceration without foreign body of lip, initial encounter (principal); I10 Essential (primary) hypertension; G89.29 Other chronic pain; M54.9 Dorsalgia, unspecified; Z20.828 Contact with and (suspected) exposure to other viral communicable diseases; Z82.49 Family history of ischemic heart disease and other diseases of the circulatory system; Z87.891 Personal history of nicotine dependence; Z88.8 Allergy status to other drugs, medicaments and biological substances; Z79.891 Long term (current) use of opiate analgesic; W01.0XXA Fall on same level from slipping, tripping and stumbling without subsequent striking against object, initial encounter
CPT/HCPCS: 12011

== ENCOUNTER → 2020-02-21 | Outpatient (CLI) | payer MEDICARE, OTHER ==
--- NOTE | 2020-02-21 14:37 | Diagnostic Imaging Report ---
INDICATION: Six-month followup right breast calcifications. COMPARISON: Correlation is made with prior mammograms from 08/08/2019 and 01/24/2019. TECHNIQUE: 2D and 3D bilateral diagnostic mammography was performed with CAD. FINDINGS: Scattered fibroglandular densities are noted bilaterally. A biopsy clip in the upper outer right breast at posterior depth is noted. There are increasing benign calcifications near the biopsy site in the upper outer right breast. The remainder of the breast parenchyma is stable. No new mass is seen. There is no malignant appearing microcalcifications. IMPRESSION: Benign calcifications at the biopsy site in the upper outer right breast. The patient may return to routine annual screening mammography. ACR BI-RADS Category 2: Benign findings. Result letter will be mailed to the patient. Note: At least 10% of breast cancer is not imaged by mammography. Dictated by: Dictated on workstation # [id number]
== END ==
LOC: RAD 14:15
PROVIDERS: ATTEND Nurse Practitioner Family
DX: R92.1 Mammographic calcification found on diagnostic imaging of breast (principal)
CPT/HCPCS: 77066; G0279; 77062

== ENCOUNTER → 2020-04-24 | Outpatient (CLI) | payer MEDICARE, OTHER ==
[~2020-04-24] MED LIST changes: -ESCI10TA55 PO; +ESCI10TA64 PO; -MONT10TA26 PO; +MONT10TA97 PO
--- NOTE | 2020-04-24 12:17 | Diagnostic Imaging Report ---
INDICATION: Back pain. COMPARISON: 06/11/2019. FINDINGS: Frontal and lateral radiographic views of the thoracic spine were obtained. Upper thoracic spine is obscured by superimposed osseous structures and metallic hardware. Visualized portions of the thoracic spine show no acute abnormalities. There is mild levoscoliotic deformity. AP static alignment is maintained. Vertebral body heights are preserved. There is no evidence of acute fracture. Moderate multilevel degenerative changes are noted. Included portions of the lungs are clear. IMPRESSION: 1. No acute fracture or dislocation of the thoracic spine. 2. Moderate multilevel degenerative changes. Dictated by: Dictated on workstation # [id number]
--- NOTE | 2020-04-24 12:19 | Diagnostic Imaging Report ---
INDICATION: Back pain. COMPARISON: None FINDINGS: Frontal and lateral radiographic views of the chest were obtained. Evaluation of static alignment shows slight reverse S-shaped scoliotic deformity of the thoracolumbar spine. AP static alignment also shows mild grade 1 retrolisthesis at L3-L4, stable compared to prior exam. There is no evidence of jumped facets. Vertebral body heights are maintained. There is no acute fracture. There are advanced multilevel degenerative changes consistent with intervertebral disc height loss with prominent anterior and posterior disc osteophyte complex formations as well as sclerotic remodeling of the adjacent endplates. These changes are greatest at the L1-L2 level. Note is made of calcified aortic atherosclerosis. Included small bowel loops are nondistended. IMPRESSION: 1. No acute fracture or dislocation of the lumbar spine. 2. Advanced multilevel degenerative changes. Dictated by: Dictated on workstation # [id number]
== END ==
LOC: RAD 10:08
PROVIDERS: ATTEND Nurse Practitioner Family
DX: M47.814 Spondylosis without myelopathy or radiculopathy, thoracic region (principal); M47.816 Spondylosis without myelopathy or radiculopathy, lumbar region
CPT/HCPCS: 72072; 72100

== ENCOUNTER 2020-06-04 14:22 | Outpatient (RCR) | payer MEDICARE, OTHER ==
[~2020-06-04 14:22] MED LIST changes: +ESCI-2 PO; -ESCI10TA64 PO; +MONT10TA32 PO; -MONT10TA97 PO
== END 2020-07-02 10:50 | disposition home or self-care (01) ==
PROVIDERS: ATTEND Family Medicine
DX: M54.5 Low back pain (principal); M54.2 Cervicalgia; M54.6 Pain in thoracic spine

== ENCOUNTER → 2021-02-05 | Outpatient (CLI) | payer MEDICARE, OTHER ==
[~2021-02-05] MED LIST changes: -OMEP40CA27 PO; +OMEP40CA6 PO
--- NOTE | 2021-02-05 13:00 | Diagnostic Imaging Report ---
INDICATION: Routine screening. CORRELATION is made with prior mammograms 02/21/2020 and 01/24/2019. 2-D and 3-D bilateral screening mammography was performed with CAD. Scattered fibroglandular densities are identified bilaterally. Benign calcifications in the outer right breast appear stable. There is a biopsy clip in the outer right breast. No mass or malignant-appearing microcalcifications are seen. Axillae are unremarkable. IMPRESSION: BI-RADS Category 2. No mammographic features suspicious for malignancy are identified. ACR BI-RADS Category 2: Benign findings. Result letter will be mailed to the patient. Note: At least 10% of breast cancer is not imaged by mammography. Dictated by: Dictated on workstation # [id number]
== END ==
LOC: RAD 11:01
PROVIDERS: ATTEND Nurse Practitioner Family
DX: Z12.31 Encounter for screening mammogram for malignant neoplasm of breast (principal)
CPT/HCPCS: 77063; 77067

== ENCOUNTER 2021-02-23 12:31 | Inpatient (IN) | payer MEDICARE, OTHER ==
[~2021-02-23] VITALS: Ht 149.9 cm; Wt 66.3 kg
[~2021-02-23 12:31] MED LIST changes: -LISI1TAB26 PO; +LISI1TAB48 PO; +MONT-40 PO; -MONT10TA32 PO; +POTA-169 PO; -POTA20TA8 PO
[2021-02-23 13:02] LABS: BASOPHILS % (AUTO) 0 % (0-10); EOSINOPHILS % (AUTO) 0 % (0-10); HEMATOCRIT 39 % (35-52); HEMOGLOBIN 13.3 g/dL (11.5-16.0); LYMPHOCYTES # (AUTO) 0.4 10^3/uL (1.0-4.0); LYMPHOCYTES % (AUTO) 5 % (12-44); MEAN CORPUSCULAR HEMOGLOBIN 32 pg (25-34); MEAN CORPUSCULAR HGB CONC 34 g/dL (32-36); MEAN CORPUSCULAR VOLUME 93 fL (80-99); MEAN PLATELET VOLUME 8.7 fL (9.0-12.2); MONOCYTES # (AUTO) 0.5 10^3/uL (0.0-1.0); MONOCYTES % (AUTO) 7 % (0-12); NEUTROPHILS % (AUTO) 87 % (42-75); PLATELET COUNT 212 10^3/uL (130-400); WHITE BLOOD COUNT 6.9 10^3/uL (4.3-11.0)
[2021-02-23 13:10] LABS: ALBUMIN 3.8 GM/DL (3.2-4.5); POTASSIUM 3.3 MMOL/L (3.6-5.0)
[2021-02-23 13:12] LABS: CALCIUM 9.1 MG/DL (8.5-10.1); PROTHROMBIN TIME PATIENT 13.3 SEC (12.2-14.7)
[2021-02-23 13:13] LABS: TOTAL PROTEIN 6.2 GM/DL (6.4-8.2)
[2021-02-23 13:15] LABS: BILIRUBIN,TOTAL 0.5 MG/DL (0.1-1.0)
[2021-02-23 13:16] LABS: CREATININE SERUM 0.64 MG/DL (0.60-1.30)
[2021-02-23 13:36] LABS: BAND NEUTROPHILS 4 %; BASOPHILS % (MANUAL) 0 %; EOSINOPHILS % (MANUAL) 0 %; LYMPHOCYTES % (MANUAL) 4 %; MONOCYTES % (MANUAL) 6 %; NEUTROPHILS % (MANUAL) 86 %; RBC MORPH NORMAL
--- NOTE | 2021-02-23 13:47 | Diagnostic Imaging Report ---
INDICATION: Sepsis. TIME OF EXAM: 1:33 PM. COMPARISON: Chest of 09/18/2019. FINDINGS: The heart size is normal. There is minimal infiltrate or atelectasis in the right base; otherwise, the lungs are clear. The pulmonary vascularity is normal. There is no effusion or pneumothorax. Postop changes in the cervical spine and right shoulder are noted. IMPRESSION: Minimal right basilar infiltrate or atelectasis. Dictated by: Dictated on workstation # [id number]
[2021-02-23] MEDS ORDERED: KETOROLAC 30 MG/ML VIAL IVP ONE (14:15)
--- NOTE | 2021-02-23 14:19 | ED General ---
General Chief Complaint: Fever-Adult/Adol Stated Complaint: DEHYDRATION Nursing Triage Note: Pt arrives via POV from home wtih c/o fever; possible dehydration; et AMS. Pt not a good historian r/t AMS; unable to provide much detail during triage. Source of Information: Patient, EMS, Old Records Exam Limitations: No Limitations, Other (Dr. Root) History of Present Illness Date Seen by Provider: Feb 23, 2021 Time Seen by Provider: 12:32 Initial Comments This 70-year-old woman presents to the emergency room via EMS with complaints of fever, confusion, and possible dehydration. Patient seems rather confused and is a poor historian. She denies any pain, nausea, vomiting or shortness of b reath. She has recently been on antibiotics, but she cannot tell me what they were for. My later conversation with Dr. Root revealed she was on Omnicef for a sinus infection. Patient has a history of heavy alcohol consumption but it is unknown if she has been drinking recently. Patient has been duly vaccinated for COVID-19. She is receiving IV fluids initiated by EMS. Allergies and Home Medications Allergies Coded Allergies: succinylcholine (Unverified Allergy, Unknown, 04/24/17) Patient Home Medication List Home Medication List Reviewed: Yes Albuterol Sulfate (Ventolin Hfa) 18 Gm Hfa.aer.ad, 2 PUFF INH Q4H PRN for SHORTNESS OF BREATH, (Reported) Entered as Reported by: ROSA ELENA KWAN on 04/24/17 0838 Ascorbate Calcium (Vitamin C) 500 Mg Tablet, 500 MG PO DAILY, (Reported) Entered as Reported by: ROSA ELENA KWAN on 04/24/17 0904 Beta-Carotene (Beta Carotene) 25,000 Unit Capsule, 25,000 UNIT PO DAILY, (Reported) Entered as Reported by: ROSA ELENA KWAN on 04/24/17 0904 Last Action: Held Cephalexin (Cephalexin) 500 Mg Tablet, 500 MG PO QID Prescribed by: DORA CARDONA on 10/14/19 1159 Cetirizine HCl (Zyrtec) 10 Mg Tab.rapdis, 10 MG PO DAILY, (Reported) Entered as Reported by: MARK JENNINGS on 09/18/19 0751 Cholecalciferol (Vitamin D3) (Vitamin D3) 400 Unit Capsule, 400 UNIT PO DAILY, (Reported) Entered as Reported by: ROSA ELENA KWAN on 04/24/17 09 Escitalopram Oxalate (Lexapro) 20 Mg Tablet, 20 MG PO HS, (Reported) Entered as Reported by: MARK JENNINGS on 09/18/19 075 Fenofibrate Nanocrystallized (Tricor) 145 Mg Tablet, 145 MG PO DAILY, (Reported) Entered as Reported by: MARK JENNINGS on 09/18/19 075 Fluticasone/Salmeterol (Advair 250-50 Diskus) 1 Each Blst.w.dev, 1 EACH IH BID, (Reported) Entered as Reported by: MARK JENNINGS on 09/18/19 075 Gabapentin (Gabapentin) 400 Mg Capsule, 400 MG PO QID PRN for PAIN-MODERATE (5- 7), (Reported) Entered as Reported by: MARK JENNINGS on 09/18/19 075 Glucosa Prince 2Kcl/Chondroitin Prince (Glucosamine Chondroitin Caplet) 1 Each Tablet, 1 TAB PO DAILY, (Reported) Entered as Reported by: ROSA ELENA KWAN on 04/24/17 09 Hydrocodone/Acetaminophen (Lorcet 5-325 mg Tablet) 1 Each Tablet, 1 EACH PO Q4- 6HR PRN for PAIN-MODERATE Prescribed by: DORA CARDONA on 10/14/19 1159 Losartan/Hydrochlorothiazide (Losartan-Hctz 50-12.5 mg Tab) 1 Each Tablet, 1 EACH PO DAILY, (Reported) Entered as Reported by: MARK JENNINGS on 09/18/19 075 Montelukast Sodium (Montelukast Sodium) 10 Mg Tablet, 10 MG PO HS, (Reported) Entered as Reported by: ROSA ELENA KWAN on 04/24/17 08 Multivitamin (Multivitamins) 1 Each Tablet, 1 TAB PO DAILY, (Reported) Entered as Reported by: ROSA ELENA KWAN on 04/24/17 09 Omeprazole (Omeprazole) 40 Mg Capsule.dr, 40 MG PO BID, (Reported) Entered as Reported by: ROSA ELENA KWAN on 04/24/17 08 Pomegranate Fruit Extract (Pomegranate) 250 Mg Capsule, 250 MG PO DAILY, (Reported) Entered as Reported by: ROSA ELENA KWAN on 04/24/17 0904 Potassium Chloride (Klor-Con M20) 20 Meq Tab.er.prt, 20 MEQ PO BID, (Reported) Entered as Reported by: ROSA ELENA KWAN on 04/24/17 0838 Tramadol HCl (Tramadol HCl) 50 Mg Tablet, 50 MG PO Q6H PRN for PAIN-MODERATE, (Reported) Entered as Reported by: ROSA ELENA KWAN on 04/24/17 0838 Triamcinolone Acet (Triamcinolone Acetonide 0.1% Cream) 15 Gm Cr, 15 GM TP TID Prescribed by: DORA CARDONA on 10/14/19 1159 Vitamin E Acetate (Vitamin E) 400 Unit Capsule, 400 UNIT PO DAILY, (Reported) Entered as Reported by: ROSA ELENA KWAN on 04/24/17 0904 Review of Systems Review of Systems Constitutional: see HPI EENTM: see HPI Respiratory: no symptoms reported Cardiovascular: no symptoms reported Gastrointestinal: see HPI Genitourinary: no symptoms reported : No Musculoskeletal: no symptoms reported Psychiatric/Neurological: See HPI Hematologic/Lymphatic: No Symptoms Reported Immunological/Allergic: no symptoms reported Past Fnpdgem-Onclpd-Nxyasw Hx Patient Social History Tobacco Use?: No Use of E-Cig and/or Vaping dev: No Substance use?: No Alcohol Use?: Yes (Prior heavy consumption) Pt feels they are or have been: No Immunizations Up To Date Tetanus Booster (TDap): Less than 5yrs Past Medical History Surgeries: Yes (HIP BACK TENDONITIS; rt. wrist carpal tunnel, cervical spine fusion) Gallbladder, Joint Replacement, Orthopedic Respiratory: Yes (ALLERGIES COMBIVENT) COPD Currently Using CPAP: No Currently Using BIPAP: No Cardiac: Yes Coronary Artery Disease, Hypertension, Peripheral Vascular (Carotid stenosis), Valvular Heart Disease Neurological: No Reproductive Disorders: No Sexually Transmitted Disease: No HIV/AIDS: No Genitourinary: No Gastrointestinal: Yes (COLON POLYPS/HIATAL HERNIA) Gall Bladder Disease Musculoskeletal: Yes (rt. hip replacement 08/31/10) Chronic Back Pain, Fractures Endocrine: No Loss of Vision: Bilateral Hearing Impairment: Denies Cancer: No Psychosocial: No Integumentary: No Blood Disorders: No (BLEEDS EASILY) Adverse Reaction/Blood Tranf: No (NEVER HAD BLOOD TRANSFUSION) Family Medical History Family history: Hypertension 03 FATHER, Onset:Unknown Myocardial infarction 03 FATHER, Onset:60 years & older Stroke 03 MOTHER, Onset:Unknown No Pertinent Family Hx Physical Exam Vital Signs Vital Signs - First Documented Capillary Refill : Less Than 3 Seconds Height, Weight, BMI Height: 5'2.00" Weight: 169lbs. 6.0oz. 74.995501xq; 29.00 BMI Method:Stated General Appearance: WD/WN, Moderate Distress HEENT: PERRL/EOMI, Normal ENT Inspection, Other (Mucous membranes somewhat dry) Neck: Normal Inspection Respiratory: Lungs Clear, No Accessory Muscle Use, Decreased Breath Sounds (Diminished in the bases), Other (Mild to moderate tachypnea) Cardiovascular: No Edema, No Murmur, Tachycardia Gastrointestinal: Normal Bowel Sounds, Non Tender, Soft Extremity: Normal Inspection, No Pedal Edema Neurologic/Psychiatric: Alert, No Motor/Sensory Deficits, grey roll man II-XII Norm as Tested, Other (Irritable mood. Oriented to hospital and age. Disoriented to month poor historian. Cannot answer some questions.) Skin: Normal Color, Warm/Dry Focused Exam Lactate Level 02/23/21 12:40: Lactic Acid Level 1.86 Lactic Acid Level Laboratory Tests Test 02/23/21 12:40 Lactic Acid Level 1.86 MMOL/L (0.50-2.00) Procedures/Interventions Suture Size: 4-0 Progress/Results/Core Measures Suspected Sepsis SIRS Temperature: Pulse: 100 Respiratory Rate: 22 Laboratory Tests 02/23/21 12:40: White Blood Count 6.9 Blood Pressure 145 /98 Mean: 114 02/23/21 12:40: Lactic Acid Level 1.86 Laboratory Tests 02/23/21 12:40: Creatinine 0.64, INR Comment 1.0, Platelet Count 212, Total Bilirubin 0.5 Results/Orders Lab Results Laboratory Tests Test 02/23/21 12:40 02/23/21 12:45 Range/Units White Blood Count 6.9 4.3-11.0 10^3/uL Red Blood Count 4.18 3.80-5.11 10^6/uL Hemoglobin 13.3 11.5-16.0 g/dL Hematocrit 39 35-52 % Mean Corpuscular Volume 93 80-99 fL Mean Corpuscular Hemoglobin 32 25-34 pg Mean Corpuscular Hemoglobin Concent 34 32-36 g/dL Red Cell Distribution Width 11.9 10.0-14.5 % Platelet Count 212 130-400 10^3/uL Mean Platelet Volume 8.7 L 9.0-12.2 fL Immature Granulocyte % (Auto) 0 % Neutrophils (%) (Auto) 87 H 42-75 % Lymphocytes (%) (Auto) 5 L 12-44 % Monocytes (%) (Auto) 7 0-12 % Eosinophils (%) (Auto) 0 0-10 % Basophils (%) (Auto) 0 0-10 % Neutrophils # (Auto) 6.0 1.8-7.8 10^3/uL Lymphocytes # (Auto) 0.4 L 1.0-4.0 10^3/uL Monocytes # (Auto) 0.5 0.0-1.0 10^3/uL Eosinophils # (Auto) 0.0 0.0-0.3 10^3/uL Basophils # (Auto) 0.0 0.0-0.1 10^3/uL Immature Granulocyte # (Auto) 0.0 0.0-0.1 10^3/uL Neutrophils % (Manual) 86 % Lymphocytes % (Manual) 4 % Monocytes % (Manual) 6 % Eosinophils % (Manual) 0 % Basophils % (Manual) 0 % Band Neutrophils 4 % Blood Morphology Comment NORMAL Prothrombin Time 13.3 12.2-14.7 SEC INR Comment 1.0 0.8-1.4 Activated Partial Thromboplast Time 30 24-35 SEC Sodium Level 132 L 135-145 MMOL/L Potassium Level 3.3 L 3.6-5.0 MMOL/L Chloride Level 95 L 98-107 MMOL/L Carbon Dioxide Level 22 21-32 MMOL/L Anion Gap 15 H 5-14 MMOL/L Blood Urea Nitrogen 6 L 7-18 MG/DL Creatinine 0.64 0.60-1.30 MG/DL Estimat Glomerular Filtration Rate 91 BUN/Creatinine Ratio 9 Glucose Level 106 H 70-105 MG/DL Lactic Acid Level 1.86 0.50-2.00 MMOL/L Calcium Level 9.1 8.5-10.1 MG/DL Corrected Calcium 9.3 8.5-10.1 MG/DL Total Bilirubin 0.5 0.1-1.0 MG/DL Aspartate Amino Transf (AST/SGOT) 28 5-34 U/L Alanine Aminotransferase (ALT/SGPT) 15 0-55 U/L Alkaline Phosphatase 43 40-136 U/L C-Reactive Protein High Sensitivity 2.08 H 0.00-0.50 MG/DL B-Type Natriuretic Peptide 62.7 <100.0 PG/ML Total Protein 6.2 L 6.4-8.2 GM/DL Albumin 3.8 3.2-4.5 GM/DL Procalcitonin 0.21 H <0.10 NG/ML Serum Alcohol < 10 <10 MG/DL Influenza Type A (RT-PCR) Not Detected Not Detecte Influenza Type B (RT-PCR) Not Detected Not Detecte SARS-CoV-2 RNA (RT-PCR) Detected H Not Detecte My Orders Orders - BARBER MOJICA MD Cbc With Automated Diff (02/23/21 12:41) Comprehensive Metabolic Panel (02/23/21 12:41) Blood Culture (02/23/21 12:41) Sputum Culture (02/23/21 12:41) Urinalysis (02/23/21 12:41) Urine Culture (02/23/21 12:41) Protime With Inr (02/23/21 12:41) Partial Thromboplastin Time (02/23/21 12:41) Chest 1 View, Ap/Pa Only (02/23/21 12:41) Ed Iv/Invasive Line Start (02/23/21 12:41) Vital Signs Adult Sepsis Patie Q15M (02/23/21 12:41) O2 (02/23/21 12:41) Remove Rings In Anticipation O (02/23/21 12:41) Lactic Acid Analyzer (02/23/21 12:41) Influenza A And B By Pcr (02/23/21 12:41) Procalcitonin (Pct) (02/23/21 12:41) Hs C Reactive Protein (02/23/21 12:41) Covid 19 Inhouse Test (02/23/21 12:41) BNP (02/23/21 12:48) Manual Differential (02/23/21 12:40) Vital Signs/I&O 02/23/21 02/23/21 02/23/21 12:40 12:40 12:40 Temp 38.0 Pulse 100 Resp 22 B/P (MAP) 145/98 (114) Pulse Ox 96 90 O2 Delivery Nasal Cannula Room Air Room Air O2 Flow Rate 2.00 Capillary Refill : Less Than 3 Seconds Blood Pressure Mean: 114 Progress Note : Time: 14:33 Progress Note Patient tested positive for COVID-19. She has been rather confused and has been up out of her bed numerous times and removed her IV. She is oriented to person, hospital, and age but not the month. She does not answer some of the questions and appears persistently confused. Vital signs are stable. I discussed the case with Dr. Root. Since her oxygen levels are marginal with room air saturations in the 90 to 92% range, we will give a dose of dexamethasone. Dr. Root will assess tomorrow to determine if she should continue on dexamethasone. There is no significant evidence of bacterial infection at this time, therefore antibiotics will not be administered. I am admitting her to the ICU with a sitter because of her behavior. She complained of back pain and a dose of Toradol was ordered. It is unknown if she has taken any Tylenol at home. Neither she nor her can answer what medications were taken. I spoke with her for a while and we discussed CODE STATUS. As far as he knows she should be full code. She was full code on her last admission. Her mental status does not qualify her to make a good decision on CODE STATUS at this time. Diagnostic Imaging Diagonstic Imaging: Xray Plain Films/CT/US/NM/MRI: chest Comments Chest x-ray viewed by me and report reviewed. See report below: NAME: SHRAVAN HU MED REC#: [id number] PT STATUS: REG ER : 1950 PHYSICIAN: BARBER MOJICA MD ADMIT DATE: 02/23/21/ER Draft Date of Exam:02/23/21 CHEST 1 VIEW, AP/PA ONLY INDICATION: Sepsis. TIME OF EXAM: 1:33 PM. COMPARISON: Chest of 09/18/2019. FINDINGS: The heart size is normal. There is minimal infiltrate or atelectasis in the right base; otherwise, the lungs are clear. The pulmonary vascularity is normal. There is no effusion or pneumothorax. Postop changes in the cervical spine and right shoulder are noted. IMPRESSION: Minimal right basilar infiltrate or atelectasis. Dictated on workstation # [id number] Dict: 02/23/21 1342 Trans: 02/23/21 1346 [id number] Interpreted by: MARYCARMEN GRIMES MD Departure Impression Primary Impression: COVID-19 Additional Impression: Confusion Disposition: 09 ADMITTED INPATIENT Condition: Stable Admissions Decision to Admit Reason: Admit from ER (General) Decision to Admit/Date: Feb 23, 2021 Time/Decision to Admit Time: 12:45 Departure-Patient Inst. Referrals: KAVITA ROOT MD (PCP) Primary Care Physician BARBER MOJICA MD Feb 23, 2021 14:19
[2021-02-23] MEDS ORDERED: HYDROcodone/APAP 5 MG/325 MG (LORTAB) TAB PO ONE (16:00)
[2021-02-23 16:43] VITALS: BP 138/75
[2021-02-23 17:00] VITALS: BP 136/86
[2021-02-23] MEDS ORDERED: guaiFENesin SYRUP 100 MG/5 ML 10 ML (ROBITUSSIN SF) PO PRN (17:30)
[2021-02-23] MEDS ORDERED: ACETAMINOPHEN 650 MG SUPP (TYLENOL) PR PRN (17:30)
[2021-02-23] MEDS ORDERED: ONDANSETRON 4 MG/2 ML (SDV) Z0FRAN IV PRN ×2 (17:30→17:45)
--- NOTE | 2021-02-23 17:33 | History & Physicial ---
History of Present Illness History of Present Illness Reason for visit/HPI PT IS A 70 Y/O FEMALE WHO IS KNOWN TO ME FROM CLINIC. SHE PRESENTED TO THE HOSPITAL VIA EMS DUE TO CONFUSION, WEAKNESS AND FEVER. PT REPORTS THAT SHE IS FEELING BETTER NOW COMPARED TO IMMEDIATELY ON ADMISSION. SHE REPORTS THAT SHE HAD BEEN OUT AND ABOUT FOR THE PAST WEEK OR SO AND THEY TRAVELED TO [place] IN [place] AND SHE STATES THAT THEY REALLY DID NOT GET OUT MUCH WHEN THEY TRAVELED. Date of Admission Feb 23, 2021 at 13:55 Date Seen by a Provider: Feb 23, 2021 Time Seen by a Provider: 16:50 Attending Physician Kavita Root MD Admitting Physician Kavita Root MD Consult Allergies and Home Medications Allergies Coded Allergies: succinylcholine (Unverified Allergy, Unknown, 04/24/17) Patient Home Medication List Home Medication List Reviewed: Yes Albuterol Sulfate (Ventolin Hfa) 18 Gm Hfa.aer.ad, 2 PUFF INH Q4H PRN for SHORTNESS OF BREATH, (Reported) Entered as Reported by: ROSA ELENA KWAN on 04/24/17 0838 Ascorbate Calcium (Vitamin C) 500 Mg Tablet, 500 MG PO DAILY, (Reported) Entered as Reported by: ROSA ELENA KWAN on 04/24/17 09 Beta-Carotene (Beta Carotene) 25,000 Unit Capsule, 25,000 UNIT PO DAILY, (Reported) Entered as Reported by: ROSA ELENA KWAN on 04/24/17 0904 Last Action: Held Cephalexin (Cephalexin) 500 Mg Tablet, 500 MG PO QID Prescribed by: DORA CARDONA on 10/14/19 1159 Cetirizine HCl (Zyrtec) 10 Mg Tab.rapdis, 10 MG PO DAILY, (Reported) Entered as Reported by: MARK JENNINGS on 09/18/19 0751 Cholecalciferol (Vitamin D3) (Vitamin D3) 400 Unit Capsule, 400 UNIT PO DAILY, (Reported) Entered as Reported by: ROSA ELENA KWAN on 04/24/17 09 Escitalopram Oxalate (Lexapro) 20 Mg Tablet, 20 MG PO HS, (Reported) Entered as Reported by: MARK JENNINGS on 09/18/19 0751 Fenofibrate Nanocrystallized (Tricor) 145 Mg Tablet, 145 MG PO DAILY, (Reported) Entered as Reported by: MARK JENNINGS on 09/18/19 075 Fluticasone/Salmeterol (Advair 250-50 Diskus) 1 Each Blst.w.dev, 1 EACH IH BID, (Reported) Entered as Reported by: MARK JENNINGS on 09/18/19 075 Gabapentin (Gabapentin) 400 Mg Capsule, 400 MG PO QID PRN for PAIN-MODERATE (5- 7), (Reported) Entered as Reported by: MARK JENNINGS on 09/18/19 075 Glucosa Prince 2Kcl/Chondroitin Prince (Glucosamine Chondroitin Caplet) 1 Each Tablet, 1 TAB PO DAILY, (Reported) Entered as Reported by: ROSA EELNA KWAN on 04/24/17 09 Hydrocodone/Acetaminophen (Lorcet 5-325 mg Tablet) 1 Each Tablet, 1 EACH PO Q4- 6HR PRN for PAIN-MODERATE Prescribed by: DORA CARDONA on 10/14/19 1159 Losartan/Hydrochlorothiazide (Losartan-Hctz 50-12.5 mg Tab) 1 Each Tablet, 1 EACH PO DAILY, (Reported) Entered as Reported by: MARK JENNINGS on 09/18/19750 Montelukast Sodium (Montelukast Sodium) 10 Mg Tablet, 10 MG PO HS, (Reported) Entered as Reported by: ROSA ELENA KWAN on 04/24/17 08 Multivitamin (Multivitamins) 1 Each Tablet, 1 TAB PO DAILY, (Reported) Entered as Reported by: ROSA ELENA KWAN on 04/24/17 09 Omeprazole (Omeprazole) 40 Mg Capsule.dr, 40 MG PO BID, (Reported) Entered as Reported by: ROSA ELENA KWAN on 04/24/17 08 Pomegranate Fruit Extract (Pomegranate) 250 Mg Capsule, 250 MG PO DAILY, (Reported) Entered as Reported by: ROSA ELENA KWAN on 04/24/17 09 Potassium Chloride (Klor-Con M20) 20 Meq Tab.er.prt, 20 MEQ PO BID, (Reported) Entered as Reported by: ROSA ELENA KWAN on 04/24/17 08 Tramadol HCl (Tramadol HCl) 50 Mg Tablet, 50 MG PO Q6H PRN for PAIN-MODERATE, (Reported) Entered as Reported by: ROSA ELENA KWAN on 04/24/17 0838 Triamcinolone Acet (Triamcinolone Acetonide 0.1% Cream) 15 Gm Cr, 15 GM TP TID Prescribed by: DORA CARDONA on 10/14/19 1159 Vitamin E Acetate (Vitamin E) 400 Unit Capsule, 400 UNIT PO DAILY, (Reported) Entered as Reported by: ROSA ELENA KWAN on 04/24/17 0904 Past Fulxlmo-Aqrxfo-Hwqica Hx Patient Social History Marrital Status: Living Status: LIVES AT HOME WITH SPOUSE Employed/Student: retired Alcohol Beverage of Choice: Beer, Scotch Former Smoker, Quit: Apr 03, 2001 2nd Hand Smoke Exposure: No Recent Hopitalizations: No Have you traveled recently?: No Alcohol Use?: Yes (Prior heavy consumption) Pt feels they are or have been: No Immunizations Up To Date Tetanus Booster (TDap): Less than 5yrs Date of Pneumonia Vaccine: Feb 15, 2017 Date of Influenza Vaccine: Jan 04, 2017 Surgeries Yes (HIP BACK TENDONITIS; rt. wrist carpal tunnel, cervical spine fusion) Gallbladder, Joint Replacement, Orthopedic Respiratory Yes (ALLERGIES COMBIVENT) COPD Currently Using CPAP: No Currently Using BIPAP: No Cardiovascular Yes Coronary Artery Disease, Hypertension, Peripheral Vascular (Carotid stenosis), Valvular Heart Disease Neurological No Reproductive System : No Hx Reproductive Disorders: No Sexually Transmitted Disease: No HIV/AIDS: No Genitourinary No Gastrointestinal Yes (COLON POLYPS/HIATAL HERNIA) Gall Bladder Disease Musculoskeletal Yes (rt. hip replacement 08/31/10) Chronic Back Pain, Fractures Endocrine History of Endocrine Disorders: No Are Your Blood Sugars Over 250: No HEENT Loss of Vision: Bilateral Hearing Impairment: Denies Cancer No Psychosocial History of Psychiatric Problem: No Integumentary History of Skin or Integumenta: No Blood Transfusions History of Blood Disorders: No (BLEEDS EASILY) Adverse Reaction to a Blood Tr: No (NEVER HAD BLOOD TRANSFUSION) Reviewed Nursing Assessment Reviewed/Agree w Nursing PMH: Yes Family Medical History Significant Family History: Heart Disease, Hypertension, Stroke Family Hx: Family history: Hypertension 03 FATHER, Onset:Unknown Myocardial infarction 03 FATHER, Onset:60 years & older Stroke 03 MOTHER, Onset:Unknown Review of Systems Constitutional: No chills, No fever; malaise, weakness EENTM: hearing loss; No hoarseness, No throat pain Respiratory: cough, dyspnea on exertion, short of breath; No wheezing Cardiovascular: No chest pain, No edema, No palpitations Gastrointestinal: No abdominal pain, No constipation, No diarrhea, No loss of appetite, No nausea, No vomiting Genitourinary: no symptoms reported Musculoskeletal: muscle weakness Skin: no symptoms reported Psychiatric/Neurological: Denies Anxiety, Denies Depressed; Weakness All Other Systems Reviewed Negative Unless Noted: Yes Physical Exam Vital Signs Vital Signs - First Documented Capillary Refill : Less Than 3 Seconds Height, Weight, BMI Height: 5'2.00" Weight: 169lbs. 6.0oz. 74.797261dt; 29.00 BMI Method:Stated General Appearance: No Apparent Distress, WD/WN Eyes: Bilateral Eye Normal Inspection, Bilateral Eye PERRL, Bilateral Eye EOMI HEENT: PERRL/EOMI, Pharynx Normal Neck: Limited Range of Motion (SURGICALLY) Respiratory: Chest Non Tender, Lungs Clear, Normal Breath Sounds, No Accessory Muscle Use, No Respiratory Distress Cardiovascular: Regular Rate, Rhythm, Normal Peripheral Pulses Gastrointestinal: Normal Bowel Sounds, No Organomegaly, No Pulsatile Mass, Non Tender, Soft Rectal: Deferred Extremity: Normal Capillary Refill, Non Tender, No Calf Tenderness, No Pedal Edema Neurologic/Psychiatric: Alert, Oriented x3, No Motor/Sensory Deficits, Normal Mood/Affect Skin: Normal Color, Warm/Dry Lymphatic: No Adenopathy Assessment/Plan Assessment and Plan ACUTE COVID 19 INFECTION COPD CONFUSION WEAKNESS HYPONATREMIA HYPOKALEMIA DEPRESSION HYPERTENSION ESOPHAGEAL REFLUX ACUTE COVID 19 INFECTION WITH HISTORY OF COPD - PT ADMITTED TO THE ICU - PT GIVEN A DOSE OF DEXAMETHASONE - MONITOR SYMPTOMS TOMORROW, MAY NEED TO GIVE HER A FEW DAYS OF DEXAMETHASONE. CONFUSION AND WEAKNESS - SUPPORTIVE CARE, MONITOR SYMPTOMS - PT IMPROVED TODAY. HYPONATREMIA AND HYPOKALEMIA - REPLACE WITH IV FLUIDS - MONITOR LABS DEPRESSION - WILL RESTART HOME MEDS WHEN RECONCILED. HYPERTENSION - MONITOR PRESSURES ESOPHAGEAL REFLUX - PPI THERAPY ORALLY Admission Diagnosis ACUTE COVID 19 INFECTION COPD CONFUSION WEAKNESS HYPONATREMIA HYPOKALEMIA DEPRESSION HYPERTENSION ESOPHAGEAL REFLUX Admission Status: Inpatient Order (span 2 midnights) Reason for Inpatient Admission: INPATIENT ADMISSION FOR COVID 19 INFECTION WITH DYSPNEA - WILL NEED AT LEAST 48 HOURS FOR STABILIZATION KAVITA ROOT MD Feb 23, 2021 17:33
[2021-02-23] MEDS ORDERED: SENNA W/DOCUSATE (SENOKOT S) TABLET PO PRN (17:45)
[2021-02-23] MEDS ORDERED: LORazepam INJ 2 MG/ML (ATIVAN) VIAL IV PRN (17:45)
[2021-02-23] MEDS ORDERED: LORazepam INJ 2 MG/ML (ATIVAN) VIAL IM/IV PRN (17:45)
[2021-02-23] MEDS ORDERED: ONDANSETRON 4 MG (ZOFRAN) ORAL DISSOLVE TAB SL PRN (17:45)
[2021-02-23] MEDS ORDERED: ANTACID SUSP 30 ML UDC (MYLANTA) PO PRN (17:45)
[2021-02-23] MEDS ORDERED: D5 1/2 NS 1000 ML IV SOLUTION 1,000 ML IV PRN (17:45)
[2021-02-23 18:00] VITALS: BP 144/70
[2021-02-23] MEDS ORDERED: MAGNESIUM OXIDE (MAG-OX)400 MG TAB PO SCH (18:00)
--- NOTE | 2021-02-23 18:42 | Tele-ICU Consult ---
History of Present Illness History of Present Illness Date Seen by Provider: Feb 23, 2021 Time Seen by Provider: 18:41 Date of Admission Allergies and Home Medications Allergies Coded Allergies: succinylcholine (Unverified Allergy, Unknown, 04/24/17) Home Medications Albuterol Sulfate 18 Gm Hfa.aer.ad, 2 PUFF INH Q4H PRN for SHORTNESS OF BREATH, (Reported) Ascorbate Calcium 500 Mg Tablet, 500 MG PO DAILY, (Reported) Beta-Carotene 25,000 Unit Capsule, 25,000 UNIT PO DAILY, (Reported) Cephalexin 500 Mg Tablet, 500 MG PO QID Prescribed by: DORA CARDONA on 10/14/19 115 Cetirizine HCl 10 Mg Tab.rapdis, 10 MG PO DAILY, (Reported) Cholecalciferol (Vitamin D3) 400 Unit Capsule, 400 UNIT PO DAILY, (Reported) Escitalopram Oxalate 20 Mg Tablet, 20 MG PO HS, (Reported) Fenofibrate Nanocrystallized 145 Mg Tablet, 145 MG PO DAILY, (Reported) Fluticasone/Salmeterol 1 Each Blst.w.dev, 1 EACH IH BID, (Reported) Gabapentin 400 Mg Capsule, 400 MG PO QID PRN for PAIN-MODERATE (5-7), (Reported) Glucosa Prince 2Kcl/Chondroitin Prince 1 Each Tablet, 1 TAB PO DAILY, (Reported) Hydrocodone/Acetaminophen 1 Each Tablet, 1 EACH PO Q4-6HR PRN for PAIN-MODERATE Prescribed by: DORA CARDONA on 10/14/191158 Losartan/Hydrochlorothiazide 1 Each Tablet, 1 EACH PO DAILY, (Reported) Montelukast Sodium 10 Mg Tablet, 10 MG PO HS, (Reported) Multivitamin 1 Each Tablet, 1 TAB PO DAILY, (Reported) Omeprazole 40 Mg Capsule.dr, 40 MG PO BID, (Reported) Pomegranate Fruit Extract 250 Mg Capsule, 250 MG PO DAILY, (Reported) Potassium Chloride 20 Meq Tab.er.prt, 20 MEQ PO BID, (Reported) Tramadol HCl 50 Mg Tablet, 50 MG PO Q6H PRN for PAIN-MODERATE, (Reported) Triamcinolone Acet 15 Gm Cr, 15 GM TP TID Prescribed by: DORA CARDONA on 10/14/19 115 Vitamin E Acetate 400 Unit Capsule, 400 UNIT PO DAILY, (Reported) Past Medical/Social/Family Hx Patient Social History Marrital Status: Living Status: LIVES AT HOME WITH SPOUSE Employed/Student: retired Tobacco Use?: No Use of E-Cig and/or Vaping dev: No Substance use?: No Alcohol Use?: Yes (Prior heavy consumption) Pt stated abuse/neglect: No Immunizations Up To Date Date of Pneumonia Vaccine: Feb 15, 2017 Current Status status: No status: No Advance Directives: No Communicates: Verbally Primary Language: Micronesian Preferred Spoken Language: Micronesian Is interpretation needed?: No Review of Systems Constitutional: see HPI Sepsis Event Evaluation Height, Weight, BMI Height: 5'2.00" Weight: 169lbs. 6.0oz. [id number]; 28.21 BMI Method:Stated Exam Exam Patient acknowledged, consented, and participated in this virtual visit which was conducted using real time audio/video Vital Signs Date Time Temp Pulse Resp B/P (MAP) Pulse Ox O2 Delivery O2 Flow Rate FiO2 02/23/21 18:30 90 28 92 02/23/21 18:15 90 22 93 02/23/21 18:00 89 18 144/70 (103) 91 02/23/21 17:45 92 26 91 02/23/21 17:30 91 22 92 Room Air 02/23/21 17:15 90 16 92 Room Air 02/23/21 17:00 92 17 136/86 (113) 93 Room Air 02/23/21 16:57 93 02/23/21 16:45 86 12 95 Room Air 02/23/21 16:44 93 33 97 Room Air 02/23/21 16:43 92 16 138/75 (109) 96 02/23/21 16:43 92 16 138/75 (109) 96 Room Air 02/23/21 12:40 Room Air 02/23/21 12:40 38.0 100 22 145/98 (114) 90 Room Air 02/23/21 12:40 96 Nasal Cannula 2.00 Height & Weight Height: 5'2.00" Weight: 169lbs. 6.0oz. 74.316627ep; 28.21 BMI Method:Stated General Appearance: No Apparent Distress, WD/WN HEENT: PERRL/EOMI, Pharynx Normal Neck: Limited Range of Motion (SURGICALLY) Respiratory: Chest Non Tender, Lungs Clear, Normal Breath Sounds, No Accessory Muscle Use, No Respiratory Distress Cardiovascular: Regular Rate, Rhythm, Normal Peripheral Pulses Capillary Refill: Less Than 3 Seconds Extremity: Normal Capillary Refill, Non Tender, No Calf Tenderness, No Pedal Edema Neurologic/Psychiatric: Alert, Oriented x3, No Motor/Sensory Deficits, Normal Mood/Affect Skin: Normal Color, Warm/Dry Lymphatic: No Adenopathy Results Lab Laboratory Tests 02/23/21 12:40 Assessment/Plan Assessment/Plan (Tele-ICU Physician , consultation) Available chart/ vitals / labs / Images reviewed H&P is from ER notes Patient's information available about PMH, Shx, Fhx allergy reviewed in EMR. ROS as per chart and RN report Now in ICU, hemodynamically stable Video assessment done using teleICU camera, rest of exam as per RN Discussed with RN. Consultants: Hospital course: 02/21- AMS , fevr,. COVID + A/P Confusion - most likely TME with fever , infection COVID positive ( vaccinated ) - not hypoxic, decadron initiated by bedside MD COPD - cont nebs Elev PCT - borderline - recentlu on Omnicef for a sinus infection CAD - s/p cth nonobstr dz ECHO 2018- EF 50% Mild hyponatremia - monitor , given IVF ETON abuse as per chart - CIWA , vitamins Lines : (Central Line Necessity Reviewed) Martinez: void OG: Nutrition: Analgesia: Anxiety/ delirium VTE Prophylaxis: lovenoc 40 qd Stress Ulcer Prophylaxis: Plans in collaboration with bedside consultants and IM MDs. Discussed with RN to reach out if any questions or concerns A total of 31minutes of critical care time was devoted to this patient today, required to treat and/or prevent further deterioration of critical care condition ( as above ) . JAMAR MCPHERSON MD Feb 23, 2021 18:42
[2021-02-23] MEDS ORDERED: KCL 20 MEQ TAB (K-DUR) PO ONE ×2 (19:00→21:00)
[2021-02-23] MEDS: ENOXAPARIN 40 MG/0.4 ML (LOVENOX) SYR SC SCH (19:05)
[2021-02-23] MEDS: ACETAMINOPHEN 325 MG TABLET PO PRN (19:05)
[2021-02-23] MEDS: LACTATED RINGERS 1,000 ML IV SCH (19:06)
[2021-02-24] MEDS ORDERED: ALPRAZolam 0.25 MG (XANAX) TAB PO ONE
[2021-02-24] MEDS ORDERED: ALPRAZolam 0.25 MG (XANAX) TAB ONE (00:03)
[2021-02-24 00:46] LABS: BILIRUBIN,URINE NEGATIVE (NEGATIVE); CLARITY,URINE CLEAR; COLOR,URINE YELLOW; GLUCOSE, URINE (UA) NEGATIVE (NEGATIVE); KETONES,URINE TRACE (NEGATIVE); LEUKOCYTE ESTERASE ,URINE NEGATIVE (NEGATIVE); NITRITE,URINE NEGATIVE (NEGATIVE); PH,URINE 7.5 (5-9); PROTEIN,URINE TRACE (NEGATIVE)
[2021-02-24 00:57] LABS: BACTERIA,URINE NEGATIVE /HPF; HYALINE CASTS, URINE 0-2 /LPF; SQUAMOUS EPITHELIAL CELL,UR 0-2 /HPF
[2021-02-24] MEDS: ACETAMINOPHEN 325 MG TABLET PO PRN ×2 (02:30→09:35)
[2021-02-24] MEDS: LACTATED RINGERS 1,000 ML IV SCH (04:09)
[2021-02-24 05:49] LABS: BASOPHILS % (AUTO) 0 % (0-10); EOSINOPHILS % (AUTO) 0 % (0-10); HEMATOCRIT 37 % (35-52); HEMOGLOBIN 12.5 g/dL (11.5-16.0); LYMPHOCYTES % (AUTO) 8 % (12-44); MEAN CORPUSCULAR HEMOGLOBIN 32 pg (25-34); MEAN CORPUSCULAR HGB CONC 34 g/dL (32-36); MEAN CORPUSCULAR VOLUME 93 fL (80-99); MEAN PLATELET VOLUME 8.9 fL (9.0-12.2); MONOCYTES # (AUTO) 1.1 10^3/uL (0.0-1.0); MONOCYTES % (AUTO) 9 % (0-12); NEUTROPHILS # (AUTO) 9.3 10^3/uL (1.8-7.8); NEUTROPHILS % (AUTO) 82 % (42-75); PLATELET COUNT 203 10^3/uL (130-400); WHITE BLOOD COUNT 11.3 10^3/uL (4.3-11.0)
[2021-02-24] MEDS ORDERED: MAGNESIUM 1 GM/100 ML IVPB 100 ML IV SCH (06:00)
[2021-02-24] MEDS ORDERED: POTASSIUM CL 10MEQ/50ML IVPB 50 ML IV SCH (06:00)
[2021-02-24 06:04] LABS: ALBUMIN 3.6 GM/DL (3.2-4.5); POTASSIUM 4.1 MMOL/L (3.6-5.0)
[2021-02-24] MEDS: THIAMINE 100 MG (VITAMIN B-1) TAB PO SCH (06:05)
[2021-02-24] MEDS: MULTIVIT W/MINERALS TAB (THERAGRAN M) PO SCH (06:05)
[2021-02-24] MEDS: FOLIC ACID 1 MG TAB PO SCH (06:05)
[2021-02-24 06:06] LABS: TOTAL PROTEIN 5.9 GM/DL (6.4-8.2)
[2021-02-24 06:08] LABS: BILIRUBIN,TOTAL 0.5 MG/DL (0.1-1.0)
[2021-02-24] MEDS: KCL 20 MEQ TAB (K-DUR) PO SCH (06:08)
[2021-02-24 06:10] LABS: CREATININE SERUM 0.66 MG/DL (0.60-1.30); PHOSPHORUS 2.2 MG/DL (2.3-4.7)
[2021-02-24 06:13] LABS: MAGNESIUM 1.5 MG/DL (1.6-2.4)
[2021-02-24] MEDS: MAGNESIUM 1 GM/100 ML IVPB 100 ML IV SCH ×2 (06:35→09:35)
--- NOTE | 2021-02-24 07:42 | Progress Note ---
Subjective Subjective Date Seen by Provider: Feb 24, 2021 Time Seen by Provider: 07:30 Patient feels okay this morning. She has had diarrhea since earlier this week and was having it all night last night. She usually uses advair in the morning and feels as though she needs it. She did not eat yesterday because she didnt have an appetite but is hungry this morning. She feels a little bit more tired than she did yesterday but she did not sleep well last night. She has the chills off and on. Denies any nausea/vomiting or shortness of breath. She has a mild productive cough. Review of Systems General: Chills; No Night Sweats Pulmonary: No Dyspnea; Cough Cardiovascular: No: Chest Pain, Palpitations Gastrointestinal: Diarrhea; No: Nausea, Vomiting All Other Systems Reviewed All Other Systems Reviewed: Yes Objective Exam Vital Signs Vital Signs Date Time Temp Pulse Resp B/P (MAP) Pulse Ox O2 Delivery O2 Flow Rate FiO2 02/24/21 06:00 68 10 159/75 95 Room Air 02/24/21 05:16 69 28 146/66 96 Room Air 02/24/21 04:18 Room Air 02/24/21 04:00 61 133/58 94 Room Air 02/24/21 04:00 36.0 02/24/21 03:00 73 21 134/53 95 Room Air 02/24/21 02:02 85 38 143/112 95 Room Air 02/24/21 01:00 64 02/24/21 01:00 64 27 152/60 95 Room Air 02/24/21 00:56 36.8 02/24/21 00:42 Room Air 02/23/21 23:00 71 25 122/49 92 Room Air 02/23/21 22:00 66 19 117/46 91 Room Air 02/23/21 21:00 75 28 154/72 95 Room Air 02/23/21 20:42 36.9 84 14 146/69 95 Room Air 02/23/21 20:00 Room Air 02/23/21 19:49 36.0 87 26 124/69 92 Room Air 02/23/21 19:00 90 02/23/21 19:00 90 11 124/69 91 Room Air 02/23/21 18:30 90 28 92 02/23/21 18:15 90 22 93 02/23/21 18:00 89 18 144/70 (103) 91 02/23/21 17:45 92 26 91 02/23/21 17:30 91 22 92 Room Air 02/23/21 17:15 90 16 92 Room Air 02/23/21 17:00 92 17 136/86 (113) 93 Room Air 02/23/21 16:57 93 02/23/21 16:45 86 12 95 Room Air 02/23/21 16:44 93 33 97 Room Air 02/23/21 16:43 92 16 138/75 (109) 96 02/23/21 16:43 92 16 138/75 (109) 96 Room Air 02/23/21 12:40 Room Air 02/23/21 12:40 38.0 100 22 145/98 (114) 90 Room Air 02/23/21 12:40 96 Nasal Cannula 2.00 I & O 02/24/21 07:00 Intake Total 600 ml Output Total 0 ml Balance 600 ml General Appearance: No Apparent Distress, WD/WN Eyes: Bilateral Eye Normal Inspection, Bilateral Eye PERRL, Bilateral Eye EOMI HEENT: PERRL/EOMI, Normal ENT Inspection Neck: Normal Inspection Respiratory: Lungs Clear, No Accessory Muscle Use, Crackles (R upper lobe), Decreased Breath Sounds (Diminished in the bases) Cardiovascular: Regular Rate, Rhythm, No Edema, No Murmur Gastrointestinal: Normal Bowel Sounds, Non Tender, Soft Rectal: Deferred Extremity: Normal Inspection, No Pedal Edema Neurologic/Psychiatric: Alert, No Motor/Sensory Deficits, Normal Mood/Affect Skin: Normal Color, Warm/Dry Lymphatic: No Adenopathy Results Lab Laboratory Tests 02/23/21 12:40: White Blood Count 6.9, Red Blood Count 4.18, Hemoglobin 13.3, Hematocrit 39, Mean Corpuscular Volume 93, Mean Corpuscular Hemoglobin 32, Mean Corpuscular Hemoglobin Concent 34, Red Cell Distribution Width 11.9, Platelet Count 212, Mean Platelet Volume 8.7L, Immature Granulocyte % (Auto) 0, Neutrophils (%) (Auto) 87H, Lymphocytes (%) (Auto) 5L, Monocytes (%) (Auto) 7, Eosinophils (%) (Auto) 0, Basophils (%) (Auto) 0, Neutrophils # (Auto) 6.0, Lymphocytes # (Auto) 0.4L, Monocytes # (Auto) 0.5, Eosinophils # (Auto) 0.0, Basophils # (Auto) 0.0, Immature Granulocyte # (Auto) 0.0, Neutrophils % (Manual) 86, Lymphocytes % (Manual) 4, Monocytes % (Manual) 6, Eosinophils % (Manual) 0, Basophils % (Manual) 0, Band Neutrophils 4, Blood Morphology Comment NORMAL, Prothrombin Time 13.3, INR Comment 1.0, Activated Partial Thromboplast Time 30, Sodium Level 132L, Potassium Level 3.3L, Chloride Level 95L, Carbon Dioxide Level 22, Anion Gap 15H, Blood Urea Nitrogen 6L, Creatinine 0.64, Estimat Glomerular Filtration Rate 91, BUN/Creatinine Ratio 9, Glucose Level 106H, Lactic Acid Level 1.86, Calcium Level 9.1, Corrected Calcium 9.3, Total Bilirubin 0.5, Aspartate Amino Transf (AST/SGOT) 28, Alanine Aminotransferase (ALT/SGPT) 15, Alkaline Phosphatase 43, C-Reactive Protein High Sensitivity 2.08H, B-Type Natriuretic Peptide 62.7, Total Protein 6.2L, Albumin 3.8, Procalcitonin 0.21H, Serum Alcohol < 10 02/23/21 12:45: Influenza Type A (RT-PCR) Not Detected, Influenza Type B (RT-PCR) Not Detected, SARS-CoV-2 RNA (RT-PCR) DetectedH 02/24/21 00:20: Urine Color YELLOW, Urine Clarity CLEAR, Urine pH 7.5, Urine Specific [place] 1.010L, Urine Protein TRACEH, Urine Glucose (UA) NEGATIVE, Urine Ketones TRACEH, Urine Nitrite NEGATIVE, Urine Bilirubin NEGATIVE, Urine Urobilinogen 0.2, Urine Leukocyte Esterase NEGATIVE, Urine RBC (Auto) NEGATIVE, Urine RBC NONE, Urine W BC NONE, Urine Squamous Epithelial Cells 0-2, Urine Crystals NONE, Urine Bacteria NEGATIVE, Urine Casts PRESENT, Urine Hyaline Casts 0-2H, Urine Mucus NEGATIVE, Urine Culture Indicated CULTURE PENDING 02/24/21 05:05: White Blood Count 11.3H, Red Blood Count 3.95, Hemoglobin 12.5, Hematocrit 37, Mean Corpuscular Volume 93, Mean Corpuscular Hemoglobin 32, Mean Corpuscular Hemoglobin Concent 34, Red Cell Distribution Width 11.8, Platelet Count 203, Mean Platelet Volume 8.9L, Immature Granulocyte % (Auto) 1, Neutrophils (%) (Auto) 82H, Lymphocytes (%) (Auto) 8L, Monocytes (%) (Auto) 9, Eosinophils (%) (Auto) 0, Basophils (%) (Auto) 0, Neutrophils # (Auto) 9.3H, Lymphocytes # (Auto) 1.0, Monocytes # (Auto) 1.1H, Eosinophils # (Auto) 0.0, Basophils # (Auto) 0.0, Immature Granulocyte # (Auto) 0.1, Sodium Level 130L, Potassium Level 4.1, Chloride Level 99, Carbon Dioxide Level 21, Anion Gap 10, Blood Urea Nitrogen 11, Creatinine 0.66, Estimat Glomerular Filtration Rate 88, BUN /Creatinine Ratio 17, Glucose Level 91, Calcium Level 9.0, Corrected Calcium 9.3, Total Bilirubin 0.5, Aspartate Amino Transf (AST/SGOT) 24, Alanine Aminotransferase (ALT/SGPT) 14, Alkaline Phosphatase 36L, Total Protein 5.9L, Albumin 3.6, Phosphorus Level 2.2L, Magnesium Level 1.5L Assessment/Plan Assessment/Plan Assessment and Plan ACUTE COVID 19 INFECTION COPD CONFUSION WEAKNESS HYPONATREMIA HYPOKALEMIA DEPRESSION HYPERTENSION ESOPHAGEAL REFLUX ACUTE COVID 19 INFECTION WITH HISTORY OF COPD - PT ADMITTED TO THE ICU - PT GIVEN A DOSE OF DEXAMETHASONE - MAY NEED A FEW DAYS OF DEXAMETHASONE CONFUSION AND WEAKNESS - SUPPORTIVE CARE, MONITOR SYMPTOMS - PT IMPROVED TODAY. HYPONATREMIA AND HYPOKALEMIA - REPLACE WITH IV FLUIDS - POTASSIUM UP TO 4.1 - SODIUM DOWN TO 130 - MONITOR LABS DEPRESSION - WILL RESTART HOME MEDS WHEN RECONCILED HYPERTENSION - MONITOR PRESSURES ESOPHAGEAL REFLUX - PPI THERAPY ORALLY DVT PPX - LOVENOX Supervisory-Addendum Brief Verification & Attestation Participated in pt care: history, MDM, physical Personally performed: exam, history, MDM, supervision of care Care discussed with: Medical Student Procedures: n/a Results interpretation: Verified all documentation ACUTE COVID 19 INFECTION COPD CONFUSION DIARRHEA WEAKNESS HYPONATREMIA HYPOKALEMIA DEPRESSION HYPERTENSION ESOPHAGEAL REFLUX ACUTE COVID 19 INFECTION WITH HISTORY OF COPD - PT ADMITTED TO THE ICU - PT GIVEN A DOSE OF DEXAMETHASONE - MONITOR SYMPTOMS TOMORROW, MAY NEED TO GIVE HER A FEW DAYS OF DEXAMETHASONE. DIARRHEA - UNCERTAIN ETIOLOGY - MAY BE CDIFF VERSUS GI COVID - CHECK STOOL FOR CDIFF ANTIGENS - START ON PROBIOTICS - IF CDIFF POSITIVE WILL START FLAGYL GRAM NEGATIVE ELENA ON ONE BLOOD CULTURE - START ON ROCEPHIN, LAST POSITIVE URINE CULTURE HAD ECOLI WITH SOME RESISTANCE PATTERN CONFUSION AND WEAKNESS - SUPPORTIVE CARE, MONITOR SYMPTOMS - PT IMPROVED TODAY. HYPONATREMIA AND HYPOKALEMIA - LOWER TODAY - CHANGE FROM LR TO NS - MONITOR SODIUM LEVELS, ATTEMPT TO SLOW DOWN STOOL LOSSES. - REPLACE WITH IV FLUIDS - MONITOR LABS DEPRESSION - RESTART SSRI HYPERTENSION - MONITOR PRESSURES ESOPHAGEAL REFLUX - PPI THERAPY ORALLY DVT PROPHYLAXIS WITH SCD'S AND LOVENOX GI PROPHYLAXIS WITH PPI AND PROBIOTICS TRANSFER PT TO 4TH FLOOR TODAY JERRELL CONTRERAS Feb 24, 2021 07:42 KAVITA KIRBY MD Feb 24, 2021 09:29
[2021-02-24] MEDS ORDERED: cefTRIAXone 1 GM PRE-MIX 50 ML IV SCH (09:00)
[2021-02-24] MEDS ORDERED: ALBUTEROL/IPRATROP (COMBIVENT RESPIMAT) 4 GM INHALER IH SCH (09:00)
[2021-02-24] MEDS ORDERED: RT-ALBUTEROL HFA 8.5 GM INHALER IH PRN (09:00)
[2021-02-24] MEDS ORDERED: VALSARTAN 160 MG (DIOVAN) TABLET PO ONE (09:30)
[2021-02-24] MEDS: PANTOPRAZOLE 40 MG (PROTONIX) TAB PO SCH (09:34)
[2021-02-24] MEDS: LACTOBACILLUS ACIDOPHILUS (PROBIOTIC) CAPSULE PO SCH ×3 (09:39→17:27)
[2021-02-24] MEDS: NS IV 1000 ML 1,000 ML IV SCH ×2 (09:43→15:13)
[2021-02-24] MEDS: RT--FLUTICASONE/SALMETEROL 113-14 (AIRDUO RespiCLICK) IH SCH ×2 (11:00→18:37)
[2021-02-24] MEDS: UMECLIDINIUM BROMIDE (INCRUSE ELLIPTA) 7'S IH SCH (11:00)
[2021-02-24] MEDS ORDERED: VITA400C64 PO (12:22)
[2021-02-24] MEDS ORDERED: POTA-179 PO (12:22)
[2021-02-24] MEDS ORDERED: ASCO100024 PO (12:22)
[2021-02-24] MEDS ORDERED: CEFD300C3 PO (12:22)
[2021-02-24] MEDS ORDERED: ALPR1TAB7 PO (12:22)
[2021-02-24] MEDS ORDERED: CETI10TA17 PO (12:22)
[2021-02-24] MEDS ORDERED: CYAN-23 PO (12:22)
[2021-02-24] MEDS ORDERED: CALC1CAP21 PO (12:22)
[2021-02-24] MEDS ORDERED: LOSA1TAB23 PO (12:22)
[2021-02-24] MEDS ORDERED: GLUC-219 PO (12:22)
[2021-02-24] MEDS ORDERED: FENO145T26 PO (12:22)
[2021-02-24] MEDS: metroNIDAZOLE 500MG/100ML IVPB 100 ML IV SCH ×2 (15:08→20:36)
[2021-02-24] MEDS: RT-ALBUTEROL HFA 8.5 GM INHALER IH SCH ×2 (15:46→18:37)
[2021-02-24] MEDS: ENOXAPARIN 40 MG/0.4 ML (LOVENOX) SYR SC SCH (17:27)
[2021-02-24] MEDS: MONTELUKAST 10 MG (SINGULAIR) TAB PO SCH (20:36)
[2021-02-25] MEDS: NS IV 1000 ML 1,000 ML IV SCH ×4 (01:03→17:37)
[2021-02-25] MEDS: ACETAMINOPHEN 325 MG TABLET PO PRN ×2 (02:27→23:00)
[2021-02-25] MEDS: LORazepam 1 MG (ATIVAN) TAB PO PRN ×2 (02:28→17:34)
[2021-02-25] MEDS: THIAMINE 100 MG (VITAMIN B-1) TAB PO SCH (05:40)
[2021-02-25] MEDS: MULTIVIT W/MINERALS TAB (THERAGRAN M) PO SCH (05:40)
[2021-02-25] MEDS: FOLIC ACID 1 MG TAB PO SCH (05:40)
[2021-02-25] MEDS: metroNIDAZOLE 500MG/100ML IVPB 100 ML IV SCH (05:40)
[2021-02-25 05:58] LABS: BASOPHILS % (AUTO) 0 % (0-10); EOSINOPHILS % (AUTO) 0 % (0-10); HEMATOCRIT 33 % (35-52); HEMOGLOBIN 11.1 g/dL (11.5-16.0); LYMPHOCYTES # (AUTO) 0.9 10^3/uL (1.0-4.0); LYMPHOCYTES % (AUTO) 16 % (12-44); MEAN CORPUSCULAR HEMOGLOBIN 32 pg (25-34); MEAN CORPUSCULAR HGB CONC 33 g/dL (32-36); MEAN CORPUSCULAR VOLUME 97 fL (80-99); MEAN PLATELET VOLUME 10.9 fL (9.0-12.2); MONOCYTES # (AUTO) 0.5 10^3/uL (0.0-1.0); MONOCYTES % (AUTO) 10 % (0-12); NEUTROPHILS # (AUTO) 3.9 10^3/uL (1.8-7.8); NEUTROPHILS % (AUTO) 74 % (42-75); PLATELET COUNT 209 10^3/uL (130-400); WHITE BLOOD COUNT 5.3 10^3/uL (4.3-11.0)
[2021-02-25 06:10] LABS: POTASSIUM 4.7 MMOL/L (3.6-5.0)
[2021-02-25] MEDS: KCL 20 MEQ TAB (K-DUR) PO SCH (06:11)
[2021-02-25 06:12] LABS: CALCIUM 7.9 MG/DL (8.5-10.1)
[2021-02-25 06:15] LABS: BILIRUBIN,TOTAL 0.2 MG/DL (0.1-1.0)
[2021-02-25 06:16] LABS: CREATININE SERUM 0.55 MG/DL (0.60-1.30); PHOSPHORUS 2.5 MG/DL (2.3-4.7)
[2021-02-25 06:19] LABS: MAGNESIUM 1.8 MG/DL (1.6-2.4)
[2021-02-25] MEDS: RT-ALBUTEROL HFA 8.5 GM INHALER IH SCH ×4 (07:11→19:03)
[2021-02-25] MEDS: UMECLIDINIUM BROMIDE (INCRUSE ELLIPTA) 7'S IH SCH (07:11)
[2021-02-25] MEDS: RT--FLUTICASONE/SALMETEROL 113-14 (AIRDUO RespiCLICK) IH SCH ×2 (07:11→19:03)
[2021-02-25] MEDS: LACTOBACILLUS ACIDOPHILUS (PROBIOTIC) CAPSULE PO SCH ×3 (09:05→17:34)
[2021-02-25] MEDS: PANTOPRAZOLE 40 MG (PROTONIX) TAB PO SCH (09:05)
[2021-02-25] MEDS: VALSARTAN 160 MG (DIOVAN) TABLET PO SCH (09:06)
[2021-02-25] MEDS ORDERED: ALPRAZolam 0.5 MG (XANAX) TAB PO PRN (12:00)
[2021-02-25] MEDS: VANCOMYCIN 125 MG CAPSULE PO SCH ×3 (12:09→23:00)
[2021-02-25 16:00] VITALS: BP 173/72
[2021-02-25] MEDS: ENOXAPARIN 40 MG/0.4 ML (LOVENOX) SYR SC SCH (17:35)
--- NOTE | 2021-02-25 19:03 | Progress Note - Hospitalist ---
Subjective HPI/CC On Admission Date Seen by Provider: Feb 25, 2021 Time Seen by Provider: 11:00 Subjective/Events-last exam She is feeling better today. She is wanting to go home. She has been having a lot of diarrhea. Focused Exam Lactate Level 02/23/21 12:40: Lactic Acid Level 1.86 Objective Exam Vital Signs Vital Signs Date Time Temp Pulse Resp B/P (MAP) Pulse Ox O2 Delivery O2 Flow Rate FiO2 02/25/21 15:56 97 Room Air 02/25/21 11:53 36.6 66 18 162/63 02/23/21 12:40 2.00 Capillary Refill : Less Than 3 Seconds General Appearance: No Apparent Distress, WD/WN Respiratory: Lungs Clear, Normal Breath Sounds, No Respiratory Distress Cardiovascular: Regular Rate, Rhythm, No Edema, No Murmur Gastrointestinal: Normal Bowel Sounds, Non Tender, Soft Extremity: Normal Inspection, Non Tender, No Pedal Edema Neurologic/Psychiatric: Alert, Oriented x3, No Motor/Sensory Deficits, Normal Mood/Affect Skin: Normal Color, Warm/Dry Results/Procedures Lab Laboratory Tests 02/25/21 05:33 Patient resulted labs reviewed. Assessment/Plan Assessment and Plan Assess & Plan/Chief Complaint COVID-19 Fully vaccinated No oxygen requirement Stop Dexamethasone E coli UTI Gram negative marie bacteremia Final culture results pending Continue Rocephin C diff diarrhea Stop Flagyl Transition to oral Vancomycin Electrolyte abnormalities Monitor and correct as needed HTN GERD Depression Insomnia COPD Continue home meds DVT prophylaxis: Lovenox Diagnosis/Problems Diagnosis/Problems (1) COVID-19 Status: Acute (2) E. coli UTI Status: Acute (3) Gram-negative bacteremia Status: Acute (4) C. difficile diarrhea Status: Acute (5) Hyponatremia Status: Acute (6) HTN (hypertension) Status: Chronic (7) Delirium Status: Resolved Resolution Date/Time: 02/25/21 @ 19:03 (8) Depression Status: Chronic (9) Insomnia Status: Chronic (10) GERD (gastroesophageal reflux disease) Status: Chronic MARI SUMMERS MD Feb 25, 2021 19:03
[2021-02-25 20:11] VITALS: BP 164/71
[2021-02-25] MEDS: MONTELUKAST 10 MG (SINGULAIR) TAB PO SCH (23:00)
[2021-02-26 00:29] VITALS: BP 156/61
[2021-02-26 03:20] VITALS: BP 140/70
[2021-02-26] MEDS: VANCOMYCIN 125 MG CAPSULE PO SCH ×2 (06:12→12:09)
[2021-02-26] MEDS: FOLIC ACID 1 MG TAB PO SCH (06:12)
[2021-02-26] MEDS: MULTIVIT W/MINERALS TAB (THERAGRAN M) PO SCH (06:12)
[2021-02-26] MEDS: THIAMINE 100 MG (VITAMIN B-1) TAB PO SCH (06:12)
[2021-02-26 06:13] LABS: BASOPHILS % (AUTO) 0 % (0-10); EOSINOPHILS % (AUTO) 0 % (0-10); HEMATOCRIT 34 % (35-52); HEMOGLOBIN 11.7 g/dL (11.5-16.0); LYMPHOCYTES # (AUTO) 0.8 10^3/uL (1.0-4.0); LYMPHOCYTES % (AUTO) 14 % (12-44); MEAN CORPUSCULAR HEMOGLOBIN 32 pg (25-34); MEAN CORPUSCULAR HGB CONC 34 g/dL (32-36); MEAN CORPUSCULAR VOLUME 93 fL (80-99); MEAN PLATELET VOLUME 9.2 fL (9.0-12.2); MONOCYTES # (AUTO) 0.5 10^3/uL (0.0-1.0); MONOCYTES % (AUTO) 9 % (0-12); NEUTROPHILS # (AUTO) 4.2 10^3/uL (1.8-7.8); NEUTROPHILS % (AUTO) 76 % (42-75); PLATELET COUNT 222 10^3/uL (130-400); WHITE BLOOD COUNT 5.6 10^3/uL (4.3-11.0)
[2021-02-26 06:21] LABS: ALBUMIN 3.1 GM/DL (3.2-4.5); POTASSIUM 3.1 MMOL/L (3.6-5.0)
[2021-02-26 06:22] LABS: CALCIUM 8.3 MG/DL (8.5-10.1)
[2021-02-26 06:24] LABS: TOTAL PROTEIN 5.1 GM/DL (6.4-8.2)
[2021-02-26 06:25] LABS: BILIRUBIN,TOTAL 0.3 MG/DL (0.1-1.0)
[2021-02-26 06:27] LABS: CREATININE SERUM 0.54 MG/DL (0.60-1.30); PHOSPHORUS 2.5 MG/DL (2.3-4.7)
[2021-02-26 06:30] LABS: MAGNESIUM 1.6 MG/DL (1.6-2.4)
[2021-02-26] MEDS: KCL 20 MEQ TAB (K-DUR) PO SCH (06:35)
[2021-02-26] MEDS ORDERED: KCL 20 MEQ TAB (K-DUR) PO ONE ×3 (06:45→09:00)
[2021-02-26 08:00] VITALS: BP 172/68
[2021-02-26] MEDS: RT-ALBUTEROL HFA 8.5 GM INHALER IH SCH ×2 (08:04→11:15)
[2021-02-26] MEDS: RT--FLUTICASONE/SALMETEROL 113-14 (AIRDUO RespiCLICK) IH SCH (08:04)
[2021-02-26] MEDS: UMECLIDINIUM BROMIDE (INCRUSE ELLIPTA) 7'S IH SCH (08:04)
[2021-02-26] MEDS: LACTOBACILLUS ACIDOPHILUS (PROBIOTIC) CAPSULE PO SCH ×2 (08:34→12:10)
[2021-02-26] MEDS: MAGNESIUM 1 GM/100 ML IVPB 100 ML IV SCH ×3 (08:35→11:00)
[2021-02-26] MEDS: PANTOPRAZOLE 40 MG (PROTONIX) TAB PO SCH (08:35)
[2021-02-26] MEDS: VALSARTAN 160 MG (DIOVAN) TABLET PO SCH (09:58)
[2021-02-26] MEDS ORDERED: cefTRIAXone 1 GM PRE-MIX 50 ML IV SCH (11:00)
[2021-02-26] MEDS ORDERED: SULF1TAB38 PO (11:46)
[2021-02-26] MEDS ORDERED: VANC125C5 PO (11:46)
[2021-02-26 12:00] VITALS: BP 183/63
--- NOTE | 2021-02-26 12:05 | Discharge Summary ---
Discharge Summary Hospital Course Was the Problem List Reviewed?: Yes Problems/Dx: (1) COVID-19 Status: Acute (2) E. coli UTI Status: Acute (3) Gram-negative bacteremia Status: Acute (4) C. difficile diarrhea Status: Acute (5) Hyponatremia Status: Acute (6) HTN (hypertension) Status: Chronic (7) Delirium Status: Resolved (8) Depression Status: Chronic (9) Insomnia Status: Chronic (10) GERD (gastroesophageal reflux disease) Status: Chronic Hospital Course Date of Admission: Feb 23, 2021 at 13:55 Admission Diagnosis: COVID-19 Family Physician/Provider: Date of Discharge: 02/26/21 Discharge Diagnosis: COVID-19, Gram negative bacteremia, C diff diarrhea Hospital Course: Rosy Linder is a 70 year old female who presented with fever and weakness and was admitted with COVID-19. She did not require any supplemental oxygen and remained stable from a respiratory standpoint. Her course was complicated by UTI and gram negative omar bacteremia. Her blood cultures grew Elizabethkingia meningoseptica which was susceptible to Bactrim. She was given a two week course of Bactrim to complete as an outpatient. She was also found to have C diff diarrhea. She will complete a two week course of oral Vancomycin. The 10 day recommended course was extended to cover her past her current antibiotic course. She was feeling better and requested to be discharged home. She was getting around in her room well prior to discharge. She was discharged home in stable condition. Labs and Pending Lab Test: Laboratory Tests 02/26/21 05:23: White Blood Count 5.6, Red Blood Count 3.70L, Hemoglobin 11.7, Hematocrit 34L, Mean Corpuscular Volume 93, Mean Corpuscular Hemoglobin 32, Mean Corpuscular Hemoglobin Concent 34, Red Cell Distribution Width 11.9, Platelet Count 222, Mean Platelet Volume 9.2, Immature Granulocyte % (Auto) 1, Neutrophils (%) (Auto) 76H, Lymphocytes (%) (Auto) 14, Monocytes (%) (Auto) 9, Eosinophils (%) (Auto) 0, Basophils (%) (Auto) 0, Neutrophils # (Auto) 4.2, Lymphocytes # (Auto) 0.8L, Monocytes # (Auto) 0.5, Eosinophils # (Auto) 0.0, Basophils # (Auto) 0.0, Immature Granulocyte # (Auto) 0.0, Sodium Level 135, Potassium Level 3.1L, Chloride Level 104, Carbon Dioxide Level 21, Anion Gap 10, Blood Urea Nitrogen 8, Creatinine 0.54L, Estimat Glomerular Filtration Rate 111, BUN/Creatinine Ratio 15, Glucose Level 78, Calcium Level 8.3L, Corrected Calcium 9.0, Phosphorus Level 2.5, Magnesium Level 1.6, Total Bilirubin 0.3, Aspartate Amino Transf (AST/SGOT) 23, Alanine Aminotransferase (ALT/SGPT) 16, Alkaline Phosp hatase 41, Total Protein 5.1L, Albumin 3.1L Microbiology 02/24/21 Urine Culture - Final, Complete Escherichia coli Staph, Coag Neg (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 difficile GDH Antigen & Toxins - Final, Complete 02/23/21 Blood Culture - Preliminary, Resulted Gram Negative Omar Testing In Progress Home Meds Active Bactrim Ds Tablet (Sulfamethoxazole/Trimethoprim) 1 Each Tablet 1 Each PO BID 14 Days Vancomycin HCl 125 Mg Capsule 125 Mg PO Q6HR 14 Days Reported Vitamin B-12 (Cyanocobalamin (Vitamin B-12)) 1,000 Mcg Capsule 2,000 Mcg PO DAILY Vitamin E (Vitamin E Acetate) 400 Unit Capsule 400 Unit PO DAILY Osteo Bi-Flex Tablet (Glucosamine/D3/[place]ia Bri) 1 Each Tablet 1 Each PO DAILY Calcium 600 + Vit D 400 Softgl (Calcium Carbonate/Vitamin D3) 1 Each Capsule 1 Each PO DAILY Fenofibrate (Fenofibrate Nanocrystallized) 145 Mg Tablet 145 Mg PO DAILY Alprazolam 1 Mg Tablet 1 Mg PO HS Potassium Chloride 20 Meq Tab.er.prt 20 Meq PO BID Cetirizine HCl 10 Mg Tablet 10 Mg PO DAILY Losartan-Hctz 100-25 mg Tab (Losartan/Hydrochlorothiazide) 1 Each Tablet 1 Ea PO DAILY Cefdinir 300 Mg Capsule 300 Mg PO BID FILLED 02-17-2021 #14/7 DAY SUPPLY Vitamin C (Ascorbic Acid) 1,000 Mg Tablet 1,000 Mg PO DAILY Lexapro (Escitalopram Oxalate) 20 Mg Tablet 20 Mg PO HS Gabapentin 400 Mg Capsule 400 Mg PO QID Advair 250-50 Diskus (Fluticasone/Salmeterol) 1 Each Blst.w.dev 1 Each IH BID Beta Carotene (Beta-Carotene) 25,000 Unit Capsule 25,000 Unit PO DAILY Pomegranate (Pomegranate Fruit Extract) 250 Mg Capsule 250 Mg PO DAILY Multivitamins (Multivitamin) 1 Each Tablet 1 Tab PO DAILY Ventolin Hfa (Albuterol Sulfate) 18 Gm Hfa.aer.ad 2 Puff INH Q4H PRN Omeprazole 40 Mg Capsule.dr 40 Mg PO BID Tramadol HCl 50 Mg Tablet 50 Mg PO Q6H PRN Montelukast Sodium 10 Mg Tablet 10 Mg PO HS Assessment/Pt Instructions You are positive for COVID-19. You will need to remain in isolation until March 05. You also have bacteria in your blood and you should complete your two week course of Bactrim. You also have C diff diarrhea and should complete your two week course of oral Vancomycin. You should follow up with Dr. Root in a couple weeks, once you are out of isolation. Return with worsening pain, diarrhea, or if you feel like you are getting worse. Discharge Planning: <30 minutes discharge planning Discharge Instructions Discharge Diet: No Restrictions Activity as Tolerated: Yes Discharge Physical Examination Vital Signs Vital Signs Date Time Temp Pulse Resp B/P (MAP) Pulse Ox O2 Delivery O2 Flow Rate FiO2 02/26/21 11:15 97 Room Air 02/26/21 08:00 36.3 64 18 172/68 (102) 02/23/21 12:40 2.00 General Appearance: No Apparent Distress, WD/WN HEENT: PERRL/EOMI, Pharynx Normal Respiratory: Lungs Clear, Normal Breath Sounds, No Respiratory Distress Cardiovascular: Regular Rate, Rhythm, No Edema, No Murmur Gastrointestinal: Normal Bowel Sounds, Non Tender, Soft Extremity: Normal Inspection, Non Tender, No Pedal Edema Skin: Normal Color, Warm/Dry Neurologic/Psychiatric: Alert, No Motor/Sensory Deficits, Normal Mood/Affect Allergies: Coded Allergies: succinylcholine (Unverified Allergy, Unknown, 04/24/17) Copy Copies To 1: KAVITA ROOT MD Discharge Summary Date of Admission Feb 23, 2021 at 13:55 Date of Discharge Discharge Date: Feb 26, 2021 Discharge Time: 12:04 Admission Diagnosis COVID-19 Discharge Diagnosis COVID-19 E coli UTI Gram negative omar bacteremia C diff diarrhea (1) COVID-19 Status: Acute (2) E. coli UTI Status: Acute (3) Gram-negative bacteremia Status: Acute (4) C. difficile diarrhea Status: Acute (5) Hyponatremia Status: Acute (6) HTN (hypertension) Status: Chronic (7) Delirium Status: Resolved (8) Depression Status: Chronic (9) Insomnia Status: Chronic (10) GERD (gastroesophageal reflux disease) Status: Chronic MARI SUMMERS MD Feb 26, 2021 11:57
== END 2021-02-26 14:40 | disposition home or self-care (01) | DRG 178 ==
LOC: EDUNIT# 12:31 → ER 12:32 → ICU 13:55 → EDLOC 13:55 → 4TH 02-24 10:30
PROVIDERS: ADMIT Family Medicine; ATTEND Internal Medicine
PROC: 8E0ZXY6 Isolation (ICD-10-PCS; principal; 2021-02-23)
DX: U07.1 COVID-19 (principal); E87.1 Hypo-osmolality and hyponatremia; N39.0 Urinary tract infection, site not specified; A04.72 Enterocolitis due to Clostridium difficile, not specified as recurrent; R78.81 Bacteremia; I25.10 Atherosclerotic heart disease of native coronary artery without angina pectoris; I10 Essential (primary) hypertension; I65.29 Occlusion and stenosis of unspecified carotid artery; J44.9 Chronic obstructive pulmonary disease, unspecified; H54.7 Unspecified visual loss; M54.9 Dorsalgia, unspecified; G89.29 Other chronic pain; E87.6 Hypokalemia; F32.A Depression, unspecified; K21.9 Gastro-esophageal reflux disease without esophagitis; R53.1 Weakness; B96.20 Unspecified Escherichia coli [E. coli] as the cause of diseases classified elsewhere; B96.89 Other specified bacterial agents as the cause of diseases classified elsewhere; Z98.1 Arthrodesis status; Z96.641 Presence of right artificial hip joint; Z79.899 Other long term (current) drug therapy
CPT/HCPCS: 36415; 71045; 80053; 80320; 81000; 83605; 83735; 83880; 84100; 84145; 85007; 85025; 85027; 85610; 85730; 86141; 87040; 87070; 87077; 87081; 87088; 87186; 87205; 87324; 87449; 87636; 94640; 94760

== ENCOUNTER → 2021-04-14 | Outpatient (CLI) | payer MEDICARE, OTHER ==
[~2021-04-14] MED LIST changes: +ALPR1TAB7 PO; +ASCO100024 PO; +CALC1CAP21 PO; +CYAN-23 PO; +FENO145T26 PO; +GLUC-219 PO; +LOSA1TAB23 PO; +POTA-179 PO; +SULF1TAB38 PO; +VANC125C5 PO; +VITA400C64 PO
--- NOTE | 2021-04-14 11:47 | Diagnostic Imaging Report ---
INDICATION: Fall and right arm pain. TIME OF EXAM: 11:37 AM 2 views of the right humerus were obtained. There are postop changes to the right humerus. A humeral prosthesis is noted. Prosthesis appears intact without fracture or loosening. Alignment at the elbow is normal. No acute bony abnormality is detected. IMPRESSION: Postoperative changes in the right shoulder. No acute abnormality is detected. Dictated by: Dictated on workstation # [id number]
--- NOTE | 2021-04-14 11:49 | Diagnostic Imaging Report ---
INDICATION: Fall with right-sided chest pain. TIME OF EXAM: 11:38 AM Multiple views of right-sided ribs as well as the chest was obtained. There is a fracture of the right anterior 8th rib. No other fractures are seen. There is some atelectasis in right lung base. No parenchymal contusion is seen. There is trace pleural fluid. No pneumothorax is identified. IMPRESSION: Right anterior 8th rib fracture with associated right basilar subsegmental atelectasis and trace effusion. Dictated by: Dictated on workstation # [id number]
--- NOTE | 2021-04-14 12:10 | Diagnostic Imaging Report ---
PROCEDURE: CT abdomen and pelvis without contrast. TECHNIQUE: Multiple contiguous axial images were obtained through the abdomen and pelvis without the use of intravenous contrast. Auto Exposure Controls were utilized during the CT exam to meet ALARA standards for radiation dose reduction. INDICATION: Fall. Right-sided abdominal pain. COMPARISON: 04/22/2013. FINDINGS: The heart is unremarkable. The lung bases are clear. The liver, spleen, pancreas, adrenal glands, and kidneys have a normal appearance. The gallbladder is surgically absent. There is no pathologically enlarged mesenteric or retroperitoneal adenopathy. The bowel loops are nondilated. The appendix is visualized in the right lower quadrant and has a normal appearance. Diverticulosis of the sigmoid colon is seen without evidence of acute diverticulitis. There is no free fluid or free air. Nondisplaced fractures are seen involving the right 8th through 10th ribs. Endplate sclerotic changes are visualized at the L1-L2 level. There is calcified aortic and iliac atherosclerotic plaque without aneurysm. Ureters and bladder are normal. There is no free air, loculated collection, or adenopathy in the pelvis. IMPRESSION: 1. Nondisplaced fractures involving the right 8th through 10th ribs. This may represent the patient's history of right-sided abdominal pain. No associated solid organ injury. 2. Diverticulosis of the sigmoid colon without evidence of acute diverticulitis. Dictated by: Dictated on workstation # [id number]
== END ==
LOC: RAD 11:14
PROVIDERS: ATTEND Physician Assistant
DX: S22.41XA Multiple fractures of ribs, right side, initial encounter for closed fracture (principal); K57.30 Diverticulosis of large intestine without perforation or abscess without bleeding; K21.9 Gastro-esophageal reflux disease without esophagitis; Y30.XXXA Falling, jumping or pushed from a high place, undetermined intent, initial encounter
CPT/HCPCS: 71101; 73060; 74176